=== PATIENT | male | born 1960 | race Caucasian/White ===

== ENCOUNTER → 2016-10-05 | Outpatient (CLI) | payer OTHER ==
--- NOTE | 2016-10-05 09:56 | BD ---
EXAMINATION TYPE: MG DEXA axial skeleton. DATE OF EXAM: 10/05/2016 COMPARISON: NONE CLINICAL HISTORY: M25.511 PAIN SHOULDER, M54.5 LUMBAR PAIN, E55.9 VIT D DEF. Height: 63.5 Weight: 189 FRAX RISK QUESTIONS: Alcohol (3 or more units per day): NO Family History (Parent hip fracture): NO BREAKS KNOWN Glucocorticoids (More than 3mos): NO (Ex: prednisone, prednisolone, methylprednisolone, dexamethasone, and hydrocortisone). History of Fracture in Adulthood: NONE AT 50 OR OLDER Secondary Osteoporosis: NO 1. Type 1 Diabetes: NO 2. Hyperthyroidism: NO 3. Menopause before 45: NA 4. Malnutrition: NO 5. Chronic liver disease: NO Rheumatoid Arthritis: NO BUT YES TO OSTEOARTHRITIS Current Tobacco Use: NO RISK FACTORS HISTORY OF: History of Wrist Fracture: RT WRIST AND HAND When: < 50 YRS Other Fractures since Age 50: NONE AT 50 OR OVER Family History of Osteoporosis: MATERNAL GRANDMOTHER, NO KNOWN HIP FX Drink Alcohol: SOCIAL Active: IN ACTIVITY IN LAST YR OR SO, BUT NORMALLY VERY ACTIVE Diet low in dairy products/other sources of calcium: YES Lost more than 2 inches in height since high school: POSSIBLY Adrenal Insufficiency: NO MEDICATIONS: Additional Medications: VIT D, BP MEDS, Additional History: OSTEOARTHRITIS EXAM MEASUREMENTS: Bone mineral densitometry was performed using the [employer] System. Bone mineral density as measured about the Lumbar spine is: ----- L1-L4(G/cm2): 1.473 T Score Values are as follows: ----- L1: 1.9 ----- L2: 1.8 ----- L3: 2.7 ----- L4: 3.2 ----- L1-L4: 2.4 Bone mineral density THIS IS HIS FIRST BONE DENSITY EXAM......BASELINE Bone mineral density about the R hip (g/cm2): 1.197 Bone mineral density about the L hip (g/cm2): 1.196 T Score values are as follows: -----R Neck: 0.8 -----L Neck: 0.5 -----R Total: 1.5 -----L Total: 1.5 Bone mineral density THIS IS HIS BASELINE STUDY TODAY. FRAX %'S: THERE IS A 3.4% CHANCE FOR A MAJOR OSTEOPOROTIC FX AND A 0.1% CHANCE FOR A HIP FX.....OH OBABILITY OF FX IN 10 YRS TIME IMPRESSION: Normal Range (Values between +1 and -1 indicate normal bone mass) in low back and both hips. Conside r repeating this study in 5 years or sooner if there is some new clinical indication. NOTE: T-SCORE=SD OF THE YOUNG ADULT MEAN.
== END | disposition home or self-care (01) ==
LOC: RADBDWWP 08:16
PROVIDERS: ATTEND Family Medicine
DX: M25.511 Pain in right shoulder (principal); M54.5 Low back pain; E55.9 Vitamin D deficiency, unspecified
CPT/HCPCS: 77080

== ENCOUNTER 2018-02-06 08:54 | Emergency (ER) | payer OTHER ==
[2018-02-06 09:11] VITALS: RESP 18
--- NOTE | 2018-02-06 09:50 | XR ---
EXAMINATION TYPE: XR shoulder complete LT , 3 VIEWS DATE OF EXAM ORDERED: 02/06/2018 HISTORY: Pain. COMPARISON: None. FINDINGS: There are hypertrophic changes in the left AC joint. No fracture, dislocation or other acu te osseous lesion is seen. IMPRESSION: 1. NO ACUTE OSSEOUS LESION. 2. DEGENERATIVE CHANGE, LEFT AC JOINT.
--- NOTE | 2018-02-06 09:50 | XR ---
EXAMINATION TYPE: XR cervical spine comp , 5 VIEWS DATE OF EXAM ORDERED: 02/06/2018 HISTORY: Pain. COMPARISON: None. FINDINGS: Vertebral body height and alignment are maintained. Prevertebral soft tissues are normal. Atlantoaxial relationships are unremarkable. The intervertebral foramina are widely patent. There may be some minimal disc space loss at C5-6. IMPRESSION: 1. NO ACUTE OSSEOUS LESION. 2. MINIMAL DEGENERATIVE CHANGE.
--- NOTE | 2018-02-06 09:51 | XR ---
EXAMINATION TYPE: XR elbow complete LT , 3 VIEWS DATE OF EXAM ORDERED: 02/06/2018 HISTORY: Pain. COMPARISON: Previous study dated 01/21/2016. FINDINGS: No fracture, dislocation or joint effusion is seen. There are degenerative changes present in the trochlear ulnar joint. IMPRESSION: 1. NO ACUTE OSSEOUS LESION. 2. DEGENERATIVE CHANGE.
--- NOTE | 2018-02-06 09:59 | ED ---
Upper Extremity HPI - General Chief Complaint: Extremity Injury, Upper Stated Complaint: [facility]-Shoulder/Elbow Pain Time Seen by Provider: 02/06/18 09:15 Source: patient, RN notes reviewed Mode of arrival: ambulatory Limitations: no limitations - History of Present Illness Initial Comments: 57-year-old male presents emergency Department for left shoulder, elbow and neck discomfort. Patient states started after lifting percentiles and I don't wall yesterday. Patient states his happened at work. Patient states that he has had worsening pain over made. Patient denies any weakness denies any paresthesias at this time. Patient states she's had similar issues in the past in which she had physical therapy for. Denies any chest pain or shortness of breath. Patient states he took some ibuprofen prior arrival and has helped some. - Related Data Home Medications Medication Instructions Recorded Confirmed Hydrochlorothiazide [Hydrodiuril] 25 mg PO DAILY 02/06/18 02/06/18 Ibuprofen [Motrin Ib] 600 mg PO Q6H PRN 02/06/18 02/06/18 Lisinopril 40 mg PO BID 02/06/18 02/06/18 Magnesium 200 mg PO DAILY 02/06/18 02/06/18 [place]-3 Fatty Acids/Fish Oil [Fish 1 cap PO DAILY 02/06/18 02/06/18 Oil 1,000 mg Softgel] Previous Rx's Medication Instructions Recorded Cyclobenzaprine [Flexeril] 10 mg PO TID PRN #15 tab 02/06/18 predniSONE 50 mg PO DAILY #5 tab 02/06/18 Allergies Allergy/AdvReac Type Severity Reaction Status Date / Time No Known Allergies Allergy Verified 02/06/18 09:48 Review of Systems ROS Statement: Those systems with pertinent positive or pertinent negative responses have been documented in the HPI. ROS Other: All systems not noted in ROS Statement are negative. Past Medical History Past Medical History: Hypertension Additional Past Medical History / Comment(s): pyloric stenosis History of Any Multi-Drug Resistant Organisms: None Reported Past Surgical History: Tonsillectomy Additional Past Surgical History / Comment(s): Right shoulder rotator cuff repair, cyst removal, wisdom teeth Past Psychological History: No Psychological Hx Reported Smoking Status: Never smoker Past Alcohol Use History: Occasional Past Drug Use History: None Reported General Exam Limitations: no limitations General appearance: alert, in no apparent distress Head exam: Present: atraumatic, normocephalic, normal inspection Neck exam: Present: normal inspection, tenderness (Mild left cervical paraspinal tenderness over the left trapezius region), full ROM. Absent: meningismus, lymphadenopathy Respiratory exam: Present: normal lung sounds bilaterally. Absent: respiratory distress, wheezes, rales, rhonchi, stridor Cardiovascular Exam: Present: regular rate, normal rhythm, normal heart sounds. Absent: systolic murmur, diastolic murmur, rubs, gallop, clicks Extremities exam: Present: other (Decreased range of motion to left shoulder and left elbow secondary to pain. He is neurovascularly intact radial pulses equal bilaterally Refill less than 2 seconds. Patient has equal film waxer strength.) Skin exam: Present: warm, dry, intact Course Vital Signs 02/06/18 09:05 Temperature 97.9 F Pulse Rate 73 Respiratory 18 Rate Blood Pressure 111/71 O2 Sat by Pulse 97 Oximetry Medical Decision Making - Medical Decision Making 57-year-old male presents emergency Department for left shoulder elbow and neck discomfort. This appears to be related to a strain. Patient may have some cervical The type symptoms. Patient we treated conservatively at this time with follow-up with [facility]. Patient will restrict on lifting his left arm and return for any worsening symptoms. Disposition Clinical Impression: Cervical radiculopathy, Left shoulder strain Disposition: HOME SELF-CARE Condition: Stable Instructions: Cervical Radiculopathy (ED) Additional Instructions: Please return to the Emergency Department if symptoms worsen or any other concerns. Prescriptions: Cyclobenzaprine [Flexeril] 10 mg PO TID PRN #15 tab PRN Reason: Muscle Spasm predniSONE 50 mg PO DAILY #5 tab Is patient prescribed a controlled substance at d/c from ED?: No Referrals: Tom Sandy DO [Primary Care Provider] - 1-2 days Time of Disposition: 10:02
[2018-02-06] MEDS ORDERED: ACET/COD 300 MG/30 MG STARTER PACK 6 TAB BTL PO STA (10:03)
[2018-02-06 10:43] VITALS: BP 118/70; PULSE 67; TEMP 98.1
== END 2018-02-06 10:43 | disposition home or self-care (01) ==
LOC: EC 08:54
DX: S46.912A Strain of unspecified muscle, fascia and tendon at shoulder and upper arm level, left arm, initial encounter (principal); M54.12 Radiculopathy, cervical region; M25.522 Pain in left elbow; I10 Essential (primary) hypertension; Z79.899 Other long term (current) drug therapy; X50.0XXA Overexertion from strenuous movement or load, initial encounter; Y92.69 Other specified industrial and construction area as the place of occurrence of the external cause; Y99.0 Civilian activity done for income or pay
CPT/HCPCS: 72050; 99283

== ENCOUNTER → 2018-02-24 | Outpatient (CLI) | payer OTHER ==
--- NOTE | 2018-02-24 07:23 | MR ---
MRI CERVICAL SPINE: CLINICAL HISTORY: Sprain of cervical spine per order. Headache with neck pain for 2.5 weeks after lif ting injury causing pain or weakness into left arm per patient. TECHNIQUE: Multiplanar, multisequence imaging of the cervical spine is performed without IV contrast. COMPARISON: Cervical spine x-ray February 06, 2018. FINDINGS: Sagittal images of the cervical spine show the craniocervical junction to appear within nor mal limits. The cervical and upper thoracic spinal cord is normal in course, caliber, and signal. V ertebral alignment is anatomic. There is mild disc space narrowing C5-C6 level. The vertebral body a nd intravertebral disk heights otherwise are normal. Posterior disc herniations are seen effacing ant erior thecal sac at C5-C6 and C6-C7 level on sagittal images. The bone marrow signal intensity is wit hin normal limits. No significant spurring is present. There is fairly severe mucosal thickening invo lving right maxillary sinus sagittal image 12, cannot exclude dependent fluid. There is mild mucosal thickening involving left sphenoid sinus. Axial images show the C2-C3 level to appear within normal limits. Axial images at C3-C4 level show left-sided uncovertebral facet degenerative changes causing mild lef t-sided neural foraminal narrowing. Right-sided neural foramen is patent. Axial images at C4-C5 level show some uncovertebral facet degenerative changes bilaterally causing mi ld bilateral neural foraminal narrowing. There is central disc protrusion mildly effacing anterior th ecal sac. Axial images at C5-C6 level show more prominent right paracentral broad-based disc protrusion effacin g anterior thecal sac up to ventral surface of spinal cord axial image 22 and causing asymmetric mild to moderate left-sided neural foraminal narrowing. Right-sided neural foramen is patent. Axial images at C6-C7 level show more focal central disc protrusion with increased signal posteriorly consistent with annular tear axial image 15. There is slightly more prominent right paracentral comp onent effacing anterior thecal sac. Left-sided neural foramen is mildly narrow. Right-sided neural fo ramen is patent. Axial images at C7-T1 level are felt within normal limits. IMPRESSION: Multilevel degenerative changes in cervical spine most prominent at C5-C6 and C6-C7 level as detailed above. Possible acute on chronic right sphenoid sinus disease. Correlate clinically.
== END | disposition home or self-care (01) ==
LOC: RADMRIMAIN 06:33
PROVIDERS: ATTEND Emergency Medicine
DX: M47.812 Spondylosis without myelopathy or radiculopathy, cervical region (principal); S43.402A Unspecified sprain of left shoulder joint, initial encounter; M25.522 Pain in left elbow; R20.9 Unspecified disturbances of skin sensation
CPT/HCPCS: 72141

== ENCOUNTER 2018-12-06 06:44 | Day surgery (SDC) | payer MEDICARE, OTHER ==
[2018-12-01 11:10] VITALS: BMI 31.2
[~2018-12-06 06:44] MED LIST: LACTATED RINGERS 1,000 ML IV SCH; LIDOCAINE 1% 20 ML VIAL (10MG/ML) FOR IV START INTRADERMA PRN
[2018-12-06 07:01] VITALS: RESP 16; TEMP 98
[2018-12-06] MEDS ORDERED: PROPOFOL 10 MG/ML 20 ML VIAL IV ONE (07:41)
--- NOTE | 2018-12-06 07:59 | P.GSHP ---
History of Present Illness H&P Date: 12/06/18 Chief Complaint: Internal and external hemorrhoids This a 58-year-old male referred laparoscopic filmy. Patient presents today for colonoscopy. He's had issues with internal/external hemorrhoids. Patient's had complaints of anal pain itching of bleeding. Past Medical History Past Medical History: GERD/Reflux, Hyperlipidemia, Hypertension, Osteoarthritis (OA) Additional Past Medical History / Comment(s): hiatal hernia, gout, History of Any Multi-Drug Resistant Organisms: None Reported Past Surgical History: Orthopedic Surgery, Tonsillectomy Additional Past Surgical History / Comment(s): claude shoulder rotator cuff repair, cyst removal rt wrist, oral surgery , surgery for pyloric stenosis as Past Anesthesia/Blood Transfusion Reactions: No Reported Reaction Smoking Status: Never smoker - Past Family History Mother Family Medical History: No Reported History Medications and Allergies Home Medications Medication Instructions Recorded Confirmed Type Hydrochlorothiazide [Hydrodiuril] 25 mg PO DAILY 02/06/18 12/06/18 History Lisinopril 40 mg PO BID 02/06/18 12/06/18 History Cholecalciferol (Vitamin D3) 5,000 unit PO DAILY 12/01/18 12/06/18 History [Vitamin D3] Fenofibrate Nanocrystallized 145 mg PO DAILY 12/01/18 12/06/18 History [Fenofibrate] Pravastatin Sodium 80 mg PO DAILY 12/01/18 12/06/18 History Rosuvastatin Calcium [Crestor] 40 mg PO DAILY 12/01/18 12/06/18 History Allergies Allergy/AdvReac Type Severity Reaction Status Date / Time No Known Allergies Allergy Verified 12/01/18 11:01 Surgical - Exam Vital Signs Temp Pulse Resp BP Pulse Ox 98.0 F 77 16 112/64 95 12/06/18 06:59 12/06/18 06:59 12/06/18 06:59 12/06/18 06:59 12/06/18 06:59 - General well developed, well nourished, no distress - Eyes PERRL - ENT normal pinna - Neck no masses - Respiratory normal expansion - Cardiovascular Rhythm: regular - Abdomen Abdomen: soft, non tender Assessment and Plan Assessment: Internal and external hemorrhoids We'll perform colonoscopy.
--- NOTE | 2018-12-06 08:12 | P.OP ---
Date of Procedure: 12/06/18 Preoperative Diagnosis: Internal and external hemorrhoids Postoperative Diagnosis: Internal and external hemorrhoids Diverticulosis Procedure(s) Performed: Colonoscopy Anesthesia: MAC Surgeon: Ag Castillo Pathology: none sent Condition: stable Disposition: PACU Description of Procedure: The patient's placed on the endoscopy table in the lateral position. He received IV sedation. Digital rectal exam was performed which revealed internal and external hemorrhoids. The flexible colonoscope then placed patient anus passed throughout the entire colon. The ileocecal valve was visualized. The cecum, ascending and transverse colon appeared normal. In the descending and sigmoid colon there is moderate diverticular changes. Scope was then brought back the rectum and this appeared normal. Scope was then brought back through the anus and internal and external hemorrhoids are noted. There is no evidence of any GI bleed.
[2018-12-06 08:32] VITALS: BP 92/57; PULSE 71
== END 2018-12-06 08:44 | disposition home or self-care (01) ==
LOC: ORWHC2ENDO 06:44
PROVIDERS: ATTEND Surgery
DX: K64.4 Residual hemorrhoidal skin tags (principal); K64.8 Other hemorrhoids; K57.30 Diverticulosis of large intestine without perforation or abscess without bleeding; I10 Essential (primary) hypertension; E78.5 Hyperlipidemia, unspecified; K21.9 Gastro-esophageal reflux disease without esophagitis; M19.90 Unspecified osteoarthritis, unspecified site; Z79.899 Other long term (current) drug therapy
CPT/HCPCS: 45378; J2704

== ENCOUNTER 2022-04-22 11:05 | Inpatient (IN) | payer MEDICARE, OTHER ==
--- NOTE | 2022-04-22 12:02 | XR ---
EXAMINATION TYPE: XR chest 2V DATE OF EXAM: 04/22/2022 COMPARISON: None HISTORY: 61-year-old male with chest pain TECHNIQUE: PA and lateral views FINDINGS: Low lung volumes. Heart upper limits of normal in size. Strandy densities in the lower lungs suggesti ng atelectasis. No brenda consolidation or pleural effusion. IMPRESSION: Hypoventilatory changes with strandy atelectasis in the lower lungs. Otherwise, no definite acute pro cess.
--- NOTE | 2022-04-22 12:08 | ED ---
General Adult HPI - General Chief complaint: Chest Pain Stated complaint: chest pain Time Seen by Provider: 04/22/22 11:20 Source: patient, family, RN notes reviewed Mode of arrival: ambulatory Limitations: no limitations - History of Present Illness Initial comments: Patient is a 61-year-old presenting to the emergency room with complaints of chest pain which is banded across the lower portion of his chest. He reports it feels as though someone is sitting on his chest. He reports that this banded pain has been ongoing for several days however it intensified within the last 24-48 hours. He is also complaining of associated diaphoresis with similar onset of the chest pain intensity. He reports that taking in a deep breath makes the pain worse. He is also complaining of lower back pain. He reports that he has severe pain in his left leg which is "shooting out of his left leg throughout his entire body." He also reports nausea without vomiting and shortness of breath with minimal exertion. He denies any lower extremity edema, orthopnea, headache, dizziness, fevers or chills. He recently was started on methotrexate for rheumatoid arthritis. In addition to his rheumatoid arthritis history he has a past medical history significant for hypertension, hyperlipidemia, GERD and gout. - Related Data Home Medications Medication Instructions Recorded Confirmed hydroCHLOROthiazide [Hydrodiuril] 25 mg PO DAILY 02/06/18 05/01/22 lisinopriL 40 mg PO BID 02/06/18 05/01/22 Cbd/Thc Gummies 1 tab PO HS 04/22/22 05/01/22 Cholecalciferol [Vitamin D3 (125 125 mcg PO DAILY 04/22/22 05/01/22 Mcg = 5000 Iu)] allopurinoL [Zyloprim] 100 mg PO DAILY 04/22/22 05/01/22 Fluticasone Nasal [place] [Flonase 1 spray INTRANASAL DAILY 05/01/22 05/01/22 Nasal [place]] Previous Rx's Medication Instructions Recorded Acetaminophen Tab [Tylenol] 650 mg PO Q6H #30 tab 04/27/22 HYDROmorphone [Dilaudid] 4 mg PO Q6H PRN 3 Days #12 tab 04/27/22 Allergies Allergy/AdvReac Type Severity Reaction Status Date / Time sulfamethoxazole Allergy Nausea Verified 05/01/22 15:21 [From Bactrim] tramadol Allergy Rash/Hives Verified 05/01/22 15:21 trimethoprim [From Bactrim] Allergy Nausea Verified 05/01/22 15:21 Review of Systems ROS Statement: Those systems with pertinent positive or pertinent negative responses have been documented in the HPI. ROS Other: All systems not noted in ROS Statement are negative. Past Medical History Past Medical History: GERD/Reflux, Hyperlipidemia, Hypertension, Osteoarthritis (OA) Additional Past Medical History / Comment(s): hiatal hernia, gout, History of Any Multi-Drug Resistant Organisms: None Reported Past Surgical History: Orthopedic Surgery, Tonsillectomy Additional Past Surgical History / Comment(s): claude shoulder rotator cuff repair, cyst removal rt wrist, oral surgery , surgery for pyloric stenosis as infant Past Anesthesia/Blood Transfusion Reactions: No Reported Reaction Past Psychological History: No Psychological Hx Reported Smoking Status: Never smoker Past Alcohol Use History: Daily Past Drug Use History: Marijuana - Past Family History Mother Family Medical History: No Reported History General Exam - General Exam Comments Initial Comments: GENERAL: No acute distress, well developed, well nourished. HEENT: Normocephalic, atraumatic. Pupils equal, round, reactive to light. Moist mucous membranes. Left sided cervical lymphadenopathy. LUNGS: No respiratory distress. Clear to auscultation, no adventitious sounds, no use of accessory muscles. HEART: Regular rate and rhythm without murmur, rub, or gallop. ABDOMEN: Normal bowel sounds. Soft, non-distended. Rounded abdomen. RUQ tenderness EXTREMITIES: No edema. No point tenderness. Moves all extremities. NEUROLOGIC: Alert & oriented x 3. CN II-XII grossly intact. PSYCHIATRIC: Normal affect and behavior. DERMATOLOGIC: Skin intact, without rashes or lesions noted. Limitations: no limitations Course Vital Signs 04/22/22 04/22/22 04/22/22 11:10 16:48 20:25 Temperature 97.6 F Pulse Rate 95 91 101 H Pulse Rate [ Left] Respiratory 18 16 18 Rate Blood Pressure 124/75 129/83 136/89 Blood Pressure [Left Arm] O2 Sat by Pulse 97 99 95 Oximetry 04/22/22 20:57 Temperature 98.1 F Pulse Rate Pulse Rate [ 105 H Left] Respiratory 17 Rate Blood Pressure Blood Pressure 145/92 [Left Arm] O2 Sat by Pulse 95 Oximetry Medical Decision Making - Medical Decision Making Was pt. sent in by a medical professional or institution (Dr., PA, YARD COORDINATOR, urgent care, hospital, or [facility]...) When possible be specific @ -No Did you speak to anyone other than the patient for history (EMS, parent, family, police, friend...)? What history was obtained from this source @ -No Did you review nursing and triage notes (agree or disagree)? Why? @ -I reviewed and agree with nursing and triage notes except pain also in the upper band of abdominal region Were old charts reviewed (outside hosp., previous admission, EMS record, old EKG, old radiological studies, urgent care reports/EKG's, [facility] records)? Report findings @ -No old charts were reviewed Differential Diagnosis (chest pain, altered mental status, abdominal pain women, abdominal pain men, vaginal bleeding, weakness, fever, dyspnea, syncope, hea dache, dizziness, GI bleed, back pain, seizure, CVA, palpatations, mental health)? @ -Differential Chest Pain: Stable Angina, Unstable Angina, STEMI, NSTEMI Aortic Dissection, Pneumothorax, Musculoskeletal, Esophageal Spasm GERD, Cholecystitis, Pancreatitis, Zoster, this is not meant to be an all-inclusive list. Differential Abdominal Pain Men: Appendicitis, cholecystitis, diverticulosis, ischemic bowel, pancreatitis, hepatitis, UTI, gastroenteritis, AAA, incarcerated hernia, bowel obstruction, constipation, inflammatory bowel, hepatitis, peptic ulcer disease, splenic infarction, perforated viscus, testicular torsion, this is not meant to be an all-inclusive list EKG interpreted by me (3pts min.). @ -Sinus rhythm, probable old anterior infarct, probable old inferior infarct no comparison available, ventricular rate 92 bpm, MD interval 153 ms, QRS duration 90 ms, QT/QTC 324/374 ms, PRT axes 24, -2, 0 X-rays interpreted by me (1pt min.). @ -Chest x-ray demonstrates low lung volumes no consolidation or mass noted. CT interpreted by me (1pt min.). @ -CT of the abdomen and pelvis demonstrates significant hepatomegaly with irregular lesion to the anterior mid liver increase fluid levels in the abdomen concern for ileus versus enteritis. U/S interpreted by me (1pt. min.). @ -None done What testing was considered but not performed or refused? (CT, X-rays, U/S, labs)? Why? @ -None What meds were considered but not given or refused? Why? @ -None Did you discuss the management of the patient with other professionals (professionals i.e. , PA, YARD COORDINATOR, lab, RT, psych nurse, social media sr strategy manager, ammunition and explosives handler, teacher, tax compliance officer, pillowcase folder)? Give summary @ -Case discussed disc with Dr. Elizabeth with [facility] in regards to recommendation for hospitalization for further evaluation and treatment of symptomatology. He is accepting of admission and request consults to GI to be placed Was smoking cessation discussed for >3mins.? @ -No Was critical care preformed (if so, how long)? @ -No Were there social determinants of health that impacted care today? How? (Homelessness, low income, unemployed, alcoholism, drug addiction, transportation, low edu. Level, literacy, decrease access to med. care, [facility], rehab)? @ -No Was there de-escalation of care discussed even if they declined (Discuss DNR or withdrawal of care, Hospice)? DNR status @ -No What co-morbidities impacted this encounter? (DM, HTN, Smoking, COPD, CAD, Cancer, CVA, ARF, Chemo, Hep., AIDS, mental health diagnosis, sleep apnea, morb id obesity)? @ -Hypertension, hyperlipidemia and rheumatoid arthritis Was patient admitted / discharged? Hospital course, mention meds given and route, prescriptions, significant lab abnormalities, going to OR and other pertinent info. @ -Patient with multiple complaints and concerns including atypical chest pain abdominal pain and muscle pain with recent methotrexate start for rheumatoid arthritis. Will start workup for chest pain along with abdominal pain with EKG, chest x-ray, CMP, magnesium, coags, CBC, CK, sed rate, CRP, urinalysis along with viral swabs for COVID, influenza and RSV. EKG demonstrates sinus rhythm with no acute changes. Chest x-ray with decreased lung volumes significant consolidation or mass noted CBC revealed anemia with borderline leukocytosis and elevated neutrophil count. Coags normal. CMP revealed elevated BUN at 23 creatinine low at 0.6 bilirubin elevated at 1.5 a LT elevated at 96 alk phos elevated at 366 CK normal, troponin normal, magnesium normal CRP and sed rate both elevated due to elevation of liver and abdominal enzymes will check CT of the abdomen and pelvis. Will give IV fluid bolus for elevated BUN and morphine for pain. Viral swabs negative for Covid, RSV influenza, urinalysis with trace ketones otherwise normal. Pain improved with morphine. CT of the abdomen with significant abnormalities as indicated above along with radiologist report reviewed noting concerning enlarged lymph nodes in the right pericardiac region, possible gallbladder nodule, multifocal patchy irregular soft tissue densities along the inferior perirenal space and extending downward into the lower retrope ritoneum bilaterally involving the the left renal sinus and proximal to the mid left ureter concerning for neoplasm and diverticulosis without diverticulitis. Acute hepatitis panel added to laboratory studies in the setting of hepatomegaly noted. Pain improved with morphine. Findings discussed at length with patient and spouse. Recommend admission for pain control, monitoring of abdominal symptoms and further workup of hepatomegaly and possible malignancy. Both are agreeable to admission. Spoke with Dr. Frey on thumb with [facility] regarding presentation, workup and recommendation for admission for further evaluation and treatment. He is accepting of admission requesting GI consult. Will place GI consult no further orders received at this time. Will admit patient to [facility] in stable condition for further evaluation and treatment of hepatomegaly, ileus and atypical chest pain. Undiagnosed new problem with uncertain prognosis? @ -Hepatomegaly and lymphadenopathy Drug Therapy requiring intensive monitoring for toxicity (Heparin, Nitro, Insulin, Cardizem)? @ -No Were any procedures done? @ -No Diagnosis/symptom? @ -Abdominal pain possible ileus Acute, or Chronic, or Acute on Chronic? @ -Acute Uncomplicated (without systemic symptoms) or Complicated (systemic symptoms)? @ -Complicated Side effects of treatment? @ -none Exacerbation, Progression, or Severe Exacerbation] @ -no Poses a threat to life or bodily function? @ -yes Diagnosis/symptom? @ -Hepatomegaly Acute, or Chronic, or Acute on Chronic? @ -Likely chronic Uncomplicated (without systemic symptoms) or Complicated (systemic symptoms)? @ -Complicated Side effects of treatment? @ -none Exacerbation, Progression, or Severe Exacerbation] @ -no Poses a threat to life or bodily function? @ -Yes Diagnosis/symptom? @ -Atypical chest pain Acute, or Chronic, or Acute on Chronic? @ -Acute Uncomplicated (without systemic symptoms) or Complicated (systemic symptoms)? @ -Complicated Side effects of treatment? @ -No Exacerbation, Progression, or Severe Exacerbation? @ -No Poses a threat to life or bodily function? How? (Chest pain, [place], [place], pneumonia, PE, COPD, DKA, ARF, appy, cholecystitis, CVA, Diverticulitis, Homicidal, Suicidal, threat to staff... and all critical care pts) @ -Yes Case discussed with Dr. Zapata. - Lab Data Result diagrams: 04/23/22 08:13 04/24/22 06:05 Lab Results 04/22/22 04/22/22 04/22/22 Range/Units 11:45 11:45 11:45 WBC 10.4 (3.8-10.6) k/uL RBC 4.41 (4.30-5.90) m/uL Hgb 12.7 L (13.0-17.5) gm/dL Hct 38.8 L (39.0-53.0) % MCV 88.0 (80.0-100.0) fL MCH 28.7 (25.0-35.0) pg MCHC 32.6 (31.0-37.0) g/dL RDW 15.8 H (11.5-15.5) % Plt Count 360 (150-450) k/uL MPV 7.8 Neutrophils % 81 % Lymphocytes % 10 % Monocytes % 7 % Eosinophils % 0 % Basophils % 1 % Neutrophils # 8.4 H (1.3-7.7) k/uL Lymphocytes # 1.0 (1.0-4.8) k/uL Monocytes # 0.7 (0-1.0) k/uL Eosinophils # 0.0 (0-0.7) k/uL Basophils # 0.1 (0-0.2) k/uL Hypochromasia Slight ESR (0-15) mm/hr PT 10.5 (9.0-12.0) sec INR 1.0 (<1.2) APTT 22.4 (22.0-30.0) sec Sodium 137 (137-145) mmol/L Potassium 4.6 (3.5-5.1) mmol/L Chloride 104 (98-107) mmol/L Carbon Dioxide 23 (22-30) mmol/L Anion Gap 10 mmol/L BUN 23 H (9-20) mg/dL Creatinine 0.61 L (0.66-1.25) mg/dL Est GFR (CKD-EPI)AfAm >90 (>60 ml/min/1.73 sqM) Est GFR (CKD-EPI)NonAf >90 (>60 ml/min/1.73 sqM) Glucose 69 L (74-99) mg/dL Calcium 9.2 (8.4-10.2) mg/dL Magnesium 1.6 (1.6-2.3) mg/dL Total Bilirubin 1.5 H (0.2-1.3) mg/dL AST 44 (17-59) U/L ALT 96 H (4-49) U/L Alkaline Phosphatase 366 H (38-126) U/L CK-MB (CK-2) (0.0-2.4) ng/mL Troponin I (0.000-0.034) ng/mL C-Reactive Protein (<1.0) mg/dL Total Protein 6.0 L (6.3-8.2) g/dL Albumin 3.4 L (3.5-5.0) g/dL Urine Color Urine Appearance (Clear) Urine pH (5.0-8.0) Ur Specific [place] (1.001-1.035) Urine Protein (Negative) Urine Glucose (UA) (Negative) Urine Ketones (Negative) Urine Blood (Negative) Urine Nitrite (Negative) Urine Bilirubin (Negative) Urine Urobilinogen (<2.0) mg/dL Ur Leukocyte Esterase (Negative) Influenza Type A (PCR) (Not Detectd) Influenza Type B (PCR) (Not Detectd) RSV (PCR) (Not Detectd) SARS-CoV-2 (PCR) (Not Detectd) 04/22/22 04/22/22 04/22/22 Range/Units 11:45 11:45 11:45 WBC (3.8-10.6) k/uL RBC (4.30-5.90) m/uL Hgb (13.0-17.5) gm/dL Hct (39.0-53.0) % MCV (80.0-100.0) fL MCH (25.0-35.0) pg MCHC (31.0-37.0) g/dL RDW (11.5-15.5) % Plt Count (150-450) k/uL MPV Neutrophils % % Lymphocytes % % Monocytes % % Eosinophils % % Basophils % % Neutrophils # (1.3-7.7) k/uL Lymphocytes # (1.0-4.8) k/uL Monocytes # (0-1.0) k/uL Eosinophils # (0-0.7) k/uL Basophils # (0-0.2) k/uL Hypochromasia ESR 62 H (0-15) mm/hr PT (9.0-12.0) sec INR (<1.2) APTT (22.0-30.0) sec Sodium (137-145) mmol/L Potassium (3.5-5.1) mmol/L Chloride (98-107) mmol/L Carbon Dioxide (22-30) mmol/L Anion Gap mmol/L BUN (9-20) mg/dL Creatinine (0.66-1.25) mg/dL Est GFR (CKD-EPI)AfAm (>60 ml/min/1.73 sqM) Est GFR (CKD-EPI)NonAf (>60 ml/min/1.73 sqM) Glucose (74-99) mg/dL Calcium (8.4-10.2) mg/dL Magnesium (1.6-2.3) mg/dL Total Bilirubin (0.2-1.3) mg/dL AST (17-59) U/L ALT (4-49) U/L Alkaline Phosphatase (38-126) U/L CK-MB (CK-2) 0.4 (0.0-2.4) ng/mL Troponin I <0.012 (0.000-0.034) ng/mL C-Reactive Protein (<1.0) mg/dL Total Protein (6.3-8.2) g/dL Albumin (3.5-5.0) g/dL Urine Color Urine Appearance (Clear) Urine pH (5.0-8.0) Ur Specific [place] (1.001-1.035) Urine Protein (Negative) Urine Glucose (UA) (Negative) Urine Ketones (Negative) Urine Blood (Negative) Urine Nitrite (Negative) Urine Bilirubin (Negative) Urine Urobilinogen (<2.0) mg/dL Ur Leukocyte Esterase (Negative) Influenza Type A (PCR) (Not Detectd) Influenza Type B (PCR) (Not Detectd) RSV (PCR) (Not Detectd) SARS-CoV-2 (PCR) (Not Detectd) 04/22/22 04/22/22 04/22/22 Range/Units 11:45 11:47 13:37 WBC (3.8-10.6) k/uL RBC (4.30-5.90) m/uL Hgb (13.0-17.5) gm/dL Hct (39.0-53.0) % MCV (80.0-100.0) fL MCH (25.0-35.0) pg MCHC (31.0-37.0) g/dL RDW (11.5-15.5) % Plt Count (150-450) k/uL MPV Neutrophils % % Lymphocytes % % Monocytes % % Eosinophils % % Basophils % % Neutrophils # (1.3-7.7) k/uL Lymphocytes # (1.0-4.8) k/uL Monocytes # (0-1.0) k/uL Eosinophils # (0-0.7) k/uL Basophils # (0-0.2) k/uL Hypochromasia ESR (0-15) mm/hr PT (9.0-12.0) sec INR (<1.2) APTT (22.0-30.0) sec Sodium (137-145) mmol/L Potassium (3.5-5.1) mmol/L Chloride (98-107) mmol/L Carbon Dioxide (22-30) mmol/L Anion Gap mmol/L BUN (9-20) mg/dL Creatinine (0.66-1.25) mg/dL Est GFR (CKD-EPI)AfAm (>60 ml/min/1.73 sqM) Est GFR (CKD-EPI)NonAf (>60 ml/min/1.73 sqM) Glucose (74-99) mg/dL Calcium (8.4-10.2) mg/dL Magnesium (1.6-2.3) mg/dL Total Bilirubin (0.2-1.3) mg/dL AST (17-59) U/L ALT (4-49) U/L Alkaline Phosphatase (38-126) U/L CK-MB (CK-2) (0.0-2.4) ng/mL Troponin I (0.000-0.034) ng/mL C-Reactive Protein 8.1 H (<1.0) mg/dL Total Protein (6.3-8.2) g/dL Albumin (3.5-5.0) g/dL Urine Color Yellow Urine Appearance Clear (Clear) Urine pH 5.5 (5.0-8.0) Ur Specific [place] 1.019 (1.001-1.035) Urine Protein Negative (Negative) Urine Glucose (UA) Negative (Negative) Urine Ketones Trace H (Negative) Urine Blood Negative (Negative) Urine Nitrite Negative (Negative) Urine Bilirubin Negative (Negative) Urine Urobilinogen <2.0 (<2.0) mg/dL Ur Leukocyte Esterase Negative (Negative) Influenza Type A (PCR) Not Detected (Not Detectd) Influenza Type B (PCR) Not Detected (Not Detectd) RSV (PCR) Not Detected (Not Detectd) SARS-CoV-2 (PCR) Not Detected (Not Detectd) - Radiology Data Radiology results: report reviewed, image reviewed Disposition Clinical Impression: Atypical chest pain, Ileus, unspecified, Abdominal pain, Hepatomegaly Disposition: ADMITTED IP TO THIS [facility] Condition: Stable Is patient prescribed a controlled substance at d/c from ED?: No Time of Disposition: 15:00
[2022-04-22 12:14] LABS: Basophils # (A) 0.1 k/uL (0-0.2); Basophils % (A) 1 %; Eosinophils % (A) 0 %; HCT 38.8 % (39.0-53.0); HGB 12.7 gm/dL (13.0-17.5); Hypochromasia Slight; Lymphocytes % (A) 10 %; MCH 28.7 pg (25.0-35.0); MCHC 32.6 g/dL (31.0-37.0); Mean Platelet Volume 7.8; Monocytes # (A) 0.7 k/uL (0-1.0); Monocytes % (A) 7 %; Neutrophils # (A) 8.4 k/uL (1.3-7.7); Neutrophils % (A) 81 %; Platelet Count 360 k/uL (150-450); RBC 4.41 m/uL (4.30-5.90); RDW 15.8 % (11.5-15.5); WBC 10.4 k/uL (3.8-10.6)
[2022-04-22 12:27] LABS: ALT 96 U/L (4-49); AST 44 U/L (17-59); African American GFR (CKD) >90 (>60 ml/min/1.73 sqM); Albumin 3.4 g/dL (3.5-5.0); Alkaline Phosphatase 366 U/L (38-126); Anion Gap 10 mmol/L; Blood Urea Nitrogen 23 mg/dL (9-20); Calcium 9.2 mg/dL (8.4-10.2); Carbon Dioxide 23 mmol/L (22-30); Chloride 104 mmol/L (98-107); Glucose 69 mg/dL (74-99); Magnesium 1.6 mg/dL (1.6-2.3); Non-African American GFR(CKD) >90 (>60 ml/min/1.73 sqM); Potassium 4.6 mmol/L (3.5-5.1); Sodium 137 mmol/L (137-145); Total Bilirubin 1.5 mg/dL (0.2-1.3)
[2022-04-22 12:39] LABS: Partial Thromboplastin Time 22.4 sec (22.0-30.0); Prothrombin Time 10.5 sec (9.0-12.0)
[2022-04-22] MEDS ORDERED: MORPHINE SULFATE 4 MG/ML SYRINGE IVP STA (12:45)
[2022-04-22] MEDS ORDERED: SODIUM CHLORIDE 0.9% 1,000 ML IV STA (13:40)
[2022-04-22 13:52] LABS: Appearance,Urine Clear (Clear); Bilirubin,Urine Negative (Negative); Blood,Urine Negative (Negative); Color,Urine Yellow; Glucose,Urine (UA) Negative (Negative); Ketones,Urine Trace (Negative); Leukocyte Esterase,Urine Negative (Negative); Nitrite,Urine Negative (Negative); PH, Urine 5.5 (5.0-8.0); Protein,Urine Negative (Negative); Specific Gravity,Urine 1.019 (1.001-1.035); Urobilinogen,Urine <2.0 mg/dL (<2.0)
--- NOTE | 2022-04-22 14:28 | CT ---
EXAMINATION TYPE: CT abdomen pelvis wo con DATE OF EXAM: 04/22/2022 COMPARISON: None HISTORY: 61-year-old male abdominal pain, elevated alkaline phosphatase levels, Epigastric abdominal pain. CT DLP: 637.3 mGycm. Automated exposure control for dose reduction was used. TECHNIQUE: Contiguous axial scanning of the abdomen and pelvis without IV contrast. Coronal and sagit gibran reconstructions performed. FINDINGS: Heart upper limits of normal in size without pericardial effusion. Prominent strandy atelectasis or s carring in the lower lungs. No pleural effusion. Liver is enlarged measuring 25.6 cm with nodular contour. Vague 1.2 cm hypodensity anterior mid liver , axial image 42. Gallbladder is nondistended but shows mural based nodularity measuring 1.6 cm along the right lateral wall. An enlarged 1.6 cm right pericardiac lymph node is noted, probably reactive. No additional mesenteric or retroperitoneal lymphadenopathy seen. No dilated small bowel or free air. No free fluid seen. Focal patchy retroperitoneal soft tissue thickening along the anterior pararenal space, left renal si nus, along the proximal to mid left ureter. No hydronephrosis or renal calculus seen on either side. Spleen is mildly enlarged at 14.3 cm measured on coronal series. Mild thickening of the left adrenal gland without discrete nodularity. Noncontrast appearance of the right adrenal gland and pancreas show no gross abnormality. Scattered fluid-filled small bowel loops in the lower abdomen and pelvis. No transition point. Normal appendix. Minimal scattered stool. Left-sided colonic diverticulosis. No pericolonic inflammatory change. Bladder nondistended. Prostate gland measures 5.4 cm wide with central calcifications. No abnormal fl uid collection in the pelvis or pelvic lymphadenopathy. Bones: Mild degenerative change at the hips. Hypertrophic facet arthropathy mid to lower lumbar spine . No osseous destructive process. IMPRESSION: 1. Pronounced hepatomegaly (25.6 cm). The nodular contour may reflect underlying cirrhosis. Appropri ate further evaluation recommended. A vague 1.2 cm lesion anterior mid liver is nonspecific. Attentio n on follow-up. 2. Possible abnormal soft tissue nodule along the right lateral wall of the gallbladder measuring 1. 6 cm. Gallbladder ultrasound to further evaluate. 3. Multifocal patchy irregular soft tissue densities along the inferior pararenal space and extendin g down along the lower retroperitoneum on both sides. Changes also involve the left renal sinus and t he proximal to mid left ureter. A neoplastic etiology including lymphoma should be excluded. Correlat e with urine cytology and possible CT urogram. 4. Some prominent fluid involving mid and lower abdominal small bowel loops. Possible mild ileus or enteritis. 5. Left-sided clonic diverticulosis without acute diverticulitis.
--- NOTE | 2022-04-22 16:55 | P.HPIM ---
History of Present Illness H&P Date: 04/22/22 Chief Complaint: chest pain Patient is a 61-year-old male with a history of rheumatoid arthritis, hypertension, dyslipidemia presenting with multiple vague symptoms. He is complaining of chest pain, diaphoresis, left leg pain, nausea. He was recently started on methotrexate for rheumatoid arthritis. He claims that most of his symptoms started around the same time he started his medications. His chest pain is mostly in the lower sternal region, radiating in a bandlike fashion across his chest. He claims that his pain is constant for the last couple of weeks, but it does ease once in a while. He occasionally notices palpitations as well. He has experienced some shortness of breath while taking deep breaths. He claims that he has lost about 10 pounds over the last 2 months. He is also noticed his pant size decreasing. He denies any jaundice. He denies any personal or family history of malignancy. He denies any smoking. He used to drink heavily 20 years ago. He denies any illicit drug use. In the ED, vital signs have been within normal limits. Laboratory workup significant for elevated ESR, CRP, elevated ALP, mild elevation and ALT. Negative influenza, RSV, COVID-19. UA was negative. Chest x-ray showed no acute process. EKG showed sinus rhythm. Abdomen/pelvis CT showed pronounced hepatomegaly, possible cirrhosis, with 1.2 cm lesion in the anterior mid liver. Also found to have abnormal soft tissue nodules along the right lateral wall of gallbladder. Multiple irregular soft tissue densities in the lower retroperito neum from both sides could possibly represent malignancy. Possible mild ileus or enteritis, left-sided colonic diverticulosis without diverticulitis. Patient seen and examined at bedside. Pertinent positives and negatives as discussed in HPI, a complete review of systems was performed and all other systems are negative. Vital signs reviewed General: nontoxic, no distress, appears at stated age Derm: warm, dry Head: atraumatic, normocephalic, symmetric Eyes: EOMI, no lid lag, anicteric sclera, pupils equal round reactive to light ENT: Nose and ears atraumatic Neck: No thyromegaly, supple, left sided lymphadenopathy Mouth: no lip lesion, mucus membranes moist Cardiovascular: S1S2 reg, no murmur, no edema Lungs: clear to auscultation bilateral, no rhonchi, no rales, no wheeze, no accessory muscle use Abdominal: soft, nontender to palpation, no guarding, hepatomegaly Ext: no gross muscle atrophy, muscle strength muscle strength 5 out of 5 in all 4 extremities, no contractures Neuro: CN II-XII grossly intact Psych: Alert, oriented, appropriate affect Assessment/Plan: Chest pain Abdominal pain Hepatomegaly Liver mass Multiple soft tissue densities on abdomen and pelvis CT Lymphadenopathy Possible mild ileus or enteritis Left-sided colonic diverticulosis Elevated inflammatory markers Transaminitis - Negative troponin, negative chest x-ray, EKG no ST-T wave changes, unlikely to be ACS - Symptoms possibly related to drug-induced liver injury versus possible malignancy, viral hepatitis also possible but patient does not have significant transaminitis - Patient currently on statin, fenofibrate, and recently started on methotrexate, we'll hold these medications - GI and oncology consulted - Supportive care Chronic medical problems: Rheumatoid arthritis Hypertension Dyslipidemia Gout -Medications reviewed and reconciled The patient is admitted with an anticipated greater than 2 midnight stay for evaluation of hepatomegaly. Surrogate decision-maker: CODE STATUS: Full code DVT prophylaxis: Lovenox Anticipated discharge date: 1-[address]: Home A total of 60 minutes was spent on the care of this complex patient more than 50% of the time was spent in counseling and care coordination. Past Medical History Past Medical History: GERD/Reflux, Hyperlipidemia, Hypertension, Osteoarthritis (OA) Additional Past Medical History / Comment(s): hiatal hernia, gout, History of Any Multi-Drug Resistant Organisms: None Reported Past Surgical History: Orthopedic Surgery, Tonsillectomy Additional Past Surgical History / Comment(s): claude shoulder rotator cuff repair, cyst removal rt wrist, oral surgery , surgery for pyloric stenosis as Past Anesthesia/Blood Transfusion Reactions: No Reported Reaction Past Psychological History: No Psychological Hx Reported Smoking Status: Never smoker Past Alcohol Use History: Daily Past Drug Use History: Marijuana - Past Family History Mother Family Medical History: No Reported History Medications and Allergies Home Medications Medication Instructions Recorded Confirmed Type hydroCHLOROthiazide [Hydrodiuril] 25 mg PO DAILY 02/06/18 04/22/22 History lisinopriL 40 mg PO BID 02/06/18 04/22/22 History Fenofibrate Nanocrystallized 145 mg PO DAILY 12/01/18 04/22/22 History [Fenofibrate] Rosuvastatin Calcium [Crestor] 40 mg PO DAILY 12/01/18 04/22/22 History Baclofen 5 - 10 mg PO TID PRN 04/22/22 04/22/22 History Cbd/Thc Gummies 1 tab PO HS 04/22/22 04/22/22 History Cholecalciferol [Vitamin D3 (125 125 mcg PO DAILY 04/22/22 04/22/22 History Mcg = 5000 Iu)] Folic Acid 1 mg PO DAILY 04/22/22 04/22/22 History allopurinoL [Zyloprim] 100 mg PO DAILY 04/22/22 04/22/22 History metHOTREXate sodium [Methotrexate] 7.5 mg PO TH 04/22/22 04/22/22 History Allergies Allergy/AdvReac Type Severity Reaction Status Date / Time sulfamethoxazole Allergy Nausea Verified 04/22/22 13:13 [From Bactrim] tramadol Allergy Rash/Hives Verified 04/22/22 13:13 trimethoprim [From Bactrim] Allergy Nausea Verified 04/22/22 13:13 Physical Exam Vitals: Vital Signs Temp Pulse Resp BP Pulse Ox 04/22/22 16:48 91 16 129/83 99 04/22/22 11:10 97.6 F 95 18 124/75 97 Intake and Output 04/22/22 04/22/22 04/22/22 06:59 14:59 22:59 Other: Weight 82.554 kg Results CBC & Chem 7: 04/22/22 11:45 04/22/22 11:45 Labs: Abnormal Lab Results - Last 24 Hours (Table) 04/22/22 04/22/22 04/22/22 Range/Units 11:45 11:45 11:45 Hgb 12.7 L (13.0-17.5) gm/dL Hct 38.8 L (39.0-53.0) % RDW 15.8 H (11.5-15.5) % Neutrophils # 8.4 H (1.3-7.7) k/uL ESR 62 H (0-15) mm/hr BUN 23 H (9-20) mg/dL Creatinine 0.61 L (0.66-1.25) mg/dL Glucose 69 L (74-99) mg/dL Total Bilirubin 1.5 H (0.2-1.3) mg/dL ALT 96 H (4-49) U/L Alkaline Phosphatase 366 H (38-126) U/L C-Reactive Protein (<1.0) mg/dL Total Protein 6.0 L (6.3-8.2) g/dL Albumin 3.4 L (3.5-5.0) g/dL Urine Ketones (Negative) 04/22/22 04/22/22 Range/Units 11:45 13:37 Hgb (13.0-17.5) gm/dL Hct (39.0-53.0) % RDW (11.5-15.5) % Neutrophils # (1.3-7.7) k/uL ESR (0-15) mm/hr BUN (9-20) mg/dL Creatinine (0.66-1.25) mg/dL Glucose (74-99) mg/dL Total Bilirubin (0.2-1.3) mg/dL ALT (4-49) U/L Alkaline Phosphatase (38-126) U/L C-Reactive Protein 8.1 H (<1.0) mg/dL Total Protein (6.3-8.2) g/dL Albumin (3.5-5.0) g/dL Urine Ketones Trace H (Negative)
[2022-04-22 20:11] LABS: Glucose,Whole Blood 100 mg/dL (70-110)
[2022-04-22] MEDS ORDERED: MORPHINE SULFATE 2 MG/ML SYRINGE IVP STA (21:23)
[2022-04-22] MEDS: lisinopriL 20 MG TAB PO SCH (21:47)
[2022-04-22 22:47] LABS: Hepatitis A Antibody IgM Nonreactive (Nonreactive); Hepatitis B Core IgM Nonreactive (Nonreactive); Hepatitis B Surface Antigen Nonreactive (Nonreactive); Hepatitis C IgG Antibody Nonreactive (Nonreactive)
[2022-04-23 06:23] LABS: Glucose,Whole Blood 63 mg/dL (70-110)
[2022-04-23 07:59] LABS: Glucose,Whole Blood 113 mg/dL (70-110)
[2022-04-23] MEDS: allopurinoL 100 MG TAB PO SCH (08:49)
[2022-04-23] MEDS: FOLIC ACID 1 MG TAB PO SCH (08:49)
[2022-04-23] MEDS: ENOXAPARIN 40 MG/0.4 ML SYRINGE SQ SCH (08:49)
[2022-04-23] MEDS: CHOLECALCIFEROL 125 MCG (5000 IU) TABLET PO SCH (08:49)
[2022-04-23] MEDS: lisinopriL 20 MG TAB PO SCH ×2 (08:49→20:25)
[2022-04-23] MEDS: hydroCHLOROthiazide 25 MG TAB PO SCH (08:49)
[2022-04-23] MEDS ORDERED: KETOROLAC 15 MG/ML 1 ML VIAL IVP STA (09:41)
[2022-04-23] MEDS: ACETAMINOPHEN TAB 325 MG TAB PO PRN ×2 (10:16→15:28)
[2022-04-23 11:01] LABS: HCT 38.9 % (39.6-50.0); HGB 12.1 g/dL (13.0-17.0); MCHC 31.1 g/dL (32.0-37.0); Mean Platelet Volume 9.9 fL (9.5-12.2); NRBC Per 100 WBC 0 /100 WBCS (0.0-0.0); Platelet Count 325 X 10*3/uL (140-440); RBC 4.32 X 10*6/uL (4.40-5.60); RDW 16.9 % (11.5-14.5); WBC 7.93 X 10*3/uL (4.50-10.00)
[2022-04-23 11:26] LABS: African American GFR (CKD) 124.8 (60.0-200.0); Albumin 3.4 g/dL (3.8-4.9); Albumin/Globulin Ratio 1.63 (1.60-3.17); Anion Gap 16.1 mmol/L (10.00-18.00); BUN/Creat Ratio 28.44 Ratio (12.00-20.00); Calcium 9.1 mg/dL (8.7-10.3); Carbon Dioxide 22.4 mmol/L (20.0-27.5); Globulin 2.1 g/dL (1.6-3.3); Non-African American GFR(CKD) 107.7 (60.0-200.0); Potassium 4.9 mmol/L (3.5-5.5); Total Bilirubin 1.3 mg/dL (0.30-1.20); Total Protein 5.5 g/dL (6.2-8.2)
--- NOTE | 2022-04-23 11:41 | CT ---
EXAMINATION TYPE: CT ChestAbdPelvis w con CT DLP: 1218 mGycm, Automated exposure control for dose reduction was used. DATE OF EXAM: 04/23/2022 11:06 AM COMPARISON: CT abdomen and pelvis 04/22/2022. CLINICAL INDICATION:Male, 61 years old with history of hepatomegaly, liver lesion and gallbladder nod ule; PHH, r/o lymphoma Technique: Multiple axial images of the chest, abdomen, and pelvis were obtained following the intrav enous administration of 60 mL Isovue-300. Two-dimensional coronal and sagittal reconstructions were o btained. Findings: CHEST: LUNGS/ PLEURA: No pleural effusion, pneumothorax, or focal consolidation. Suspicious pulmonary nodule s or masses. Right lower lobe scarring and/or atelectasis. AIRWAY: Patent and unremarkable.. HEART: Size within normal limits. No pericardial effusion. MEDIASTINUM: Nonspecific 9 mm prevascular space soft tissue nodule (series 201, image 16). No other e vidence for hilar or mediastinal adenopathy. VASCULATURE: No aortic aneurysm. MUSCULOSKELETAL: No acute osseous abnormalities. Nonaggressive osseous lesion. SOFT TISSUES/LYMPH NODES: Unremarkable. LOWER NECK: No significant findings. ABDOMEN: ABDOMEN LIVER: Symmetrically enlarged liver with innumerable bilobar hyperdense lesions. GALLBLADDER AND BILE DUCTS: There is mural nodularity within the gallbladder measuring up to 0.8 cm i n thickness. No biliary duct dilatation. PANCREAS: Unremarkable. SPLEEN: Enlarged measuring 14.3 cm in cranial caudal dimension. At least one hypodense lesion identif ied measuring up to 3.0 cm ADRENAL GLANDS: Unremarkable right adrenal gland. Mild thickening of the left adrenal gland with ques tionable nodule versus adjacent lymph node measuring up to 7 mm.. KIDNEYS AND URETERS: No hydronephrosis. Contrast demonstrated within both collecting systems which li mits evaluation for renal calculi. Minimal right perinephric stranding identified. There is abnormal soft tissue within the left renal pelvis measuring up to 2.6 cm (series 201, image 73). Additional ab normal soft tissue demonstrated just inferior to both kidneys and along the left iliopsoas muscle ext ending down the left ureter. This appears to encase the left ureter. PELVIS BLADDER: Incompletely distended but grossly unremarkable. REPRODUCTIVE: Mild prominent size prostate gland measuring 4.7 cm in transverse dimension. Coarse zeke tral calcifications identified in the prostate gland. ABDOMEN & PELVIS STOMACH AND BOWEL: Stomach and duodenum are unremarkable. Distal colonic diverticulosis without evide nce for acute diverticulitis. No evidence of bowel obstruction. PERITONEUM/RETROPERITONEUM: No evidence of pneumoperitoneum and trace perihepatic free fluid. Soft ti ssue nodularity along the posterior right pararenal space abutting the liver with nodule measuring up to 2.7 cm. Abnormal patchy soft tissue thickening along the left renal sinus and along the proximal to mid left ureter redemonstrated. VASCULATURE: Mild atherosclerotic calcifications are present throughout the abdominal aorta and its b ranches. No abdominal aortic aneurysm. MUSCULOSKELETAL: No acute osseous abnormalities. No aggressive osseous lesion. LYMPH NODES: No gross evidence for lymphadenopathy. SOFT TISSUE/ABDOMINAL WALL: Unremarkable IMPRESSION: 1. Redemonstration multifocal patchy irregular soft tissue densities along the inferior pararenal sp lizeth and extending down the lower retroperitoneum on both sides with additional soft tissue in the lef t renal sinus and along the proximal to mid left ureter. Findings suggests neoplastic etiology such a s lymphoma. 2. Abnormal soft tissue nodule along the right lateral wall of the gallbladder suggest metastasis. 3. Hepatomegaly with innumerable hypodense lesions. Additionally there is mild splenomegaly with at least one hypodense lesion. Finding suggest metastasis. 4. Mild thickening of the left adrenal gland with questionable nodule versus lymph node. Nonspecific prevascular space soft tissue 0.9 cm nodule which may related to #1. 5. Colonic diverticulosis without evidence for acute diverticulitis.
[2022-04-23 11:55] LABS: Glucose,Whole Blood 84 mg/dL (70-110)
--- NOTE | 2022-04-23 12:02 | CT ---
EXAMINATION TYPE: CT soft tissue neck w con CT DLP: 299.7 mGycm, Automated exposure control for dose reduction was used. DATE OF EXAM: 04/23/2022 10:59 AM COMPARISON: None. CLINICAL INDICATION:Male, 61 years old with history of esophageal nodule; PHH, r/o lymphoma TECHNIQUE: Standard enhanced CT of the neck following intravenous administration of 100 cc of Isovue 300. Axial sections with coronal and sagittal reformats were obtained. FINDINGS: Brain: Visualized portions are grossly unremarkable. Orbits: Unremarkable Sinuses: Mild mucosal thickening in the right maxillary sinus. Suprahyoid Neck: The oropharynx, oral cavity, parapharyngeal and retropharyngeal spaces are clear and symmetric. The nasopharynx is unremarkable. Infrahyoid Neck: The larynx, hypopharynx, and supraglottic area are clear and symmetric. Parotid Glands: 5 mm soft tissue nodule within the inferior right parotid gland (series 201, image 64 ). Anterior to this is a soft tissue mass measuring 2.1 x 1.6 cm (series 201, image 65). Soft tissue 1.0 cm nodule within the left superficial parotid gland (series 21, image 61). 2.3 x 1.9 cm soft tiss ue nodule within the inferior left parotid gland with central hypoattenuation likely representing nec rosis (series 201, image 49). Submandibular Glands: Unremarkable. Musculoskeletal: No acute osseous pathology. No aggressive osseous lesion. Lymph nodes: Pathologically enlarged lymph nodes.. Vascular structures: Visualized major arteries are patent without evidence of aneurysm. Thoracic Inlet/airway: Airway is patent. The lung apices are clear. Soft tissues/Thyroid: Thyroid and remainder of the soft tissues are unremarkable. Other: none. IMPRESSION Bilateral parotid gland soft tissue masses/nodules. Findings are suspicious for metastasis in the set ting of suspected lymphoma.
--- NOTE | 2022-04-23 12:48 | P.CONS ---
History of Present Illness - Reason for Consult Consult date: 04/23/22 Hepatomegaly, liver lesion Requesting physician: Mae Starr - Chief Complaint Abdominal pain, chest pain, back and leg pain - History of Present Illness This a pleasant 61-year-old male with a past medical history including GERD, gout, rheumatoid arthritis recently started on methotrexate, hypertension and hyperlipidemia. Patient presented to the emergency department with complaints of chest pain that went across his upper abdomen lower chest wrap around his charo k. He states that the pain then traveled into his shoulders and down his leg and his back. Patient believes that he was having a heart attack so he came into the emergency department for further evaluation. He states he had been having ongoing pain off and on for the last 3-4 days duration which he states has been intermittent but never completely gone. CT of the abdomen and pelvis showed hepatomegaly with liver lesion. Gastroenterology was consulted for the above. Patient denies any previous history of liver disease. He does however state that in the 1980s he was a very heavy drinker for at least 7 years which he states he drank a 12 pack of beer daily. Patient states his last colonoscopy was greater than 10 years ago at that time he also had an EGD done with no abnormal findings that he can recall. Yesterday he states that he had the abdominal pain associated with nausea and vomiting 2. Admits to about 10 pound weight loss. Patient was noted to have elevated LFTs on admission. Imaging CT abdomen and pelvis without contrast Reports pronounced hepatomegaly, nodular contour may reflect underlying cirrhosis. Appropriate further evaluation recom mended. A vague 1.2 cm lesion anterior mid liver is nonspecific. Attention on follow-up. Possible abnormal soft tissue nodule along the right lateral wall of the gallbladder measuring 1.6 cm. Gallbladder ultrasound to further evaluate. Multifocal patchy irregular soft tissue density along the inferior pararenal space and extending down along the lower retroperitoneum on both sides. Changes also of the left renal sinus and proximal to mid left ureter. Neoplastic etiology including lymphoma should be excluded. Correlate with urine cytology and possible CT urogram. Some prominent fluid involving mid and lower abdominal small bowel loops possible mild ileus or enteritis. Left-sided colonic diverticulosis without acute diverticulitis. CT chest abdomen and pelvis with contrast reports redemonstration multifocal patchy irregular soft tissue density along the inferior pararenal space and extending down the lower retroperitoneum on both sides with additional soft tissue in the left renal sinus on the proximal to mid left ureter. Findings suggest neoplastic etiology such as lymphoma. Abnormal soft tissue nodule along the right lateral wall of the gallbladder suggest metastasis. Hepatomegaly with innumerable hypodense lesions. Additionally there is mild splenomegaly with at least one hypodense lesion. Findings suggest metastasis.mild thickening of the left adrenal gland with questionable nodule versus lymph node. Nonspecific prevascular space soft tissue, 0.9 cm nodule may be related to #1. Colonic diverticulosis without evidence for acute diverticulitis. CT soft tissue neck with contrast reports bilateral parotid gland soft tissue masses/nodules findings are suspicious for metastasis in the setting of suspected lymphoma Labs WBC 7.9 hemoglobin 12 hematocrit 38 platelet count 325,000 sodium 138 potassium 4.9 BUN 18 creatinine 0.6 glucose 108 total bilirubin 1.3 AST 54 ALT 107 alkaline phosphatase 438 Review of Systems REVIEW OF SYSTEMS: CARDIOPULMONARY: No chest pain or shortness of breath. Gastrointestinal: Upper abdominal pain wrapping to his back. Nausea with vomiting yesterday, no nausea without vomiting.. No hematemesis, coffee-ground emesis. No rectal bleeding, or melena. GENITOURINARY: No dysuria or hematuria. MUSCULOSKELETAL: Reports normal range of motion. Pain down bilateral lower extremities. Pain in back. SKIN: No rashes. No jaundice. ENDOCRINE: No chills, fevers. No excessive weight gain or loss. No polydipsia or polyuria. PSYCHIATRIC: Unremarkable. NEUROLOGY: No change in mental status. Denies dizziness, headache. ENT: Vision unremarkable. CONSTITUTIONAL: No recent weight loss. No fever, chills, night sweats. Past Medical History Past Medical History: GERD/Reflux, Hyperlipidemia, Hypertension, Osteoarthritis (OA) Additional Past Medical History / Comment(s): hiatal hernia, gout, History of Any Multi-Drug Resistant Organisms: None Reported Past Surgical History: Orthopedic Surgery, Tonsillectomy Additional Past Surgical History / Comment(s): claude shoulder rotator cuff repair, cyst removal rt wrist, oral surgery , surgery for pyloric stenosis as Past Anesthesia/Blood Transfusion Reactions: No Reported Reaction Past Psychological History: No Psychological Hx Reported Smoking Status: Never smoker Past Alcohol Use History: Daily Past Drug Use History: Marijuana - Past Family History Mother Family Medical History: No Reported History Medications and Allergies Home Medications Medication Instructions Recorded Confirmed Type hydroCHLOROthiazide [Hydrodiuril] 25 mg PO DAILY 02/06/18 04/22/22 History lisinopriL 40 mg PO BID 02/06/18 04/22/22 History Fenofibrate Nanocrystallized 145 mg PO DAILY 12/01/18 04/22/22 History [Fenofibrate] Rosuvastatin Calcium [Crestor] 40 mg PO DAILY 12/01/18 04/22/22 History Baclofen 5 - 10 mg PO TID PRN 04/22/22 04/22/22 History Cbd/Thc Gummies 1 tab PO HS 04/22/22 04/22/22 History Cholecalciferol [Vitamin D3 (125 125 mcg PO DAILY 04/22/22 04/22/22 History Mcg = 5000 Iu)] Folic Acid 1 mg PO DAILY 04/22/22 04/22/22 History allopurinoL [Zyloprim] 100 mg PO DAILY 04/22/22 04/22/22 History metHOTREXate sodium [Methotrexate] 7.5 mg PO TH 04/22/22 04/22/22 History Allergies Allergy/AdvReac Type Severity Reaction Status Date / Time sulfamethoxazole Allergy Nausea Verified 04/22/22 13:13 [From Bactrim] tramadol Allergy Rash/Hives Verified 04/22/22 13:13 trimethoprim [From Bactrim] Allergy Nausea Verified 04/22/22 13:13 Physical Exam Vitals: Vital Signs Temp Pulse Pulse Resp BP BP Pulse Ox 04/23/22 07:52 98.3 F 96 17 126/84 97 04/23/22 02:00 98.0 F 80 16 126/80 94 L 04/22/22 20:57 98.1 F 105 H 17 145/92 95 04/22/22 20:25 101 H 18 136/89 95 04/22/22 16:48 91 16 129/83 99 04/22/22 11:10 97.6 F 95 18 124/75 97 Intake and Output 04/22/22 04/23/22 04/23/22 22:59 06:59 14:59 Intake Total 180 Balance 180 Intake: Oral 180 Other: Voiding Method Toilet # Voids 3 1 # Bowel Movements 1 Weight 82.554 kg General appearance: The patient is alert, oriented, appears in no acute distress. HET: Head is normocephalic and atraumatic. Conjunctiva pink. Sclera anicteric. Neck: Supple. Trachea midline. Heart: S1 S2. Regular rate and rhythm. Lungs: Clear to auscultation. Abdomen: Soft, epigastric tenderness, nondistended with bowel sounds. No gua rding or rigidity. Skin: No rashes. No jaundice. Extremities: Normal skin color and turgor. No pedal edema. Neurological: No focal deficits. Alert and oriented x3. Results CBC & Chem 7: 04/23/22 08:13 04/23/22 08:13 Labs: Abnormal Lab Results - Last 24 Hours (Table) 04/22/22 04/22/22 04/22/22 Range/Units 11:45 11:45 11:45 Hgb 12.7 L (13.0-17.5) gm/dL Hct 38.8 L (39.0-53.0) % RDW 15.8 H (11.5-15.5) % Neutrophils # 8.4 H (1.3-7.7) k/uL ESR 62 H (0-15) mm/hr BUN 23 H (9-20) mg/dL Creatinine 0.61 L (0.66-1.25) mg/dL Glucose 69 L (74-99) mg/dL POC Glucose (mg/dL) (70-110) mg/dL Total Bilirubin 1.5 H (0.2-1.3) mg/dL ALT 96 H (4-49) U/L Alkaline Phosphatase 366 H (38-126) U/L C-Reactive Protein (<1.0) mg/dL Total Protein 6.0 L (6.3-8.2) g/dL Albumin 3.4 L (3.5-5.0) g/dL Urine Ketones (Negative) 04/22/22 04/22/22 04/23/22 Range/Units 11:45 13:37 06:22 Hgb (13.0-17.5) gm/dL Hct (39.0-53.0) % RDW (11.5-15.5) % Neutrophils # (1.3-7.7) k/uL ESR (0-15) mm/hr BUN (9-20) mg/dL Creatinine (0.66-1.25) mg/dL Glucose (74-99) mg/dL POC Glucose (mg/dL) 63 L (70-110) mg/dL Total Bilirubin (0.2-1.3) mg/dL ALT (4-49) U/L Alkaline Phosphatase (38-126) U/L C-Reactive Protein 8.1 H (<1.0) mg/dL Total Protein (6.3-8.2) g/dL Albumin (3.5-5.0) g/dL Urine Ketones Trace H (Negative) 04/23/22 Range/Units 07:57 Hgb (13.0-17.5) gm/dL Hct (39.0-53.0) % RDW (11.5-15.5) % Neutrophils # (1.3-7.7) k/uL ESR (0-15) mm/hr BUN (9-20) mg/dL Creatinine (0.66-1.25) mg/dL Glucose (74-99) mg/dL POC Glucose (mg/dL) 113 H (70-110) mg/dL Total Bilirubin (0.2-1.3) mg/dL ALT (4-49) U/L Alkaline Phosphatase (38-126) U/L C-Reactive Protein (<1.0) mg/dL Total Protein (6.3-8.2) g/dL Albumin (3.5-5.0) g/dL Urine Ketones (Negative) Assessment and Plan (1) Hepatomegaly Narrative/Plan: D11-year-old male who presented to the emergency department with upper abdominal pain and chest pain along with pain to the back and legs. He was noted to have elevated LFTs, had a CT of the abdomen and pelvis without contrast concerning for liver lesion and gallbladder lesions. As well as other areas of concern for possible lymphoma. Patient denies any previous knowledge of any liver disease he does have a history of heavy alcohol abuse in the 1980s for which he states h e drank at least a 12 pack of beer a day for at least 70 years. Yesterday he did have some associated nausea and vomiting with this abdominal pain. Further workup was ordered by oncology for a CT of the abdomen and pelvis with contrast again demonstrating multiple liver lesions, gallbladder lesions and concerns for neoplasm, metastasis, lymphoma. At this time unsure of primary etiology. For now continue with symptomatic treatment. Avoid hepatotoxic medications. Current Visit: Yes Status: Acute Code(s): R16.0 - HEPATOMEGALY, NOT ELSEWHERE CLASSIFIED SNOMED Code(s): 99672090 (2) Elevated LFTs Current Visit: Yes Status: Acute Code(s): R79.89 - OTHER SPECIFIED ABNORMAL FINDINGS OF BLOOD CHEMISTRY SNOMED Code(s): 275745395 (3) Liver lesion Current Visit: Yes Status: Acute Code(s): K76.9 - LIVER DISEASE, UNSPECIFIED SNOMED Code(s): 330613873 (4) Abnormal findings on diagnostic imaging of gallbladder Current Visit: Yes Status: Acute Code(s): R93.2 - ABNORMAL FINDINGS ON DX IMAGING OF LIVER AND BILIARY TRACT SNOMED Code(s): 168996588 (5) Abdominal pain Current Visit: Yes Status: Acute Code(s): R10.9 - UNSPECIFIED ABDOMINAL PAIN SNOMED Code(s): 40366540 (6) Atypical chest pain Current Visit: Yes Status: Acute Code(s): R07.89 - OTHER CHEST PAIN SNOMED Code(s): 984356658 Plan: 1. Continue symptomatic and supportive care 2. Pain medication as needed 3. Daily CMP 4. AFP tumor marker ordered 5. Continue with workup and recommendations from oncology 6. Acute Hepatitis panel ordered 7. Diet as tolerated 8. Further recommendations forthcoming pending clinical course Thank you for this consultation, we will continue to follow. Dr. Monique Bowen I agree with the dictator's note, documented as a scribe by Maegan WILBURN .
[2022-04-23 14:11] VITALS: BMI 30.2
--- NOTE | 2022-04-23 15:52 | P.PN ---
Subjective Progress Note Date: 04/23/22 Hospital Course: Patient is a 61-year-old male with a history of rheumatoid arthritis, hypertension, dyslipidemia presenting with multiple vague symptoms. He is complaining of chest pain, diaphoresis, left leg pain, nausea. He was recently started on methotrexate for rheumatoid arthritis. He claims that most of his symptoms started around the same time he started his medications. His chest pain is mostly in the lower sternal region, radiating in a bandlike fashion across his chest. He claims that his pain is constant for the last couple of weeks, but it does ease once in a while. He occasionally notices palpitations as well. He has experienced some shortness of breath while taking deep breaths. He claims that he has lost about 10 pounds over the last 2 months. He is also noticed his pant size decreasing. He denies any jaundice. He denies any personal or family history of malignancy. He denies any smoking. He used to drink heavily 20 years ago. He denies any illicit drug use. In the ED, vital signs have been within normal limits. Laboratory workup significant for elevated ESR, CRP, elevated ALP, mild elevation and ALT. Negative influenza, RSV, COVID-19. UA was negative. Chest x-ray showed no acute process. EKG showed sinus rhythm. Abdomen/pelvis CT showed pronounced hepatomegaly, possible cirrhosis, with 1.2 cm lesion in the anterior mid liver. Also found to have abnormal soft tissue nodules along the right lateral wall of gallbladder. Multiple irregular soft tissue densities in the lower retroperitoneum from both sides could possibly represent malignancy. Possible mild ileus or enteritis, left-sided colonic diverticulosis without diver ticulitis. Repeat blanco CT, including neck CT concerning for possible lymphoma with metastatic disease. GI consulted. Oncology consulted. Subjective: Patient seen and examined at bedside. No acute events overnight. Continues to have similar pain as on admission. Occasionally the pain radiates down to his legs. Denies any nausea, vomiting, diarrhea, constipation, or urinary complaints. Pertinent positives and negatives as discussed above, a complete review of systems was performed and all other systems are negative. Vitals Signs Reviewed. General: nontoxic, no distress, appears at stated age Derm: warm, dry Head: atraumatic, normocephalic, symmetric Eyes: EOMI, no lid lag, anicteric sclera, pupils equal round reactive to light ENT: Nose and ears atraumatic Neck: No thyromegaly, supple, left sided lymphadenopathy Mouth: no lip lesion, mucus membranes moist Cardiovascular: S1S2 reg, no murmur, no edema Lungs: clear to auscultation bilateral, no rhonchi, no rales, no wheeze, no accessory muscle use Abdominal: soft, nontender to palpation, no guarding, hepatomegaly Ext: no gross muscle atrophy, muscle strength muscle strength 5 out of 5 in all 4 extremities, no contractures Neuro: CN II-XII grossly intact Psych: Alert, oriented, appropriate affect Assessment and Plan: Possible malignancy with metastatic disease Chest pain Abdominal pain Hepatomegaly Liver mass Multiple soft tissue densities on abdomen and pelvis CT Lymphadenopathy Possible mild ileus or enteritis Left-sided colonic diverticulosis Elevated inflammatory markers Transaminitis - Negative troponin, negative chest x-ray, EKG no ST-T wave changes, unlikely to be ACS -Acute hepatitis panel negative - Patient was on statin, fenofibrate, and recently started on methotrexate, we'll hold these medications - GI and oncology consulted - Supportive care Chronic medical problems: Rheumatoid arthritis Hypertension Dyslipidemia Gout -Medications reviewed and reconciled DVT ppx: Lovenox Code status: Full code Anticipated discharge place: Home Anticipated discharge time: Pending clinical course Objective - Vital Signs Vital signs: Vital Signs Temp 98.3 F 04/23/22 07:52 Pulse 96 04/23/22 07:52 Resp 17 04/23/22 07:52 BP 126/84 04/23/22 07:52 Pulse Ox 97 04/23/22 07:52 FiO2 Intake & Output 04/22/22 04/23/22 04/23/22 18:59 06:59 18:59 Intake Total 180 Balance 180 Weight 82.554 kg 82.554 kg Intake: Oral 180 Other: Voiding Method Toilet # Voids 3 1 # Bowel Movements 1 - Labs CBC & Chem 7: 04/23/22 08:13 04/23/22 08:13 Labs: Abnormal Lab Results - Last 24 Hours (Table) 04/23/22 04/23/22 04/23/22 Range/Units 06:22 07:57 08:13 RBC 4.32 L (4.40-5.60) X 10*6/uL Hgb 12.1 L (13.0-17.0) g/dL Hct 38.9 L (39.6-50.0) % MCHC 31.1 L (32.0-37.0) g/dL RDW 16.9 H (11.5-14.5) % BUN/Creatinine Ratio (12.00-20.00) Ratio POC Glucose (mg/dL) 63 L 113 H (70-110) mg/dL Total Bilirubin (0.30-1.20) mg/dL AST (14-35) U/L ALT (10-49) U/L Alkaline Phosphatase (41-126) U/L Lactate Dehydrogenase (313-618) U/L Total Protein (6.2-8.2) g/dL Albumin (3.8-4.9) g/dL 04/23/22 04/23/22 Range/Units 08:13 14:35 RBC (4.40-5.60) X 10*6/uL Hgb (13.0-17.0) g/dL Hct (39.6-50.0) % MCHC (32.0-37.0) g/dL RDW (11.5-14.5) % BUN/Creatinine Ratio 28.44 H (12.00-20.00) Ratio POC Glucose (mg/dL) (70-110) mg/dL Total Bilirubin 1.30 H (0.30-1.20) mg/dL AST 54 H (14-35) U/L ALT 107 H (10-49) U/L Alkaline Phosphatase 438 H (41-126) U/L Lactate Dehydrogenase 2296 H (313-618) U/L Total Protein 5.5 L (6.2-8.2) g/dL Albumin 3.4 L (3.8-4.9) g/dL
[2022-04-23 16:20] LABS: Glucose,Whole Blood 82 mg/dL (70-110)
[2022-04-23] MEDS: HYDROmorphone 2 MG TAB PO PRN (17:20)
[2022-04-23 20:22] LABS: Glucose,Whole Blood 100 mg/dL (70-110)
--- NOTE | 2022-04-23 21:12 | P.CONS ---
History of Present Illness - Reason for Consult Consult date: 04/23/[address] abd/pelvis, liver lesion Requesting physician: Claudia Bowen - Chief Complaint Lower chest pain, low back pain, nausea, SOB - History of Present Illness Patient is a 61-year-old male with PMH HTN, HLD, gout and RA, recently started on methotrexate 3 weeks ago, s/p 3 doses, who presented to ER with c/o of lower chest pain, band-like quality across the lower portion of his chest, persistent for several days however, it intensified within the last 24-48 hours. Associated symptoms include diaphoresis, pain with inspiration and SOB. Pt reports approx 2 weeks ago he began to have RLE pain similar to hx of his sciatica, and was treated by PCP but, then began to have LLE pain and low back pain that was different. RLE pain is worsened with deep inspiration. Reports constitutional symptoms of night sweats and sweating throughout the day, 10lb unintentional w eight loss with decreased appetite, with 1 episode of vomiting. Currently denies any lower extremity edema, orthopnea, headache, dizziness, known fevers. CT AP showed hepatomegaly with lesion of the liver measuring 1.2 cm with 1.6cm gallbladder nodule and multiple soft tissue densities along the inferior pararenal space extending along the lower retroperitonium on both sides with possible mild ileus or enteritis. Hepatitis panel negative. WBC 10.4, ANC 8.4, Hemoglobin 12.7, platelet 360, total bilirubin 1.5 AST 44 ALT 96 ALP 366 Review of Systems 10 point ROs is negative otherwise stated in HPI Past Medical History Past Medical History: GERD/Reflux, Hyperlipidemia, Hypertension, Osteoarthritis (OA) Additional Past Medical History / Comment(s): hiatal hernia, gout, History of Any Multi-Drug Resistant Organisms: None Reported Past Surgical History: Orthopedic Surgery, Tonsillectomy Additional Past Surgical History / Comment(s): claude shoulder rotator cuff repair, cyst removal rt wrist, oral surgery , surgery for pyloric stenosis as infant Past Anesthesia/Blood Transfusion Reactions: No Reported Reaction Past Psychological History: No Psychological Hx Reported Smoking Status: Never smoker Past Alcohol Use History: Daily Past Drug Use History: Marijuana - Past Family History Mother Family Medical History: No Reported History Medications and Allergies Home Medications Medication Instructions Recorded Confirmed Type hydroCHLOROthiazide [Hydrodiuril] 25 mg PO DAILY 02/06/18 04/22/22 History lisinopriL 40 mg PO BID 02/06/18 04/22/22 History Fenofibrate Nanocrystallized 145 mg PO DAILY 12/01/18 04/22/22 History [Fenofibrate] Rosuvastatin Calcium [Crestor] 40 mg PO DAILY 12/01/18 04/22/22 History Baclofen 5 - 10 mg PO TID PRN 04/22/22 04/22/22 History Cbd/Thc Gummies 1 tab PO HS 04/22/22 04/22/22 History Cholecalciferol [Vitamin D3 (125 125 mcg PO DAILY 04/22/22 04/22/22 History Mcg = 5000 Iu)] Folic Acid 1 mg PO DAILY 04/22/22 04/22/22 History allopurinoL [Zyloprim] 100 mg PO DAILY 04/22/22 04/22/22 History metHOTREXate sodium [Methotrexate] 7.5 mg PO TH 04/22/22 04/22/22 History Allergies Allergy/AdvReac Type Severity Reaction Status Date / Time sulfamethoxazole Allergy Nausea Verified 04/22/22 13:13 [From Bactrim] tramadol Allergy Rash/Hives Verified 04/22/22 13:13 trimethoprim [From Bactrim] Allergy Nausea Verified 04/22/22 13:13 Physical Exam Vitals: Vital Signs Temp Pulse Pulse Resp BP BP Pulse Ox 04/23/22 07:52 98.3 F 96 17 126/84 97 04/23/22 02:00 98.0 F 80 16 126/80 94 L 04/22/22 20:57 98.1 F 105 H 17 145/92 95 04/22/22 20:25 101 H 18 136/89 95 04/22/22 16:48 91 16 129/83 99 04/22/22 11:10 97.6 F 95 18 124/75 97 Intake and Output 04/22/22 04/23/22 04/23/22 22:59 06:59 14:59 Intake Total 180 Balance 180 Intake: Oral 180 Other: Voiding Method Toilet # Voids 3 Weight 82.554 kg - Constitutional General appearance: average body habitus, cooperative, no acute distress - EENT Eyes: anicteric sclerae, EOMI ENT: hearing grossly normal - Neck left sided anterior cervical lymphadenopathy noted. No axillary lymphadenopathy noted Neck: lymphadenopathy - Respiratory Respiratory: bilateral: CTA - Cardiovascular Rhythm: regular Heart sounds: normal: S1, S2 Abnormal Heart Sounds: no systolic murmur, no diastolic murmur, no rub, no S3 Gallop, no S4 Gallop, no click, no other leg Peripheral Edema: bilateral: None - Gastrointestinal General gastrointestinal: no absent bowel sounds, no decreased bowel sounds, distended, hepatomegaly, no hyperactive bowel sounds, normal bowel sounds, no organomegaly, no rigid, no scaphoid, soft, no splenomegaly, no tenderness, no umbilical hernia, no ventral hernia Localized gastrointestinal: tender: RUQ - Integumentary Integumentary: normal - Neurologic grossly Neurologic: CNII-XII intact - Musculoskeletal Musculoskeletal: strength equal bilaterally - Psychiatric Psychiatric: A&O x's 3, appropriate affect, intact judgment & insight Results CBC & Chem 7: 04/23/22 08:13 04/23/22 08:13 Labs: Abnormal Lab Results - Last 24 Hours (Table) 04/22/22 04/22/22 04/22/22 Range/Units 11:45 11:45 11:45 Hgb 12.7 L (13.0-17.5) gm/dL Hct 38.8 L (39.0-53.0) % RDW 15.8 H (11.5-15.5) % Neutrophils # 8.4 H (1.3-7.7) k/uL ESR 62 H (0-15) mm/hr BUN 23 H (9-20) mg/dL Creatinine 0.61 L (0.66-1.25) mg/dL Glucose 69 L (74-99) mg/dL POC Glucose (mg/dL) (70-110) mg/dL Total Bilirubin 1.5 H (0.2-1.3) mg/dL ALT 96 H (4-49) U/L Alkaline Phosphatase 366 H (38-126) U/L C-Reactive Protein (<1.0) mg/dL Total Protein 6.0 L (6.3-8.2) g/dL Albumin 3.4 L (3.5-5.0) g/dL Urine Ketones (Negative) 04/22/22 04/22/22 04/23/22 Range/Units 11:45 13:37 06:22 Hgb (13.0-17.5) gm/dL Hct (39.0-53.0) % RDW (11.5-15.5) % Neutrophils # (1.3-7.7) k/uL ESR (0-15) mm/hr BUN (9-20) mg/dL Creatinine (0.66-1.25) mg/dL Glucose (74-99) mg/dL POC Glucose (mg/dL) 63 L (70-110) mg/dL Total Bilirubin (0.2-1.3) mg/dL ALT (4-49) U/L Alkaline Phosphatase (38-126) U/L C-Reactive Protein 8.1 H (<1.0) mg/dL Total Protein (6.3-8.2) g/dL Albumin (3.5-5.0) g/dL Urine Ketones Trace H (Negative) 04/23/22 Range/Units 07:57 Hgb (13.0-17.5) gm/dL Hct (39.0-53.0) % RDW (11.5-15.5) % Neutrophils # (1.3-7.7) k/uL ESR (0-15) mm/hr BUN (9-20) mg/dL Creatinine (0.66-1.25) mg/dL Glucose (74-99) mg/dL POC Glucose (mg/dL) 113 H (70-110) mg/dL Total Bilirubin (0.2-1.3) mg/dL ALT (4-49) U/L Alkaline Phosphatase (38-126) U/L C-Reactive Protein (<1.0) mg/dL Total Protein (6.3-8.2) g/dL Albumin (3.5-5.0) g/dL Urine Ketones (Negative) Comments: CT neck report reviewed CT scan - abdomen: report reviewed CT scan - chest: report reviewed CT scan - pelvis: report reviewed Assessment and Plan (1) Hepatomegaly Current Visit: Yes Status: Acute Code(s): R16.0 - HEPATOMEGALY, NOT ELSEWHERE CLASSIFIED SNOMED Code(s): 51624349 (2) Liver lesion Current Visit: Yes Status: Acute Code(s): K76.9 - LIVER DISEASE, UNSPECIFIED SNOMED Code(s): 759782646 Plan: Hepatomegaly/liver lesion: -CT AP similar findings to previous CT showing hepatomegaly with lesion of the liver measuring 1.2 cm with 1.6cm gallbladder nodule and multiple soft tissue densities along the inferior pararenal space extending along the lower retroperitonium on both sides,with additional soft tissue in the left renal sinus, and along proximal mid left ureter, innumerable hydodense lesions of liver, mild splenomegaly with at least one hydodense lesion, and mild thickening of left adrenal gland, with questionable nodule vs lymph node, and nonspecific prevascular space soft tissue 0.9 cm nodule -AST 44, ALT 96, ALP 366, total bilirubin 1.5 - HIV screen ordered -Hep screen negative -AFP normal, 1.82 Lymphadenopathy neck/head -CT neck showed bilateral parotid gland soft tissue masses/nodules and path ological lymph nodes -Current differential is primary HCC vs lymphoma -LDH ordered -Will discuss with patient CT results and need of biopsy -Will schedule biopsy with IR -Discontinue methotrexate Dr attests: I have seen and examined pt, performed H&P, developed impression and plan of care. Discussed with dictator. Agree with documentation, dictated as a scribe
[2022-04-24 02:19] LABS: HIV 2 AB Non-Reactive (Non-Reactive); HIV AB P24 Non-Reactive (Non-Reactive); HIV P24 AG Non-Reactive (Non-Reactive)
[2022-04-24] MEDS: HYDROmorphone 2 MG TAB PO PRN ×4 (04:14→22:14)
[2022-04-24 06:04] LABS: Glucose,Whole Blood 84 mg/dL (70-110)
[2022-04-24] MEDS: allopurinoL 100 MG TAB PO SCH (07:40)
[2022-04-24] MEDS: lisinopriL 20 MG TAB PO SCH ×2 (07:40→21:00)
[2022-04-24] MEDS: hydroCHLOROthiazide 25 MG TAB PO SCH (07:40)
[2022-04-24] MEDS: ENOXAPARIN 40 MG/0.4 ML SYRINGE SQ SCH (07:40)
[2022-04-24] MEDS: FOLIC ACID 1 MG TAB PO SCH (07:41)
[2022-04-24] MEDS: CHOLECALCIFEROL 125 MCG (5000 IU) TABLET PO SCH (07:41)
[2022-04-24 09:42] LABS: African American GFR (CKD) 127.6 (60.0-200.0); Albumin 3.2 g/dL (3.8-4.9); Albumin/Globulin Ratio 1.52 (1.60-3.17); Anion Gap 15.7 mmol/L (10.00-18.00); BUN/Creat Ratio 34.67 Ratio (12.00-20.00); Blood Urea Nitrogen 20.8 mg/dL (9.0-27.0); Calcium 8.9 mg/dL (8.7-10.3); Carbon Dioxide 21.3 mmol/L (20.0-27.5); Globulin 2.1 g/dL (1.6-3.3); Non-African American GFR(CKD) 110.1 (60.0-200.0); Potassium 4.6 mmol/L (3.5-5.5); Total Bilirubin 0.9 mg/dL (0.30-1.20); Total Protein 5.3 g/dL (6.2-8.2)
[2022-04-24 10:02] LABS: Hepatitis A Antibody IgM Nonreactive (Nonreactive); Hepatitis B Core IgM Nonreactive (Nonreactive); Hepatitis B Surface Antigen Nonreactive (Nonreactive); Hepatitis C IgG Antibody Nonreactive (Nonreactive)
[2022-04-24 11:28] LABS: Glucose,Whole Blood 91 mg/dL (70-110)
--- NOTE | 2022-04-24 12:30 | P.PN ---
Subjective Progress Note Date: 04/24/22 Hospital Course: Patient is a 61-year-old male with a history of rheumatoid arthritis, hypertension, dyslipidemia presenting with multiple vague symptoms. He is complaining of chest pain, diaphoresis, left leg pain, nausea. He was recently started on methotrexate for rheumatoid arthritis. He claims that most of his symptoms started around the same time he started his medications. His chest pain is mostly in the lower sternal region, radiating in a bandlike fashion across his chest. He claims that his pain is constant for the last couple of weeks, but it does ease once in a while. He occasionally notices palpitations as well. He has experienced some shortness of breath while taking deep breaths. He claims that he has lost about 10 pounds over the last 2 months. He is also noticed his pant size decreasing. He denies any jaundice. He denies any personal or family history of malignancy. He denies any smoking. He used to drink heavily 20 years ago. He denies any illicit drug use. In the ED, vital signs have been within normal limits. Laboratory workup significant for elevated ESR, CRP, elevated ALP, mild elevation and ALT. Negative influenza, RSV, COVID-19. UA was negative. Chest x-ray showed no acute process. EKG showed sinus rhythm. Abdomen/pelvis CT showed pronounced hepatomegaly, possible cirrhosis, with 1.2 cm lesion in the anterior mid liver. Also found to have abnormal soft tissue nodules along the right lateral wall of gallbladder. Multiple irregular soft tissue densities in the lower retroperitoneum from both sides could possibly represent malignancy. Possible mild ileus or enteritis, left-sided colonic diverticulosis without diver ticulitis. Repeat blanco CT, including neck CT concerning for possible lymphoma with metastatic disease. GI consulted. Oncology consulted. Pending IR guided biopsy Subjective: Patient seen and examined at bedside. No acute events overnight. Continues to have similar pain as on admission but improved. Occasionally the pain radiates down to his legs. Denies any nausea, vomiting, diarrhea, constipation, or urinary complaints. Pertinent positives and negatives as discussed above, a complete review of systems was performed and all other systems are negative. Vitals Signs Reviewed. General: nontoxic, no distress, appears at stated age Derm: warm, dry Head: atraumatic, normocephalic, symmetric Eyes: EOMI, no lid lag, anicteric sclera, pupils equal round reactive to light ENT: Nose and ears atraumatic Neck: No thyromegaly, supple, left sided lymphadenopathy Mouth: no lip lesion, mucus membranes moist Cardiovascular: S1S2 reg, no murmur, no edema Lungs: clear to auscultation bilateral, no rhonchi, no rales, no wheeze, no accessory muscle use Abdominal: soft, nontender to palpation, no guarding, hepatomegaly Ext: no gross muscle atrophy, muscle strength muscle strength 5 out of 5 in all 4 extremities, no contractures Neuro: CN II-XII grossly intact Psych: Alert, oriented, appropriate affect Assessment and Plan: Possible malignancy with metastatic disease Chest pain Abdominal pain Hepatomegaly Liver mass Multiple soft tissue densities on abdomen and pelvis CT Lymphadenopathy Possible mild ileus or enteritis Left-sided colonic diverticulosis Elevated inflammatory markers Transaminitis - Negative troponin, negative chest x-ray, EKG no ST-T wave changes, unlikely to be ACS -Acute hepatitis panel negative -Patient was on statin, fenofibrate, and recently started on methotrexate, we'll hold these medications -GI and oncology consulted -Supportive care -Pending are guided biopsy, likely be on Wednesday Chronic medical problems: Rheumatoid arthritis Hypertension Dyslipidemia Gout -Medications reviewed and reconciled DVT ppx: Lovenox, hold Wednesday Code status: Full code Anticipated discharge place: Home Anticipated discharge time: Pending clinical course Objective - Vital Signs Vital signs: Vital Signs Temp 98.0 F 04/24/22 07:16 Pulse 97 04/24/22 07:16 Resp 17 04/24/22 07:16 BP 111/76 04/24/22 07:16 Pulse Ox 95 04/24/22 07:16 FiO2 Intake & Output 04/23/22 04/24/22 04/24/22 18:59 06:59 18:59 Intake Total 540 Balance 540 Weight 82.554 kg Intake: Oral 540 Other: Voiding Method Toilet # Voids 1 1 # Bowel Movements 1 - Labs CBC & Chem 7: 04/23/22 08:13 04/24/22 06:05 Labs: Abnormal Lab Results - Last 24 Hours (Table) 04/23/22 04/24/22 Range/Units 14:35 06:05 BUN/Creatinine Ratio 34.67 H (12.00-20.00) Ratio AST 55 H (14-35) U/L ALT 93 H (10-49) U/L Alkaline Phosphatase 412 H (41-126) U/L Lactate Dehydrogenase 2296 H (313-618) U/L Total Protein 5.3 L (6.2-8.2) g/dL Albumin 3.2 L (3.8-4.9) g/dL Albumin/Globulin Ratio 1.52 L (1.60-3.17) g/dL
--- NOTE | 2022-04-24 14:06 | P.PN ---
Subjective Progress Note Date: 04/24/22 Principal diagnosis: Hepatomegaly This a pleasant 61-year-old male with a past medical history including GERD, gout, rheumatoid arthritis recently started on methotrexate, hypertension and hyperlipidemia. Patient presented to the emergency department with complaints of chest pain that went across his upper abdomen lower chest wrap around his back. He states that the pain then traveled into his shoulders and down his leg and his back. Patient believes that he was having a heart attack so he came into the emergency department for further evaluation. He states he had been having ongoing pain off and on for the last 3-4 days duration which he states has been intermittent but never completely gone. CT of the abdomen and pelvis showed hepatomegaly with liver lesion. Gastroenterology was consulted for the above. Patient denies any previous history of liver disease. He does however state that in the 1980s he was a very heavy drinker for at least 7 years which he states he drank a 12 pack of beer daily. Patient states his last colonoscopy was greater than 10 years ago at that time he also had an EGD done with no abnormal findings that he can recall. Yesterday he states that he had the abdominal pain associated with nausea and vomiting 2. Admits to about 10 pound weight loss. Patient was noted to have elevated LFTs on admission. Imaging CT abdomen and pelvis without contrast Reports pronounced hepatomegaly, nodular contour may reflect underlying cirrhosis. Appropriate further evaluation recommended. A vague 1.2 cm lesion anterior mid liver is nonspecific. Attention on follow-up. Possible abnormal soft tissue nodule along the right lateral wall of the gallbladder measuring 1.6 cm. Gallbladder ultrasound to further evaluate. Multifocal patchy irregular soft tissue density along the inferior pararenal space and extending down along the lower retroperitoneum on both sides. Changes also of the left renal sinus and proximal to mid left ureter. Neoplastic etiology including lymphoma should be excluded. Correlate with urine cytology and possible CT urogram. Some prominent fluid involving mid and lower abdominal small bowel loops possible mild ileus or enteritis. Left- sided colonic diverticulosis without acute diverticulitis. CT chest abdomen and pelvis with contrast reports redemonstration multifocal patchy irregular soft tissue density along the inferior pararenal space and ext ending down the lower retroperitoneum on both sides with additional soft tissue in the left renal sinus on the proximal to mid left ureter. Findings suggest neoplastic etiology such as lymphoma. Abnormal soft tissue nodule along the right lateral wall of the gallbladder suggest metastasis. Hepatomegaly with innumerable hypodense lesions. Additionally there is mild splenomegaly with at least one hypodense lesion. Findings suggest metastasis.mild thickening of the left adrenal gland with questionable nodule versus lymph node. Nonspecific prevascular space soft tissue, 0.9 cm nodule may be related to #1. Colonic diverticulosis without evidence for acute diverticulitis. CT soft tissue neck with contrast reports bilateral parotid gland soft tissue masses/nodules findings are suspicious for metastasis in the setting of suspected lymphoma 04/24/2022: Patient seen and examined as a follow-up. He states pain is about the same. Oncology following closely plan is for her biopsy at some point according to their note. Patient is denying any nausea or vomiting at this time. He is tolerating his diet. Total bilirubin 0.9 AST 55 ALT 93 alkaline phosphatase 402 Hepatitis panel nonreactive. Reports normal bowel movement. Objective - Vital Signs Vital signs: Vital Signs Temp 98.0 F 04/24/22 07:16 Pulse 97 04/24/22 07:16 Resp 17 04/24/22 07:16 BP 111/76 04/24/22 07:16 Pulse Ox 95 04/24/22 07:16 FiO2 Intake & Output 04/23/22 04/24/22 04/24/22 18:59 06:59 18:59 Intake Total 540 Balance 540 Weight 82.554 kg Intake: Oral 540 Other: Voiding Method Toilet # Voids 1 # Bowel Movements 1 - Exam General appearance: The patient is alert, oriented, appears in no acute distress . HET: Head is normocephalic and atraumatic. Conjunctiva pink. Sclera anicteric. Neck: Supple without lymphadenopathy. Abdomen: Soft, upper abdominal tenderness, nondistended with bowel sounds. No guarding or rigidity. Extremities: Normal skin color and turgor. No pedal edema Skin: No rashes, no jaundice Neurological: No focal deficits. Alert and oriented. - Labs CBC & Chem 7: 04/23/22 08:13 04/24/22 06:05 Labs: Abnormal Lab Results - Last 24 Hours (Table) 04/23/22 04/23/22 04/23/22 Range/Units 07:57 08:13 08:13 RBC 4.32 L (4.40-5.60) X 10*6/uL Hgb 12.1 L (13.0-17.0) g/dL Hct 38.9 L (39.6-50.0) % MCHC 31.1 L (32.0-37.0) g/dL RDW 16.9 H (11.5-14.5) % BUN/Creatinine Ratio 28.44 H (12.00-20.00) Ratio POC Glucose (mg/dL) 113 H (70-110) mg/dL Total Bilirubin 1.30 H (0.30-1.20) mg/dL AST 54 H (14-35) U/L ALT 107 H (10-49) U/L Alkaline Phosphatase 438 H (41-126) U/L Lactate Dehydrogenase (313-618) U/L Total Protein 5.5 L (6.2-8.2) g/dL Albumin 3.4 L (3.8-4.9) g/dL 04/23/22 Range/Units 14:35 RBC (4.40-5.60) X 10*6/uL Hgb (13.0-17.0) g/dL Hct (39.6-50.0) % MCHC (32.0-37.0) g/dL RDW (11.5-14.5) % BUN/Creatinine Ratio (12.00-20.00) Ratio POC Glucose (mg/dL) (70-110) mg/dL Total Bilirubin (0.30-1.20) mg/dL AST (14-35) U/L ALT (10-49) U/L Alkaline Phosphatase (41-126) U/L Lactate Dehydrogenase 2296 H (313-618) U/L Total Protein (6.2-8.2) g/dL Albumin (3.8-4.9) g/dL Assessment and Plan (1) Hepatomegaly Narrative/Plan: D11-year-old male who presented to the emergency department with upper abdominal pain and chest pain along with pain to the back and legs. He was noted to have elevated LFTs, had a CT of the abdomen and pelvis without contrast concerning for liver lesion and gallbladder lesions. As well as other areas of concern for possible lymphoma. Patient denies any previous knowledge of any liver disease he does have a history of heavy alcohol abuse in the 1980s for which he states he drank at least a 12 pack of beer a day for at least 70 years. Yesterday he did have some associated nausea and vomiting with this abdominal pain. Further workup was ordered by oncology for a CT of the abdomen and pelvis with contrast again demonstrating multiple liver lesions, gallbladder lesions and concerns for neoplasm, metastasis, lymphoma. At this time unsure of primary etiology. For now continue with symptomatic treatment. Avoid hepatotoxic medications. Current Visit: Yes Status: Acute Code(s): R16.0 - HEPATOMEGALY, NOT ELSEWHERE CLASSIFIED SNOMED Code(s): 13540554 (2) Elevated LFTs Current Visit: Yes Status: Acute Code(s): R79.89 - OTHER SPECIFIED ABNORMAL FINDINGS OF BLOOD CHEMISTRY SNOMED Code(s): 534347307 (3) Liver lesion Current Visit: Yes Status: Acute Code(s): K76.9 - LIVER DISEASE, UNSPECIFIED SNOMED Code(s): 718669223 (4) Abnormal findings on diagnostic imaging of gallbladder Current Visit: Yes Status: Acute Code(s): R93.2 - ABNORMAL FINDINGS ON DX IMAGING OF LIVER AND BILIARY TRACT SNOMED Code(s): 231106518 (5) Abdominal pain Current Visit: Yes Status: Acute Code(s): R10.9 - UNSPECIFIED ABDOMINAL PAIN SNOMED Code(s): 56344234 (6) Atypical chest pain Current Visit: Yes Status: Acute Code(s): R07.89 - OTHER CHEST PAIN SNOMED Code(s): 328501595 Plan: 1. Continue symptomatic and supportive care 2. Pain medication as needed 2. Continue with workup and recommendations from oncology 3. Diet as tolerated Thank you for this consultation, patient can follow-up with gastroenterology as needed. We will sign off at this time. Dr. Monique Bowen I agree with the dictator's note, documented as a scribe by Maegan Glass.
[2022-04-24 16:36] LABS: Glucose,Whole Blood 108 mg/dL (70-110)
[2022-04-24 20:28] LABS: Glucose,Whole Blood 116 mg/dL (70-110)
[2022-04-25] MEDS: HYDROmorphone 2 MG TAB PO PRN ×4 (05:13→22:32)
[2022-04-25] MEDS: ENOXAPARIN 40 MG/0.4 ML SYRINGE SQ SCH (07:48)
[2022-04-25] MEDS: hydroCHLOROthiazide 25 MG TAB PO SCH (07:48)
[2022-04-25] MEDS: CHOLECALCIFEROL 125 MCG (5000 IU) TABLET PO SCH (07:48)
[2022-04-25] MEDS: lisinopriL 20 MG TAB PO SCH ×2 (07:48→22:32)
[2022-04-25] MEDS: allopurinoL 100 MG TAB PO SCH (07:48)
[2022-04-25] MEDS: FOLIC ACID 1 MG TAB PO SCH (07:48)
--- NOTE | 2022-04-25 12:00 | P.PN ---
Subjective Progress Note Date: 04/25/22 Hospital Course: Patient is a 61-year-old male with a history of rheumatoid arthritis, hyperten dayanna, dyslipidemia presenting with multiple vague symptoms. He is complaining of chest pain, diaphoresis, left leg pain, nausea. He was recently started on methotrexate for rheumatoid arthritis. He claims that most of his symptoms started around the same time he started his medications. His chest pain is mostly in the lower sternal region, radiating in a bandlike fashion across his chest. He claims that his pain is constant for the last couple of weeks, but it does ease once in a while. He occasionally notices palpitations as well. He has experienced some shortness of breath while taking deep breaths. He claims that he has lost about 10 pounds over the last 2 months. He is also noticed his pant size decreasing. He denies any jaundice. He denies any personal or family history of malignancy. He denies any smoking. He used to drink heavily 20 years ago. He denies any illicit drug use. In the ED, vital signs have been within normal limits. Laboratory workup significant for elevated ESR, CRP, elevated ALP, mild elevation and ALT. Negative influenza, RSV, COVID-19. UA was negative. Chest x-ray showed no acute process. EKG showed sinus rhythm. Abdomen/pelvis CT showed pronounced hepatomegaly, possible cirrhosis, with 1.2 cm lesion in the anterior mid liver. Also found to have abnormal soft tissue nodules along the right lateral wall of gallbladder. Multiple irregular soft tissue densities in the lower retroperitoneum from both sides could possibly represent malignancy. Possible mild ileus or enteritis, left-sided colonic diverticulosis without diverticuliti s. Repeat blanco CT, including neck CT concerning for possible lymphoma with metastatic disease. GI consulted. Oncology consulted. Pending IR guided biopsy Subjective: Patient seen and examined at bedside. No acute events overnight. Continues to have similar pain as on admission but improved. Occasionally the pain radiates down to his legs. Denies any nausea, vomiting, diarrhea, constipation, or urinary complaints. Pertinent positives and negatives as discussed above, a complete review of systems was performed and all other systems are negative. Vitals Signs Reviewed. General: nontoxic, no distress, appears at stated age Derm: warm, dry Head: atraumatic, normocephalic, symmetric Eyes: EOMI, no lid lag, anicteric sclera, pupils equal round reactive to light ENT: Nose and ears atraumatic Neck: No thyromegaly, supple, left sided lymphadenopathy Mouth: no lip lesion, mucus membranes moist Cardiovascular: S1S2 reg, no murmur, no edema Lungs: clear to auscultation bilateral, no rhonchi, no rales, no wheeze, no accessory muscle use Abdominal: soft, nontender to palpation, no guarding, hepatomegaly Ext: no gross muscle atrophy, muscle strength muscle strength 5 out of 5 in all 4 extremities, no contractures Neuro: CN II-XII grossly intact Psych: Alert, oriented, appropriate affect Assessment and Plan: Possible malignancy with metastatic disease Chest pain Abdominal pain Hepatomegaly Liver mass Multiple soft tissue densities on abdomen and pelvis CT Lymphadenopathy Possible mild ileus or enteritis Left-sided colonic diverticulosis Elevated inflammatory markers Transaminitis -Negative troponin, negative chest x-ray, EKG no ST-T wave changes, unlikely to be ACS -Acute hepatitis panel negative -Patient was on statin, fenofibrate, and recently started on methotrexate, we'll hold these medications -GI and oncology consulted -Supportive care -Elevated LDH, negative AFP -Pending are guided biopsy, likely be on Wednesday Chronic medical problems: Rheumatoid arthritis Hypertension Dyslipidemia Gout -Medications reviewed and reconciled DVT ppx: Lovenox, hold Wednesday Code status: Full code Anticipated discharge place: Home Anticipated discharge time: Pending clinical course Objective - Vital Signs Vital signs: Vital Signs Temp 98.4 F 04/25/22 07:05 Pulse 93 04/25/22 07:05 Resp 16 04/25/22 07:05 BP 108/73 04/25/22 07:05 Pulse Ox 98 04/25/22 07:05 FiO2 Intake & Output 04/24/22 04/25/22 04/25/22 18:59 06:59 18:59 Other: Voiding Method Toilet # Voids 1 2 - Labs CBC & Chem 7: 04/23/22 08:13 04/24/22 06:05 Labs: Abnormal Lab Results - Last 24 Hours (Table) 04/24/22 Range/Units 20:23 POC Glucose (mg/dL) 116 H (70-110) mg/dL
[2022-04-26] MEDS: HYDROmorphone 2 MG TAB PO PRN ×4 (04:50→22:42)
[2022-04-26] MEDS: hydroCHLOROthiazide 25 MG TAB PO SCH (09:22)
[2022-04-26] MEDS: lisinopriL 20 MG TAB PO SCH ×2 (09:22→21:49)
[2022-04-26] MEDS: allopurinoL 100 MG TAB PO SCH (09:22)
[2022-04-26] MEDS: FOLIC ACID 1 MG TAB PO SCH (09:23)
[2022-04-26] MEDS: CHOLECALCIFEROL 125 MCG (5000 IU) TABLET PO SCH (09:23)
--- NOTE | 2022-04-26 11:11 | P.PN ---
Subjective Progress Note Date: 04/26/22 Hospital Course: Patient is a 61-year-old male with a history of rheumatoid arthritis, hyperten dayanna, dyslipidemia presenting with multiple vague symptoms. He is complaining of chest pain, diaphoresis, left leg pain, nausea. He was recently started on methotrexate for rheumatoid arthritis. He claims that most of his symptoms started around the same time he started his medications. His chest pain is mostly in the lower sternal region, radiating in a bandlike fashion across his chest. He claims that his pain is constant for the last couple of weeks, but it does ease once in a while. He occasionally notices palpitations as well. He has experienced some shortness of breath while taking deep breaths. He claims that he has lost about 10 pounds over the last 2 months. He is also noticed his pant size decreasing. He denies any jaundice. He denies any personal or family history of malignancy. He denies any smoking. He used to drink heavily 20 years ago. He denies any illicit drug use. In the ED, vital signs have been within normal limits. Laboratory workup significant for elevated ESR, CRP, elevated ALP, mild elevation and ALT. Negative influenza, RSV, COVID-19. UA was negative. Chest x-ray showed no acute process. EKG showed sinus rhythm. Abdomen/pelvis CT showed pronounced hepatomegaly, possible cirrhosis, with 1.2 cm lesion in the anterior mid liver. Also found to have abnormal soft tissue nodules along the right lateral wall of gallbladder. Multiple irregular soft tissue densities in the lower retroperitoneum from both sides could possibly represent malignancy. Possible mild ileus or enteritis, left-sided colonic diverticulosis without diverticuliti s. Repeat blanco CT, including neck CT concerning for possible lymphoma with metastatic disease. GI consulted. Oncology consulted. Pending IR guided biopsy Subjective: Patient seen and examined at bedside. No acute events overnight. Continues to have similar pain as on admission but improved. Denies any nausea, vomiting, diarrhea, constipation, or urinary complaints. Pertinent positives and negatives as discussed above, a complete review of systems was performed and all other systems are negative. Vitals Signs Reviewed. General: nontoxic, no distress, appears at stated age Derm: warm, dry Head: atraumatic, normocephalic, symmetric Eyes: EOMI, no lid lag, anicteric sclera, pupils equal round reactive to light ENT: Nose and ears atraumatic Neck: No thyromegaly, supple, left sided lymphadenopathy Mouth: no lip lesion, mucus membranes moist Cardiovascular: S1S2 reg, no murmur, no edema Lungs: clear to auscultation bilateral, no rhonchi, no rales, no wheeze, no accessory muscle use Abdominal: soft, nontender to palpation, no guarding, hepatomegaly Ext: no gross muscle atrophy, muscle strength muscle strength 5 out of 5 in all 4 extremities, no contractures Neuro: CN II-XII grossly intact Psych: Alert, oriented, appropriate affect Assessment and Plan: Possible malignancy with metastatic disease Chest pain Abdominal pain Hepatomegaly Liver mass Multiple soft tissue densities on abdomen and pelvis CT Lymphadenopathy Possible mild ileus or enteritis Left-sided colonic diverticulosis Elevated inflammatory markers Transaminitis -Negative troponin, negative chest x-ray, EKG no ST-T wave changes, unlikely to be ACS -Acute hepatitis panel negative -Patient was on statin, fenofibrate, and recently started on methotrexate, we'll hold these medications -GI and oncology consulted -Supportive care -Elevated LDH, negative AFP -Pending are guided biopsy, likely be on Wednesday Chronic medical problems: Rheumatoid arthritis Hypertension Dyslipidemia Gout -Medications reviewed and reconciled DVT ppx: hold ac due to upcoming biopsy Code status: Full code Anticipated discharge place: Home Anticipated discharge time: Pending clinical course Objective - Vital Signs Vital signs: Vital Signs Temp 98.3 F 04/26/22 07:45 Pulse 98 04/26/22 07:45 Resp 17 04/26/22 07:45 BP 119/76 04/26/22 07:45 Pulse Ox 94 L 04/26/22 07:45 FiO2 Intake & Output 04/25/22 04/26/22 04/26/22 18:59 06:59 18:59 Intake Total 400 Balance 400 Intake: Oral 400 Other: # Voids 3 3 - Labs CBC & Chem 7: 04/23/22 08:13 04/24/22 06:05
[2022-04-27] MEDS: HYDROmorphone 2 MG TAB PO PRN ×2 (04:46→11:06)
[2022-04-27] MEDS: FOLIC ACID 1 MG TAB PO SCH (09:59)
[2022-04-27] MEDS: CHOLECALCIFEROL 125 MCG (5000 IU) TABLET PO SCH (09:59)
[2022-04-27] MEDS: hydroCHLOROthiazide 25 MG TAB PO SCH (09:59)
[2022-04-27] MEDS: lisinopriL 20 MG TAB PO SCH (09:59)
[2022-04-27] MEDS: allopurinoL 100 MG TAB PO SCH (09:59)
--- NOTE | 2022-04-27 13:25 | P.DS ---
Providers Date of admission: 04/22/22 14:58 Expected date of discharge: 04/27/22 Attending physician: Drake Elizabeth MD Consults: 04/22/22 14:58 Consult Physician Routine Consulting Provider: Claudia Bowen Consult Reason/Comments: abdominal pain/ hepatomegaly with liver lesion Do you want consulting provider notified?: Yes 04/22/22 16:44 Consult Physician Routine Consulting Provider: Syd Miller Consult Reason/Comments: CT abdomen findings concerning for malignancy Do you want consulting provider notified?: Yes Primary care physician: Tom Sandy [facility] Course: Discharge Diagnosis: Unknown Malignancy with metastatic disease Chest pain Abdominal pain Hepatomegaly Liver mass Multiple soft tissue densities on abdomen and pelvis CT Lymphadenopathy Possible mild ileus or enteritis Left-sided colonic diverticulosis Elevated inflammatory markers Transaminitis hx of Rheumatoid arthritis Hypertension Dyslipidemia Gout Hospital Course: 61-year-old male with a history of rheumatoid arthritis, hypertension, dyslipidemia presented with multiple vague symptoms. He was complaining of chest pain, diaphoresis, left leg pain, nausea. He also complained about weight loss. In the ED, vital signs have been within normal limits. Laboratory workup significant for elevated ESR, CRP, elevated ALP, mild elevation and ALT. Negative influenza, RSV, COVID-19. UA was negative. Chest x-ray showed no acute process. EKG showed sinus rhythm. Abdomen/pelvis CT showed pronounced hepatomegaly, possible cirrhosis, with 1.2 cm lesion in the anterior mid liver. Also found to have abnormal soft tissue nodules along the right lateral wall of gallbladder. Multiple irregular soft tissue densities in the lower retroperitoneum from both sides could possibly represent malignancy. Possible mild ileus or enteritis, left-sided colonic diverticulosis without diverticulitis.Repeat blanco CT, including neck CT concerning for possible lymphoma with metastatic disease. GI consulted. Oncology consulted. Acute hepatitis panel negative. Elevated LDH, negative AFP. Neck lymph node biopsy completed. Patient to follow-up with oncology as an outpatient for biopsy results as well as further workup/management. Methotrexate as well as statins, fenofibrate held at discharge. Patient seen and examined at bedside. Vital signs reviewed and stable. General: nontoxic, no distress, appears at stated age Derm: warm, dry Head: atraumatic, normocephalic, symmetric Eyes: EOMI, no lid lag, anicteric sclera, pupils equal round reactive to light ENT: Nose and ears atraumatic Neck: No thyromegaly, supple, left sided lymphadenopathy Mouth: no lip lesion, mucus membranes moist Cardiovascular: S1S2 reg, no murmur, no edema Lungs: clear to auscultation bilateral, no rhonchi, no rales, no wheeze, no accessory muscle use Abdominal: soft, nontender to palpation, no guarding, hepatomegaly Ext: no gross muscle atrophy, muscle strength muscle strength 5 out of 5 in all 4 extremities, no contractures Neuro: CN II-XII grossly intact Psych: Alert, oriented, appropriate affect A total of 37 minutes of time were spent preparing this complex discharge summary. Patient was discharged on 04/27/22 at 11:55. Patient Condition at Discharge: Stable Plan - Discharge Summary Discharge Rx Participant: Yes New Discharge Prescriptions: New Acetaminophen Tab [Tylenol] 650 mg PO Q6H #30 tab HYDROmorphone [Dilaudid] 4 mg PO Q6H PRN 3 Days #12 tab PRN Reason: Severe Breakthrough Pain Continue lisinopriL 40 mg PO BID hydroCHLOROthiazide [Hydrodiuril] 25 mg PO DAILY Cholecalciferol [Vitamin D3 (125 Mcg = 5000 Iu)] 125 mcg PO DAILY Cbd/Thc Gummies 1 tab PO HS Folic Acid 1 mg PO DAILY allopurinoL [Zyloprim] 100 mg PO DAILY Discontinued Rosuvastatin Calcium [Crestor] 40 mg PO DAILY Fenofibrate Nanocrystallized [Fenofibrate] 145 mg PO DAILY metHOTREXate sodium [Methotrexate] 7.5 mg PO TH Baclofen 5 - 10 mg PO TID PRN PRN Reason: Pain Discharge Medication List hydroCHLOROthiazide [Hydrodiuril] 25 mg PO DAILY 02/06/18 [History] lisinopriL 40 mg PO BID 02/06/18 [History] Cbd/Thc Gummies 1 tab PO HS 04/22/22 [History] Cholecalciferol [Vitamin D3 (125 Mcg = 5000 Iu)] 125 mcg PO DAILY 04/22/22 [History] Folic Acid 1 mg PO DAILY 04/22/22 [History] allopurinoL [Zyloprim] 100 mg PO DAILY 04/22/22 [History] Acetaminophen Tab [Tylenol] 650 mg PO Q6H #30 tab 04/27/22 [Rx] HYDROmorphone [Dilaudid] 4 mg PO Q6H PRN 3 Days #12 tab 04/27/22 [Rx] Follow up Appointment(s)/Referral(s): Syd Miller MD [STAFF PHYSICIAN] - 1 Week Tom Sandy DO [Primary Care Provider] - 1-2 days Patient Instructions/Handouts: Narcotic Safety (DC), Noncardiac Chest Pain (DC) Activity/Diet/Wound Care/Special Instructions: Please see your PCP as soon as possible. Please see oncology within 1 week to discuss the results of biopsy. Discharge Disposition: HOME SELF-CARE
--- NOTE | 2022-04-27 13:30 | US ---
ULTRASOUND GUIDED BIOPSY LEFT NECK MASS: CLINICAL HISTORY: Left neck mass FINDINGS: The procedure was explained to the patient. The risks, complications, benefits and alternatives were discussed and any questions were answered. Informed consent was obtained. Patient was placed supin e on the ultrasound table and prepped and draped in the usual sterile fashion. Utilizing a 18 gauge needle, two passes were made into the requested left neck mass. Patient was stable throughout the procedure. Pathology is pending. All elements of maximal barrier technique were utilized. IMPRESSION: 1. Successful ultrasound guided biopsy left neck mass.
[2022-04-27 14:27] VITALS: BP 111/73; PULSE 113; RESP 17; TEMP 98.3
--- NOTE | 2022-04-30 20:59 | CDI ---
Documentation Clarification Form Date: 04/30/2022 8:30:17 PM From: Radha Adler Phone: Admit Date: 04/22/2022 2:58:00 PM Patient Name: Cullen Rodriguez Visit Number: [id number] Discharge Date: 04/27/2022 3:41:00 PM ATTENTION: The Clinical Documentation Specialists (CDI) and [facility] Coding Staff appreciate your assistance in clarifying documentation. Please respond to the clarification below the line at the bottom and electronically sign. The CDI & [facility] Coding staff will review the response and follow-up if needed. Please note: Queries are made part of the Legal Health Record. If you have any questions, please contact the author of this message via ITS. Dr. Maximilian Allison Hepatomegaly is documented per H&P and patient is noted to have Hx of alcohol abuse. Please clarify if there is a relationship between the diagnoses. History/Risk Factors: 61yo M, UnknownMalignancywithmets, Chest pain, hepatomegaly, gallbladder &Liver mass, lymphadenopathy, possiblemildileusorenteritis, LT colonic diverticulosis, transaminitis, RA, HTN, HLD, Gout Clinical Indicators: Abdomen/pelvisCTshowed pronounced hepatomegaly,possiblecirrhosis, with 1.2 cmlesionin the anterior mid liver. Treatment: Also found to haveabnormalsoft tissuenodulesalong the RT lateral wall of gallbladder. Multiple irregular soft tissuedensitiesin the lower retroperitoneum from both sides couldpossiblyrepresentmalignancy. Possible mildileusorenteritis, LT-sidedcolonic diverticulosiswithout diverticulitis. Repeat panCT, including neckCTconcerning forpossiblelymphoma withmetastaticdisease.GI consulted. Oncology consulted. Acutehepatitis panelnegative. Elevated LDH, negative AFP. Necklymph node biopsycompleted. Patient tofollow-upwith oncology as an outpatient forbiopsyresults as well as further workup/management. Methotrexate as well as statins, fenofibrate held at discharge. Please clarify the relationship, if any, which is clinically appropriate for this patient: [ ] Cirrhosis is due to Hx of alcohol abuse [ ] Cirrhosis is not due to Hx of alcohol abuse [ x ] Other explanation of clinical findings (please specify) __unclear if cirrhosis based on only CT findings, Needs further work up to determine if he has widespread liver metastasis or cirrhosis. [ ] Unable to determine (no explanation for clinical findings) (Template Last Revised: June 2020) MTDD
--- NOTE | 2022-05-07 12:06 | CDI ---
Documentation Clarification Form Date: 05/07/2022 11:50:40 AM From: Radha Adler Phone: Admit Date: 04/22/2022 2:58:00 PM Patient Name: Cullen Rodriguez Visit Number: [id number] Discharge Date: 04/27/2022 3:41:00 PM ATTENTION: The Clinical Documentation Specialists (CDI) and [facility] Coding Staff appreciate your assistance in clarifying documentation. Please respond to the clarification below the line at the bottom and electronically sign. The CDI & [facility] Coding staff will review the response and follow-up if needed. Please note: Queries are made part of the Legal Health Record. If you have any questions, please contact the author of this message via ITS. Dr. Drake Elizabeth The final diagnosis of the pathology report states High grade non-Hodgkin's B- cell lymphoma. Coding guidelines do not allow coding professionals to code based on pathology results; therefore, clarification is requested. History/risk factors: 61yo M,Malignancywithmets,Chest pain, hepatomegaly, gallbladderLiver mass,lymphadenopathy,mildileusorenteritis, LTcolonic diverticulosis,transaminitis,RA, HTN,HLD,Gout, Hepatomegaly with splenomegaly Clinical Indicators: Leftneck mass Treatment: ULTRASOUNDGUIDEDBIOPSYLEFTNECK MASS Please clarify if you agree with the pathology report diagnosis of [insert result/diagnosis]: [ ] Diffuse large B-cell lymphoma [ ] Burkitt lymphoma [ x ] Other (please specify) __High grade non-Hodgkin's B-cell lymphoma [ ] Unable to determine (Template Last Revised: June 2020) MTDD
== END 2022-04-27 15:41 | disposition home or self-care (01) | DRG 392 ==
LOC: EC 11:05 → 4SSUR 14:58
PROVIDERS: ADMIT Family Medicine; ATTEND Family Medicine
PROC: 0WB63ZX Excision of Neck, Percutaneous Approach, Diagnostic (ICD-10-PCS; principal; 2022-04-27)
DX: K52.9 Noninfective gastroenteritis and colitis, unspecified (principal); K56.7 Ileus, unspecified; K57.32 Diverticulitis of large intestine without perforation or abscess without bleeding; C85.81 Other specified types of non-Hodgkin lymphoma, lymph nodes of head, face, and neck; E27.8 Other specified disorders of adrenal gland; R16.2 Hepatomegaly with splenomegaly, not elsewhere classified; M06.9 Rheumatoid arthritis, unspecified; I10 Essential (primary) hypertension; F10.11 Alcohol abuse, in remission; R63.4 Abnormal weight loss; Z68.30 Body mass index [BMI] 30.0-30.9, adult; D63.0 Anemia in neoplastic disease; K21.9 Gastro-esophageal reflux disease without esophagitis; E78.5 Hyperlipidemia, unspecified; M10.9 Gout, unspecified; K57.30 Diverticulosis of large intestine without perforation or abscess without bleeding; K82.8 Other specified diseases of gallbladder; R07.89 Other chest pain; M54.41 Lumbago with sciatica, right side; Z20.822 Contact with and (suspected) exposure to COVID-19; Z28.310 Unvaccinated for COVID-19; Z79.899 Other long term (current) drug therapy; Z88.5 Allergy status to narcotic agent; Z88.1 Allergy status to other antibiotic agents; Z87.19 Personal history of other diseases of the digestive system; I25.2 Old myocardial infarction
CPT/HCPCS: 20206; 21550; 36415; 70491; 71046; 71260; 74176; 74177; 76942; 80053; 80074; 81003; 82105; 82553; 83615; 83735; 84484; 85025; 85027; 85610; 85652; 85730; 86140; 87390; 87636; 88184; 88185; 88305; 88341; 88342; 93005; 96361; 96374; 96376; 99285

== ENCOUNTER 2022-05-01 12:53 | Observation (INO) | payer MEDICARE, OTHER ==
--- NOTE | 2022-05-01 13:51 | ED ---
ENT HPI - General Chief complaint: ENT Stated complaint: SONY, trouble swallowing, diarrhea Time Seen by Provider: 05/01/22 13:16 Source: patient, family, RN notes reviewed Mode of arrival: ambulatory Limitations: no limitations - History of Present Illness Initial comments: This is a 61-year-old male who presents to the emergency department for changes to his tongue and difficulty breathing. On 04/27, the patient had a biopsy of the mass on the left upper side of his neck. They were just notified today that this did confirm lymphoma. The results will be sent out to another lab to better determine what kind of lymphoma this is. Yesterday, he started to develop changes to his tongue. States that the tongue is starting to curve to the right and instead of a fissure down the middle, the area is notably elevated. Due to the changes in his tongue, it is difficult for him to eat and swallow. Denies any pain associated with this or the swallowing. His has been trying to give him Mac n cheese and pudding, however he continues to refuse to eat. Additionally, he reports shortness of breath that started 1-2 days ago. He has no coughing or associated chest pain. Denies any history of asthma or COPD. Denies any fevers, chills, sore throat, cough, chest pain, palpitations, abdominal pain, nausea, vomiting, diarrhea, back pain, or headaches. MD complaint: difficulty swallowing - Related Data Home Medications Medication Instructions Recorded Confirmed hydroCHLOROthiazide [Hydrodiuril] 25 mg PO DAILY 02/06/18 05/01/22 lisinopriL 40 mg PO BID 02/06/18 05/01/22 Cbd/Thc Gummies 1 tab PO HS 04/22/22 05/01/22 Cholecalciferol [Vitamin D3 (125 125 mcg PO DAILY 04/22/22 05/01/22 Mcg = 5000 Iu)] allopurinoL [Zyloprim] 100 mg PO DAILY 04/22/22 05/01/22 Fluticasone [place] [Flonase 1 spray INTRANASAL DAILY 05/01/22 05/01/22 [place]] Previous Rx's Medication Instructions Recorded Acetaminophen Tab [Tylenol] 650 mg PO Q6H #30 tab 04/27/22 HYDROmorphone [Dilaudid] 4 mg PO Q6H PRN 3 Days #12 tab 04/27/22 Allergies Allergy/AdvReac Type Severity Reaction Status Date / Time sulfamethoxazole Allergy Nausea Verified 05/01/22 15:21 [From Bactrim] tramadol Allergy Rash/Hives Verified 05/01/22 15:21 trimethoprim [From Bactrim] Allergy Nausea Verified 05/01/22 15:21 Review of Systems ROS Statement: Those systems with pertinent positive or pertinent negative responses have been documented in the HPI. ROS Other: All systems not noted in ROS Statement are negative. Past Medical History Past Medical History: GERD/Reflux, Hyperlipidemia, Hypertension, Osteoarthritis (OA) Additional Past Medical History / Comment(s): hiatal hernia, gout, History of Any Multi-Drug Resistant Organisms: None Reported Past Surgical History: Orthopedic Surgery, Tonsillectomy Additional Past Surgical History / Comment(s): claude shoulder rotator cuff repair, cyst removal rt wrist, oral surgery , surgery for pyloric stenosis as infant Past Anesthesia/Blood Transfusion Reactions: No Reported Reaction Past Psychological History: No Psychological Hx Reported Smoking Status: Never smoker Past Alcohol Use History: Daily Past Drug Use History: Marijuana - Past Family History Mother Family Medical History: No Reported History General Exam Limitations: no limitations General appearance: alert, in no apparent distress Head exam: Present: atraumatic, normocephalic, normal inspection ENT exam: Present: other (Deviation of the tongue to the right.) Respiratory exam: Present: wheezes Cardiovascular Exam: Present: normal rhythm, tachycardia Neurological exam: Present: alert, oriented X3, CN II-XII intact Psychiatric exam: Present: normal affect, normal mood Skin exam: Present: warm, dry, intact, normal color. Absent: rash Course Vital Signs 05/01/22 05/01/22 05/01/22 13:02 13:22 16:50 Temperature 97.6 F Pulse Rate 122 H 119 H 99 Pulse Rate [ Pulse Oximetery ] Respiratory 24 34 H 18 Rate Blood Pressure 115/79 128/93 143/99 Blood Pressure [Left Arm] O2 Sat by Pulse 97 96 95 Oximetry 05/01/22 05/01/22 20:00 20:33 Temperature 97.8 F Pulse Rate 94 Pulse Rate [ 90 Pulse Oximetery ] Respiratory 20 18 Rate Blood Pressure 141/92 Blood Pressure 142/94 [Left Arm] O2 Sat by Pulse 95 98 Oximetry Medical Decision Making - Medical Decision Making This is a 61-year-old male who presents to the emergency department for changes to his tongue and difficulty breathing. Was pt. sent in by a medical professional or institution? @ -No Did you speak to anyone other than the patient for history? @ -His Did you review nursing and triage notes? @ -Agree, accurate with regards to the patient's symptoms. Were old charts reviewed? @ -Yes, his admission record from 04/22 - 04/27. Differential Diagnosis? @ -Differential Dyspnea: Coronary syndrome, arrhythmia, tamponade, asthma, COPD, pulmonary embolism, pneumonia, pneumothorax, pulmonary effusion, anaphylaxis, diabetic ketoacidosis, flailed chest, pulmonary contusion, diaphragmatic rupture, anemia, neuro muscular, this is not meant to be an all-inclusive list. EKG interpreted by me (3pts min.)? @ -Sinus tachycardia. Ventricular rate 112 bpm, WV interval 136 ms, QRS duration 94 ms, QTC 369 ms. X-rays interpreted by me (1pt min.)? @ -Chest x-ray obtained, my interpretation reveals no localized consolidations or infiltrates. CT interpreted by me (1pt min.)? @ -My interpretation of the CTA of the brain identifies no evidence of arterial occlusion or stenosis. My interpretation of the CTA of the neck identifies patent carotid arteries. There does also appear to be parotid masses claude aterally. What testing was considered but not performed? (CT, X-rays, U/S, labs)? Why? @ -I had originally recommended a CTA of the brain and CT scan soft tissue neck, however the surface mount technology operator discussed this with my attending and they decided to proceed with a CTA of the head and neck. What meds were considered but not given? Why? @ -None Did you discuss the management of the patient with other professionals? @ -Yes, Dr. Burgos, who advised that the appearance of the tongue is d ue to a hypoglossal nerve paralysis. He recommended an MRI of the brain for optimal evaluation. Upon evaluation of the CTA, he advised that the patient will most likely need a laryngoscopy due to the noted soft tissue fullness along the right tonsillar pillar and right posterior base of the tongue. Case also discussed with Dr. Spann, who accepts the patient for admission as long as MRI is available over the weekend. I spoke with the permit technician, who advised that they do have slots available tomorrow. Did you reconcile home meds? @ -Yes Was smoking cessation discussed for >3mins.? @ -No Was critical care preformed (if so, how long)? @ -No Were there social determinants of health that impacted care today? How? (Homelessness, low income, unemployed, alcoholism, drug addiction, transportation, low edu. Level, literacy, decrease access to med. care, [place] [facility], rehab)? @ -No Was there de-escalation of care discussed even if they declined? (Discuss DNR or withdrawal of care, Hospice)? @ -No What co-morbidities impacted this encounter? (DM, HTN, Smoking, COPD, CAD, Cancer, CVA, Hep., AIDS, mental health diagnosis, sleep apnea, morbid obesity)? @ -GERD, HTN, HLD, lymphoma Was patient admitted / discharged? @ -Admitted. Lab work consistent with dehydration and his liver enzymes are notably worse than they were during his prior admission. Patient given IV fluid bolus and started on maintenance fluids. Dr. 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 We discussed the possibility of infection versus stroke. He advised neurology consult and Lyme PCR testing. Patient and his requested admission due to the patient being unable to tolerate oral intake at this time. Patient was subsequently admitted to medicine with neurology consult and MRI of the brain was ordered. Oncology consult placed as well due to recent diagnosis of lymphoma and concern of metastasis. With regards to the difficulty breathing, chest x-ray was negative for any acute process and he tested negative for COVID, influenza, and RSV. He did have notable wheezing on examination. Will defer additional testing to admitting team. Drug Therapy requiring intensive monitoring for toxicity (Heparin, Nitro, Insulin, Cardizem)? @ -None Were any procedures done? @ -None Diagnosis/symptom? @ -Hypoglossal nerve paralysis Acute, or Chronic, or Acute on Chronic? @ -Acute Uncomplicated (without systemic symptoms) or Complicated (systemic symptoms)? @ -Complicated Side effects of treatment? @ -None at this time. Exacerbation, Progression, or Severe Exacerbation] @ -Not applicable Poses a threat to life or bodily function? @ -Yes Diagnosis/symptom? @ -Lymphoma Acute, or Chronic, or Acute on Chronic? @ -Acute Uncomplicated (without systemic symptoms) or Complicated (systemic symptoms)? @ -Complicated Side effects of treatment? @ -None at this time Exacerbation, Progression, or Severe Exacerbation] @ -Not applicable Poses a threat to life or bodily function? @ -Yes Diagnosis/symptom? @ -Dyspnea Acute, or Chronic, or Acute on Chronic? @ -Acute Uncomplicated (without systemic symptoms) or Complicated (systemic symptoms)? @ -Complicated Side effects of treatment? @ -None Exacerbation, Progression, or Severe Exacerbation] @ -Not applicable Poses a threat to life or bodily function? @ -Yes This case was discussed in detail with the attending ED physician. Presentation, findings, and treatment plan discussed in detail as well. - Lab Data Result diagrams: 05/01/22 14:23 05/01/22 14: Lab Results 05/01/22 05/01/22 05/01/22 Range/Units 14:23 14:23 14:23 WBC 7.1 (3.8-10.6) k/uL RBC 4.00 L (4.30-5.90) m/uL Hgb 11.1 L (13.0-17.5) gm/dL Hct 34.4 L (39.0-53.0) % MCV 86.1 (80.0-100.0) fL MCH 27.7 (25.0-35.0) pg MCHC 32.2 (31.0-37.0) g/dL RDW 16.4 H (11.5-15.5) % Plt Count 410 (150-450) k/uL MPV 7.6 Neutrophils % 83 % Lymphocytes % 8 % Monocytes % 6 % Eosinophils % 0 % Basophils % 1 % Neutrophils # 5.9 (1.3-7.7) k/uL Lymphocytes # 0.5 L (1.0-4.8) k/uL Monocytes # 0.5 (0-1.0) k/uL Eosinophils # 0.0 (0-0.7) k/uL Basophils # 0.0 (0-0.2) k/uL Anisocytosis Slight PT 12.0 (9.0-12.0) sec INR 1.2 H (<1.2) APTT 23.5 (22.0-30.0) sec Sodium 134 L (137-145) mmol/L Potassium 5.4 H (3.5-5.1) mmol/L Chloride 102 (98-107) mmol/L Carbon Dioxide 17 L (22-30) mmol/L Anion Gap 15 mmol/L BUN 32 H (9-20) mg/dL Creatinine 0.58 L (0.66-1.25) mg/dL Est GFR (CKD-EPI)AfAm >90 (>60 ml/min/1.73 sqM) Est GFR (CKD-EPI)NonAf >90 (>60 ml/min/1.73 sqM) Glucose 109 H (74-99) mg/dL Lactic Ac Sepsis Rflx Plasma Lactic Acid Farhat (0.7-2.0) mmol/L Calcium 8.8 (8.4-10.2) mg/dL Total Bilirubin 1.2 (0.2-1.3) mg/dL AST 686 H (17-59) U/L ALT 224 H (4-49) U/L Alkaline Phosphatase 554 H (38-126) U/L Troponin I (0.000-0.034) ng/mL Total Protein 5.3 L (6.3-8.2) g/dL Albumin 2.8 L (3.5-5.0) g/dL Influenza Type A (PCR) (Not Detectd) Influenza Type B (PCR) (Not Detectd) RSV (PCR) (Not Detectd) SARS-CoV-2 (PCR) (Not Detectd) 05/01/22 05/01/22 05/01/22 Range/Units 14:23 14:23 15:14 WBC (3.8-10.6) k/uL RBC (4.30-5.90) m/uL Hgb (13.0-17.5) gm/dL Hct (39.0-53.0) % MCV (80.0-100.0) fL MCH (25.0-35.0) pg MCHC (31.0-37.0) g/dL RDW (11.5-15.5) % Plt Count (150-450) k/uL MPV Neutrophils % % Lymphocytes % % Monocytes % % Eosinophils % % Basophils % % Neutrophils # (1.3-7.7) k/uL Lymphocytes # (1.0-4.8) k/uL Monocytes # (0-1.0) k/uL Eosinophils # (0-0.7) k/uL Basophils # (0-0.2) k/uL Anisocytosis PT (9.0-12.0) sec INR (<1.2) APTT (22.0-30.0) sec Sodium (137-145) mmol/L Potassium (3.5-5.1) mmol/L Chloride (98-107) mmol/L Carbon Dioxide (22-30) mmol/L Anion Gap mmol/L BUN (9-20) mg/dL Creatinine (0.66-1.25) mg/dL Est GFR (CKD-EPI)AfAm (>60 ml/min/1.73 sqM) Est GFR (CKD-EPI)NonAf (>60 ml/min/1.73 sqM) Glucose (74-99) mg/dL Lactic Ac Sepsis Rflx Plasma Lactic Acid Farhat 8.0 H* (0.7-2.0) mmol/L Calcium (8.4-10.2) mg/dL Total Bilirubin (0.2-1.3) mg/dL AST (17-59) U/L ALT (4-49) U/L Alkaline Phosphatase (38-126) U/L Troponin I <0.012 (0.000-0.034) ng/mL Total Protein (6.3-8.2) g/dL Albumin (3.5-5.0) g/dL Influenza Type A (PCR) Not Detected (Not Detectd) Influenza Type B (PCR) Not Detected (Not Detectd) RSV (PCR) Not Detected (Not Detectd) SARS-CoV-2 (PCR) Not Detected (Not Detectd) 05/01/22 Range/Units 15:23 WBC (3.8-10.6) k/uL RBC (4.30-5.90) m/uL Hgb (13.0-17.5) gm/dL Hct (39.0-53.0) % MCV (80.0-100.0) fL MCH (25.0-35.0) pg MCHC (31.0-37.0) g/dL RDW (11.5-15.5) % Plt Count (150-450) k/uL MPV Neutrophils % % Lymphocytes % % Monocytes % % Eosinophils % % Basophils % % Neutrophils # (1.3-7.7) k/uL Lymphocytes # (1.0-4.8) k/uL Monocytes # (0-1.0) k/uL Eosinophils # (0-0.7) k/uL Basophils # (0-0.2) k/uL Anisocytosis PT (9.0-12.0) sec INR (<1.2) APTT (22.0-30.0) sec Sodium (137-145) mmol/L Potassium (3.5-5.1) mmol/L Chloride (98-107) mmol/L Carbon Dioxide (22-30) mmol/L Anion Gap mmol/L BUN (9-20) mg/dL Creatinine (0.66-1.25) mg/dL Est GFR (CKD-EPI)AfAm (>60 ml/min/1.73 sqM) Est GFR (CKD-EPI)NonAf (>60 ml/min/1.73 sqM) Glucose (74-99) mg/dL Lactic Ac Sepsis Rflx Y Plasma Lactic Acid Farhat (0.7-2.0) mmol/L Calcium (8.4-10.2) mg/dL Total Bilirubin (0.2-1.3) mg/dL AST (17-59) U/L ALT (4-49) U/L Alkaline Phosphatase (38-126) U/L Troponin I (0.000-0.034) ng/mL Total Protein (6.3-8.2) g/dL Albumin (3.5-5.0) g/dL Influenza Type A (PCR) (Not Detectd) Influenza Type B (PCR) (Not Detectd) RSV (PCR) (Not Detectd) SARS-CoV-2 (PCR) (Not Detectd) - Radiology Data Radiology results: report reviewed, image reviewed Disposition Clinical Impression: Hypoglossal nerve paralysis, Lymphoma, Dysphagia Disposition: ADMITTED IP TO THIS HOSP
--- NOTE | 2022-05-01 14:32 | XR ---
EXAMINATION TYPE: XR chest 2V DATE OF EXAM: 05/01/2022 2:27 PM COMPARISON: Chest radiographs from 04/22/2022 TECHNIQUE: XR chest 2V Frontal and lateral views of the chest. CLINICAL INDICATION:Male, 61 years old with history of difficulty breathing; FINDINGS: Lungs/Pleura: There is no evidence of pleural effusion, focal consolidation, or pneumothorax. Simila r linear atelectasis within the right lung base. Pulmonary vascularity: Unremarkable. Heart/mediastinum: Cardiomediastinal silhouette is unremarkable. Musculoskeletal: No acute osseous pathology. IMPRESSION: No acute cardiopulmonary disease/process. Similar linear atelectasis within the right lung base.
[2022-05-01 14:40] LABS: Anisocytosis Slight; Basophils % (A) 1 %; Eosinophils % (A) 0 %; HCT 34.4 % (39.0-53.0); HGB 11.1 gm/dL (13.0-17.5); Lymphocytes # (A) 0.5 k/uL (1.0-4.8); Lymphocytes % (A) 8 %; MCH 27.7 pg (25.0-35.0); MCHC 32.2 g/dL (31.0-37.0); MCV 86.1 fL (80.0-100.0); Mean Platelet Volume 7.6; Monocytes # (A) 0.5 k/uL (0-1.0); Monocytes % (A) 6 %; Neutrophils # (A) 5.9 k/uL (1.3-7.7); Neutrophils % (A) 83 %; Platelet Count 410 k/uL (150-450); RDW 16.4 % (11.5-15.5); WBC 7.1 k/uL (3.8-10.6)
[2022-05-01 14:51] LABS: INR 1.2 (<1.2); Partial Thromboplastin Time 23.5 sec (22.0-30.0)
[2022-05-01 14:56] LABS: ALT 224 U/L (4-49); AST 686 U/L (17-59); African American GFR (CKD) >90 (>60 ml/min/1.73 sqM); Albumin 2.8 g/dL (3.5-5.0); Alkaline Phosphatase 554 U/L (38-126); Anion Gap 15 mmol/L; Blood Urea Nitrogen 32 mg/dL (9-20); Calcium 8.8 mg/dL (8.4-10.2); Carbon Dioxide 17 mmol/L (22-30); Chloride 102 mmol/L (98-107); Glucose 109 mg/dL (74-99); Non-African American GFR(CKD) >90 (>60 ml/min/1.73 sqM); Sodium 134 mmol/L (137-145); Total Bilirubin 1.2 mg/dL (0.2-1.3); Total Protein 5.3 g/dL (6.3-8.2)
[2022-05-01 15:16] LABS: Potassium 5.4 mmol/L (3.5-5.1)
--- NOTE | 2022-05-01 15:38 | CT ---
EXAMINATION TYPE: CT angio head neck DATE OF EXAM: 05/01/2022 COMPARISON: None HISTORY: 61-year-old male recent diagnosis of metastatic cancer, Neck biopsy, twisted tongue, difficu lty swallowing TECHNIQUE: Contiguous axial scanning of the head and neck performed without and with IV Contrast, pat ient injected with 65 mL of Isovue 370. Coronal/sagittal MIP reconstructions performed. 3-D reconstru ctions generated on a dedicated workstation. CT DLP: 1524.8 mGycm Automated exposure control for dose reduction was used. FINDINGS: Noncontrast CT head: Evidence for acute intracranial hemorrhage, acute ischemic change, mass, mass effect, midline shift, or extra-axial fluid collection. No hydrocephalus. No effacement of cerebral sulci or basal subarachn oid cisterns. Marlow-white matter differentiation is maintained. Trace air-fluid level right maxillary sinus. Mastoid air cells well pneumatized. Orbits and globes ar e intact. Additional lobulated mucosal thickening left greater than right sphenoid sinuses. CTA HEAD: Dural venous sinuses are patent. Both vertebral and basilar arteries are patent as is the remainder of the posterior circulation. The bilateral internal carotid arteries as well as the remainder of the anterior circulation are nina nt. No significant narrowing and no aneurysmal changes seen. CTA NECK: Compression arch vessel branching anatomy. The vertebral arteries are codominant and patent to reports. The right common and right internal carotid arteries are widely patent. The left common and left internal carotid arteries are widely patent. There is asymmetric soft tissue fullness along the right tonsillar pillar and right posterior base of the tongue in the region of the lingual tonsils, axial image 130 and 145. Abnormal enhancing mass within the tail of the left parotid gland measuring 2.4 cm. Additional nodule anterior aspect of the superficial lobe of the left parotid gland measuring 1.2 cm. Nodule within th e superficial lobe of the right parotid gland measuring 2.0 cm. Bones: No osseous destructive process. Patient is partially edentulous. IMPRESSION: 1. NONCONTRAST CT HEAD: NO ACUTE INTRACRANIAL ABNORMALITY SEEN. 2. CTA HEAD: NO LARGE VESSEL INTRACRANIAL ARTERIAL OCCLUSION, SIGNIFICANT STENOSIS, OR ANEURYSMAL FRANCESCO NGES SEEN. 3. CTA NECK: WIDELY PATENT VERTEBRAL AND CAROTID ARTERIES OF THE NECK. 4. INCIDENTAL: ASYMMETRIC SOFT TISSUE FULLNESS ALONG THE RIGHT TONSILLAR PILLAR AND RIGHT POSTERIOR B ASE OF THE TONGUE. RECOMMEND DIRECT VISUALIZATION GIVEN THE PATIENT'S REPORTED METASTATIC DISEASE. BI LATERAL PAROTID MASSES REDEMONSTRATED.
[2022-05-01] MEDS ORDERED: SODIUM CHLORIDE 0.9% 1,000 ML IV STA (16:04)
[2022-05-01] MEDS ORDERED: KETOROLAC 15 MG/ML 1 ML VIAL IVP PRN (17:14)
[2022-05-01] MEDS ORDERED: IBUPROFEN 400 MG TAB PO PRN (17:14)
[2022-05-01] MEDS ORDERED: NALOXONE 0.4 MG/ML 1 ML VIAL IV PRN (17:14)
[2022-05-01] MEDS ORDERED: ONDANSETRON 4 MG/2 ML VIAL IVP PRN (17:14)
[2022-05-01] MEDS ORDERED: methylPREDNISolone SOD SUCCI 125 MG/2 ML VIAL IV STA (17:19)
--- NOTE | 2022-05-01 17:37 | P.GSCN ---
History of Present Illness Consult date: 05/01/22 Reason for Consult: Tongue Abnormality Requesting physician: Tom Sandy History of present illness: This patient is a 61-year-old white male who approximately 48 hours ago started having difficulty with his mouth and tongue. There is becoming harder for him to swallow and eat and is speech became impaired. He denies any neurologic symptomatology. He was recently diagnosed with lymphoma after a fine-needle a spiration of the left neck mass. He denies coughing up blood or any other mouth and throat symptoms. Patient had a CAT scan of the neck and I do not have the results of that report at this time. He denies any neurologic symptoms. Review of Systems - Constitutional Reports as per HPI - EENT Ears, nose, mouth and throat: Reports as per HPI - Cardiovascular Reports as per HPI - Respiratory Reports as per HPI - Gastrointestinal Reports as per HPI - Genitourinary Reports as per HPI - Musculoskeletal Reports as per HPI - Integumentary Reports as per HPI - Neurological Reports as per HPI - Psychiatric Reports as per HPI - Endocrine Reports as per HPI - Hematologic/Lymphatic Reports as per HPI - Allergic/Immunologic Reports as per HPI Past Medical History Past Medical History: GERD/Reflux, Hyperlipidemia, Hypertension, Osteoarthritis (OA) Additional Past Medical History / Comment(s): hiatal hernia, gout, History of Any Multi-Drug Resistant Organisms: None Reported Past Surgical History: Orthopedic Surgery, Tonsillectomy Additional Past Surgical History / Comment(s): claude shoulder rotator cuff repair, cyst removal rt wrist, oral surgery , surgery for pyloric stenosis as Past Anesthesia/Blood Transfusion Reactions: No Reported Reaction Past Psychological History: No Psychological Hx Reported Smoking Status: Never smoker Past Alcohol Use History: Daily Past Drug Use History: Marijuana - Past Family History Mother Family Medical History: No Reported History Medications and Allergies Home Medications Medication Instructions Recorded Confirmed Type hydroCHLOROthiazide [Hydrodiuril] 25 mg PO DAILY 02/06/18 05/01/22 History lisinopriL 40 mg PO BID 02/06/18 05/01/22 History Cbd/Thc Gummies 1 tab PO HS 04/22/22 05/01/22 History Cholecalciferol [Vitamin D3 (125 125 mcg PO DAILY 04/22/22 05/01/22 History Mcg = 5000 Iu)] allopurinoL [Zyloprim] 100 mg PO DAILY 04/22/22 05/01/22 History Acetaminophen Tab [Tylenol] 650 mg PO Q6H #30 tab 04/27/22 05/01/22 Rx HYDROmorphone [Dilaudid] 4 mg PO Q6H PRN 3 Days #12 tab 04/27/22 05/01/22 Rx Fluticasone Nasal [place] [Flonase 1 spray INTRANASAL DAILY 05/01/22 05/01/22 H istory Nasal [place]] Allergies Allergy/AdvReac Type Severity Reaction Status Date / Time sulfamethoxazole Allergy Nausea Verified 05/01/22 15:21 [From Bactrim] tramadol Allergy Rash/Hives Verified 05/01/22 15:21 trimethoprim [From Bactrim] Allergy Nausea Verified 05/01/22 15:21 Surgical - Exam Osteopathic Statement: *. No significant issues noted on an osteopathic structural exam other than those noted in the History and Physical/Consult. 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 No signs of any tumors or masses. normal pinna, normal nares, normal mucosa, no congestion - Neck Left neck mass appreciated. They biopsied demonstrating lymphoma - Respiratory normal expansion - Integumentary no rash, no growths - Neurologic normal coordination, normal sensation - Musculoskeletal normal gait - Psychiatric oriented to time, oriented to person, oriented to place, speech is normal, memory intact Results - Labs 05/01/22 14:23 05/01/22 14:23 Abnormal Lab Results - Last 24 Hours (Table) 05/01/22 05/01/22 05/01/22 Range/Units 14:23 14: 14:23 RBC 4.00 L (4.30-5.90) m/uL Hgb 11.1 L (13.0-17.5) gm/dL Hct 34.4 L (39.0-53.0) % RDW 16.4 H (11.5-15.5) % Lymphocytes # 0.5 L (1.0-4.8) k/uL INR 1.2 H (<1.2) Sodium 134 L (137-145) mmol/L Potassium 5.4 H (3.5-5.1) mmol/L Carbon Dioxide 17 L (22-30) mmol/L BUN 32 H (9-20) mg/dL Creatinine 0.58 L (0.66-1.25) mg/dL Glucose 109 H (74-99) mg/dL Plasma Lactic Acid Farhat (0.7-2.0) mmol/L AST 686 H (17-59) U/L ALT 224 H (4-49) U/L Alkaline Phosphatase 554 H (38-126) U/L Total Protein 5.3 L (6.3-8.2) g/dL Albumin 2.8 L (3.5-5.0) g/dL 05/01/22 Range/Units 14:23 RBC (4.30-5.90) m/uL Hgb (13.0-17.5) gm/dL Hct (39.0-53.0) % RDW (11.5-15.5) % Lymphocytes # (1.0-4.8) k/uL INR (<1.2) Sodium (137-145) mmol/L Potassium (3.5-5.1) mmol/L Carbon Dioxide (22-30) mmol/L BUN (9-20) mg/dL Creatinine (0.66-1.25) mg/dL Glucose (74-99) mg/dL Plasma Lactic Acid Farhat 8.0 H* (0.7-2.0) mmol/L AST (17-59) U/L ALT (4-49) U/L Alkaline Phosphatase (38-126) U/L Total Protein (6.3-8.2) g/dL Albumin (3.5-5.0) g/dL Diabetes panel 05/01/22 Range/Units 14:23 Sodium 134 L (137-145) mmol/L Potassium 5.4 H (3.5-5.1) mmol/L Chloride 102 (98-107) mmol/L Carbon Dioxide 17 L (22-30) mmol/L BUN 32 H (9-20) mg/dL Creatinine 0.58 L (0.66-1.25) mg/dL Glucose 109 H (74-99) mg/dL Calcium 8.8 (8.4-10.2) mg/dL AST 686 H (17-59) U/L ALT 224 H (4-49) U/L Alkaline Phosphatase 554 H (38-126) U/L Total Protein 5.3 L (6.3-8.2) g/dL Albumin 2.8 L (3.5-5.0) g/dL Calcium panel 05/01/22 Range/Units 14:23 Calcium 8.8 (8.4-10.2) mg/dL Albumin 2.8 L (3.5-5.0) g/dL Pituitary panel 05/01/22 Range/Units 14:23 Sodium 134 L (137-145) mmol/L Potassium 5.4 H (3.5-5.1) mmol/L Chloride 102 (98-107) mmol/L Carbon Dioxide 17 L (22-30) mmol/L BUN 32 H (9-20) mg/dL Creatinine 0.58 L (0.66-1.25) mg/dL Glucose 109 H (74-99) mg/dL Calcium 8.8 (8.4-10.2) mg/dL Adrenal panel 05/01/22 Range/Units 14:23 Sodium 134 L (137-145) mmol/L Potassium 5.4 H (3.5-5.1) mmol/L Chloride 102 (98-107) mmol/L Carbon Dioxide 17 L (22-30) mmol/L BUN 32 H (9-20) mg/dL Creatinine 0.58 L (0.66-1.25) mg/dL Glucose 109 H (74-99) mg/dL Calcium 8.8 (8.4-10.2) mg/dL Total Bilirubin 1.2 (0.2-1.3) mg/dL AST 686 H (17-59) U/L ALT 224 H (4-49) U/L Alkaline Phosphatase 554 H (38-126) U/L Total Protein 5.3 L (6.3-8.2) g/dL Albumin 2.8 L (3.5-5.0) g/dL Assessment and Plan Plan: This patient has a paralyzed tongue on the left side with 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 Etiology unknown. Patient has a previously diagnosed lymphoma and malignancy causing nerve impairment is highly suspect. The patient had a CTA of the neck and I would've preferred a soft tissue computed tomography scan instead. I'm unable to bring up the images because of a computer issue. The patient is to follow up with me on an outpatient basis for flexible laryngoscopy. Neurologic consultation has been requested. Again, the patient is to follow up with me after discharge in my office for laryngoscopy. Time with Patient: Greater than 30
[2022-05-01] MEDS ORDERED: HYDROmorphone 2 MG TAB PO PRN (17:48)
[2022-05-01] MEDS: SODIUM CHLORIDE 0.9% 1,000 ML IV SCH (18:03)
[2022-05-01] MEDS: lisinopriL 20 MG TAB PO SCH (22:01)
--- NOTE | 2022-05-02 00:42 | P.HPIM ---
History of Present Illness H&P Date: 05/01/22 Patient is a 61-year-old male with a PMH of hypertension who presents to the emergency room with complaints of difficulty swallowing and tongue deviation. The patient was recently admitted to the hospital on 05/11 with multiple complaints including chest pain, night sweats, and weight loss. The patient was eventually diagnosed with a neck mass, likely metastatic malignancy. The patient underwent a neck lymph node biopsy and was subsequently discharged to follow-up with oncology. He recently was contacted by oncology and was notified that it was indeed a lymphoma. The patient reports however that yesterday morning, he noted that his tongue suddenly felt strange. He also reported being unable to swallow any coarse foods due to the inability to move his tongue properly. He reports poor oral intake since that time. He reports ongoing night sweats and fatigue. He reports unchanged mild chest discomfort over the past few weeks with shortness of breath that is also unchanged. Denied experiencing unilateral weakness, numbness, or tingling. Denied speech changes or facial asymmetry. Denied visual disturbances or gait abnormality. Laboratory evaluation in the emergency room was remarkable for lactic acid of 8.0, AST 686, ALT 224, and alk phos 554. Review of systems: Pertinent positives and negatives as discussed in HPI, a complete review of systems was performed and all other systems are negative. Physical examination: General: non toxic, no distress, appears at stated age, normal weight Derm: no unusual rashes/lesions, warm Head: atraumatic, normocephalic, symmetric Eyes: EOMI, no lid lag, anicteric sclera, pupils equal round reactive to light ENT: Nose and ears atraumatic Neck: No cervical lymphadenopathy, trachea midline, supple Mouth: no lip lesion, mucus membranes moist Cardiovascular: S1S2 reg, no murmur, positive dorsalis pedis pulse bilateral, no edema Lungs: CTA bilateral, no rhonchi, no rales, no accessory muscle use Abdominal: soft, nontender to palpation, no guarding Ext: muscle strength 5 out of 5 in all 4 extremities grossly, no gross muscle at rophy, no contractures, Neuro: CN II-XI grossly intact with the exception of tongue deviation to the right Psych: Alert, oriented, appropriate affect Assessment/plan Right-sided tongue deviation with difficulty swallowing -Agree with ENT regarding likely hypoglossal nerve paralysis in setting of neck lymphoma -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 -Neurology consulted -Nothing by mouth for now -Oncology consulted Lactic acidosis -Suspected secondary to ongoing malignancy with liver dysfunction in setting of likely metastasis -Continue with IV fluids and monitor for resolution DVT prophylaxis -Lovenox The patient is admitted with an anticipated less than 2 midnight stay for evaluation of nerve paralysis CODE STATUS: Full Code Discussed with: Patient Anticipated discharge date: 2-[address]: Home Past Medical History Past Medical History: GERD/Reflux, Hyperlipidemia, Hypertension, Osteoarthritis (OA) Additional Past Medical History / Comment(s): hiatal hernia, gout, recent lymphoma History of Any Multi-Drug Resistant Organisms: None Reported Past Surgical History: Orthopedic Surgery, Tonsillectomy Additional Past Surgical History / Comment(s): claude shoulder rotator cuff repair, cyst removal rt wrist, oral surgery , surgery for pyloric stenosis as infant, carpal tunnel, trigger finger surgery, sinus surgery Past Anesthesia/Blood Transfusion Reactions: No Reported Reaction Past Psychological History: No Psychological Hx Reported Smoking Status: Never smoker Past Alcohol Use History: Occasional Past Drug Use History: Marijuana - Past Family History Mother Family Medical History: Hyperlipidemia Medications and Allergies Home Medications Medication Instructions Recorded Confirmed Type hydroCHLOROthiazide [Hydrodiuril] 25 mg PO DAILY 02/06/18 05/01/22 History lisinopriL 40 mg PO BID 02/06/18 05/01/22 History Cbd/Thc Gummies 1 tab PO HS 04/22/22 05/01/22 History Cholecalciferol [Vitamin D3 (125 125 mcg PO DAILY 04/22/22 05/01/22 History Mcg = 5000 Iu)] allopurinoL [Zyloprim] 100 mg PO DAILY 04/22/22 05/01/22 History Acetaminophen Tab [Tylenol] 650 mg PO Q6H #30 tab 04/27/22 05/01/22 Rx HYDROmorphone [Dilaudid] 4 mg PO Q6H PRN 3 Days #12 tab 04/27/22 05/01/22 Rx Fluticasone Nasal [place] [Flonase 1 spray INTRANASAL DAILY 05/01/22 05/01/22 History Nasal [place]] Allergies Allergy/AdvReac Type Severity Reaction Status Date / Time sulfamethoxazole Allergy Nausea Verified 05/01/22 15:21 [From Bactrim] tramadol Allergy Rash/Hives Verified 05/01/22 15:21 trimethoprim [From Bactrim] Allergy Nausea Verified 05/01/22 15:21 Physical Exam Vitals: Vital Signs Temp Pulse Pulse Resp BP BP Pulse Ox 05/01/22 20:33 94 18 141/92 98 05/01/22 20:00 97.8 F 90 20 142/94 95 05/01/22 16:50 99 18 143/99 95 05/01/22 13:22 119 H 34 H 128/93 96 05/01/22 13:02 97.6 F 122 H 24 115/79 97 Intake and Output 05/01/22 05/01/22 05/02/22 14:59 22:59 06:59 Other: Voiding Method Toilet Weight 81.647 kg 80.5 kg Results CBC & Chem 7: 05/01/22 14:23 05/01/22 14:23 Labs: Abnormal Lab Results - Last 24 Hours (Table) 05/01/22 05/01/22 05/01/22 Range/Units 14:23 14:23 14:23 RBC 4.00 L (4.30-5.90) m/uL Hgb 11.1 L (13.0-17.5) gm/dL Hct 34.4 L (39.0-53.0) % RDW 16.4 H (11.5-15.5) % Lymphocytes # 0.5 L (1.0-4.8) k/uL INR 1.2 H (<1.2) Sodium 134 L (137-145) mmol/L Potassium 5.4 H (3.5-5.1) mmol/L Carbon Dioxide 17 L (22-30) mmol/L BUN 32 H (9-20) mg/dL Creatinine 0.58 L (0.66-1.25) mg/dL Glucose 109 H (74-99) mg/dL Plasma Lactic Acid Farhat (0.7-2.0) mmol/L AST 686 H (17-59) U/L ALT 224 H (4-49) U/L Alkaline Phosphatase 554 H (38-126) U/L Total Protein 5.3 L (6.3-8.2) g/dL Albumin 2.8 L (3.5-5.0) g/dL 05/01/22 05/01/22 05/01/22 Range/Units 14:23 17:40 20:19 RBC (4.30-5.90) m/uL Hgb (13.0-17.5) gm/dL Hct (39.0-53.0) % RDW (11.5-15.5) % Lymphocytes # (1.0-4.8) k/uL INR (<1.2) Sodium (137-145) mmol/L Potassium (3.5-5.1) mmol/L Carbon Dioxide (22-30) mmol/L BUN (9-20) mg/dL Creatinine (0.66-1.25) mg/dL Glucose (74-99) mg/dL Plasma Lactic Acid Farhat 8.0 H* 5.7 H* 4.5 H* (0.7-2.0) mmol/L AST (17-59) U/L ALT (4-49) U/L Alkaline Phosphatase (38-126) U/L Total Protein (6.3-8.2) g/dL Albumin (3.5-5.0) g/dL 05/01/22 Range/Units 23:37 RBC (4.30-5.90) m/uL Hgb (13.0-17.5) gm/dL Hct (39.0-53.0) % RDW (11.5-15.5) % Lymphocytes # (1.0-4.8) k/uL INR (<1.2) Sodium (137-145) mmol/L Potassium (3.5-5.1) mmol/L Carbon Dioxide (22-30) mmol/L BUN (9-20) mg/dL Creatinine (0.66-1.25) mg/dL Glucose (74-99) mg/dL Plasma Lactic Acid Farhat 4.2 H* (0.7-2.0) mmol/L AST (17-59) U/L ALT (4-49) U/L Alkaline Phosphatase (38-126) U/L Total Protein (6.3-8.2) g/dL Albumin (3.5-5.0) g/dL Thrombosis Risk Factor Assmnt - Choose All That Apply Any of the Below Risk Factors Present?: Yes Each Factor Represents 1 point: Age 41-60 years, Obesity (BMI >25) Other Risk Factors: No Other congenital or acquired thrombophilia - If yes, enter type in comment: No Thrombosis Risk Factor Assessment Total Risk Factor Score: 2 Thrombosis Risk Factor Assessment Level: Low Risk
[2022-05-02] MEDS: SODIUM CHLORIDE 0.9% 1,000 ML IV SCH ×3 (05:13→17:53)
[2022-05-02] MEDS: allopurinoL 100 MG TAB PO SCH (09:48)
[2022-05-02] MEDS: PANTOPRAZOLE 40 MG/10 ML VIAL IV SCH (09:48)
[2022-05-02] MEDS: hydroCHLOROthiazide 25 MG TAB PO SCH (09:48)
[2022-05-02] MEDS: ENOXAPARIN 40 MG/0.4 ML SYRINGE SQ SCH (09:48)
[2022-05-02] MEDS: lisinopriL 20 MG TAB PO SCH ×2 (09:49→23:11)
[2022-05-02] MEDS: CHOLECALCIFEROL 125 MCG (5000 IU) TABLET PO SCH (09:49)
--- NOTE | 2022-05-02 10:34 | P.OP ---
Date of Procedure: 05/02/22 Preoperative Diagnosis: Tongue paralysis rule out malignancy base of tongue Postoperative Diagnosis: Same Procedure(s) Performed: Direct flexible nasopharyngolaryngoscope Anesthesia: none Surgeon: Taj Burgos Estimated Blood Loss (ml): 0 Pathology: none sent Condition: stable Disposition: PACU Indications for Procedure: Patient has a paralysis of the base of the tongue and the CAT scan reveals a bulge at the base of the tongue, mass needs to be ruled out Operative Findings: Patient has no tumors or masses of the nasopharynx oropharynx or hypopharynx. There is a soft tissue fullness to the right base of tongue from the paresis Description of Procedure: On E NF type GP nasopharyngoscope was inserted into the patient's left nares. There is nasal dryness. Left septal spur noted. Nasopharynx, oropharynx, and hypopharynx was evaluated thoroughly. There is a soft tissue fullness to the right base of tongue but no discrete tumor or mass. No ulcerations were noted.
--- NOTE | 2022-05-02 10:37 | P.PN ---
Subjective Progress Note Date: 05/02/22 Principal diagnosis: Hypoglossal nerve paralysis Nothing has changed from admission. The patient's tongue still deviates to the right Objective - Vital Signs Vital signs: Vital Signs Temp 97.5 F L 05/02/22 02:00 Pulse 75 05/02/22 02:00 Resp 20 05/02/22 02:00 BP 128/84 05/02/22 02:00 Pulse Ox 97 05/02/22 02:00 FiO2 Intake & Output 05/01/22 05/02/22 05/02/22 18:59 06:59 18:59 Intake Total 590 Balance 590 Weight 81.647 kg 80.5 kg Intake: Oral 590 Other: Voiding Method Toilet # Voids 2 - Constitutional General appearance: Present: average body habitus - EENT EENT Comment(s): Patient has a right tongue deviation indicative of a right hypoglossal nerve paralysis. No signs of any tumors or masses. Patient does have lymphoma of the left neck and is currently being worked up by oncology. Eyes: Present: PERRLA ENT: Present: hearing grossly normal (The area), normal oropharynx - Neck Details: Left neck mass noted, tender from previous biopsy - Labs CBC & Chem 7: 05/01/22 14:23 05/01/22 14:23 Labs: Abnormal Lab Results - Last 24 Hours (Table) 05/01/22 05/01/22 05/01/22 Range/Units 14:23 14:23 14:23 RBC 4.00 L (4.30-5.90) m/uL Hgb 11.1 L (13.0-17.5) gm/dL Hct 34.4 L (39.0-53.0) % RDW 16.4 H (11.5-15.5) % Lymphocytes # 0.5 L (1.0-4.8) k/uL INR 1.2 H (<1.2) Sodium 134 L (137-145) mmol/L Potassium 5.4 H (3.5-5.1) mmol/L Carbon Dioxide 17 L (22-30) mmol/L BUN 32 H (9-20) mg/dL Creatinine 0.58 L (0.66-1.25) mg/dL Glucose 109 H (74-99) mg/dL Plasma Lactic Acid Farhat (0.7-2.0) mmol/L AST 686 H (17-59) U/L ALT 224 H (4-49) U/L Alkaline Phosphatase 554 H (38-126) U/L Total Protein 5.3 L (6.3-8.2) g/dL Albumin 2.8 L (3.5-5.0) g/dL 05/01/22 05/01/22 05/01/22 Range/Units 14:23 17:40 20:19 RBC (4.30-5.90) m/uL Hgb (13.0-17.5) gm/dL Hct (39.0-53.0) % RDW (11.5-15.5) % Lymphocytes # (1.0-4.8) k/uL INR (<1.2) Sodium (137-145) mmol/L Potassium (3.5-5.1) mmol/L Carbon Dioxide (22-30) mmol/L BUN (9-20) mg/dL Creatinine (0.66-1.25) mg/dL Glucose (74-99) mg/dL Plasma Lactic Acid Farhat 8.0 H* 5.7 H* 4.5 H* (0.7-2.0) mmol/L AST (17-59) U/L ALT (4-49) U/L Alkaline Phosphatase (38-126) U/L Total Protein (6.3-8.2) g/dL Albumin (3.5-5.0) g/dL 05/01/22 05/02/22 Range/Units 23:37 04:14 RBC (4.30-5.90) m/uL Hgb (13.0-17.5) gm/dL Hct (39.0-53.0) % RDW (11.5-15.5) % Lymphocytes # (1.0-4.8) k/uL INR (<1.2) Sodium (137-145) mmol/L Potassium (3.5-5.1) mmol/L Carbon Dioxide (22-30) mmol/L BUN (9-20) mg/dL Creatinine (0.66-1.25) mg/dL Glucose (74-99) mg/dL Plasma Lactic Acid Farhat 4.2 H* 2.9 H* (0.7-2.0) mmol/L AST (17-59) U/L ALT (4-49) U/L Alkaline Phosphatase (38-126) U/L Total Protein (6.3-8.2) g/dL Albumin (3.5-5.0) g/dL Assessment and Plan Plan: Flexible nasopharyngeal laryngoscopy demonstrates a right hypoglossal nerve paralysis with no signs of any tumors or masses of the nasopharynx oropharynx or hypopharynx. He was found to have left neck lymphoma tissue positive on fine- needle aspiration and is currently being worked up by oncology. Patient will follow up with me on an outpatient basis as needed. Time with Patient: Greater than 30
--- NOTE | 2022-05-02 11:29 | P.PN ---
Subjective Progress Note Date: 05/02/22 Patient has no new complaints at this time. He does report ongoing tongue paralysis which makes it difficult for him to chew. He is tolerating soft diet. He has no difficulty breathing. Pending neurology consultation, MRI. Patient underwent nasal laryngoscope today, operative findings were reviewed, no significant tongue mass. Gen: awake, alert HEENT: normocephalic, atraumatic, good hearing acuity, moist mucous membranes, no inspiratory stridor Resp: good air exchange, breathing comfortably with no accessory muscle use, clear to auscultation bilaterally CVS: good distal perfusion x 4, regular rate and rhythm without murmurs GI: soft, NTTP, ND : no SPT, no CVAT, guzman catheter not present MSK: no pitting edema, no clubbing Neuro: non-focal, moving all extremities Psych: cooperative, euthymic mood Assessment/plan: Right-sided tongue deviation with difficulty swallowing -Agree with ENT regarding likely hypoglossal nerve paralysis in setting of neck lymphoma -SAFETY INTERN evaluation -Neurology consulted -Nothing by mouth for now -Oncology consulted Lactic acidosis -Suspected secondary to ongoing malignancy with liver dysfunction in setting of likely metastasis -Continue with IV fluids and monitor for resolution DVT prophylaxis -Lovenox The patient is admitted with an anticipated less than 2 midnight stay for evaluation of nerve paralysis CODE STATUS: Full Code Discussed with: Patient Anticipated discharge date: 2-[address]: Home Objective - Vital Signs Vital signs: Vital Signs Temp 97.5 F L 05/02/22 02:00 Pulse 75 05/02/22 02:00 Resp 20 05/02/22 02:00 BP 128/84 05/02/22 02:00 Pulse Ox 97 05/02/22 02:00 FiO2 Intake & Output 05/01/22 05/02/22 05/02/22 18:59 06:59 18:59 Intake Total 590 Balance 590 Weight 81.647 kg 80.5 kg Intake: Oral 590 Other: Voiding Method Toilet # Voids 2 - Labs CBC & Chem 7: 05/01/22 14:23 05/01/22 14: Labs: Abnormal Lab Results - Last 24 Hours (Table) 05/01/22 05/01/22 05/01/22 Range/Units 14: 14: 14: RBC 4.00 L (4.30-5.90) m/uL Hgb 11.1 L (13.0-17.5) gm/dL Hct 34.4 L (39.0-53.0) % RDW 16.4 H (11.5-15.5) % Lymphocytes # 0.5 L (1.0-4.8) k/uL INR 1.2 H (<1.2) Sodium 134 L (137-145) mmol/L Potassium 5.4 H (3.5-5.1) mmol/L Carbon Dioxide 17 L (22-30) mmol/L BUN 32 H (9-20) mg/dL Creatinine 0.58 L (0.66-1.25) mg/dL Glucose 109 H (74-99) mg/dL Plasma Lactic Acid Farhat (0.7-2.0) mmol/L AST 686 H (17-59) U/L ALT 224 H (4-49) U/L Alkaline Phosphatase 554 H (38-126) U/L Total Protein 5.3 L (6.3-8.2) g/dL Albumin 2.8 L (3.5-5.0) g/dL 05/01/22 05/01/22 05/01/22 Range/Units 14:23 17:40 20:19 RBC (4.30-5.90) m/uL Hgb (13.0-17.5) gm/dL Hct (39.0-53.0) % RDW (11.5-15.5) % Lymphocytes # (1.0-4.8) k/uL INR (<1.2) Sodium (137-145) mmol/L Potassium (3.5-5.1) mmol/L Carbon Dioxide (22-30) mmol/L BUN (9-20) mg/dL Creatinine (0.66-1.25) mg/dL Glucose (74-99) mg/dL Plasma Lactic Acid Farhat 8.0 H* 5.7 H* 4.5 H* (0.7-2.0) mmol/L AST (17-59) U/L ALT (4-49) U/L Alkaline Phosphatase (38-126) U/L Total Protein (6.3-8.2) g/dL Albumin (3.5-5.0) g/dL 05/01/22 05/02/22 Range/Units 23:37 04:14 RBC (4.30-5.90) m/uL Hgb (13.0-17.5) gm/dL Hct (39.0-53.0) % RDW (11.5-15.5) % Lymphocytes # (1.0-4.8) k/uL INR (<1.2) Sodium (137-145) mmol/L Potassium (3.5-5.1) mmol/L Carbon Dioxide (22-30) mmol/L BUN (9-20) mg/dL Creatinine (0.66-1.25) mg/dL Glucose (74-99) mg/dL Plasma Lactic Acid Farhat 4.2 H* 2.9 H* (0.7-2.0) mmol/L AST (17-59) U/L ALT (4-49) U/L Alkaline Phosphatase (38-126) U/L Total Protein (6.3-8.2) g/dL Albumin (3.5-5.0) g/dL
--- NOTE | 2022-05-02 12:16 | MR ---
EXAMINATION TYPE: MR brain wo/w con DATE OF EXAM: 05/02/2022 11:37 AM CLINICAL INDICATION:Male, 61 years old with history of Hypoglossal nerve paralysis; COMPARISON: 05/01/2022 CT angiography. TECHNIQUE: Multi planar, multi sequence imaging was performed through the brain including: T1, T2, In version recovery, susceptibility weighted imaging and gradient echo imaging and Diffusion weighted im aging. The patient was then given intravenous contrast and multi planar, T1 fat-saturation images wer e obtained. IV Contrast: 8 cc Gadavist FINDINGS: Bilateral carotid gland lesions are again seen. The base of the tongue and right peritonsillar fossa of Rosenmuller are suboptimally evaluated due to motion. The hypoglossal canals and the endovascular millimeters where visualized and grossly unremarkable. The abreu-white junctions, ventricular system, basal cisterns appear unremarkable. Scattered foci of h igh T2 signal in the deep white matter. Diffusion-weighted imaging shows no evidence of restricted di ffusion to suggest acute/subacute infarct. Intracranial arterial flow voids are maintained. Midline s tructures show no abnormality. The susceptibility weighted images Blooming artifact within the left p ons insistent with microhemorrhage. After administration of gadolinium, no abnormal enhancement is seen. The bone marrow signal is within normal limits. Paranasal sinuses and mastoid air cells: Mild scattered paranasal sinus disease most pronounced in th e sphenoid sinuses. Visualized orbits: Orbital contents are intact. IMPRESSION: 1. No evidence of intracranial mass, acute/subacute infarct, or abnormal enhancement. 2. No mass in the area of the hypoglossal nerves or hypoglossal canals. 3. Redemonstration of bilateral parotid gland masses. 4. Mild scattered nonspecific white matter changes.
--- NOTE | 2022-05-02 13:54 | P.CNNES ---
History of Present Illness Consult date: 05/02/22 Requesting physician: iLvia Rodrigues Reason for Consult: Hypoglossal nerve paralysis History of Present Illness: Patient is a 61-year-old male with recent diagnosis of lymphoma, came to the hospital yesterday at 12:53 PM for slightly slurred speech, and observation of tongue deviation to the right side. Patient and his both were present, who provided the history. Patient's symptoms started between the and time, when he started having night sweats, weight loss, prominence of the lymph nodes in the head neck region, and numbness of the left chin. Patient developed chest pain for which he was hospitalized at [facility] on 04/22/2022 and stayed for there for 5 days. MS was ruled out, but he was diagnosed with lymphoma. Patient's mentions that on , 2 days ago he just slept al day. When he woke up in middle of the day, he noticed that his speech was slightly slurred. When he protrudes his tongue, it was deviating to the right side. Patient also Doppler. Black tarry stools. Patient therefore came to the hospital because of all these symptoms. Patient states abdominal pain, which was all across has resolved. Continues to have numbness of the left chin. Patient had significant hepatosplenomegaly. He has lost 10 pounds in the last 5-6 weeks. He has decreased appetite. Denies any fever. He denies any numbness or tingling of the extremities, any visual symptoms, or facial droop. Denies any focal weakness, only generalized weakness. Vital signs arrival blood pressure 115/79, pulse rate 122, temperature 97.6. Patient's blood test shows normal WBC hemoglobin 11.1, platelets or intent. PT/PTT normal, sodium 134 potassium 5.4, BUN 32, creatinine 0.58. Lactate was 8.0. AST 686, ALT 224. Troponin negative influenza screen, RSV and villa virus PCR negative. Chest x-ray revealed no acute cardioverted process. CT head showed no acute intracranial process. CTA head no large vessel intercranial arterial occlusion, significant stenosis or aneurysm. CTA of the neck showed widely patent vertebral and carotid arteries of the neck. Incidental, asymmetric soft tissue fullness along the right tonsillar pillar, and the right posterior base of the tongue. Recommend direct visualization given the patient's reported metastatic disease, bilateral parotid masses redemonstrated. EKG shows sinus tachycardia, possible anterior myocardial infarction. MRI of the brain revealed no evidence of intracranial mass, acute/subacute infarct, or abnormal enhancement. No masses in the areas of the hypoglossal nerve for hypoglossal canal. Redemonstration of bilateral parotid gland masses. Mild scattered nonspecific white matter changes. Patient has history of hypertension, denies diabetes. Patient has never smoked. He has history of chewing tobacco from age 18 until he quit at age 34. Patient states that he drank a lot in 1980s, quit long time ago. He uses marijuana gummies. Patient's home medication includes lisinopril 40 mg twice a day, hyd rochlorothiazide, vitamin D, CBD gummies, allopurinol, Dilaudid 4 mg every 6 hours when necessary, Flonase. Patient also has been diagnosed with rheumatoid arthritis, with chronic issues of the shoulders. Review of Systems Constitutional: Reports chronic pain, Reports malaise, Reports night sweats, Reports poor appetite, Reports weakness, Reports weight loss, Denies chills, Denies fever Eyes: denies blurred vision, denies pain Ears: deny: decreased hearing, ear discharge Ears, nose, mouth and throat: Reports neck fullness/pressure, Denies headache, Denies sore throat Cardiovascular: Denies chest pain, Denies shortness of breath Respiratory: Denies cough Gastrointestinal: Reports abdominal pain, Reports diarrhea, Reports melena, Reports nausea Musculoskeletal: Denies myalgias, Denies neck stiffness Integumentary: Denies pruritus, Denies rash Neurological: Reports as per HPI Psychiatric: Denies anxiety, Denies depression Endocrine: Reports fatigue, Reports weight change, Denies palpitations Hematologic/Lymphatic: Denies easy bruising Past Medical History Past Medical History: GERD/Reflux, Hyperlipidemia, Hypertension, Osteoarthritis (OA) Additional Past Medical History / Comment(s): hiatal hernia, gout, recent lymphoma History of Any Multi-Drug Resistant Organisms: None Reported Past Surgical History: Orthopedic Surgery, Tonsillectomy Additional Past Surgical History / Comment(s): claude shoulder rotator cuff repair, cyst removal rt wrist, oral surgery , surgery for pyloric stenosis as , carpal tunnel, trigger finger surgery, sinus surgery Past Anesthesia/Blood Transfusion Reactions: No Reported Reaction Past Psychological History: No Psychological Hx Reported Smoking Status: Never smoker Past Alcohol Use History: Occasional Past Drug Use History: Marijuana - Past Family History Mother Family Medical History: Hyperlipidemia Medications and Allergies Home Medications Medication Instructions Recorded Confirmed Type hydroCHLOROthiazide [Hydrodiuril] 25 mg PO DAILY 02/06/18 05/01/22 History lisinopriL 40 mg PO BID 02/06/18 05/01/22 History Cbd/Thc Gummies 1 tab PO HS 04/22/22 05/01/22 History Cholecalciferol [Vitamin D3 (125 125 mcg PO DAILY 04/22/22 05/01/22 History Mcg = 5000 Iu)] allopurinoL [Zyloprim] 100 mg PO DAILY 04/22/22 05/01/22 History Acetaminophen Tab [Tylenol] 650 mg PO Q6H #30 tab 04/27/22 05/01/22 Rx HYDROmorphone [Dilaudid] 4 mg PO Q6H PRN 3 Days #12 tab 04/27/22 05/01/22 Rx Fluticasone Nasal [place] [Flonase 1 spray INTRANASAL DAILY 05/01/22 05/01/22 History Nasal [place]] Allergies Allergy/AdvReac Type Severity Reaction Status Date / Time sulfamethoxazole Allergy Nausea Verified 05/01/22 15:21 [From Bactrim] tramadol Allergy Rash/Hives Verified 05/01/22 15:21 trimethoprim [From Bactrim] Allergy Nausea Verified 05/01/22 15:21 Physical Examination - Vital Signs Vital Signs: Vital Signs Temp Pulse Pulse Resp BP BP Pulse Ox 05/02/22 02:00 97.5 F L 75 20 128/84 97 05/01/22 20:33 94 18 141/92 98 05/01/22 20:00 97.8 F 90 20 142/94 95 05/01/22 16:50 99 18 143/99 95 05/01/22 13:22 119 H 34 H 128/93 96 05/01/22 13:02 97.6 F 122 H 24 115/79 97 Intake and Output 05/01/22 05/02/22 05/02/22 22:59 06:59 14:59 Intake Total 590 Balance 590 Intake: Oral 590 Other: Voiding Method Toilet # Voids 2 Weight 80.5 kg Patient is a middle aged male, in no acute distress. Patient is alert, awake oriented to time place and person. Speech and language functions are normal. Patient can name and repeat very well. No aphasia or dysarthria. Attention, concentration and fund of knowledge is adequate. On cranial nerve examination, pupils are equal, round and reacting to light, visual izaguirre are full on confrontation, with no neglect on double simultaneous stimulation. Extraocular muscles are intact with no nystagmus. Face is symmetric, tongue protrudes to the right. Palatal elevation and sensation normal, hearing and shoulder shrug normal, facial sensation decreased in the left anterior chin region. Patient has gag reflex. On muscle strength testing, there is no pronator drift and the strength is normal in arms and legs distally and proximally. Deep tendon reflexes are symmetric 1 at the biceps, 0 brachioradialis, 1+ to 2 at the knees, 2 ankles and plantars are downgoing bilaterally. Sensory to touch is equal with no neglect on double simultaneous stimulation. Cerebellar function showed no ataxia for [id number] testing. No dysdiadochokinesia. No ataxia for [id number] testing on either side. Tone and bulk of muscles normal. Gait deferred.. On general examination, there is no carotid bruit or murmur, S1-S2 audible. Chest is clear on consultation. Abdomen is soft nontender. Patient has obvious right hepatomegaly about 4 finger breath before the costal region. Bowel sounds present. Peripheral pulses are present. No edema. Patient has lymphadenopathy in the neck region. Results - Laboratory Findings CBC and BMP: 05/01/22 14:23 05/01/22 14:23 Abnormal Lab Findings: Abnormal Labs 05/01/22 05/01/22 05/01/22 14:23 14:23 14:23 RBC 4.00 L Hgb 11.1 L Hct 34.4 L RDW 16.4 H Lymphocytes # 0.5 L INR 1.2 H Sodium 134 L Potassium 5.4 H Carbon Dioxide 17 L BUN 32 H Creatinine 0.58 L Glucose 109 H Plasma Lactic Acid Farhat AST 686 H ALT 224 H Alkaline Phosphatase 554 H Total Protein 5.3 L Albumin 2.8 L 05/01/22 05/01/22 05/01/22 14:23 17:40 20:19 RBC Hgb Hct RDW Lymphocytes # INR Sodium Potassium Carbon Dioxide BUN Creatinine Glucose Plasma Lactic Acid Farhat 8.0 H* 5.7 H* 4.5 H* AST ALT Alkaline Phosphatase Total Protein Albumin 05/01/22 05/02/22 23:37 04:14 RBC Hgb Hct RDW Lymphocytes # INR Sodium Potassium Carbon Dioxide BUN Creatinine Glucose Plasma Lactic Acid Farhat 4.2 H* 2.9 H* AST ALT Alkaline Phosphatase Total Protein Albumin Assessment and Plan Assessment: * Slurred speech and rightward tongue deviation, likely due to right hypoglossal nerve compression, likely lymphomatous mass in the peritonsillar region. CTA of the neck revealed asymmetric soft tissue fullness along the right tonsillar pillar, and the right posterior base of the tongue. No evidence of CVA. * Newly diagnosed high-grade non-Hodgkin's B-cell lymphoma * Hypertension * History of chewing tobacco, quit age 34 * Lactic acidosis, elevated liver enzymes, likely due to lymphoma. Plan: * Patient's MRI of the brain is completely normal. No intracranial metastasis, or any meningeal enhancement. Patient's right hypoglossal nerve impairment is likely due to local compression from the right peritonsillar region mass. ENT has seen the patient. * Recommend initiation of oncologic treatment as early as possible to decompress the lymphomatous mass. * Neurologically, no other workup indicated. * Neurologically clear. Thank you for the consult. Time with Patient: Greater than 30
--- NOTE | 2022-05-02 19:13 | CT ---
EXAMINATION TYPE: CT soft tissue neck w con DATE OF EXAM: 05/02/2022 COMPARISON: 04/23/2022 HISTORY: Neck Mass, New CN [address] DLP: 484.7 mGycm Automated exposure control for dose reduction was used. CONTRAST: Performed with IV Contrast, patient injected with 100ML mL of Isovue 300. Images obtained from the aortic arch to the top of the orbits with the IV contrast. There is normal branching pattern of the great vessels on the aortic arch. Superior mediastinum appea rs normal. Thyroid gland is symmetric. No superior mediastinal adenopathy. There is a single 16 x 9 m m anterior mediastinal lymph node. Submandibular salivary glands are symmetric. There is a rounded 2 cm soft tissue mass involving anter ior left parotid gland. There is 1.7 cm rounded mass involving anterior right parotid gland. This cou ld be an enlarged lymph node outside of the gland. There is a 9 mm rounded soft tissue mass anterior left parotid gland. The cervical vertebra have normal alignment. No compression fracture. No focal bone destruction. The mandibular ring is intact. Temporomandibular joints are intact. The maxilla is intact. Zygomatic arches appear normal. Orbital margins are intact. No evidence of retro-orbital mass. Nasal bone is in tact. IMPRESSION: Bilateral multiple parotid masses. This could be parotid tumors or enlarged lymph nodes. No change co mpared to recent exam. Epiglottis is normal. Prevertebral soft tissues appear normal. The tonsils and adenoids appear normal . The tongue appears normal. Subglottic trachea is normal. There is mucosal thickening in the sphenoi d sinuses.
[2022-05-03] MEDS: SODIUM CHLORIDE 0.9% 1,000 ML IV SCH ×3 (02:58→16:14)
[2022-05-03] MEDS: ENOXAPARIN 40 MG/0.4 ML SYRINGE SQ SCH (09:14)
[2022-05-03] MEDS: PANTOPRAZOLE 40 MG/10 ML VIAL IV SCH ×2 (09:15→09:17)
[2022-05-03] MEDS: allopurinoL 100 MG TAB PO SCH (09:16)
[2022-05-03] MEDS: lisinopriL 20 MG TAB PO SCH ×2 (09:16→20:02)
[2022-05-03] MEDS: CHOLECALCIFEROL 125 MCG (5000 IU) TABLET PO SCH (09:16)
[2022-05-03] MEDS: hydroCHLOROthiazide 25 MG TAB PO SCH (09:16)
[2022-05-03] MEDS: PANTOPRAZOLE 40 MG TABLET PO SCH (11:15)
--- NOTE | 2022-05-03 11:32 | P.PN ---
Subjective Progress Note Date: 05/03/22 Patient has no new complaints at this time. Ongoing tongue paralysis. Discussed case at length with radiology, neurology, oncology - need to rule out meningeal involvement of DLBCL. Will repeat MRI with new protocol to better assess meninges next to hypoglossal nerve per radiology. Per oncology, would also like LP to r/o INSPECTOR [employer]UING disease. Neurology updated and agree with plan. Gen: awake, alert HEENT: normocephalic, atraumatic, good hearing acuity, moist mucous membranes, no inspiratory stridor Resp: good air exchange, breathing comfortably with no accessory muscle use, clear to auscultation bilaterally CVS: good distal perfusion x 4, regular rate and rhythm without murmurs GI: soft, NTTP, ND : no SPT, no CVAT, guzman catheter not present MSK: no pitting edema, no clubbing Neuro: non-focal, moving all extremities Psych: cooperative, euthymic mood Assessment/plan: Right-sided tongue deviation with difficulty swallowing -Agree with ENT regarding likely hypoglossal nerve paralysis in setting of neck lymphoma -HEARING STENOGRAPHER evaluation -Neurology consulted -Nothing by mouth for now -Oncology consulted -MRI Brain with IAC protocol to better assess meninges -LP 1/16 AM Lactic acidosis -Suspected secondary to ongoing malignancy with liver dysfunction in setting of likely metastasis -Continue with IV fluids and monitor for resolution DVT prophylaxis -Lovenox The patient is admitted with an anticipated less than 2 midnight stay for evaluation of nerve paralysis CODE STATUS: Full Code Discussed with: Patient Anticipated discharge date: 2-[address]: Home Objective - Vital Signs Vital signs: Vital Signs Temp 98.6 F 05/03/22 07:30 Pulse 72 05/03/22 10:26 Resp 18 05/03/22 10:26 BP 122/83 05/03/22 07:30 Pulse Ox 97 05/03/22 07:30 FiO2 Intake & Output 05/02/22 05/03/22 05/03/22 18:59 06:59 18:59 Intake Total 240 1070 360 Balance 240 1070 360 Intake: Oral 240 1070 360 Other: Voiding Method Toilet Toilet # Voids 4 2 3 - Labs CBC & Chem 7: 05/01/22 14:23 05/01/22 14:23 Labs: Abnormal Lab Results - Last 24 Hours (Table) 05/02/22 Range/Units 15:20 Ammonia 38 H (<30) umol/L
--- NOTE | 2022-05-03 13:08 | P.CONS ---
History of Present Illness - Reason for Consult Consult date: 05/03/22 NHL, R CN12 palsy - History of Present Illness The patient is a 61-year-old WM, recently seen in consult for the first time, on 04/23/22. He has a PMH HTN, HLD, gout and RA, recently started on methotrexate in mid 04/09, s/p 3 doses, who presented to ER with c/o of lower chest pain, band-like quality across the lower portion of his chest, persistent for several days however, it intensified within the last 24-48 hours. Associated symptoms include diaphoresis, pain with inspiration and SOB. Pt reports approx 2 weeks ag o he began to have RLE pain similar to hx of his sciatica, and was treated by PCP but, then began to have LLE pain and low back pain that was different. RLE pain is worsened with deep inspiration. Reports constitutional symptoms of night sweats and sweating throughout the day, 10lb unintentional weight loss with decreased appetite, with 1 episode of vomiting. He denied any lower extremity edema, orthopnea, headache, dizziness, known fevers. CT AP showed hepatomegaly with lesion of the liver measuring 1.2 cm with 1.6cm gallbladder nodule and multiple soft tissue densities along the inferior p ararenal space extending along the lower retroperitonium on both sides with possible mild ileus or enteritis. The computed tomography scan of the chest did not show any significant mediastinal adenopathy, or parenchymal lesions. CT of the neck revealed bilateral parotid associated masses. The patient had a core biopsy of the left neck mass on 04/27/22, and was then discharged. This came back positive for high-grade B-cell non-Hodgkin's lymphoma. The patient was contacted on 05/01/22 to inform him of the biopsy results, and to set up further required investigations or procedures. His informed us that the patient was in the emergency room, as he had developed difficulty in swallowing, as well as with speech. Patient was evaluated in the ER, seen by internal medicine and admitted. 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 Investigations have included MRI, as well as laryngoscopy examination by ENT. ENT examination did show some prominence of soft tissue in the right tonsillar fossa/right base of tongue area. MRI did not reveal any parenchymal masses in the brain, or meningeal enhancement. Bilateral parotid masses were again seen. On evaluation today the patient reports no progression of his symptoms. He states that he feels actually slightly better and is able to form words almost normally now. He is able to swallow liquids and pured foods without any problem. Review of Systems Constitutional: Reports fatigue, Reports sweats, Reports weight loss Eyes: denies blurred vision, denies pain Ears: deny: decreased hearing, ear discharge, earache, tinnitus Ears, nose, mouth and throat: Reports as per HPI, Reports voice changes Cardiovascular: Denies chest pain, Denies shortness of breath Respiratory: Denies cough Gastrointestinal: Denies abdominal pain, Denies diarrhea, Denies nausea, Denies vomiting Genitourinary: Reports as per HPI Musculoskeletal: Reports as per HPI, Denies myalgias Integumentary: Denies pruritus, Denies rash Neurological: Reports as per HPI, Reports change in speech Psychiatric: Denies anxiety, Denies depression Endocrine: Reports fatigue, Reports weight change Hematologic/Lymphatic: Reports as per HPI, Reports lymphadenopathy Past Medical History Past Medical History: GERD/Reflux, Hyperlipidemia, Hypertension, Osteoarthritis (OA) Additional Past Medical History / Comment(s): hiatal hernia, gout, recent lymphoma History of Any Multi-Drug Resistant Organisms: None Reported Past Surgical History: Orthopedic Surgery, Tonsillectomy Additional Past Surgical History / Comment(s): claude shoulder rotator cuff repair, cyst removal rt wrist, oral surgery , surgery for pyloric stenosis as , carpal tunnel, trigger finger surgery, sinus surgery Past Anesthesia/Blood Transfusion Reactions: No Reported Reaction Past Psychological History: No Psychological Hx Reported Smoking Status: Never smoker Past Alcohol Use History: Occasional Past Drug Use History: Marijuana - Past Family History Mother Family Medical History: Hyperlipidemia Medications and Allergies Home Medications Medication Instructions Recorded Confirmed Type hydroCHLOROthiazide [Hydrodiuril] 25 mg PO DAILY 02/06/18 05/01/22 History lisinopriL 40 mg PO BID 02/06/18 05/01/22 History Cbd/Thc Gummies 1 tab PO HS 04/22/22 05/01/22 History Cholecalciferol [Vitamin D3 (125 125 mcg PO DAILY 04/22/22 05/01/22 History Mcg = 5000 Iu)] allopurinoL [Zyloprim] 100 mg PO DAILY 04/22/22 05/01/22 History Acetaminophen Tab [Tylenol] 650 mg PO Q6H #30 tab 04/27/22 05/01/22 Rx HYDROmorphone [Dilaudid] 4 mg PO Q6H PRN 3 Days #12 tab 04/27/22 05/01/22 Rx Fluticasone Nasal [place] [Flonase 1 spray INTRANASAL DAILY 05/01/22 05/01/22 History Nasal [place]] Allergies Allergy/AdvReac Type Severity Reaction Status Date / Time sulfamethoxazole Allergy Nausea Verified 05/01/22 15:21 [From Bactrim] tramadol Allergy Rash/Hives Verified 05/01/22 15:21 trimethoprim [From Bactrim] Allergy Nausea Verified 05/01/22 15:21 Physical Exam Vitals: Vital Signs Temp Pulse Resp BP Pulse Ox 05/03/22 10:26 72 18 05/03/22 07:30 98.6 F 72 18 122/83 97 05/03/22 02:00 97.7 F 87 16 129/77 98 05/02/22 20:00 97.8 F 105 H 16 115/77 97 05/02/22 13:30 98.4 F 92 18 132/83 94 L Intake and Output 05/02/22 05/03/22 05/03/22 22:59 06:59 14:59 Intake Total 480 590 360 Balance 480 590 360 Intake: Oral 480 590 360 Other: Voiding Method Toilet # Voids 2 3 - Constitutional General appearance: no acute distress - EENT Eyes: EOMI, PERRLA ENT: hearing grossly normal, normal oropharynx - Neck Neck: lymphadenopathy (There appeared to be 1-2 somewhat confluent masses in the left submandibular area, total measurement in the 2-3 cm range) Thyroid: bilateral: normal size - Respiratory Respiratory: bilateral: CTA - Cardiovascular Rhythm: regular Heart sounds: normal: S1, S2 - Gastrointestinal General gastrointestinal: normal bowel sounds, soft - Integumentary Integumentary: normal - Neurologic Tongue deviation to the right, consistent with right cranial nerve XII palsy Neurologic: focal deficits - Musculoskeletal Musculoskeletal: generalized weakness - Psychiatric Psychiatric: A&O x's 3, appropriate affect Results CBC & Chem 7: 05/01/22 14:23 05/01/22 14:23 Labs: Abnormal Lab Results - Last 24 Hours (Table) 05/02/22 Range/Units 15:20 Ammonia 38 H (<30) umol/L Comments: CT angio report reviewed Laryngoscopy report reviewed CT scan - chest: report reviewed MRI - head: report reviewed Assessment and Plan (1) Hypoglossal nerve paralysis Narrative/Plan: The patient's symptoms are isolated to the right side. There are stable, and possibly slightly improved. - Possibly charges were discussed in detail with the patient, and with the admitting service. Paraneoplastic syndrome, and meningeal involvement of both and differential, but overall less likely given the very localized and stable nature of his symptoms. Meningeal involvement does have to be ruled out. Therefore lumbar puncture has been requested. - Clinically, based on the examination as well as findings on laryngoscopy and scans, local effect from right-sided parotid/periparotid masses and probable soft tissue infiltration in that area is most likely. The patient has been seen by neurology, and this is also their primary differential diagnosis - As symptoms are stable at this time continue to monitor, and start high-dose steroids if there is any progression. Current Visit: Yes Status: Acute Code(s): G52.3 - DISORDERS OF HYPOGLOSSAL NERVE SNOMED Code(s): 84067732 (2) Lymphoma Narrative/Plan: The patient has a new diagnosis of high-grade B-cell lymphoma. He has at least stage III disease, with involvement above and below the diaphragm on CT scans. Check echocardiogram in preparation for starting treatment. The patient will need aggressive combination chemotherapy with immunotherapy. - The patient has also been recommended a PET scan for initial staging. Therefore, if possible, hold off on starting steroids to the PET scan is performed, as that can affect the PET scan findings - As noted previously, we will start high-dose steroids prior to starting his specific regimen, if there is any progression of his symptoms, causing any organ compromise. Current Visit: Yes Status: Acute Code(s): C85.90 - NON-HODGKIN LYMPHOMA, UNSPECIFIED, UNSPECIFIED SITE SNOMED Code(s): 508866157
--- NOTE | 2022-05-03 23:04 | P.PN ---
Subjective Progress Note Date: 05/03/22 Patient was seen for a follow-up. Patient denies any changes in his condition. Continues to have slurred speech and right tongue deviation. No headache. Objective - Vital Signs Vital signs: Vital Signs Temp 97.8 F 05/03/22 13:01 Pulse 107 H 05/03/22 13:01 Resp 18 05/03/22 13:01 BP 143/86 05/03/22 13:01 Pulse Ox 98 05/03/22 13:01 FiO2 Intake & Output 05/02/22 05/03/22 05/03/22 18:59 06:59 18:59 Intake Total 240 1070 360 Balance 240 1070 360 Intake: Oral 240 1070 360 Other: Voiding Method Toilet Toilet # Voids 4 2 3 - Exam Patient's mental status is normal. Patient is alert and oriented 4. Speech is mildly dysarthric but language functions are normal. Cranial nerves significant for right hemitongue atrophy and tongue deviation to the right. Palatal elevation is normal. Patient has numbness of the left anterior chin region. Muscle strength is normal. Sensations equal in the extremities. No ataxia. 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 No evidence of meningeal enhancement noted on MRI. No evidence of CVA. * Newly diagnosed high-grade non-Hodgkin's B-cell lymphoma * Hypertension * History of chewing tobacco, quit age 34 * Lactic acidosis, elevated liver enzymes, likely due to lymphoma. Plan: * Patient's MRI of the brain revealed no evidence of intracranial mass, acute/subacute infarct, or abnormal enhancement. No mass in the area of hypoglossal nerves, or hypoglossal canal. Redemonstration of bilateral parotid gland masses. On my review, there is no obvious meningeal enhancement. . ENT has seen the patient. * CT of the soft tissue of neck with contrast reported bilateral multiple parot id masses. This could be parotid tumors or enlarged lymph nodes. No change compared to recent exam. Epiglottis is normal. Prevertebral soft tissues appear normal. The tonsils and adenoids appear normal. The tongue appears normal. Subglottic trachea is normal. There is mucosal thickening in the sphenoid sinuses. Based upon CT findings, unclear as to the cause of right karsten-tongue atrophy. * Agree with lumbar puncture in the morning to rule out lymphomatous infiltration of meninges. * Agree with checking MRI of the internal auditory canal with and without contrast in the morning. * Recommend initiation of oncologic treatment as early as possible to decompress the lymphomatous mass. However awaiting completion of workup before treatment can be initiated. * Ammonia is 38. * Discussed with Dr. Miller and Dr Watson. * Dr. Rusty Wei Will resume neurology service in the morning.
[2022-05-04] MEDS: SODIUM CHLORIDE 0.9% 1,000 ML IV SCH ×3 (03:02→16:32)
[2022-05-04] MEDS: CHOLECALCIFEROL 125 MCG (5000 IU) TABLET PO SCH (08:28)
[2022-05-04] MEDS: allopurinoL 100 MG TAB PO SCH (08:28)
[2022-05-04] MEDS: hydroCHLOROthiazide 25 MG TAB PO SCH (08:28)
[2022-05-04] MEDS: lisinopriL 20 MG TAB PO SCH ×2 (08:28→20:22)
[2022-05-04] MEDS: PANTOPRAZOLE 40 MG TABLET PO SCH (08:28)
[2022-05-04] MEDS: ENOXAPARIN 40 MG/0.4 ML SYRINGE SQ SCH ×2 (08:28→08:29)
[2022-05-04 09:29] LABS: Lyme IgG/IgM 0.07 Index
--- NOTE | 2022-05-04 15:42 | MR ---
EXAMINATION TYPE: MR iac wo/w con DATE OF EXAM: 05/04/2022 COMPARISON: CT soft tissue neck 05/02/2022 HISTORY: Hypoglossal nerve palsy. CONTRAST: Performed utilizing 8 mL intravenous Gadavist gadolinium contrast. TECHNIQUE: Multiplanar, multiecho imaging on a 3.0 Cely magnet is performed through the posterior fo ssa. Attention is paid to the hypoglossal nerve. Postcontrast imaging is performed. FINDINGS: Hypoglossal nerves appear normal. The hypoglossal canal appears within normal limits. No mass effect on the hypoglossal nerves is evident. Following contrast, no abnormal enhancement is evident. No meni ngeal enhancement is identified. Normal vascular flow voids are within the nearby vertebral arteries. Brainstem signal appears normal. There may be some abnormal signal within the clivus. Metastasis is not excluded. Retention cysts with in the left sphenoid sinus. Carotid siphon appears normal flow void. Pituitary is midline. Proximal o ptic chiasm within the field of view is normal. There is asymmetry of the hypopharynx with fullness o n the right compared to the left. This appears unchanged from the CT exam IMPRESSIONS: 1. No acute abnormality of the hypoglossal nerve within its intracranial portion. Hypoglossal canal a ppears normal. 2. Asymmetry of the hypopharynx with fullness on the right compared to the left.
--- NOTE | 2022-05-04 17:01 | P.PN ---
Subjective Progress Note Date: 05/04/22 Patient had MRI done to r/o hypoglossal nerve impingement and was negative. Some enhancement of the clivus, metastasis not ruled out. Pending LP, discussed with radiology, they attempted 4 times unsuccessfully, requested anesthesia to attempt. Pt will remain overnight for LP, likely tomorrow. Gen: awake, alert HEENT: normocephalic, atraumatic, good hearing acuity, moist mucous membranes, no inspiratory stridor Resp: good air exchange, breathing comfortably with no accessory muscle use, clear to auscultation bilaterally CVS: good distal perfusion x 4, regular rate and rhythm without murmurs GI: soft, NTTP, ND : no SPT, no CVAT, guzman catheter not present MSK: no pitting edema, no clubbing Neuro: non-focal, moving all extremities Psych: cooperative, euthymic mood Assessment/plan: Right-sided tongue deviation with difficulty swallowing -Agree with ENT regarding likely hypoglossal nerve paralysis in setting of neck lymphoma -[employer]RESPONDENCE CLERK evaluation -Neurology consulted -Nothing by mouth for now -Oncology consulted -MRI Brain with IAC protocol to better assess meninges -LP 05/04 AM Lactic acidosis -Suspected secondary to ongoing malignancy with liver dysfunction in setting of likely metastasis -Continue with IV fluids and monitor for resolution DVT prophylaxis -Lovenox The patient is admitted with an anticipated less than 2 midnight stay for evaluation of nerve paralysis CODE STATUS: Full Code Discussed with: Patient Anticipated discharge date: 2-[address]: Home Objective - Vital Signs Vital signs: Vital Signs Temp 98.1 F 05/04/22 15:35 Pulse 102 H 05/04/22 16:00 Resp 20 05/04/22 16:00 BP 124/77 05/04/22 16:54 Pulse Ox 97 05/04/22 16:00 FiO2 Intake & Output 05/03/22 05/04/22 05/04/22 18:59 06:59 18:59 Intake Total 360 0 Balance 360 0 Intake: Oral 360 0 Other: Voiding Method Toilet Toilet # Voids 3 2 1 # Bowel Movements 1 - Labs CBC & Chem 7: 05/01/22 14:23 05/01/22 14:23
--- NOTE | 2022-05-04 17:34 | P.PN ---
Subjective Progress Note Date: 05/04/22 Principal diagnosis: tongue problem, lymphoma Pt is resting comfortably in bed. Reporting improved/stable symptoms, deviation of tongue persists, mild difficulties with swallowing and left sided jaw numbness but, he is able to tolerate a modified diet. No other reported compla ints at this time. Objective - Vital Signs Vital signs: Vital Signs Temp 98.5 F 05/04/22 07:02 Pulse 104 H 05/04/22 07:02 Resp 20 05/04/22 07:02 BP 131/90 05/04/22 07:02 Pulse Ox 95 05/04/22 07:02 FiO2 Intake & Output 05/03/22 05/04/22 05/04/22 18:59 06:59 18:59 Intake Total 360 0 Balance 360 0 Intake: Oral 360 0 Other: Voiding Method Toilet Toilet # Voids 3 2 # Bowel Movements 1 - Constitutional General appearance: Present: average body habitus, no acute distress - EENT Eyes: Present: anicteric sclerae, EOMI ENT: Present: hearing grossly normal - Respiratory Details: breathing even and unlabored - Cardiovascular Details: skin warm and dry - Integumentary Integumentary: Present: normal - Neurologic Neurologic Comment(s): right sided tongue deviation, numbness to left jaw - Musculoskeletal Musculoskeletal: Present: strength equal bilaterally. Absent: right sided weakness - Psychiatric Psychiatric: Present: A&O x's 3, appropriate affect, intact judgment & insight - Labs CBC & Chem 7: 05/01/22 14:23 05/01/22 14:23 Assessment and Plan (1) B-cell lymphoma Current Visit: Yes Status: Acute Priority: High Code(s): C85.10 - UNSPECIFIED B-CELL LYMPHOMA, UNSPECIFIED SITE SNOMED Code(s): 894119920 Plan: (1) Hypoglossal nerve paralysis Narrative/Plan: -Deviation of tongue to the right, left facial numbness, stable - Paraneoplastic syndrome and meningeal involvement are in differential, felt less likely as the symptoms are very localized, stable. Meningeal involvement does have to be ruled out, LP prdered. - Clinically, based on the examination as well as findings on laryngoscopy and scans, local effect from right-sided parotid/periparotid masses and probable soft tissue infiltration in that area is most likely. The patient has been seen by Neurology, and this is also their primary differential diagnosis. As symptoms are stable at this time continue to monitor. May consider high-dose steroids if there is any progression though would like to hold off if able as treatment can alter the PET scan results. (2) Lymphoma Narrative/Plan: -New diagnosis of high-grade B-cell lymphoma. He has at least stage III disease, with involvement above and below the diaphragm on CT scans. -Baseline Echo ordered in anticipation of starting treatment. Mediport placement ordered. The patient will need aggressive combination chemotherapy with immunotherapy. - The patient has also been recommended for a PET scan for initial staging. Therefore, if possible, hold off on starting steroids till the PET scan is performed, as that can affect the PET scan findings - As noted previously, we will start high-dose steroids prior to starting his specific regimen, if there is any progression of his symptoms, causing any organ compromise. -CT neck soft tissue, showed bilateral partoid masses without changes from previous study. MRI brain, showed no acute intracranial processes/masses. MRI neck ordered Attests: I have seen and examined pt, performed H&P, developed impression and plan of care. Discussed with dictator. Agree with documentation, dictated as a scribe.
--- NOTE | 2022-05-04 17:35 | CA ---
Transthoracic Echo Report Name: Cullen Rodriguez Age: 61 Gender: M : 1960 Exam Date: 05/04/2022 14:16 Exam Location: [facility] Ht (in): 66 Wt (lb): 177 Ordering Physician: Lindsey Lagos Attending/Referring Phys: [employer] Aneta Figueroa RDCS Procedure CPT: Indications: baseline, cardiotoxic chemotherapy Cardiac Hx: Technical Quality: Fair Contrast 1: Total Dose (mL): Contrast 2: Total Dose (mL): MEASUREMENTS (Male / Female) Normal Values 2D ECHO LV Diastolic Diameter PLAX 4.1 cm 4.2 - 5.9 / 3.9 - 5.3 cm LV Systolic Diameter PLAX 2.1 cm IVS Diastolic Thickness 1.4 cm 0.6 - 1.0 / 0.6 - 0.9 cm LVPW Diastolic Thickness 1.4 cm 0.6 - 1.0 / 0.6 - 0.9 cm LV Relative Wall Thickness 0.7 LA Volume 43.7 cm??? 18 - 58 / 22 - 52 cm??? M-MODE Aortic Root Diameter MM 3.0 cm LA Systolic Diameter MM 3.1 cm LA Ao Ratio MM 1.0 AV Cusp Separation MM 2.0 cm DOPPLER AV Peak Velocity 149.0 cm/s AV Peak Gradient 8.9 mmHg LVOT Peak Velocity 98.7 cm/s LVOT Peak Gradient 3.9 mmHg MV Area PHT 5.5 cm??? Mitral E Point Velocity 77.8 cm/s Mitral A Point Velocity 98.4 cm/s Mitral E to A Ratio 0.8 MV Deceleration Time 138.9 ms TR Peak Velocity 329.4 cm/s TR Peak Gradient 43.4 mmHg Right Ventricular Systolic Press 48.4 mmHg FINDINGS Left Ventricle Moderately increased septal wall thickness. Normal left ventricular systolic function with no obvious regional wall motion abnormalities. Left ventricular cavity size normal. Left ventricular ejection fraction is estimated at 55 %. Right Ventricle Normal right ventricular size and function. Mild pulmonary hypertension. Right Atrium Normal right atrial size. Left Atrium Normal left atrial size. Mitral Valve Structurally normal mitral valve. Trace to mild mitral regurgitation. Aortic Valve No aortic valve stenosis or regurgitation. Tricuspid Valve Structurally normal tricuspid valve. Mild tricuspid regurgitation. Pulmonic Valve Trace pulmonic regurgitation. Pericardium No pericardial effusion. Aorta Normal size aortic root and proximal ascending aorta. CONCLUSIONS LVH with preserved systolic function, ejection fraction greater than 55-60% Previewed by: Dr. Yung Osullivan MD (Electronically Signed) Final Date: 04 May 2022 17:33
--- NOTE | 2022-05-04 18:53 | P.PCN ---
Date of Procedure: 05/04/22 Preoperative Diagnosis: lymphoma Postoperative Diagnosis: same Anesthesia: local Description of Procedure: Anesthesia was consulted for a lumbar puncture on this patient. I evaluated the patient. He had multiple attempts made by the interventional radiology. I discussed the risks benefits alternatives with the patient. I asked the patient to lay on his right side in the lateral decubitus position. The back was cleansed with iodine. Drape was placed over the sterile area. 1% lidocaine 5 mL was used to anesthetize the area. A 21-gauge spinal needle was introduced into the lumbar space at L3-L4. One attempt was made. Spinal fluid was drawn and was clear. 4 tubes were filled with 2 ML's each. The opening pressure was less than 15 the closing pressure was also less than 15. Specimen was handed off to the nurse. The patient was told to lay flat for 2 hours. malcolm anna MD Anesthesia.
[2022-05-04 19:19] LABS: Appearance,CSF Clear; CSF Tube Number 4; Nucleated Cells, CSF 1 u/L (0-5); Red Blood Cell,CSF 3 u/L (0-10)
[2022-05-04 19:28] LABS: Total Protein,CSF 96 mg/dL (12-60)
[2022-05-04 19:37] LABS: Glucose,CSF 36 mg/dL (40-70)
[2022-05-05] MEDS: SODIUM CHLORIDE 0.9% 1,000 ML IV SCH ×2 (03:45→08:40)
[2022-05-05 07:50] VITALS: BP 138/82; PULSE 100; RESP 20; TEMP 98.5
[2022-05-05] MEDS: lisinopriL 20 MG TAB PO SCH (08:40)
[2022-05-05] MEDS: PANTOPRAZOLE 40 MG TABLET PO SCH (08:40)
[2022-05-05] MEDS: CHOLECALCIFEROL 125 MCG (5000 IU) TABLET PO SCH (08:40)
[2022-05-05] MEDS: hydroCHLOROthiazide 25 MG TAB PO SCH (08:40)
[2022-05-05] MEDS: allopurinoL 100 MG TAB PO SCH (08:40)
[2022-05-05] MEDS: ENOXAPARIN 40 MG/0.4 ML SYRINGE SQ SCH (08:40)
--- NOTE | 2022-05-05 10:26 | P.DS ---
Providers Date of admission: 05/01/22 17:14 Expected date of discharge: 05/05/22 Attending physician: Mary Spann DO Consults: 05/01/22 17:14 Consult Physician Urgent Consulting Provider: Alec Nava Consult Reason/Comments: Lymphoma patient, newly diagnosed Do you want consulting provider notified?: Yes Consult Physician Urgent Consulting Provider: Rusty Wei Consult Reason/Comments: Hypoglossal nerve paralysis Do you want consulting provider notified?: Yes 05/01/22 17:23 Consult Physician Urgent Consulting Provider: Taj Burgos Consult Reason/Comments: Hypoglossal nerve paralysis Do you want consulting provider notified?: Already Contacted 05/04/22 15:45 Consult to Anesthesia Routine Consulting Provider: Anesthesia,Services Consult Reason/Comments: Lumbar Puncture Primary care physician: [facility] Course: Right-sided tongue deviation with difficulty swallowing Lactic acidosis Patient is a 61-year-old male with a PMH of hypertension who presented to the emergency room with complaints of difficulty swallowing and tongue deviation. Laboratory evaluation in the emergency room was remarkable for lactic acid of 8.0, AST 686, ALT 224, and alk phos 554. Patient underwent evaluation with laryngoscope with ENT which showed fullness of right hypopharyx. MRI of the brain did not show any significant masses or meningeal enhancement. Case was discussed with radiology to obtain better imaging of meninges by hypoglossal nerve, and this repeat scan was also negative for meningeal inflammation or hypoglossal nerve impingement. Neurology provided recommendations on the case and believe hypoglossal nerve palsy to be due to mass effect from right neck mass. Oncology consulted on the case and requested LP to rule out meningeal metastasis. Pt underwent LP on 05/04, and was doing well this AM. He will be d/c'd home with instructions to f/u with oncology tomorrow AM, as well as PCP. No medication changes at this time. he will need outpatient PET/CT scan, hopefully prior to starting steroids. Gen: awake, alert HEENT: normocephalic, atraumatic, good hearing acuity, moist mucous membranes, no inspiratory stridor Resp: good air exchange, breathing comfortably with no accessory muscle use, clear to auscultation bilaterally CVS: good distal perfusion x 4, regular rate and rhythm without murmurs GI: soft, NTTP, ND : no SPT, no CVAT, guzman catheter not present MSK: no pitting edema, no clubbing Neuro: non-focal, moving all extremities Psych: cooperative, euthymic mood Patient Condition at Discharge: Good Plan - Discharge Summary Discharge Rx Participant: No New Discharge Prescriptions: Continue lisinopriL 40 mg PO BID hydroCHLOROthiazide [Hydrodiuril] 25 mg PO DAILY Cholecalciferol [Vitamin D3 (125 Mcg = 5000 Iu)] 125 mcg PO DAILY Cbd/Thc Gummies 1 tab PO HS Acetaminophen Tab [Tylenol] 650 mg PO Q6H #30 tab HYDROmorphone [Dilaudid] 4 mg PO Q6H PRN 3 Days #12 tab PRN Reason: Severe Breakthrough Pain allopurinoL [Zyloprim] 100 mg PO DAILY Fluticasone Nasal Nelson [Flonase Nasal Nelson] 1 spray INTRANASAL DAILY Discharge Medication List hydroCHLOROthiazide [Hydrodiuril] 25 mg PO DAILY 02/06/18 [History] lisinopriL 40 mg PO BID 02/06/18 [History] Cbd/Thc Gummies 1 tab PO HS 04/22/22 [History] Cholecalciferol [Vitamin D3 (125 Mcg = 5000 Iu)] 125 mcg PO DAILY 04/22/22 [History] allopurinoL [Zyloprim] 100 mg PO DAILY 04/22/22 [History] Acetaminophen Tab [Tylenol] 650 mg PO Q6H #30 tab 04/27/22 [Rx] HYDROmorphone [Dilaudid] 4 mg PO Q6H PRN 3 Days #12 tab 04/27/22 [Rx] Fluticasone Nasal Nelson [Flonase Nasal Nelson] 1 spray INTRANASAL DAILY 05/01/22 [History] Follow up Appointment(s)/Referral(s): Alec Nava MD [STAFF PHYSICIAN] - 05/06/22 3:30 pm Taj Burgos DO [Doctor of Osteopathic Medicine] - 05/12/22 1:30 pm Tom Sandy DO [Primary Care Provider] - 05/11/22 2:20 pm Patient Instructions/Handouts: Non-Hodgkin Lymphoma (DC) Activity/Diet/Wound Care/Special Instructions: Please arrange for patient to follow up with Dr Brettschneider after discharge for a flexible laryngoscopy in the office to rule out base of tongue malignancy. Discharge Disposition: HOME SELF-CARE
--- NOTE | 2022-05-05 10:52 | FL ---
Lumbar puncture INDICATION: Lymphoma FINDINGS: Fluoroscopy time: 46 seconds. Images obtained: 1. The procedure was explained to the patient. Risks complications and benefits were discussed. Alternat odilon were discussed. All questions were answered. Informed consent was obtained. A timeout was performed. The L4-5 level was chosen for access. Maximum barrier sterile technique was utilized. The skin was cl eansed with Betadine and the patient sterilely prepped and draped in the usual manner. The skin and d eeper tissue was anesthetized with 1% Lidocaine. Utilizing a 18-gauge spinal needle the spinal canal was attempted for access. At the L4-5 level placement appeared to be accurate however when the needle was advanced left nerve r oot irritation was present. This was readjusted and re centered and contralateral nerve root irritati on was elicited. The L3-4 level, which had been prepped for back up access, skin and deeper tissue w as anesthetized at this level to try a different level for approach. Again, 2 advances were attempted which had right than left nerve root irritation. At no time CSF return was evident. The stylette was replaced with each adjustment. Fluoroscopic spot image was obtained. The patient tolerated the procedure well. Pain levels before and after were rated as 0 with only pain due to nerve root irritation with the advancing spinal needle. This pain resolved with withdrawal of the needle. Discharge instructions were discussed with the patient. Different positioning of the pa tient may provide access. Anesthesia consult can be requested. IMPRESSIONS: 1. Unsuccessful lumbar puncture.
--- NOTE | 2022-05-05 19:07 | P.PN ---
Subjective Progress Note Date: 05/05/22 Principal diagnosis: tongue problem, lymphoma Pt sitting in bedside chair. Reporting improved/stable symptoms, deviation of tongue persists but improved since yesterday, mild difficulties with swallowing and left sided jaw numbness but, he is able to tolerate a modified diet. No other reported complaints at this time. Objective - Vital Signs Vital signs: Vital Signs Temp 98.5 F 05/05/22 07:49 Pulse 100 05/05/22 07:49 Resp 20 05/05/22 07:49 BP 138/82 05/05/22 07:49 Pulse Ox 98 05/05/22 07:49 FiO2 Intake & Output 05/04/22 05/05/22 05/05/22 18:59 06:59 18:59 Other: Voiding Method Toilet # Voids 1 1 - Constitutional General appearance: Present: average body habitus, cooperative, no acute distress - EENT Eyes: Present: anicteric sclerae, EOMI ENT: Present: hearing grossly normal - Respiratory Details: breathing even and unlabored - Cardiovascular Details: skin warm and dry - Integumentary Integumentary: Present: normal - Musculoskeletal Musculoskeletal: Present: strength equal bilaterally - Psychiatric Psychiatric: Present: A&O x's 3, appropriate affect, intact judgment & insight - Labs CBC & Chem 7: 05/01/22 14:23 05/01/22 14:23 Labs: Abnormal Lab Results - Last 24 Hours (Table) 05/04/22 Range/Units 19:09 CSF Glucose 36 L* (40-70) mg/dL CSF Total Protein 96 H (12-60) mg/dL - Imaging and Cardiology MRI neck Assessment and Plan (1) B-cell lymphoma Status: Acute Priority: High Code(s): C85.10 - UNSPECIFIED B-CELL LYMPHOMA, UNSPECIFIED SITE SNOMED Code(s): 227059492 Plan: (1) Hypoglossal nerve paralysis Narrative/Plan: -Deviation of tongue to the right, left facial numbness, stable - Paraneoplastic syndrome and meningeal involvement are in differential, felt less likely as the symptoms are very localized, stable. Meningeal involvement does have to be ruled out, LP performed, CSF sent for testing, pending results. - Clinically, stable today, improved symptoms overall. Local effect from right- sided parotid/periparotid masses with soft tissue infiltration in the area is suspected. The patient has been seen by Neurology, and this is also their primary differential diagnosis. As symptoms are stable at this time continue to monitor. -MRI neck showed no acute abnormality of the hypoglossal nerve within the intracranial portion. Hypoglossal canal appears normal. Asymmetry of the hyp opharynx with fullness on the right compared to left. (2) Lymphoma Narrative/Plan: -New diagnosis of high-grade B-cell lymphoma. He has at least stage III di sease, with involvement above and below the diaphragm on CT scans. -Baseline Echo ordered. EF 55-60%. -Mediport and PET scan will be ordered in the outpt setting. - As noted previously, we will start high-dose steroids prior to starting his specific regimen, if there is any progression of his symptoms, causing any organ compromise. However, at this time, symptoms are progressively improving so we will continue to hold steroids. -F/u in clinic scheduled for tomorrow -Pt is cleared for d/c from Hem/Onc standpoint, once cleared by IM and other Consulting Specialities Attests: I have seen and examined pt, performed H&P, developed impression and plan of care. Discussed with dictator. Agree with documentation, dictated as a scribe.
== END 2022-05-05 10:33 | disposition home or self-care (01) ==
LOC: EC 12:53 → 6NMEDSUR 17:14 → 5NMEDONC 17:43
PROVIDERS: ADMIT Internal Medicine; ATTEND Internal Medicine
DX: G52.3 Disorders of hypoglossal nerve (principal); C85.11 Unspecified B-cell lymphoma, lymph nodes of head, face, and neck; R13.10 Dysphagia, unspecified; K14.8 Other diseases of tongue; R47.81 Slurred speech; R74.8 Abnormal levels of other serum enzymes; E87.20 Acidosis, unspecified; E78.5 Hyperlipidemia, unspecified; K21.9 Gastro-esophageal reflux disease without esophagitis; I10 Essential (primary) hypertension; M06.9 Rheumatoid arthritis, unspecified; Z20.822 Contact with and (suspected) exposure to COVID-19; Z87.891 Personal history of nicotine dependence; Z79.899 Other long term (current) drug therapy; Z88.2 Allergy status to sulfonamides; Z88.5 Allergy status to narcotic agent
CPT/HCPCS: 96372; 96375; 96361; 96374; 99285; 36415; 93005; 93306; 92610; 84157; 80053; 82945; 82140; 82164; 83605 ×2; 84484; 85025; 85610; 85730; 89050; 86618; 87636; 62328; 71046; 70496; 70491; 70498; 70553 ×2; 92511; 62270; G0378 ×5; J2001; J2930; J1650; C9113; Q9967 ×2; A9585 ×2

== ENCOUNTER → 2022-05-08 | Outpatient (CLI) | payer MEDICARE, OTHER ==
--- NOTE | 2022-05-11 11:39 | PE ---
EXAMINATION TYPE: PET CT fusion skull to thigh DATE OF EXAM: 05/08/2022 CLINICAL INDICATION:Male, 61 years old with history of C85.98 Lymphoma; TECHNIQUE: Following the intravenous administration of 9.8 mCi of F-18 FDG, whole body images are p erformed from the skull base to the midthigh. Images are reviewed on the computer in the coronal, ax ial, and sagittal planes. Reconstructed rotating images are created on independent workstation and r eviewed on the computer. A non-contrast CT is performed in conjunction with the PET scan. Glucose l evel 69 mg/dL COMPARISON: CT 04/22/2022, subsequent 05/10/2022 CT abdomen pelvis , PET/CT none, FINDINGS: Mediastinal SUV mean is 0.4. Hepatic parenchyma SUV mean is 1.7. There is diffuse scattered metastatic disease involving the Head, neck, chest, abdomen and pelvis. Th ere is scattered areas within the muscles of focal FDG activity involving the Examples below. SKULL BASE AND NECK: * Left neck lymph node measuring 1.7 cm Max SUV 6.1. * Right switchboard operator helper space measuring 9 mm Max SUV 3.4 CHEST, MEDIASTINUM, AND HILAR REGION: * Prevascular lymph node measuring 10 mm in short axis and max SUV 4.4. ABDOMEN AND PELVIS: * Innumerable metastatic foci throughout the liver max SUV 11.2 * Right psoas muscle max SUV 8.3 * Mild left hydronephrosis with FDG activity from the ureter and additional FDG activity along the c ourse of the left ureter. FDG activity within soft tissue presumably lymph node measuring 14 mm in sh ort axis max SUV 6.6. * FDG activity within the perirenal fascia bilaterally max SUV 8.1 on the right and 4.4 on the left. * Seminal vesicles are enlarged and demonstrate FDG activity bilaterally max SUV 6.9 on the right herbert nd 6.7 on the left. * Right iliacus intramuscular uptake max SUV 6.1. * Focal splenic uptake max SUV 5.5 * Prevascular space of Retzius lymph node measuring 16 mm which appears to abut the urinary bladder wall. Max SUV 6.9. OSSEOUS STRUCTURES: Diffuse disease throughout the osseous structures which could represent use of CSF versus metastatic foci, examples include. * Skull base max SUV 6.5. * Right proximal humerus max SUV 5.5. * Left proximal humerus max SUV 4.4. * Left iliac bone/acetabulum max SUV 5.2. * Right iliac crest max SUV 5.0. OTHER CT: Streaky atelectasis within the lung bases. The heart is mildly enlarged for size. Mild dina nary artery calcifications. Mild paranasal sinus disease within the sphenoid sinuses. The liver is en larged with multiple metastatic foci as described above. Trace ascites. Mild left hydronephrosis with perinephric fat stranding with urothelial thickening as seen on prior subsequent CT abdomen pelvis. IMPRESSION: 1. Multiple (greater than 50) metastatic foci throughout an enlarged liver, scattered foci throughou t the musculature, neck lymph nodes, intra-abdominal sites and mediastinal lymph nodes all FDG positi ve consistent with metastatic disease. 2. Diffuse osseous uptake could represent CSF use versus metastatic disease. Clinical correlation ad vised. 3. Seminal vesicle FDG activity correlate for infection. 4. Mild left hydronephrosis with urothelial thickening similar to subsequent CT abdomen pelvis. Ill- defined soft tissue with increased activity is seen along the ureter and could represent metastatic d isease which may be causing part of the obstruction. 5. Bladder wall thickening correlate for cystitis.
== END | disposition home or self-care (01) ==
LOC: RADPETMAIN 11:31
PROVIDERS: ATTEND Internal Medicine
DX: C78.7 Secondary malignant neoplasm of liver and intrahepatic bile duct (principal); C85.98 Non-Hodgkin lymphoma, unspecified, lymph nodes of multiple sites; N13.30 Unspecified hydronephrosis; N32.89 Other specified disorders of bladder; R59.0 Localized enlarged lymph nodes
CPT/HCPCS: 78815; A9552

== ENCOUNTER 2022-05-10 12:43 | Inpatient (IN) | payer MEDICARE, OTHER ==
--- NOTE | 2022-05-10 13:19 | ED ---
SOB HPI - General Chief Complaint: Shortness of Breath Stated Complaint: cancer pt, multiple complaints Time Seen by Provider: 05/10/22 13:08 Source: patient Mode of arrival: ambulatory Limitations: no limitations - History of Present Illness Initial Comments: 61-year-old male with recent diagnosis of high-grade B-cell lymphoma who presents to the emergency department reporting increased shortness of breath and abdominal distention. Patient was hospitalized last week. He had an echo performed. He was discharged home with the plan to obtain a lumbar puncture and PET scan. He reports that both of these tests were completed. He does not have the results of the PET scan as it was just done Wednesday. He states that he is supposed to have a port placed this upcoming Wednesday so that he can start immunotherapy and chemotherapy. He is unsure of the surgeon who is going to perform his procedure. He states that he has been eating. Foods at home. Today he feels as if his abdomen is so distended that he cannot eat or drink anything. He admits to worsening lower extremity edema and shortness of breath. He called his oncology office who recommended that he come in to the emergency department for evaluation. Denies fevers. No other alleviating, precipitating or modifying factors - Related Data Home Medications Medication Instructions Recorded Confirmed hydroCHLOROthiazide [Hydrodiuril] 25 mg PO DAILY 02/06/18 05/10/22 lisinopriL 40 mg PO BID 02/06/18 05/10/22 Cbd/Thc Gummies 1 tab PO HS PRN 04/22/22 05/10/22 Cholecalciferol [Vitamin D3 (125 125 mcg PO DAILY 04/22/22 05/10/22 Mcg = 5000 Iu)] allopurinoL [Zyloprim] 100 mg PO DAILY 04/22/22 05/10/[address] [Flonase 1 spr EA NOSTRIL DAILY 05/01/22 05/10/[address]] Acetaminophen Tab [Tylenol Tab] 1,000 - 1,500 mg PO Q6H PRN 05/10/22 05/10/22 Folic Acid 1 mg PO DAILY 05/10/22 05/10/22 Allergies Allergy/AdvReac Type Severity Reaction Status Date / Time tramadol Allergy Rash/Hives Verified 05/10/22 16:15 & hallucinations sulfamethoxazole AdvReac Nausea Verified 05/10/22 16:15 [From Bactrim] trimethoprim [From Bactrim] AdvReac Nausea Verified 05/10/22 16:15 Review of Systems ROS Statement: Those systems with pertinent positive or pertinent negative responses have been documented in the HPI. ROS Other: All systems not noted in ROS Statement are negative. Past Medical History Past Medical History: Cancer, GERD/Reflux, Hyperlipidemia, Hypertension, Osteoarthritis (OA) Additional Past Medical History / Comment(s): hiatal hernia, gout, non hogkins lymphoma History of Any Multi-Drug Resistant Organisms: None Reported Past Surgical History: Orthopedic Surgery, Tonsillectomy Additional Past Surgical History / Comment(s): claude shoulder rotator cuff repair, cyst removal rt wrist, oral surgery , surgery for pyloric stenosis as Past Anesthesia/Blood Transfusion Reactions: No Reported Reaction Past Psychological History: No Psychological Hx Reported Smoking Status: Never smoker Past Alcohol Use History: Daily Past Drug Use History: Marijuana - Past Family History Mother Family Medical History: No Reported History Father Family Medical History: Unable to Obtain General Exam Limitations: no limitations General appearance: alert, anxious Head exam: Present: atraumatic, normocephalic, normal inspection Eye exam: Present: normal appearance, PERRL, EOMI. Absent: scleral icterus, conjunctival injection, periorbital swelling ENT exam: Present: normal exam, mucous membranes moist Neck exam: Present: normal inspection. Absent: tenderness, meningismus, lymphadenopathy Respiratory exam: Present: normal lung sounds bilaterally. Absent: respiratory distress, wheezes, rales, rhonchi, stridor Cardiovascular Exam: Present: regular rate, normal rhythm, normal heart sounds. Absent: systolic murmur, diastolic murmur, rubs, gallop, clicks GI/Abdominal exam: Present: soft, distended, diminished bowel sounds. Absent: tenderness, guarding, rebound, rigid Extremities exam: Present: full ROM, normal capillary refill, pedal edema. Absent: tenderness, joint swelling, calf tenderness Back exam: Present: normal inspection Neurological exam: Present: alert, oriented X3, CN II-XII intact Psychiatric exam: Present: normal affect, normal mood Skin exam: Present: warm, dry, intact, normal color. Absent: rash Course Vital Signs 05/10/22 05/10/22 05/10/22 12:51 16:06 18:04 Temperature 97.0 F L 98.6 F Pulse Rate 91 91 103 H Respiratory 18 16 20 Rate Blood Pressure 91/56 125/86 148/78 O2 Sat by Pulse 97 97 98 Oximetry Medical Decision Making - Medical Decision Making Was pt. sent in by a medical professional or institution? oncology office Did you speak to anyone other than the patient for history? Did you review nursing and triage notes? yes and i agree Were old charts reviewed? yes, most recent hospitalization and neck biopsy results Differential Diagnosis? sbo, colitis, pyelonephritis, pneumonia, pe, sepsis, worsening cancer load EKG interpreted by me (3pts min.)? yes X-rays interpreted by me (1pt min.)? yes CT interpreted by me (1pt min.)? yes U/S interpreted by me (1pt. min.)? no What testing was considered but not performed? (CT, X-rays, U/S, labs)? Why? no What meds were considered but not given? Why? none Did you discuss the management of the patient with other professionals? yes, oncology to see if I can start steroids since patient had pet scan Did you reconcile home meds? yes Was smoking cessation discussed for >3mins.? no Was critical care preformed (if so, how long)? yes, 35 minutes for consultation with multiple services Were there social determinants of health that impacted care today? How? (Homelessness, low income, unemployed, alcoholism, drug addiction, transportation, low edu. Level, literacy, decrease access to med. care, halfway, rehab)? no Was there de-escalation of care discussed even if they declined? (Discuss DNR or withdrawal of care, Hospice)? no What co-morbidities impacted this encounter? (DM, HTN, Smoking, COPD, CAD, Cance r, CVA, Hep., AIDS, mental health diagnosis, sleep apnea, morbid obesity)? none Was patient admitted / discharged? Upon arrival patient was placed into room 1. Thorough history and physical exam was performed. IV is established. He was given a 500 mL bolus of normal saline followed by 75 mL per hour. Laboratory studies are conducted and reviewed. Patient is sent for CT angios of his chest due to his shortness of breath and tachycardia. CT of the abdomen and pelvis was also performed. Lactic acid elevated at 11.3. Phos 8.2. CT of the chest demonstrates no PE. Mediastinal adenopathy. CT of the abdomen and pelvis demonstrates liver metastasis, abdominal ascites. Left outlet obstruction of the kidney. I did discuss results with the patient. He was given 1 mg of Dilaudid for pain control. Recommended admission for failure to thrive. Spoke with Dr. Miller. He recommended Decadron 40 mg daily, uric acid levels. Allopurinol 200 mg daily. Patient admitted to Dr. Allison who agreed to admission. Dr. Miller will be placed on consult. Patient agreeable to the plan and was taken to the floor in stable condition Undiagnosed new problem with uncertain prognosis? yes Drug Therapy requiring intensive monitoring for toxicity (Heparin, Nitro, Insulin, Cardizem)? no Were any procedures done? no Diagnosis/symptom? liver failure 2/2 tumor burden, lymphoma Acute, or Chronic, or Acute on Chronic? subacute, recently diagnosed Uncomplicated (without systemic symptoms) or Complicated (systemic symptoms)? complicated Side effects of treatment? none Exacerbation, Progression, or Severe Exacerbation] no Poses a threat to life or bodily function? yes - patient unfortunately has stage 4 cancer - Lab Data Result diagrams: 05/16/22 06:30 05/16/22 06:30 Lab Results 05/10/22 05/10/22 05/10/22 Range/Units 13:42 13:42 13:42 WBC 8.0 (3.8-10.6) k/uL RBC 4.12 L (4.30-5.90) m/uL Hgb 11.4 L (13.0-17.5) gm/dL Hct 36.4 L (39.0-53.0) % MCV 88.5 (80.0-100.0) fL MCH 27.6 (25.0-35.0) pg MCHC 31.2 (31.0-37.0) g/dL RDW 17.7 H (11.5-15.5) % Plt Count 556 H (150-450) k/uL MPV 7.7 Neutrophils % 82 % Lymphocytes % 10 % Monocytes % 5 % Eosinophils % 0 % Basophils % 1 % Neutrophils # 6.6 (1.3-7.7) k/uL Lymphocytes # 0.8 L (1.0-4.8) k/uL Monocytes # 0.4 (0-1.0) k/uL Eosinophils # 0.0 (0-0.7) k/uL Basophils # 0.0 (0-0.2) k/uL Hypochromasia Slight Poikilocytosis Slight Anisocytosis Slight PT 11.9 (9.0-12.0) sec INR 1.2 H (<1.2) APTT 24.5 (22.0-30.0) sec Sodium 134 L (137-145) mmol/L Potassium 5.2 H (3.5-5.1) mmol/L Chloride 102 (98-107) mmol/L Carbon Dioxide 11 L (22-30) mmol/L Anion Gap 21 mmol/L BUN 42 H (9-20) mg/dL Creatinine 1.01 (0.66-1.25) mg/dL Est GFR (CKD-EPI)AfAm >90 (>60 ml/min/1.73 sqM) Est GFR (CKD-EPI)NonAf 81 (>60 ml/min/1.73 sqM) Glucose 82 (74-99) mg/dL Lactic Ac Sepsis Rflx Plasma Lactic Acid Farhat (0.7-2.0) mmol/L Uric Acid (3.5-8.5) mg/dL Calcium 8.8 (8.4-10.2) mg/dL Phosphorus 8.2 H (2.5-4.5) mg/dL Magnesium 1.9 (1.6-2.3) mg/dL Total Bilirubin 1.0 (0.2-1.3) mg/dL AST 370 H (17-59) U/L ALT 145 H (4-49) U/L Alkaline Phosphatase 708 H (38-126) U/L Troponin I (0.000-0.034) ng/mL NT-Pro-B Natriuret Pep pg/mL Total Protein 5.0 L (6.3-8.2) g/dL Albumin 2.6 L (3.5-5.0) g/dL 05/10/22 05/10/22 05/10/22 Range/Units 13:42 13:42 13:42 WBC (3.8-10.6) k/uL RBC (4.30-5.90) m/uL Hgb (13.0-17.5) gm/dL Hct (39.0-53.0) % MCV (80.0-100.0) fL MCH (25.0-35.0) pg MCHC (31.0-37.0) g/dL RDW (11.5-15.5) % Plt Count (150-450) k/uL MPV Neutrophils % % Lymphocytes % % Monocytes % % Eosinophils % % Basophils % % Neutrophils # (1.3-7.7) k/uL Lymphocytes # (1.0-4.8) k/uL Monocytes # (0-1.0) k/uL Eosinophils # (0-0.7) k/uL Basophils # (0-0.2) k/uL Hypochromasia Poikilocytosis Anisocytosis PT (9.0-12.0) sec INR (<1.2) APTT (22.0-30.0) sec Sodium (137-145) mmol/L Potassium (3.5-5.1) mmol/L Chloride (98-107) mmol/L Carbon Dioxide (22-30) mmol/L Anion Gap mmol/L BUN (9-20) mg/dL Creatinine (0.66-1.25) mg/dL Est GFR (CKD-EPI)AfAm (>60 ml/min/1.73 sqM) Est GFR (CKD-EPI)NonAf (>60 ml/min/1.73 sqM) Glucose (74-99) mg/dL Lactic Ac Sepsis Rflx Plasma Lactic Acid Farhat 11.3 H* (0.7-2.0) mmol/L Uric Acid (3.5-8.5) mg/dL Calcium (8.4-10.2) mg/dL Phosphorus (2.5-4.5) mg/dL Magnesium (1.6-2.3) mg/dL Total Bilirubin (0.2-1.3) mg/dL AST (17-59) U/L ALT (4-49) U/L Alkaline Phosphatase (38-126) U/L Troponin I <0.012 (0.000-0.034) ng/mL NT-Pro-B Natriuret Pep 108 pg/mL Total Protein (6.3-8.2) g/dL Albumin (3.5-5.0) g/dL 05/10/22 05/10/22 Range/Units 13:42 14:37 WBC (3.8-10.6) k/uL RBC (4.30-5.90) m/uL Hgb (13.0-17.5) gm/dL Hct (39.0-53.0) % MCV (80.0-100.0) fL MCH (25.0-35.0) pg MCHC (31.0-37.0) g/dL RDW (11.5-15.5) % Plt Count (150-450) k/uL MPV Neutrophils % % Lymphocytes % % Monocytes % % Eosinophils % % Basophils % % Neutrophils # (1.3-7.7) k/uL Lymphocytes # (1.0-4.8) k/uL Monocytes # (0-1.0) k/uL Eosinophils # (0-0.7) k/uL Basophils # (0-0.2) k/uL Hypochromasia Poikilocytosis Anisocytosis PT (9.0-12.0) sec INR (<1.2) APTT (22.0-30.0) sec Sodium (137-145) mmol/L Potassium (3.5-5.1) mmol/L Chloride (98-107) mmol/L Carbon Dioxide (22-30) mmol/L Anion Gap mmol/L BUN (9-20) mg/dL Creatinine (0.66-1.25) mg/dL Est GFR (CKD-EPI)AfAm (>60 ml/min/1.73 sqM) Est GFR (CKD-EPI)NonAf (>60 ml/min/1.73 sqM) Glucose (74-99) mg/dL Lactic Ac Sepsis Rflx Y Plasma Lactic Acid Farhat (0.7-2.0) mmol/L Uric Acid 12.7 H (3.5-8.5) mg/dL Calcium (8.4-10.2) mg/dL Phosphorus (2.5-4.5) mg/dL Magnesium (1.6-2.3) mg/dL Total Bilirubin (0.2-1.3) mg/dL AST (17-59) U/L ALT (4-49) U/L Alkaline Phosphatase (38-126) U/L Troponin I (0.000-0.034) ng/mL NT-Pro-B Natriuret Pep pg/mL Total Protein (6.3-8.2) g/dL Albumin (3.5-5.0) g/dL - EKG Data EKG Comments: EKG demonstrates sinus tachycardia with a rate of 104. [place] interval 155. QRS 85. QTC of 370. No acute signal elevations or depressions Critical Care Time Critical Care Time: Yes Critical Care Time: 35 minutes Disposition Clinical Impression: B-cell lymphoma, Failure to thrive, Lactic acidosis Disposition: ADMITTED IP TO [facility] Condition: Stable Is patient prescribed a controlled substance at d/c from ED?: No Time of Disposition: 14:47 Decision to Admit Reason: Admit from EC Decision Date: 05/10/22 Decision Time: 14:47
[2022-05-10] MEDS ORDERED: SODIUM CHLORIDE 0.9% 500 ML 500 ML IV STA (13:34)
--- NOTE | 2022-05-10 13:57 | XR ---
KUB. HISTORY: Abdominal pain. COMPARISON: None. TECHNIQUE: 2 supine views of the abdomen were obtained. FINDINGS: The bowel gas pattern is nonspecific and there is no evidence of obstruction. No suspicious abdominal or pelvic calcifications are seen. The osseous structures are intact. IMPRESSION: Nonspecific abdomen
--- NOTE | 2022-05-10 13:59 | XR ---
EXAMINATION TYPE: XR chest 2V DATE OF EXAM: 05/10/2022 COMPARISON: 05/01/2022 HISTORY: Difficulty breathing TECHNIQUE: Frontal and lateral views of the chest are obtained. FINDINGS: There is no focal air space opacity, pleural effusion, or pneumothorax seen. The cardiac silhouette size is within normal limits. The osseous structures are intact. IMPRESSION: No acute cardiopulmonary process.
[2022-05-10 14:01] LABS: Anisocytosis Slight; Basophils % (A) 1 %; Eosinophils % (A) 0 %; HCT 36.4 % (39.0-53.0); HGB 11.4 gm/dL (13.0-17.5); Hypochromasia Slight; INR 1.2 (<1.2); Lymphocytes # (A) 0.8 k/uL (1.0-4.8); Lymphocytes % (A) 10 %; MCH 27.6 pg (25.0-35.0); MCHC 31.2 g/dL (31.0-37.0); MCV 88.5 fL (80.0-100.0); Mean Platelet Volume 7.7; Monocytes # (A) 0.4 k/uL (0-1.0); Monocytes % (A) 5 %; Neutrophils # (A) 6.6 k/uL (1.3-7.7); Neutrophils % (A) 82 %; Partial Thromboplastin Time 24.5 sec (22.0-30.0); Platelet Count 556 k/uL (150-450); Poikilocytosis Slight; Prothrombin Time 11.9 sec (9.0-12.0); RBC 4.12 m/uL (4.30-5.90); RDW 17.7 % (11.5-15.5)
[2022-05-10 14:04] LABS: ALT 145 U/L (4-49); AST 370 U/L (17-59); African American GFR (CKD) >90 (>60 ml/min/1.73 sqM); Albumin 2.6 g/dL (3.5-5.0); Alkaline Phosphatase 708 U/L (38-126); Anion Gap 21 mmol/L; Blood Urea Nitrogen 42 mg/dL (9-20); Calcium 8.8 mg/dL (8.4-10.2); Carbon Dioxide 11 mmol/L (22-30); Chloride 102 mmol/L (98-107); Glucose 82 mg/dL (74-99); Magnesium 1.9 mg/dL (1.6-2.3); Non-African American GFR(CKD) 81 (>60 ml/min/1.73 sqM); Phosphorus 8.2 mg/dL (2.5-4.5); Potassium 5.2 mmol/L (3.5-5.1); Sodium 134 mmol/L (137-145)
--- NOTE | 2022-05-10 15:37 | CT ---
EXAMINATION TYPE: CT abdomen pelvis w con DATE OF EXAM: 05/10/2022 COMPARISON: 04/23/2022 HISTORY: Shortness of breath and tachycardia. History of non hodgkin's lymphoma. CT DLP: 1145.1 mGycm Automated exposure control for dose reduction was used. CONTRAST: Performed with IV Contrast, patient injected with 100ml mL of Isovue 370. Images obtained from the diaphragm to the floor of the pelvis with the IV contrast. There is minimal subsegmental atelectasis right lung base. No pleural effusion. Heart size is normal. No pericardial effusion. There are numerous rounded low density masses throughout the liver that rachel sure up to 4 cm. Liver is enlarged and measures 27 cm. Spleen has normal size. There is 2 cm rounded hypodensity in the spleen. There is no pancreatic mass. Gallbladder appears normal. The bile ducts ar e not dilated. There is no adrenal mass. Kidneys of normal size. There is left-sided hydronephrosis and hydroureter. There is left-sided perinephric edema. No retroperitoneal adenopathy. Bladder distends smoothly. No inguinal hernia. There is some low density free fluid in the pelvis. Delayed images show delayed left-sided pyelogram consistent with obstruction. There is bilateral perinephric edema. Abdominal aorta is atheromatous. No free air. No evidence of a bowel obstruction. Appendix not seen.. The lumbar vertebra. Intact with no compression fracture. The posterior elements are intact. The hip joints are intact. There is some prostatic calcification. IMPRESSION: Numerous masses throughout the liver with hepatomegaly and consistent with metastatic disease. No sig nificant change compared to recent exam. Splenic hypodensity decreased compared to last exam. There is left-sided hydronephrosis and hydroureter and perinephric edema and periureteral edema which is worse than last exam. Obstruction of the left upper collecting system. There is some low-density free fluid in the abdomen consistent with developing ascites which is new c ompared to old exam. Mild sigmoid diverticulosis without diverticulitis.
[2022-05-10] MEDS ORDERED: HYDROmorphone 1 MG/ML 1 ML SYRINGE IVP STA (16:03)
[2022-05-10] MEDS ORDERED: NALOXONE 0.4 MG/ML 1 ML VIAL IV PRN (16:06)
[2022-05-10] MEDS: SODIUM CHLORIDE 0.9% 1,000 ML IV SCH (16:10)
--- NOTE | 2022-05-10 16:38 | CT ---
CT CHEST FOR PULMONARY EMBOLISM. EXAMINATION TYPE: CT chest angio for PE DATE OF EXAM: 05/10/2022 INDICATION: Shortness of breath and tachycardia. History of non hodgkin's lymphoma. CT DLP: 312.7 mGycm, Automated exposure control for dose reduction was used. CONTRAST: Patient injected with 100ml mL of Isovue 370. COMPARISON: PET/CT 05/08/2022 TECHNIQUE: CT of the chest is performed on a spiral scan at 2 mm thick sections. Study is performed with intravenous contrast timed for evaluation for pulmonary embolism. This will limit additional po rtions of the evaluation. 3-D MIP images reconstructed by the technologist are reviewed on the compu ter in the coronal and sagittal planes. FINDINGS: No persistent filling defects are evident to suggest an acute pulmonary embolism. No mediastinal or hilar adenopathy enlarged by CT criteria is evident. The ascending aorta diameter at the level of the main pulmonary artery is 3.7 cm. The main pulmonary artery diameter at the bifur cation is 2.6 cm. There is some streak opacity within the superior segment right lower lobe may be some atelectasis. There is a 1.1 cm right axillary lymph node. Scattered shotty lymphadenopathy is present bilateral ax illa. No enlarged mediastinal or hilar lymph nodes are evident. There is some nonspecific increased d ensity within the anterior mediastinum measuring 1.2 x 2.4 cm. Lymphadenopathy is within the differen tial. This area appears hyperintense on the PET/CT of 05/08/2022. Limited CT section through the upper abdomen. Liver appears enlarged and may have some mild fatty inf iltration. IMPRESSIONS: 1. No acute pulmonary embolism. 2. Suspicious adenopathy by CT in the anterior mediastinum. 3. Streak atelectasis superior segment right lower lobe
--- NOTE | 2022-05-10 17:35 | P.HPIM ---
History of Present Illness H&P Date: 05/10/22 Patient is a 41-year-old male with history of recently diagnosed high-grade B- cell lymphoma with widespread metastatic disease, hypertension, dyslipidemia, gout presenting with abdominal pain. He claims that the abdominal pain is persistent in the epigastric and left upper quadrant region. It had never gone away ever since his previous admissions. However, for the last few days he has been having difficulty eating due to abdominal distention. He claims that he still has bowel movements, but not the amount that he would expect. He is still making urine. He claims that he had nausea today, but denies any vomiting. Today he even had difficulty with fluids. That outpatient, he is already had his PET scan, now waiting for steroids and chemo/immunotherapy. He was planned for a port placement on upcoming Wednesday. Due to severe abdominal distention, he has shortness of breath, which is relieved with pain medications. In the ED, patient's BP was at 91/56, which improved with fluids. WBC count was normal, hemoglobin at 11.4, platelets of 556. BMP showed sodium of 134, potassium 5.2, bicarb 11, elevated anion gap, lactic acid at 11.3, AST ALT and ALP elevated. EKG showed sinus tachycardia. Chest x-ray showed no acute process. CT abdomen and pelvis showed numerous masses throughout the liver, left-sided hydronephrosis and hydroureter and perinephric edema and periureteral edema worse than previous exam, indicating obstruction of the left upper collecting system, developing ascites new compared to previous exam, diverticulosis. CTA did not show any acute PE, suspicious adenopathy in the anterior mediastinum. Patient seen and examined at bedside. Pertinent positives and negatives as discussed in HPI, a complete review of systems was performed and all other systems are negative. Vital signs reviewed General: nontoxic, no distress, appears at stated age Derm: warm, dry Head: atraumatic, normocephalic, symmetric Eyes: EOMI, no lid lag, anicteric sclera, pupils equal round reactive to light ENT: Nose and ears atraumatic Neck: No thyromegaly, supple Mouth: no lip lesion, dry membranes moist Cardiovascular: S1S2 reg, tachycardic, no murmur, 2+ pitting edema Lungs: clear to auscultation bilateral, no rhonchi, no rales, no wheeze, no accessory muscle use Abdominal: soft, distended, nontender to palpation, no guarding, hepatomegaly Ext: no gross muscle atrophy, muscle strength muscle strength 5 out of 5 in all 4 extremities, no contractures Neuro: CN II-XII grossly intact Psych: Alert, oriented, appropriate affect Assessment/Plan: Acute on chronic Abdominal pain Lactic acidosis High anion gap metabolic acidosis Severe dehydration Sinus tachycardia Mild hyperkalemia -IV fluids -Pain control -Potassium should improve with correction of acidosis Obstruction of left upper collecting system Hydronephrosis on the left Left hydroureter - Urology consult - Renal function currently normal High-grade B-cell lymphoma with metastatic disease Transaminitis Hepatomegaly - Oncology consult Normocytic anemia thrombocytosis -In the setting of malignancy History of hypertension -hold home medications in the setting of hypotension and lactic acidosis The patient is admitted with an anticipated greater than 2 midnight stay for evaluation of abdominal pain. Surrogate decision-maker: Spouse CODE STATUS: Full code DVT prophylaxis: Lovenox Anticipated discharge date: Pending clinical course Anticipated discharge place: Pending clinical course A total of 58 minutes was spent on the care of this complex patient more than 50% of the time was spent in counseling and care coordination. Past Medical History Past Medical History: Cancer, GERD/Reflux, Hyperlipidemia, Hypertension, Osteoarthritis (OA) Additional Past Medical History / Comment(s): hiatal hernia, gout, non hogkins lymphoma History of Any Multi-Drug Resistant Organisms: None Reported Past Surgical History: Orthopedic Surgery, Tonsillectomy Additional Past Surgical History / Comment(s): claude shoulder rotator cuff repair, cyst removal rt wrist, oral surgery , surgery for pyloric stenosis as Past Anesthesia/Blood Transfusion Reactions: No Reported Reaction Past Psychological History: No Psychological Hx Reported Smoking Status: Never smoker Past Alcohol Use History: Daily Past Drug Use History: Marijuana - Past Family History Mother Family Medical History: No Reported History Medications and Allergies Home Medications Medication Instructions Recorded Confirmed Type hydroCHLOROthiazide [Hydrodiuril] 25 mg PO DAILY 02/06/18 05/10/22 History lisinopriL 40 mg PO BID 02/06/18 05/10/22 History Cbd/Thc Gummies 1 tab PO HS PRN 04/22/22 05/10/22 History Cholecalciferol [Vitamin D3 (125 125 mcg PO DAILY 04/22/22 05/10/22 History Mcg = 5000 Iu)] allopurinoL [Zyloprim] 100 mg PO DAILY 04/22/22 05/10/22 History Fluticasone Nasal [place] [Flonase 1 spr EA NOSTRIL DAILY 05/01/22 05/10/22 History Nasal [place]] Acetaminophen Tab [Tylenol Tab] 1,000 - 1,500 mg PO Q6H PRN 05/10/22 05/10/22 History Folic Acid 1 mg PO DAILY 05/10/22 05/10/22 History Allergies Allergy/AdvReac Type Severity Reaction Status Date / Time tramadol Allergy Rash/Hives Verified 05/10/22 16:15 & hallucinations sulfamethoxazole AdvReac Nausea Verified 05/10/22 16:15 [From Bactrim] trimethoprim [From Bactrim] AdvReac Nausea Verified 05/10/22 16:15 Physical Exam Vitals: Vital Signs Temp Pulse Resp BP Pulse Ox 05/10/22 16:06 91 16 125/86 97 05/10/22 12:51 97.0 F L 91 18 91/56 97 Intake and Output 05/10/22 05/10/22 05/10/22 06:59 14:59 22:59 Other: Weight 77.111 kg Results CBC & Chem 7: 05/10/22 13:42 05/10/22 13:42 Labs: Abnormal Lab Results - Last 24 Hours (Table) 05/10/22 05/10/22 05/10/22 Range/Units 13:42 13:42 13:42 RBC 4.12 L (4.30-5.90) m/uL Hgb 11.4 L (13.0-17.5) gm/dL Hct 36.4 L (39.0-53.0) % RDW 17.7 H (11.5-15.5) % Plt Count 556 H (150-450) k/uL Lymphocytes # 0.8 L (1.0-4.8) k/uL INR 1.2 H (<1.2) Sodium 134 L (137-145) mmol/L Potassium 5.2 H (3.5-5.1) mmol/L Carbon Dioxide 11 L (22-30) mmol/L BUN 42 H (9-20) mg/dL Plasma Lactic Acid Farhat (0.7-2.0) mmol/L Phosphorus 8.2 H (2.5-4.5) mg/dL AST 370 H (17-59) U/L ALT 145 H (4-49) U/L Alkaline Phosphatase 708 H (38-126) U/L Total Protein 5.0 L (6.3-8.2) g/dL Albumin 2.6 L (3.5-5.0) g/dL 05/10/22 05/10/22 Range/Units 13:42 16:45 RBC (4.30-5.90) m/uL Hgb (13.0-17.5) gm/dL Hct (39.0-53.0) % RDW (11.5-15.5) % Plt Count (150-450) k/uL Lymphocytes # (1.0-4.8) k/uL INR (<1.2) Sodium (137-145) mmol/L Potassium (3.5-5.1) mmol/L Carbon Dioxide (22-30) mmol/L BUN (9-20) mg/dL Plasma Lactic Acid Farhat 11.3 H* 7.9 H* (0.7-2.0) mmol/L Phosphorus (2.5-4.5) mg/dL AST (17-59) U/L ALT (4-49) U/L Alkaline Phosphatase (38-126) U/L Total Protein (6.3-8.2) g/dL Albumin (3.5-5.0) g/dL
[2022-05-10] MEDS ORDERED: allopurinoL 100 MG TAB PO SCH (18:15)
[2022-05-10] MEDS: DEXAMETHASONE SOD PHOSPHATE 10 MG/ML 1 ML VIAL IVP SCH ×2 (18:45→23:05)
[2022-05-10] MEDS: HYDROmorphone 1 MG/ML 1 ML SYRINGE IVP PRN (22:40)
[2022-05-11] MEDS: DEXAMETHASONE SOD PHOSPHATE 10 MG/ML 1 ML VIAL IVP SCH ×4 (05:08→23:27)
[2022-05-11] MEDS: HYDROmorphone 1 MG/ML 1 ML SYRINGE IVP PRN (05:08)
[2022-05-11] MEDS: FOLIC ACID 1 MG TAB PO SCH (08:57)
[2022-05-11] MEDS: CHOLECALCIFEROL 125 MCG (5000 IU) TABLET PO SCH (08:57)
[2022-05-11] MEDS: ENOXAPARIN 40 MG/0.4 ML SYRINGE SQ SCH (08:58)
[2022-05-11] MEDS ORDERED: allopurinoL 100 MG TAB PO SCH (09:00)
[2022-05-11] MEDS: allopurinoL 300 MG TAB PO SCH (09:10)
[2022-05-11] MEDS: SODIUM CHLORIDE 0.9% 1,000 ML IV SCH (09:10)
[2022-05-11] MEDS ORDERED: RASBURICASE 6 MG in SODIUM CHLORIDE 0.9% 46 ML IV ONE (10:00)
[2022-05-11 10:39] LABS: Basophils # (A) 0.02 X 10*3/uL (0.00-0.10); Basophils % (A) 0.3 %; Eosinophils # (A) 0 X 10*3/uL (0.04-0.35); Eosinophils % (A) 0 %; HCT 33.5 % (39.6-50.0); HGB 10.2 g/dL (13.0-17.0); Immature Grans, Automated 0.9 %; Lymphocytes # (A) 0.67 X 10*3/uL (0.90-5.00); Lymphocytes % (A) 8.7 %; MCH 27.6 pg (27.0-32.0); MCHC 30.4 g/dL (32.0-37.0); MCV 90.8 fL (80.0-97.0); Mean Platelet Volume 10.2 fL (9.5-12.2); Monocytes % (A) 2.6 %; NRBC Per 100 WBC 1.2 /100 WBCS (0.0-0.0); Neutrophils % (A) 87.5 %; Platelet Count 435 X 10*3/uL (140-440); RBC 3.69 X 10*6/uL (4.40-5.60); RDW 18.3 % (11.5-14.5); WBC 7.66 X 10*3/uL (4.50-10.00)
--- NOTE | 2022-05-11 10:42 | P.PN ---
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 In the ED, patient's BP was at 91/56, which improved with fluids. WBC count was normal, hemoglobin at 11.4, platelets of 556. BMP showed sodium of 134, potassium 5.2, bicarb 11, elevated anion gap, lactic acid at 11.3, AST ALT and ALP elevated. EKG showed sinus tachycardia. Chest x-ray showed no acute process. CT abdomen and pelvis showed numerous masses throughout the liver, left-sided hydronephrosis and hydroureter and perinephric edema and periureteral edema worse than previous exam, indicating obstruction of the left upper collecting system, developing ascites new compared to previous exam, diverticulosis. CTA did not show any acute PE, suspicious adenopathy in the anterior mediastinum. Patient started on IV fluids. Lactic acid improved. Urology consulted. Subjective: Patient seen and examined at bedside. He had 1 bowel movement yesterday. Abd ominal pain has improved. He had nausea and vomiting yesterday. However, it has improved now. Pertinent positives and negatives as discussed above, a complete review of systems was performed and all other systems are negative. Vitals Signs Reviewed. General: nontoxic, no distress, appears at stated age Derm: warm, dry Head: atraumatic, normocephalic, symmetric Eyes: EOMI, no lid lag, anicteric sclera, pupils equal round reactive to light ENT: Nose and ears atraumatic Neck: No thyromegaly, supple Mouth: no lip lesion, dry membranes moist Cardiovascular: S1S2 reg, tachycardic, no murmur, 2+ pitting edema Lungs: clear to auscultation bilateral, no rhonchi, no rales, no wheeze, no accessory muscle use Abdominal: soft, distended, nontender to palpation, no guarding, hepatomegaly Ext: no gross muscle atrophy, muscle strength muscle strength 5 out of 5 in all 4 extremities, no contractures Neuro: CN II-XII grossly intact Psych: Alert, oriented, appropriate affect Assessment and Plan: Acute on chronic Abdominal pain Lactic acidosis High anion gap metabolic acidosis Severe dehydration Sinus tachycardia Mild hyperkalemia -IV fluids -Pain control -Potassium should improve with correction of acidosis Obstruction of left upper collecting system Hydronephrosis on the left Left hydroureter - Urology consult - Renal function currently normal High-grade B-cell lymphoma with metastatic disease Transaminitis Hepatomegaly - Oncology consult - steroids - s/p rasburicase - needs mediport Normocytic anemia thrombocytosis -In the setting of malignancy History of hypertension -hold home medications in the setting of hypotension and lactic acidosis DVT ppx: lovenox Code status: full code Anticipated discharge place: home Anticipated discharge time: pending clinical course Objective - Vital Signs Vital signs: Vital Signs Temp 97.4 F L 05/11/22 07:16 Pulse 103 H 05/11/22 07:16 Resp 18 05/11/22 07:16 BP 128/89 05/11/22 07:16 Pulse Ox 97 05/11/22 07:16 FiO2 Intake & Output 05/10/22 05/11/22 05/11/22 18:59 06:59 18:59 Intake Total 2150 Balance 2150 Weight 77.111 kg Intake: Intake, IV Titration 900 Amount Sodium Chloride 0.9% 1, 900 000 ml @ 75 mls/hr IV . [id number] RAJWINDER Rx#:[id number] Oral 1250 Other: # Voids 1 - Labs CBC & Chem 7: 05/11/22 06:23 05/10/22 13:42 Labs: Abnormal Lab Results - Last 24 Hours (Table) 05/10/22 05/10/22 05/10/22 Range/Units 13:42 13:42 13:42 RBC 4.12 L (4.30-5.90) m/uL Hgb 11.4 L (13.0-17.5) gm/dL Hct 36.4 L (39.0-53.0) % MCHC (32.0-37.0) g/dL RDW 17.7 H (11.5-15.5) % Plt Count 556 H (150-450) k/uL Absolute Nucleated RBC (0.00-0.00) X 10*3/uL Immature Gran # (0.00-0.04) X 10*3/uL Lymphocytes # 0.8 L (1.0-4.8) k/uL Eosinophils # (0.04-0.35) X 10*3/uL NRBC/100 WBC Diff (0.0-0.0) /100 WBCS INR 1.2 H (<1.2) Sodium 134 L (137-145) mmol/L Potassium 5.2 H (3.5-5.1) mmol/L Carbon Dioxide 11 L (22-30) mmol/L BUN 42 H (9-20) mg/dL Plasma Lactic Acid Farhat (0.7-2.0) mmol/L Uric Acid (3.5-8.5) mg/dL Phosphorus 8.2 H (2.5-4.5) mg/dL AST 370 H (17-59) U/L ALT 145 H (4-49) U/L Alkaline Phosphatase 708 H (38-126) U/L Total Protein 5.0 L (6.3-8.2) g/dL Albumin 2.6 L (3.5-5.0) g/dL 05/10/22 05/10/22 05/10/22 Range/Units 13:42 13:42 16:45 RBC (4.30-5.90) m/uL Hgb (13.0-17.5) gm/dL Hct (39.0-53.0) % MCHC (32.0-37.0) g/dL RDW (11.5-15.5) % Plt Count (150-450) k/uL Absolute Nucleated RBC (0.00-0.00) X 10*3/uL Immature Gran # (0.00-0.04) X 10*3/uL Lymphocytes # (1.0-4.8) k/uL Eosinophils # (0.04-0.35) X 10*3/uL NRBC/100 WBC Diff (0.0-0.0) /100 WBCS INR (<1.2) Sodium (137-145) mmol/L Potassium (3.5-5.1) mmol/L Carbon Dioxide (22-30) mmol/L BUN (9-20) mg/dL Plasma Lactic Acid Farhat 11.3 H* 7.9 H* (0.7-2.0) mmol/L Uric Acid 12.7 H (3.5-8.5) mg/dL Phosphorus (2.5-4.5) mg/dL AST (17-59) U/L ALT (4-49) U/L Alkaline Phosphatase (38-126) U/L Total Protein (6.3-8.2) g/dL Albumin (3.5-5.0) g/dL 05/10/22 05/11/22 05/11/22 Range/Units 19:25 06:23 06:23 RBC 3.69 L (4.30-5.90) m/uL Hgb 10.2 L (13.0-17.5) gm/dL Hct 33.5 L (39.0-53.0) % MCHC 30.4 L (32.0-37.0) g/dL RDW 18.3 H (11.5-15.5) % Plt Count (150-450) k/uL Absolute Nucleated RBC 0.09 H (0.00-0.00) X 10*3/uL Immature Gran # 0.07 H (0.00-0.04) X 10*3/uL Lymphocytes # 0.67 L (1.0-4.8) k/uL Eosinophils # 0 L (0.04-0.35) X 10*3/uL NRBC/100 WBC Diff 1.2 H (0.0-0.0) /100 WBCS INR (<1.2) Sodium (137-145) mmol/L Potassium (3.5-5.1) mmol/L Carbon Dioxide (22-30) mmol/L BUN (9-20) mg/dL Plasma Lactic Acid Farhat 11.9 H* 3.6 H* (0.7-2.0) mmol/L Uric Acid (3.5-8.5) mg/dL Phosphorus (2.5-4.5) mg/dL AST (17-59) U/L ALT (4-49) U/L Alkaline Phosphatase (38-126) U/L Total Protein (6.3-8.2) g/dL Albumin (3.5-5.0) g/dL 05/11/22 Range/Units 10:07 RBC (4.30-5.90) m/uL Hgb (13.0-17.5) gm/dL Hct (39.0-53.0) % MCHC (32.0-37.0) g/dL RDW (11.5-15.5) % Plt Count (150-450) k/uL Absolute Nucleated RBC (0.00-0.00) X 10*3/uL Immature Gran # (0.00-0.04) X 10*3/uL Lymphocytes # (1.0-4.8) k/uL Eosinophils # (0.04-0.35) X 10*3/uL NRBC/100 WBC Diff (0.0-0.0) /100 WBCS INR (<1.2) Sodium (137-145) mmol/L Potassium (3.5-5.1) mmol/L Carbon Dioxide (22-30) mmol/L BUN (9-20) mg/dL Plasma Lactic Acid Farhat 3.8 H* (0.7-2.0) mmol/L Uric Acid (3.5-8.5) mg/dL Phosphorus (2.5-4.5) mg/dL AST (17-59) U/L ALT (4-49) U/L Alkaline Phosphatase (38-126) U/L Total Protein (6.3-8.2) g/dL Albumin (3.5-5.0) g/dL
[2022-05-11 11:01] LABS: Phosphorus 7.9 mg/dL (2.4-5.1); Uric Acid 14.3 mg/dL (3.7-8.7)
[2022-05-11 11:04] LABS: Anion Gap 21.4 mmol/L (10.00-18.00); BUN/Creat Ratio 57.56 Ratio (12.00-20.00); Blood Urea Nitrogen 51.8 mg/dL (9.0-27.0); Calcium 8.3 mg/dL (8.7-10.3); Carbon Dioxide 16.6 mmol/L (20.0-27.5); Non-African American GFR(CKD) 93.2 (60.0-200.0); Potassium 6.2 mmol/L (3.5-5.5)
[2022-05-11] MEDS ORDERED: LIDOCAINE 1% INJ 10MG/ML (5 ML VIAL-PF) SQ ONE (11:12)
[2022-05-11] MEDS ORDERED: IV FLUID CONTINUATION 1,000 ML IV ONE (11:26)
[2022-05-11] MEDS ORDERED: SODIUM CHLORIDE 0.9% 1,000 ML IV ONE (11:27)
[2022-05-11] MEDS ORDERED: DEXTROSE 50% SYRINGE 50 ML IVP ONE (11:35)
[2022-05-11] MEDS ORDERED: INSULIN REGULAR 100 UNIT/ML VIAL (IV) IV ONE (11:35)
[2022-05-11] MEDS ORDERED: SODIUM POLYSTYRENE SULFONATE 15 GM/60 ML BOTTLE PO ONE (11:35)
[2022-05-11] MEDS ORDERED: CALCIUM GLUCONATE IN NACL 2 GM in SALINE 1 100ML.BAG IVPB ONE (12:00)
--- NOTE | 2022-05-11 12:29 | IR ---
PICC LINE PLACEMENT: HISTORY: Chemotherapy PROCEDURE: Ultrasound and fluoroscopic guidance of PICC line placement. MOTOR ADJUSTER: Dr. Natarajan COMPLICATIONS: None ANESTHESIA: 5 ml 1% Lidocaine locally. FINDINGS/TECHNIQUE: The procedure was explained to the patient. The risks, complications, benefits and alternatives were discussed and any questions were answered. Informed consent was obtained. The patient was placed supine on the fluoroscopic table and prepped and draped in the usual sterile fash ion. Utilizing a 21 gauge needle and sonographic and fluoroscopic guidance, access in a right brach ial vein was achieved with placement of a 0.018 guidewire. The vein is patent. A 5-F. sheath was pl aced over the guidewire. The guidewire and dilator were removed and a 5-F. Double lumen PICC line wa s placed through the sheath with the tip at the level of the SVC/RA junction. The sheath was removed , the catheter was flushed and sutured into position. The patient was stable throughout the procedur e and remained stable upon discharge from the Department of Radiology. The vein puncture was patent under ultrasound. A abreu scale image was obtained to document patency of the vein punctured. All elements of the maximal barrier technique were utilized. FLUOROSCOPY TIME: 0.2 minutes IMPRESSION: Successful PICC double lumen line placement under ultrasound and fluoroscopic guidance. Tip is at the SVC/RA junction and the catheter is ready for use.
[2022-05-11 13:07] LABS: Glucose,Whole Blood 245 mg/dL (70-110)
[2022-05-11 13:38] LABS: Glucose,Whole Blood 298 mg/dL (70-110)
--- NOTE | 2022-05-11 13:45 | P.GSCN ---
History of Present Illness Consult date: 05/11/22 Reason for Consult: Left hydronephrosis Requesting physician: Maximilian Allison History of present illness: The patient is a 61-year-old white male recently diagnosed with high-grade B- cell lymphoma with widespread metastases. His medical history is significant also for gout, hypertension, and hyperlipidemia. He is scheduled to undergo port placement soon. He began corticosteroid treatment yesterday and will soon receive chemotherapy. He has recently experienced epigastric and left upper quadrant abdominal pain, abdominal distention, lower extremity edema, and dyspnea. CT scan shows moderate left hydroureteronephrosis, multiple hepatic masses consistent with metastases, and early ascites. Review of Systems - Constitutional Denies chills, Denies fever - Cardiovascular Reports edema - Respiratory Reports dyspnea - Gastrointestinal Reports abdominal pain - Genitourinary Denies dysuria, Denies flank pain, Denies hematuria Past Medical History Past Medical History: Cancer, GERD/Reflux, Hyperlipidemia, Hypertension, Osteoarthritis (OA) Additional Past Medical History / Comment(s): hiatal hernia, gout, non hogkins lymphoma History of Any Multi-Drug Resistant Organisms: None Reported Past Surgical History: Orthopedic Surgery, Tonsillectomy Additional Past Surgical History / Comment(s): claude shoulder rotator cuff repair, cyst removal rt wrist, oral surgery , surgery for pyloric stenosis as infant Past Anesthesia/Blood Transfusion Reactions: No Reported Reaction Past Psychological History: No Psychological Hx Reported Smoking Status: Never smoker Past Alcohol Use History: Daily Past Drug Use History: Marijuana - Past Family History Mother Family Medical History: No Reported History Father Family Medical History: Unable to Obtain Medications and Allergies Home Medications Medication Instructions Recorded Confirmed Type hydroCHLOROthiazide [Hydrodiuril] 25 mg PO DAILY 02/06/18 05/10/22 History lisinopriL 40 mg PO BID 02/06/18 05/10/22 History Cbd/Thc Gummies 1 tab PO HS PRN 04/22/22 05/10/22 History Cholecalciferol [Vitamin D3 (125 125 mcg PO DAILY 04/22/22 05/10/22 History Mcg = 5000 Iu)] allopurinoL [Zyloprim] 100 mg PO DAILY 04/22/22 05/10/22 History Fluticasone Nasal [place] [Flonase 1 spr EA NOSTRIL DAILY 05/01/22 05/10/22 History Nasal [place]] Acetaminophen Tab [Tylenol Tab] 1,000 - 1,500 mg PO Q6H PRN 05/10/22 05/10/22 History Folic Acid 1 mg PO DAILY 05/10/22 05/10/22 History Allergies Allergy/AdvReac Type Severity Reaction Status Date / Time tramadol Allergy Rash/Hives Verified 05/10/22 16:15 & hallucinations sulfamethoxazole AdvReac Nausea Verified 05/10/22 16:15 [From Bactrim] trimethoprim [From Bactrim] AdvReac Nausea Verified 05/10/22 16:15 Surgical - Exam Vital Signs Temp Pulse Resp BP Pulse Ox 97.0 F L 91 18 91/56 97 05/10/22 12:51 05/10/22 12:51 05/10/22 12:51 05/10/22 12:51 05/10/22 12:51 - General well developed, well nourished, no distress - Neck Supple, enlarged left submandibular lymph node. - Respiratory normal respiratory effort - Abdomen Abdomen: soft, non tender, no guarding, no rigid, no rebound - Genitourinary normal penis with no external lesions, testicles non-tender - Psychiatric oriented to time, oriented to person, oriented to place, speech is normal, memory intact Results - Labs 05/11/22 06:23 05/11/22 06:23 Abnormal Lab Results - Last 24 Hours (Table) 05/10/22 05/10/22 05/10/22 Range/Units 13:42 13:42 13:42 RBC 4.12 L (4.30-5.90) m/uL Hgb 11.4 L (13.0-17.5) gm/dL Hct 36.4 L (39.0-53.0) % RDW 17.7 H (11.5-15.5) % Plt Count 556 H (150-450) k/uL Lymphocytes # 0.8 L (1.0-4.8) k/uL INR 1.2 H (<1.2) Sodium 134 L (137-145) mmol/L Potassium 5.2 H (3.5-5.1) mmol/L Carbon Dioxide 11 L (22-30) mmol/L BUN 42 H (9-20) mg/dL Plasma Lactic Acid Farhat (0.7-2.0) mmol/L Uric Acid (3.5-8.5) mg/dL Phosphorus 8.2 H (2.5-4.5) mg/dL AST 370 H (17-59) U/L ALT 145 H (4-49) U/L Alkaline Phosphatase 708 H (38-126) U/L Total Protein 5.0 L (6.3-8.2) g/dL Albumin 2.6 L (3.5-5.0) g/dL 05/10/22 05/10/22 05/10/22 Range/Units 13:42 13:42 16:45 RBC (4.30-5.90) m/uL Hgb (13.0-17.5) gm/dL Hct (39.0-53.0) % RDW (11.5-15.5) % Plt Count (150-450) k/uL Lymphocytes # (1.0-4.8) k/uL INR (<1.2) Sodium (137-145) mmol/L Potassium (3.5-5.1) mmol/L Carbon Dioxide (22-30) mmol/L BUN (9-20) mg/dL Plasma Lactic Acid Farhat 11.3 H* 7.9 H* (0.7-2.0) mmol/L Uric Acid 12.7 H (3.5-8.5) mg/dL Phosphorus (2.5-4.5) mg/dL AST (17-59) U/L ALT (4-49) U/L Alkaline Phosphatase (38-126) U/L Total Protein (6.3-8.2) g/dL Albumin (3.5-5.0) g/dL 05/10/22 Range/Units 19:25 RBC (4.30-5.90) m/uL Hgb (13.0-17.5) gm/dL Hct (39.0-53.0) % RDW (11.5-15.5) % Plt Count (150-450) k/uL Lymphocytes # (1.0-4.8) k/uL INR (<1.2) Sodium (137-145) mmol/L Potassium (3.5-5.1) mmol/L Carbon Dioxide (22-30) mmol/L BUN (9-20) mg/dL Plasma Lactic Acid Farhat 11.9 H* (0.7-2.0) mmol/L Uric Acid (3.5-8.5) mg/dL Phosphorus (2.5-4.5) mg/dL AST (17-59) U/L ALT (4-49) U/L Alkaline Phosphatase (38-126) U/L Total Protein (6.3-8.2) g/dL Albumin (3.5-5.0) g/dL Diabetes panel 05/10/22 Range/Units 13:42 Sodium 134 L (137-145) mmol/L Potassium 5.2 H (3.5-5.1) mmol/L Chloride 102 (98-107) mmol/L Carbon Dioxide 11 L (22-30) mmol/L BUN 42 H (9-20) mg/dL Creatinine 1.01 (0.66-1.25) mg/dL Glucose 82 (74-99) mg/dL Calcium 8.8 (8.4-10.2) mg/dL AST 370 H (17-59) U/L ALT 145 H (4-49) U/L Alkaline Phosphatase 708 H (38-126) U/L Total Protein 5.0 L (6.3-8.2) g/dL Albumin 2.6 L (3.5-5.0) g/dL Calcium panel 05/10/22 Range/Units 13:42 Calcium 8.8 (8.4-10.2) mg/dL Phosphorus 8.2 H (2.5-4.5) mg/dL Albumin 2.6 L (3.5-5.0) g/dL Pituitary panel 05/10/22 Range/Units 13:42 Sodium 134 L (137-145) mmol/L Potassium 5.2 H (3.5-5.1) mmol/L Chloride 102 (98-107) mmol/L Carbon Dioxide 11 L (22-30) mmol/L BUN 42 H (9-20) mg/dL Creatinine 1.01 (0.66-1.25) mg/dL Glucose 82 (74-99) mg/dL Calcium 8.8 (8.4-10.2) mg/dL Adrenal panel 05/10/22 Range/Units 13:42 Sodium 134 L (137-145) mmol/L Potassium 5.2 H (3.5-5.1) mmol/L Chloride 102 (98-107) mmol/L Carbon Dioxide 11 L (22-30) mmol/L BUN 42 H (9-20) mg/dL Creatinine 1.01 (0.66-1.25) mg/dL Glucose 82 (74-99) mg/dL Calcium 8.8 (8.4-10.2) mg/dL Total Bilirubin 1.0 (0.2-1.3) mg/dL AST 370 H (17-59) U/L ALT 145 H (4-49) U/L Alkaline Phosphatase 708 H (38-126) U/L Total Protein 5.0 L (6.3-8.2) g/dL Albumin 2.6 L (3.5-5.0) g/dL - Imaging CT scan - abdomen: report reviewed, image reviewed Assessment and Plan (1) Unspecified hydronephrosis Current Visit: Yes Status: Acute Code(s): N13.30 - UNSPECIFIED HYDRON EPHROSIS SNOMED Code(s): 20873752 Plan: I had a lengthy discussion with Mr. Rodriguez regarding his moderate left hydroureteronephrosis. This is likely due to adenopathy. His renal function is normal. I explained to him that the hydronephrosis is likely due to ureteral obstruction, and that if this progresses and remains untreated it could result in irreversible loss of left renal function. I discussed the pros and cons of left ureteral stent insertion. Given that his renal function is normal, he wishes to begin his chemotherapy and will consider placement of a left ureteral stent if his renal function becomes compromised or if the hydronephrosis worsens on future imaging. Time with Patient: Greater than 30
[2022-05-11] MEDS: LACTATED RINGERS 1,000 ML IV SCH ×3 (14:32→23:27)
[2022-05-11 17:31] LABS: ALT 162 U/L (4-49); AST 274 U/L (17-59); African American GFR (CKD) >90 (>60 ml/min/1.73 sqM); Albumin 2.3 g/dL (3.5-5.0); Albumin/Globulin Ratio 1.1; Alkaline Phosphatase 719 U/L (38-126); Anion Gap 8 mmol/L; Blood Urea Nitrogen 58 mg/dL (9-20); Calcium 7.6 mg/dL (8.4-10.2); Carbon Dioxide 22 mmol/L (22-30); Chloride 99 mmol/L (98-107); Globulin 2.1 g/dL; Glucose 282 mg/dL (74-99); Non-African American GFR(CKD) 85 (>60 ml/min/1.73 sqM); Phosphorus 6.4 mg/dL (2.5-4.5); Potassium 4.9 mmol/L (3.5-5.1); Sodium 129 mmol/L (137-145); Total Bilirubin 0.5 mg/dL (0.2-1.3); Total Protein 4.4 g/dL (6.3-8.2)
--- NOTE | 2022-05-11 18:19 | P.CONS ---
History of Present Illness - Reason for Consult Consult date: 05/11/22 Lymphoma Requesting physician: Shanice Nuñez - Chief Complaint SOB - History of Present Illness Mr. Rodriguez The patient is a 61-year-old man, recently seen in consult for the first time, on 04/23/22. He has a PMH HTN, HLD, gout and RA, recently started on methotrexate in mid 04/09, s/p 3 doses, who presented to ER with c/o of lower chest pain, band-like quality across the lower portion of his chest, persistent for several days however, it intensified within the last 24-48 hours. Associated symptoms included diaphoresis, pain with inspiration and SOB. Pt reports mid Mar 2022 he began to have RLE pain similar to hx of his sciatica, and was treated by PCP but, then began to have LLE pain and low back pain that was different. RLE pain is worsened with deep inspiration. Reports constitutional symptoms of night sweats and sweating throughout the day, 10lb unintentional weight loss with decreased appetite, with [address] AP showed hepatomegaly with lesion of the liver measuring 1.2 cm with 1.6cm gallbladder nodule and multiple soft tissue densities along the inferior pararenal space extending along the lower retroperitonium on both sides with possible mild ileus or enteritis. CT chest did not show any significant mediastinal adenopathy, or parenchymal lesions. CT of the neck revealed bilateral parotid associated masses. Core biopsy of the left neck mass on 04/27/22, positive for high-grade B-cell non- Hodgkin's lymphoma. The patient was contacted on 05/01/22 to inform him of the biopsy results, and to set up further required investigations or procedures. His informed us that the patient was in the emergency room, as he had devel oped difficulty in swallowing, as well as with speech. 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 Investigations included MRI, as well as laryngoscopy examination by ENT which did show some prominence of soft tissue in the right tonsillar fossa/right base of tongue area. MRI did not reveal any parenchymal masses in the brain, or meningeal enhancement. Bilateral parotid masses were again seen. Pt improved and was discharged with plan for staging PET, which was done Wednesday, and port placement-this Wednesday. Pt is currently admitted with SOB and abd pain, persistent but, breathing better since admit, no cough, his upper abd feels hard, bloated and is tender. Does have swelling in the legs and feet. Denied fever, N,V. Review of Systems 10 point ROS is neg except as stated in HPI Past Medical History Past Medical History: Cancer, GERD/Reflux, Hyperlipidemia, Hypertension, Osteoarthritis (OA) Additional Past Medical History / Comment(s): hiatal hernia, gout, non hogkins lymphoma History of Any Multi-Drug Resistant Organisms: None Reported Past Surgical History: Orthopedic Surgery, Tonsillectomy Additional Past Surgical History / Comment(s): claude shoulder rotator cuff repair, cyst removal rt wrist, oral surgery , surgery for pyloric stenosis as Past Anesthesia/Blood Transfusion Reactions: No Reported Reaction Past Psychological History: No Psychological Hx Reported Smoking Status: Never smoker Past Alcohol Use History: Daily Past Drug Use History: Marijuana - Past Family History Mother Family Medical History: No Reported History Father Family Medical History: Unable to Obtain Medications and Allergies Home Medications Medication Instructions Recorded Confirmed Type hydroCHLOROthiazide [Hydrodiuril] 25 mg PO DAILY 02/06/18 05/10/22 History lisinopriL 40 mg PO BID 02/06/18 05/10/22 History Cbd/Thc Gummies 1 tab PO HS PRN 04/22/22 05/10/22 History Cholecalciferol [Vitamin D3 (125 125 mcg PO DAILY 04/22/22 05/10/22 History Mcg = 5000 Iu)] allopurinoL [Zyloprim] 100 mg PO DAILY 04/22/22 05/10/22 History Fluticasone Nasal [place] [Flonase 1 spr EA NOSTRIL DAILY 05/01/22 05/10/22 History Nasal Gordon] Acetaminophen Tab [Tylenol Tab] 1,000 - 1,500 mg PO Q6H PRN 05/10/22 05/10/22 History Folic Acid 1 mg PO DAILY 05/10/22 05/10/22 History Allergies Allergy/AdvReac Type Severity Reaction Status Date / Time tramadol Allergy Rash/Hives Verified 05/10/22 16:15 & hallucinations sulfamethoxazole AdvReac Nausea Verified 05/10/22 16:15 [From Bactrim] trimethoprim [From Bactrim] AdvReac Nausea Verified 05/10/22 16:15 Physical Exam Vitals: Vital Signs Temp Pulse Pulse Resp BP BP Pulse Ox 05/11/22 07:16 97.4 F L 103 H 18 128/89 97 05/11/22 02:32 97.4 F L 95 20 125/85 94 L 05/10/22 20:00 107 H 20 05/10/22 19:25 97.0 F L 107 H 20 113/73 96 05/10/22 18:04 98.6 F 103 H 20 148/78 98 05/10/22 16:06 91 16 125/86 97 05/10/22 12:51 97.0 F L 91 18 91/56 97 Intake and Output 05/10/22 05/11/22 05/11/22 22:59 06:59 14:59 Intake Total 2150 Balance 2150 Intake: Intake, IV Titration 900 Amount Sodium Chloride 0.9% 1, 900 000 ml @ 75 mls/hr IV . [id number] [facility] Rx#:[id number] Oral 1250 Other: # Voids 1 Weight 77.111 kg - Constitutional General appearance: average body habitus, cooperative, no acute distress - EENT Eyes: anicteric sclerae, EOMI ENT: hearing grossly normal, normal oropharynx - Neck Neck: lymphadenopathy - Respiratory Respiratory: bilateral: CTA - Cardiovascular Rhythm: regular Heart sounds: normal: S1, S2 Abnormal Heart Sounds: no systolic murmur, no diastolic murmur, no rub, no S3 Gallop, no S4 Gallop, no click, no other foot Peripheral Edema: bilateral: 1+ - Gastrointestinal General gastrointestinal: no absent bowel sounds, no decreased bowel sounds, no distended, hepatomegaly, no hyperactive bowel sounds, normal bowel sounds, no organomegaly, no rigid, no scaphoid, soft, no splenomegaly, no tenderness, no umbilical hernia, no ventral hernia - Integumentary Integumentary: pale - Neurologic Neurologic: CNII-XII intact - Musculoskeletal Musculoskeletal: strength equal bilaterally - Psychiatric Psychiatric: A&O x's 3, appropriate affect, intact judgment & insight Results CBC & Chem 7: 05/11/22 06:23 05/11/22 16:25 Labs: Abnormal Lab Results - Last 24 Hours (Table) 05/10/22 05/10/22 05/10/22 Range/Units 13:42 13:42 13:42 RBC 4.12 L (4.30-5.90) m/uL Hgb 11.4 L (13.0-17.5) gm/dL Hct 36.4 L (39.0-53.0) % RDW 17.7 H (11.5-15.5) % Plt Count 556 H (150-450) k/uL Lymphocytes # 0.8 L (1.0-4.8) k/uL INR 1.2 H (<1.2) Sodium 134 L (137-145) mmol/L Potassium 5.2 H (3.5-5.1) mmol/L Carbon Dioxide 11 L (22-30) mmol/L BUN 42 H (9-20) mg/dL Plasma Lactic Acid Farhat (0.7-2.0) mmol/L Uric Acid (3.5-8.5) mg/dL Phosphorus 8.2 H (2.5-4.5) mg/dL AST 370 H (17-59) U/L ALT 145 H (4-49) U/L Alkaline Phosphatase 708 H (38-126) U/L Total Protein 5.0 L (6.3-8.2) g/dL Albumin 2.6 L (3.5-5.0) g/dL 05/10/22 05/10/22 05/10/22 Range/Units 13:42 13:42 16:45 RBC (4.30-5.90) m/uL Hgb (13.0-17.5) gm/dL Hct (39.0-53.0) % RDW (11.5-15.5) % Plt Count (150-450) k/uL Lymphocytes # (1.0-4.8) k/uL INR (<1.2) Sodium (137-145) mmol/L Potassium (3.5-5.1) mmol/L Carbon Dioxide (22-30) mmol/L BUN (9-20) mg/dL Plasma Lactic Acid Farhat 11.3 H* 7.9 H* (0.7-2.0) mmol/L Uric Acid 12.7 H (3.5-8.5) mg/dL Phosphorus (2.5-4.5) mg/dL AST (17-59) U/L ALT (4-49) U/L Alkaline Phosphatase (38-126) U/L Total Protein (6.3-8.2) g/dL Albumin (3.5-5.0) g/dL 05/10/22 05/11/22 Range/Units 19:25 06:23 RBC (4.30-5.90) m/uL Hgb (13.0-17.5) gm/dL Hct (39.0-53.0) % RDW (11.5-15.5) % Plt Count (150-450) k/uL Lymphocytes # (1.0-4.8) k/uL INR (<1.2) Sodium (137-145) mmol/L Potassium (3.5-5.1) mmol/L Carbon Dioxide (22-30) mmol/L BUN (9-20) mg/dL Plasma Lactic Acid Farhat 11.9 H* 3.6 H* (0.7-2.0) mmol/L Uric Acid (3.5-8.5) mg/dL Phosphorus (2.5-4.5) mg/dL AST (17-59) U/L ALT (4-49) U/L Alkaline Phosphatase (38-126) U/L Total Protein (6.3-8.2) g/dL Albumin (3.5-5.0) g/dL Assessment and Plan (1) Spontaneous tumor lysis syndrome Current Visit: Yes Status: Acute Code(s): E88.3 - TUMOR LYSIS SYNDROME SNOMED Code(s): 520541750 (2) B-cell lymphoma Current Visit: Yes Status: Acute Priority: High Code(s): C85.10 - UNSPECIFIED B-CELL LYMPHOMA, UNSPECIFIED SITE SNOMED Code(s): 259549774 Plan: NHL -Pending staging PET results, will review with pt when available -pending final mutational studies/final path. Dr. Sarah Nava and discussed with Dr. Kiran. DA R-EPOCH recommended. If Burkitt's lymphoma, IT chemo will be ordered. -Recurrent symptoms, repeat hospitalizations. -PICC line insertion ordered -ECHO done 05/04, LVEF 55% Spontaneous TLS -Start chemo as soon as able -Rasburicase ordered -Allopurinol dose increased, give daily -labs daily
[2022-05-11] MEDS: SALT AND SODA MOUTHWASH 1,000 ML PO SCH ×2 (21:37→23:27)
[2022-05-11] MEDS: ONDANSETRON 4 MG/2 ML VIAL IVP PRN (21:38)
[2022-05-12] MEDS: LACTATED RINGERS 1,000 ML IV SCH (05:41)
[2022-05-12] MEDS: DEXAMETHASONE SOD PHOSPHATE 10 MG/ML 1 ML VIAL IVP SCH (05:41)
[2022-05-12] MEDS: SALT AND SODA MOUTHWASH 1,000 ML PO SCH ×4 (05:41→21:20)
[2022-05-12 07:09] LABS: Anisocytosis Slight; Basophils % (A) 0 %; Eosinophils % (A) 0 %; HCT 30.8 % (39.0-53.0); Hypochromasia Slight; Lymphocytes # (A) 0.7 k/uL (1.0-4.8); Lymphocytes % (A) 6 %; MCH 28.5 pg (25.0-35.0); MCHC 32.1 g/dL (31.0-37.0); MCV 88.6 fL (80.0-100.0); Mean Platelet Volume 7.5; Monocytes # (A) 0.3 k/uL (0-1.0); Monocytes % (A) 3 %; Neutrophils # (A) 9.2 k/uL (1.3-7.7); Neutrophils % (A) 89 %; Platelet Count 389 k/uL (150-450); RBC 3.47 m/uL (4.30-5.90); RDW 17.1 % (11.5-15.5); WBC 10.3 k/uL (3.8-10.6)
[2022-05-12 07:28] LABS: ALT 146 U/L (4-49); AST 154 U/L (17-59); African American GFR (CKD) >90 (>60 ml/min/1.73 sqM); Albumin 2.5 g/dL (3.5-5.0); Albumin/Globulin Ratio 1.1; Alkaline Phosphatase 807 U/L (38-126); Anion Gap 8 mmol/L; Blood Urea Nitrogen 56 mg/dL (9-20); Calcium 7.5 mg/dL (8.4-10.2); Carbon Dioxide 22 mmol/L (22-30); Chloride 105 mmol/L (98-107); Globulin 2.3 g/dL; Glucose 202 mg/dL (74-99); Non-African American GFR(CKD) >90 (>60 ml/min/1.73 sqM); Phosphorus 6.7 mg/dL (2.5-4.5); Potassium 4.6 mmol/L (3.5-5.1); Sodium 135 mmol/L (137-145); Total Bilirubin 0.6 mg/dL (0.2-1.3); Total Protein 4.8 g/dL (6.3-8.2); Uric Acid 7.6 mg/dL (3.5-8.5)
[2022-05-12 07:46] LABS: HGB 9.9 gm/dL (13.0-17.5)
[2022-05-12] MEDS: ENOXAPARIN 40 MG/0.4 ML SYRINGE SQ SCH (08:54)
[2022-05-12] MEDS: predniSONE 10 MG TAB PO SCH ×2 (08:55→21:20)
[2022-05-12] MEDS: allopurinoL 300 MG TAB PO SCH (08:56)
[2022-05-12] MEDS: CHOLECALCIFEROL 125 MCG (5000 IU) TABLET PO SCH (08:56)
[2022-05-12] MEDS: FOLIC ACID 1 MG TAB PO SCH (08:56)
[2022-05-12] MEDS: predniSONE 50 MG TAB PO SCH ×2 (08:56→21:20)
[2022-05-12] MEDS: ONDANSETRON 4 MG/2 ML VIAL IVP PRN (10:19)
[2022-05-12] MEDS: SODIUM CHLORIDE 0.9% 1,000 ML IV SCH ×2 (11:53→21:20)
[2022-05-12] MEDS ORDERED: ACETAMINOPHEN TAB 325 MG TAB PO PRN (12:55)
[2022-05-12] MEDS: ALPRAZolam 0.25 MG TAB PO PRN (13:38)
[2022-05-12] MEDS: ONDANSETRON 16 MG in SODIUM CHLORIDE 0.9% 50 ML IVPB SCH (13:39)
[2022-05-12] MEDS: FAMOTIDINE 20 MG/2 ML VIAL IVP SCH (13:39)
[2022-05-12] MEDS ORDERED: SODIUM CHLORIDE 0.9% IV SCH ×2 (14:00)
[2022-05-12] MEDS ORDERED: ETOPOSIDE 90 MG in SODIUM CHLORIDE 0.9% 250 ML IV SCH (14:00)
[2022-05-12] MEDS ORDERED: VINCRISTINE SULFATE IV SCH (14:00)
[2022-05-12] MEDS ORDERED: DOXORUBICIN HCL IV SCH (14:00)
[2022-05-12] MEDS: DOXORUBICIN HCL IV SCH (14:06)
[2022-05-12] MEDS: [UNRECOGNIZED DRUG - OTHER] IV SCH (14:06)
[2022-05-12] MEDS: ETOPOSIDE IV SCH (14:06)
[2022-05-12] MEDS: VINCRISTINE SULFATE IV SCH (14:06)
--- NOTE | 2022-05-12 15:26 | P.CONS ---
History of Present Illness - Reason for Consult Consult date: 05/12/22 Palliative care options Requesting physician: Cristina Watson - Chief Complaint Shortness of breath - History of Present Illness The patient is a 61-year-old male with recent diagnosis of high-grade B-cell lymphoma. He also has a past medical history significant for GERD, hyperlipidemia, hypertension, and osteoarthritis. He presented to the emergency department on 05/10/22 with complaints of increased shortness of breath and abdominal distention. He described pain as bandlike across the lower portion of his chest. Associated symptoms included diaphoresis, and pain with respiration. He has also developed difficulty in swallowing as well with speech secondary to tongue edema. The patient has already had a PET scan for staging and is awaiting results to discuss a treatment plan with oncology. He will have a Mediport placed this Wednesday. Review of Systems Constitutional: Reports fatigue, Reports poor appetite, Reports weight loss, Denies chills, Denies fever Ears, nose, mouth and throat: Denies headache Cardiovascular: Reports chest pain, Reports edema, Reports shortness of breath Respiratory: Reports cough, Reports dyspnea Gastrointestinal: Reports abdominal pain, Reports nausea, Denies diarrhea, Denies vomiting Neurological: Denies confusion Past Medical History Past Medical History: Cancer, GERD/Reflux, Hyperlipidemia, Hypertension, Osteoar thritis (OA) Additional Past Medical History / Comment(s): hiatal hernia, gout, non hogkins lymphoma History of Any Multi-Drug Resistant Organisms: None Reported Past Surgical History: Orthopedic Surgery, Tonsillectomy Additional Past Surgical History / Comment(s): claude shoulder rotator cuff repair, cyst removal rt wrist, oral surgery , surgery for pyloric stenosis as infant Past Anesthesia/Blood Transfusion Reactions: No Reported Reaction Past Psychological History: No Psychological Hx Reported Smoking Status: Never smoker Past Alcohol Use History: Daily Past Drug Use History: Marijuana - Past Family History Mother Family Medical History: No Reported History Father Family Medical History: Unable to Obtain Medications and Allergies Home Medications Medication Instructions Recorded Confirmed Type hydroCHLOROthiazide [Hydrodiuril] 25 mg PO DAILY 02/06/18 05/10/22 History lisinopriL 40 mg PO BID 02/06/18 05/10/22 History Cbd/Thc Gummies 1 tab PO HS PRN 04/22/22 05/10/22 History Cholecalciferol [Vitamin D3 (125 125 mcg PO DAILY 04/22/22 05/10/22 History Mcg = 5000 Iu)] allopurinoL [Zyloprim] 100 mg PO DAILY 04/22/22 05/10/22 History Fluticasone Nasal [place] [Flonase 1 spr EA NOSTRIL DAILY 05/01/22 05/10/22 Hi story Nasal [place]] Acetaminophen Tab [Tylenol Tab] 1,000 - 1,500 mg PO Q6H PRN 05/10/22 05/10/22 History Folic Acid 1 mg PO DAILY 05/10/22 05/10/22 History Allergies Allergy/AdvReac Type Severity Reaction Status Date / Time tramadol Allergy Rash/Hives Verified 05/10/22 16:15 & hallucinations sulfamethoxazole AdvReac Nausea Verified 05/10/22 16:15 [From Bactrim] trimethoprim [From Bactrim] AdvReac Nausea Verified 05/10/22 16:15 Physical Exam Vitals: Vital Signs Temp Pulse Resp BP BP Pulse Ox 05/12/22 12:38 97.7 F 91 16 146/88 97 05/12/22 07:34 98.1 F 85 16 131/81 97 05/12/22 02:00 97.7 F 83 16 142/85 99 05/11/22 20:00 16 05/11/22 19:34 98.4 F 99 16 128/82 96 Intake and Output 05/11/22 05/12/22 05/12/22 22:59 06:59 14:59 Intake Total 1800 Balance 1800 Intake: Intake, IV Titration 1800 Amount Lactated Ringers 1,000 ml 1800 @ 150 mls/hr IV .Q6H40M [facility] Rx#:[id number] Other: # Voids 2 General: Well developed, well nourished. No acute distress. Appears older than stated age HEENT: Head is atraumatic, normocephalic. CV: Heart regular in rate and rhythm positive S1 and S2. +1 peripheral edema Lungs: Clear to auscultation bilaterally. Respirations even and nonlabored. Abdomen/GI: Soft, distended.No guarding, rigidity, or abdominal tenderness. . Musculoskeletal/ Extremities: TRAN, no joint deformity or swelling. No gross atrophy. + generalized weakness Skin: Warm and dry Neurologic: Awake, alert and oriented times 3. CN II-XII grossly intact. No focal deficits. Psychiatric: Appropriate mood and affect. Results CBC & Chem 7: 05/12/22 06:35 05/12/22 06:35 Labs: Abnormal Lab Results - Last 24 Hours (Table) 05/11/22 05/12/22 05/12/22 Range/Units 16:25 06:35 06:35 RBC 3.47 L (4.30-5.90) m/uL Hgb 9.9 L D (13.0-17.5) gm/dL Hct 30.8 L (39.0-53.0) % RDW 17.1 H (11.5-15.5) % Neutrophils # 9.2 H (1.3-7.7) k/uL Lymphocytes # 0.7 L (1.0-4.8) k/uL Sodium 129 L 135 L (137-145) mmol/L BUN 58 H 56 H (9-20) mg/dL Glucose 282 H 202 H (74-99) mg/dL Calcium 7.6 L 7.5 L (8.4-10.2) mg/dL Phosphorus 6.4 H 6.7 H (2.5-4.5) mg/dL AST 274 H 154 H (17-59) U/L ALT 162 H 146 H (4-49) U/L Alkaline Phosphatase 719 H 807 H (38-126) U/L Total Protein 4.4 L 4.8 L (6.3-8.2) g/dL Albumin 2.3 L 2.5 L (3.5-5.0) g/dL Chest x-ray: report reviewed Abdominal x-ray: report reviewed CT scan - abdomen: report reviewed CT scan - chest: report reviewed CT scan - pelvis: report reviewed Assessment and Plan Assessment: Social * Occupation - disability * Marital status - to , Nicolette, for 29 years * Children/grandchildren - 2 adult daughters who live close by * Residence - house * Who do you reside with - * ETOH - occasionally * Tobacco - never smoked * Illicit drugs - marijuana Spiritual/Cultural * A spiritual person - "somewhat" * Congregational - [employer] * Belong to a particular congregational - no * Beliefs a source of comfort and strength - yes * Holiness or cultural practices restrictions - no * EOL considerations/rituals -no Functional Assessment * Able to walk independently - yes * Assistive devices - none * Able to use the bathroom independently - yes * Continent - yes * Require assistance bathing- no * Able to feed self - yes * Who prepares meals - patient and * How many meals a day eaten - 3 * Able to clean house/do laundry - yes * Transportation - patient still drives, he also has a motorcycle * Able to shop - yes * Who manages medications - patient * Who manages finances - patient Psychological/Emotional * Dementia present - no * Insight and judgment - intact * Depression - no * Suicidal thoughts - no * Good support system - yes * Patients goals - prolonged survival * Frequent hospitalizations - no * Desire to keep coming back to the hospital for treatment - yes Symptoms * Pain - 0/10, continue Dilaudid when necessary, added extra strength Tylenol * Fatigue - + generalized weakness and fatigue * SOB - None * Insomnia - Yes, does not want to take anything to help it * N/V - Occasional nausea, continue Zofran * Anxiety - Yes, added Xanax prn * Depression - No * Confusion - No * Agitation - No * Hallucinations - No * Appetite/weight loss - decreased appetite, recent 20 pound weight loss * Dysphagia - Yes, tongue numb, continue pureed diet * Constipation - No, LBM x 2 05/12 * Incontinence - No * Itch - No * Cough - Yes, non productive Plan: Summary/Goals - The patient was seen up in the chair today. He is in good spirits. Information regarding palliative care philosophies and services provided. It was explained to t he patient that PC is an extra layer of support for him and his family, and to assist with symptom management. The patient understands her his non-Hodgkin's lymphoma diagnosis. He had a PET scan on Wednesday for staging. We will then discuss a treatment plan with oncology. He is also scheduled to have a Mediport placed this Wednesday. He also has spontaneous tumor lysis syndrome and will be started on chemotherapy today. He did get a little emotional. Emotional support provided. Advanced Directives - none on file Code Status - full code Thank you for this consultation Mulu Velazquez [facility] Palliative Care Spectralink [phone] Email: [email or web address] Time with Patient: Greater than 30
--- NOTE | 2022-05-12 15:54 | P.PN ---
Subjective Progress Note Date: 05/12/22 Patient is in good spirits today. Patient has no complaints at this time, says his abdominal pain is significantly improved with the use of Dilaudid pushes. Patient was found to have tumor lysis syndrome last night and was started on rasburicase, allopurinol. He has started chemotherapy. Oncology is following. PICC line was placed. Gen: awake, alert HEENT: normocephalic, atraumatic, good hearing acuity, moist mucous membranes Resp: good air exchange, breathing comfortably with no accessory muscle use, clear to auscultation bilaterally CVS: good distal perfusion x 4, regular rate and rhythm, no murmurs GI: soft, NTTP, ND, normal bowel sounds : no SPT, no CVAT, guzman catheter not present MSK: no pitting edema, no clubbing Neuro: non-focal, moving all extremities Psych: cooperative, euthymic mood Assessment/plan: Hospital Course: 41-year-old male with history of recently diagnosed 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 In the ED, patient's BP was at 91/56, which improved with fluids. WBC count was normal, hemoglobin at 11.4, platelets of 556. BMP showed sodium of 134, potassium 5.2, bicarb 11, elevated anion gap, lactic acid at 11.3, AST ALT and ALP elevated. EKG showed sinus tachycardia. Chest x-ray showed no acute process. CT abdomen and pelvis showed numerous mass es throughout the liver, left-sided hydronephrosis and hydroureter and perinephric edema and periureteral edema worse than previous exam, indicating obstruction of the left upper collecting system, developing ascites new compared to previous exam, diverticulosis. CTA did not show any acute PE, suspicious adenopathy in the anterior mediastinum. Patient started on IV fluids. Lactic acid improved. Urology consulted. Subjective: Patient seen and examined at bedside. He had 1 bowel movement yesterday. Abdominal pain has improved. He had nausea and vomiting yesterday. However, it has improved now. Pertinent positives and negatives as discussed above, a complete review of systems was performed and all other systems are negative. Vitals Signs Reviewed. General: nontoxic, no distress, appears at stated age Derm: warm, dry Head: atraumatic, normocephalic, symmetric Eyes: EOMI, no lid lag, anicteric sclera, pupils equal round reactive to light ENT: Nose and ears atraumatic Neck: No thyromegaly, supple Mouth: no lip lesion, dry membranes moist Cardiovascular: S1S2 reg, tachycardic, no murmur, 2+ pitting edema Lungs: clear to auscultation bilateral, no rhonchi, no rales, no wheeze, no accessory muscle use Abdominal: soft, distended, nontender to palpation, no guarding, hepatomegaly Ext: no gross muscle atrophy, muscle strength muscle strength 5 out of 5 in all 4 extremities, no contractures Neuro: CN II-XII grossly intact Psych: Alert, oriented, appropriate affect Assessment and Plan: Acute on chronic Abdominal pain Lactic acidosis High anion gap metabolic acidosis Severe dehydration Sinus tachycardia Mild hyperkalemia -IV fluids -Pain control -Potassium should improve with correction of acidosis Tumor lysis syndrome Hyperkalemia -Insulin, dextrose, calcium gluconate, Kayexalate -Repeat potassium, phosphorus -s/p rasburicase -On allopurinol -IV fluids Obstruction of left upper collecting system Hydronephrosis on the left Left hydroureter - Urology consult note reviewed, and discussed with patient, patient would like to defer stent placement at this time unless he develops acute kidney injury from obstruction or worsening hydro-nephrosis on imaging - Renal function currently normal High-grade B-cell lymphoma with metastatic disease Transaminitis Hepatomegaly - Oncology consult - steroids - Has started chemotherapy, oncology note reviewed, R-EPOCH protocol - Pending PET scan results - s/p rasburicase - mediport planned for Wednesday Normocytic anemia thrombocytosis -In the setting of malignancy History of hypertension -hold home medications in the setting of hypotension and lactic acidosis DVT ppx: lovenox Code status: full code Anticipated discharge place: home Anticipated discharge time: pending clinical course Objective - Vital Signs Vital signs: Vital Signs Temp 97.7 F 05/12/22 12:38 Pulse 91 05/12/22 12:38 Resp 16 05/12/22 12:38 BP 146/88 05/12/22 12:38 Pulse Ox 97 05/12/22 12:38 FiO2 Intake & Output 05/11/22 05/12/22 05/12/22 18:59 06:59 18:59 Intake Total 50 1800 Balance 50 1800 Intake: IV 50 Intake, IV Titration 1800 Amount Lactated Ringers 1,000 ml 1800 @ 150 mls/hr IV .Q6H40M [facility] Rx#:[id number] Other: # Voids 2 - Labs CBC & Chem 7: 05/12/22 06:35 05/12/22 06:35 Labs: Abnormal Lab Results - Last 24 Hours (Table) 05/11/22 05/12/22 05/12/22 Range/Units 16:25 06:35 06:35 RBC 3.47 L (4.30-5.90) m/uL Hgb 9.9 L D (13.0-17.5) gm/dL Hct 30.8 L (39.0-53.0) % RDW 17.1 H (11.5-15.5) % Neutrophils # 9.2 H (1.3-7.7) k/uL Lymphocytes # 0.7 L (1.0-4.8) k/uL Sodium 129 L 135 L (137-145) mmol/L BUN 58 H 56 H (9-20) mg/dL Glucose 282 H 202 H (74-99) mg/dL Calcium 7.6 L 7.5 L (8.4-10.2) mg/dL Phosphorus 6.4 H 6.7 H (2.5-4.5) mg/dL AST 274 H 154 H (17-59) U/L ALT 162 H 146 H (4-49) U/L Alkaline Phosphatase 719 H 807 H (38-126) U/L Total Protein 4.4 L 4.8 L (6.3-8.2) g/dL Albumin 2.3 L 2.5 L (3.5-5.0) g/dL
--- NOTE | 2022-05-12 17:47 | P.PN ---
Subjective Progress Note Date: 05/12/22 Principal diagnosis: NHL, SOB In f/u today pt has started chemo, no c/o so far. Denies fevers, oral irritation, his SOB is stable, no chest pain, abd pain, acute changes in bowel or bladder. He is ambulatory, tolerating oral intake. Objective - Vital Signs Vital signs: Vital Signs Temp 97.6 F 05/12/22 15:58 Pulse 87 05/12/22 15:58 Resp 16 05/12/22 15:58 BP 134/83 05/12/22 15:58 Pulse Ox 97 05/12/22 15:58 FiO2 Intake & Output 05/11/22 05/12/22 05/12/22 18:59 06:59 18:59 Intake Total 50 1800 Balance 50 1800 Intake: IV 50 Intake, IV Titration 1800 Amount Lactated Ringers 1,000 ml 1800 @ 150 mls/hr IV .Q6H40M [facility] Rx#:[id number] Other: # Voids 2 - Constitutional General appearance: Present: average body habitus, cooperative, no acute distress - EENT Eyes: Present: anicteric sclerae, edentulous ENT: Present: hearing grossly normal, normal oropharynx - Respiratory Respiratory: bilateral: CTA - Cardiovascular Rhythm: regular Heart sounds: normal: S1, S2 Abnormal Heart Sounds: Absent: systolic murmur, diastolic murmur, rub, S3 Gallop, S4 Gallop, click, other - Peripheral edema leg Peripheral Edema: bilateral: None - Gastrointestinal General gastrointestinal: Present: soft - Integumentary Integumentary: Present: normal - Neurologic Neurologic: Present: CNII-XII intact - Musculoskeletal Musculoskeletal: Present: strength equal bilaterally - Psychiatric Psychiatric: Present: A&O x's 3, appropriate affect, intact judgment & insight - Labs CBC & Chem 7: 05/12/22 06:35 05/12/22 06:35 Labs: Abnormal Lab Results - Last 24 Hours (Table) 05/11/22 05/12/22 05/12/22 Range/Units 16:25 06:35 06:35 RBC 3.47 L (4.30-5.90) m/uL Hgb 9.9 L D (13.0-17.5) gm/dL Hct 30.8 L (39.0-53.0) % RDW 17.1 H (11.5-15.5) % Neutrophils # 9.2 H (1.3-7.7) k/uL Lymphocytes # 0.7 L (1.0-4.8) k/uL Sodium 129 L 135 L (137-145) mmol/L BUN 58 H 56 H (9-20) mg/dL Glucose 282 H 202 H (74-99) mg/dL Calcium 7.6 L 7.5 L (8.4-10.2) mg/dL Phosphorus 6.4 H 6.7 H (2.5-4.5) mg/dL AST 274 H 154 H (17-59) U/L ALT 162 H 146 H (4-49) U/L Alkaline Phosphatase 719 H 807 H (38-126) U/L Total Protein 4.4 L 4.8 L (6.3-8.2) g/dL Albumin 2.3 L 2.5 L (3.5-5.0) g/dL Assessment and Plan (1) Spontaneous tumor lysis syndrome Current Visit: Yes Status: Acute Code(s): E88.3 - TUMOR LYSIS SYNDROME SNOMED Code(s): 007937436 (2) B-cell lymphoma Current Visit: Yes Status: Acute Priority: High Code(s): C85.10 - UNSPECIFIED B-CELL LYMPHOMA, UNSPECIFIED SITE SNOMED Code(s): 762082214 Plan: NHL -Pending staging PET results, will review with pt when available -pending final mutational studies/final path. Dr. Sarah Nava and discussed with Dr. Kiran. DA R-EPOCH recommended. If Burkitt's lymphoma, IT chemo will be ordered. -Recurrent symptoms, repeat hospitalizations. -PICC line insertion -ECHO done 05/04, LVEF 55% Spontaneous TLS -Start chemo -Rasburicase given -Allopurinol dose increased, give daily -labs daily -Phos cont to be elevated but stable. Cont on allopurinol. Will consult Nephrology if cont to worsen Increase CBG -2/2 steroid use. -IM mgmt -Pt is going to need meds to manage blood glucose while on treatment. F/U with PCP
[2022-05-13] MEDS: SALT AND SODA MOUTHWASH 1,000 ML PO SCH ×6 (00:30→23:22)
[2022-05-13] MEDS: ONDANSETRON 4 MG/2 ML VIAL IVP PRN (04:20)
[2022-05-13] MEDS: SODIUM CHLORIDE 0.9% 1,000 ML IV SCH ×2 (04:20→18:21)
[2022-05-13] MEDS: ENOXAPARIN 40 MG/0.4 ML SYRINGE SQ SCH (08:08)
[2022-05-13] MEDS: allopurinoL 300 MG TAB PO SCH (08:09)
[2022-05-13] MEDS: CHOLECALCIFEROL 125 MCG (5000 IU) TABLET PO SCH (08:09)
[2022-05-13] MEDS: predniSONE 10 MG TAB PO SCH ×2 (08:09→20:24)
[2022-05-13] MEDS: predniSONE 50 MG TAB PO SCH ×2 (08:09→20:23)
[2022-05-13] MEDS: FOLIC ACID 1 MG TAB PO SCH (08:10)
[2022-05-13] MEDS: ALPRAZolam 0.25 MG TAB PO PRN (08:15)
--- NOTE | 2022-05-13 11:19 | P.PN ---
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 In the ED, patient's BP was at 91/56, which improved with fluids. WBC count was normal, hemoglobin at 11.4, platelets of 556. BMP showed sodium of 134, potassium 5.2, bicarb 11, elevated anion gap, lactic acid at 11.3, AST ALT and ALP elevated. EKG showed sinus tachycardia. Chest x-ray showed no acute process. CT abdomen and pelvis showed numerous masses throughout the liver, left-sided hydronephrosis and hydroureter and perinephric edema and periureteral edema worse than previous exam, indicating obstruction of the left upper collecting system, developing ascites new compared to previous exam, diverticulosis. CTA did not show any acute PE, suspicious adenopathy in the anterior mediastinum. Patient started on IV fluids. Lactic acid improved. Urology consulted. Subjective: Patient's major complaint last night was insomnia due to constant interruption by IV beeping. Otherwise reports more bloating today though he did pass stool. Starting to report nausea, but no episodes of emesis at this time. Case was discussed with nursing, patient appears to be tolerating chemotherapy well. Vitals Signs Reviewed. Gen: awake, alert HEENT: normocephalic, atraumatic, good hearing acuity, moist mucous membranes Resp: good air exchange, breathing comfortably with no accessory muscle use, clear to auscultation bilaterally CVS: good distal perfusion x 4, regular rate and rhythm, no murmurs GI: soft, NTTP, ND, normal bowel sounds : no SPT, no CVAT, guzman catheter not present MSK: no pitting edema, no clubbing Neuro: non-focal, moving all extremities Psych: cooperative, euthymic mood Assessment and Plan: Acute on chronic Abdominal pain Lactic acidosis High anion gap metabolic acidosis Severe dehydration Sinus tachycardia Mild hyperkalemia Insomnia -Continue IV fluids -No changes to IV pain control -Labs today are pending -Case was discussed with palliative care yesterday, they were consulted for comfort during hospitalization -Agree with Xanax, increased frequency to 3 times a day -Agree with Tylenol when necessary for pain control -Start trazodone 50 g daily at bedtime for insomnia Tumor lysis syndrome Hyperkalemia -Labs show improvement yesterday on 05/08 for potassium down to 4.6 from 6.2, labs from today are pending -We'll continue to monitor uric acid, liver function tests, calcium, phosphorus -Continue allopurinol -IV fluids at 100 mL per hour Obstruction of left upper collecting system Hydronephrosis on the left Left hydroureter - Urology consult note reviewed, and discussed with patient, patient would like to defer stent placement at this time unless he develops acute kidney injury from obstruction or worsening hydro-nephrosis on imaging - Renal function for today is pending BMP High-grade B-cell lymphoma with metastatic disease Transaminitis Hepatomegaly - Oncology consult - steroids - Has started chemotherapy, oncology note reviewed, R-EPOCH protocol, tolerating well - PET scan results are reviewed and show multiple, greater than 50, metastatic foci throughout an enlarged liver, scattered foci throughout the musculature, neck lymph nodes, intra-abdominal sites, mediastinal lymph nodes, diffuse osseous uptake as well - s/p rasburicase - mediport planned for Wednesday Normocytic anemia thrombocytosis -In the setting of malignancy History of hypertension -hold home medications in the setting of hypotension and lactic acidosis DVT ppx: lovenox Code status: full code Anticipated discharge place: home Anticipated discharge time: pending clinical course Objective - Vital Signs Vital signs: Vital Signs Temp 97.7 F 05/13/22 07:36 Pulse 62 05/13/22 07:36 Resp 17 05/13/22 07:36 BP 131/65 05/13/22 07:36 Pulse Ox 96 05/13/22 07:36 FiO2 Intake & Output 05/12/22 05/13/22 05/13/22 18:59 06:59 18:59 Intake Total 1800 1456.8 Balance 1800 1456.8 Intake: Intake, IV Titration 1800 1456.8 Amount Etoposide 90 mg 256.8 vinCRIStine SULFATE 0.75 mg DOXOrubicin HCL 19 mg In Sodium Chloride 0.9% 500 ml 500 ml @ 21.448 mls/hr IV Q24H [facility] Rx#: [id number] Lactated Ringers 1,000 ml 1800 @ 150 mls/hr IV .Q6H40M [facility] Rx#:[id number] Sodium Chloride 0.9% 1, 1200 000 ml @ 100 mls/hr IV . Q10H [facility] Rx#:[id number] - Labs CBC & Chem 7: 05/12/22 06:35 05/12/22 06:35
[2022-05-13 11:29] LABS: African American GFR (CKD) 119.7 (60.0-200.0); Albumin 2.2 g/dL (3.8-4.9); Albumin/Globulin Ratio 1.38 (1.60-3.17); Anion Gap 11.8 mmol/L (10.00-18.00); Blood Urea Nitrogen 48.3 mg/dL (9.0-27.0); Calcium 6.8 mg/dL (8.7-10.3); Carbon Dioxide 21.2 mmol/L (20.0-27.5); Globulin 1.6 g/dL (1.6-3.3); Non-African American GFR(CKD) 103.3 (60.0-200.0); Phosphorus 4.4 mg/dL (2.4-5.1); Potassium 4.4 mmol/L (3.5-5.5); Total Bilirubin 0.4 mg/dL (0.30-1.20); Total Protein 3.8 g/dL (6.2-8.2)
[2022-05-13 11:44] LABS: Basophils # (A) 0 X 10*3/uL (0.00-0.10); Basophils % (A) 0 %; Eosinophils # (A) 0 X 10*3/uL (0.04-0.35); Eosinophils % (A) 0 %; HCT 23.6 % (39.6-50.0); HGB 7.1 g/dL (13.0-17.0); Immature Grans, Automated 2.1 %; Lymphocytes # (A) 0.32 X 10*3/uL (0.90-5.00); Lymphocytes % (A) 4.2 %; MCH 27.6 pg (27.0-32.0); MCHC 30.1 g/dL (32.0-37.0); MCV 91.8 fL (80.0-97.0); Mean Platelet Volume 9.7 fL (9.5-12.2); Monocytes # (A) 0.46 X 10*3/uL (0.20-1.00); NRBC Per 100 WBC 1.2 /100 WBCS (0.0-0.0); Neutrophils % (A) 87.7 %; Platelet Count 233 X 10*3/uL (140-440); RBC 2.57 X 10*6/uL (4.40-5.60); RDW 17.9 % (11.5-14.5); WBC 7.64 X 10*3/uL (4.50-10.00)
--- NOTE | 2022-05-13 13:27 | P.PN ---
Subjective Progress Note Date: 05/13/22 The patient is a 61-year-old male with recent diagnosis of high-grade B-cell lymphoma. He also has a past medical history significant for GERD, hyperlipidemia, hypertension, and osteoarthritis. He presented to the emergency department on 05/10/22 with complaints of increased shortness of breath and abdominal distention. He described pain as bandlike across the lower portion of his chest. Associated symptoms included diaphoresis, and pain with respiration. He has also developed difficulty in swallowing as well with speech secondary to tongue edema. The patient has already had a PET scan for staging and is awaiting results to discuss a treatment plan with oncology. He will have a Mediport placed this Wednesday. 05/12 The patient was seen up in the chair today. He is in good spirits. Information regarding palliative care philosophies and services provided. It was explained to t he patient that PC is an extra layer of support for him and his family, and to assist with symptom management. The patient understands her his non-Hodgkin's lymphoma diagnosis. He had a PET scan on Wednesday for staging. We will then discuss a treatment plan with oncology. He is also scheduled to have a Mediport placed this Wednesday. He also has spontaneous tumor lysis syndrome and will be started on chemotherapy today. He did get a little emotional. Emotional support provided. Objective - Vital Signs Vital signs: Vital Signs Temp 97.4 F L 05/13/22 11:58 Pulse 70 05/13/22 11:58 Resp 17 05/13/22 11:58 BP 129/73 05/13/22 11:58 Pulse Ox 99 05/13/22 11:58 FiO2 Intake & Output 05/12/22 05/13/22 05/13/22 18:59 06:59 18:59 Intake Total 1800 1456.8 Balance 1800 1456.8 Intake: Intake, IV Titration 1800 1456.8 Amount Etoposide 90 mg 256.8 vinCRIStine SULFATE 0.75 mg DOXOrubicin HCL 19 mg In Sodium Chloride 0.9% 500 ml 500 ml @ 21.448 mls/hr IV Q24H [facility] Rx#: [id number] Lactated Ringers 1,000 ml 1800 @ 150 mls/hr IV .Q6H40M [facility] Rx#:[id number] Sodium Chloride 0.9% 1, 1200 000 ml @ 100 mls/hr IV . Q10H [facility] Rx#:[id number] - Exam General: Well developed, well nourished. No acute distress. Appears older than stated age HEENT: Head is atraumatic, normocephalic. CV: Heart regular in rate and rhythm positive S1 and S2. Lungs: Clear to auscultation bilaterally. Respirations even and nonlabored. Abdomen/GI: Soft, distended.No guarding, rigidity, or abdominal tenderness. . Musculoskeletal/ Extremities: TRAN, no joint deformity or swelling. No gross atrophy. + generalized weakness Skin: Warm and dry Neurologic: Awake, alert and oriented times 3. CN II-XII grossly intact. No focal deficits. Psychiatric: Appropriate mood and affect. - Labs CBC & Chem 7: 05/13/22 05:45 05/13/22 05:45 Labs: Abnormal Lab Results - Last 24 Hours (Table) 05/13/22 05/13/22 Range/Units 05:45 05:45 RBC 2.57 L (4.40-5.60) X 10*6/uL Hgb 7.1 L (13.0-17.0) g/dL Hct 23.6 L (39.6-50.0) % MCHC 30.1 L (32.0-37.0) g/dL RDW 17.9 H (11.5-14.5) % Absolute Nucleated RBC 0.09 H (0.00-0.00) X 10*3/uL Immature Gran # 0.16 H (0.00-0.04) X 10*3/uL Lymphocytes # 0.32 L (0.90-5.00) X 10*3/uL Eosinophils # 0 L (0.04-0.35) X 10*3/uL NRBC/100 WBC Diff 1.2 H (0.0-0.0) /100 WBCS BUN 48.3 H (9.0-27.0) mg/dL BUN/Creatinine Ratio 69.00 H (12.00-20.00) Ratio Glucose 222 H (70-110) mg/dL Calcium 6.8 L (8.7-10.3) mg/dL AST 65 H (14-35) U/L ALT 99 H (10-49) U/L Alkaline Phosphatase 619 H (41-126) U/L Total Protein 3.8 L (6.2-8.2) g/dL Albumin 2.2 L (3.8-4.9) g/dL Albumin/Globulin Ratio 1.38 L (1.60-3.17) g/dL Assessment and Plan Assessment: Symptoms * Pain - 0/10, continue Dilaudid and Tylenol as needed * Fatigue - + generalized weakness and fatigue * SOB - None * Insomnia - Yes, continue trazodone * N/V - Occasional nausea, continue Zofran and Compazine * Anxiety - Yes, continue Xanax TID * Depression - No * Confusion - No * Agitation - No * Hallucinations - No * Appetite/weight loss - decreased appetite, recent 20 pound weight loss * Dysphagia - Yes, tongue numb, [employer] following, upgraded to a chopped diet today, patient requested yogurt on every tray * Constipation - No, LBM 05/12 * Incontinence - No * Itch - No * Cough - Yes, non productive Plan: Summary/Goals - patient is sitting up in the side of the bed. His is present. The patient's first chemotherapy treatment is still infusing. Speech therapy is at the bedside and evaluating the patient. They stated that the patient can be upgraded to a chopped diet. The patient reported that he has been very nauseated despite receiving Zofran. Compazine added to his regimen. The patient denies any pain at this time. He does complain of some anxiety and his index has been scheduled 3 times a day by the attending. The patient states he was up all night and was unable to sleep due to a beeping IV pump. He states he never sleeps well. Trazodone has also been added to his regimen by the attending. The patient and his both were a little tearful today. Emotional support provided. The patient is hoping to be discharged home on Wednesday. Advanced Directives - none on file Code Status - full code Thank you for this consultation Mulu Velazquez [facility] Palliative Care Spectralink [phone] Email: [email or web address]
[2022-05-13] MEDS: FAMOTIDINE 20 MG/2 ML VIAL IVP SCH (15:28)
[2022-05-13] MEDS: ONDANSETRON 16 MG in SODIUM CHLORIDE 0.9% 50 ML IVPB SCH (15:28)
[2022-05-13] MEDS: VINCRISTINE SULFATE IV SCH (15:50)
[2022-05-13] MEDS: [UNRECOGNIZED DRUG - OTHER] IV SCH (15:50)
[2022-05-13] MEDS: ETOPOSIDE IV SCH (15:50)
[2022-05-13] MEDS: DOXORUBICIN HCL IV SCH (15:50)
[2022-05-13] MEDS: ALPRAZolam 0.25 MG TAB PO SCH ×2 (20:23→20:24)
[2022-05-13] MEDS: traZODone HCL 50 MG TAB PO SCH (21:52)
[2022-05-14] MEDS: SODIUM CHLORIDE 0.9% 1,000 ML IV SCH ×3 (03:30→17:56)
[2022-05-14] MEDS: ONDANSETRON 4 MG/2 ML VIAL IVP PRN (05:05)
[2022-05-14] MEDS: SALT AND SODA MOUTHWASH 1,000 ML PO SCH ×4 (05:11→21:01)
[2022-05-14 05:38] LABS: Anisocytosis Slight; Basophils % (A) 0 %; Eosinophils % (A) 0 %; Hypochromasia Slight; Lymphocytes # (A) 0.2 k/uL (1.0-4.8); Lymphocytes % (A) 3 %; MCH 28.5 pg (25.0-35.0); MCHC 31.2 g/dL (31.0-37.0); MCV 91.3 fL (80.0-100.0); Mean Platelet Volume 7.4; Monocytes # (A) 0.2 k/uL (0-1.0); Monocytes % (A) 4 %; Neutrophils # (A) 4.2 k/uL (1.3-7.7); Neutrophils % (A) 92 %; Platelet Count 200 k/uL (150-450); RBC 2.52 m/uL (4.30-5.90); RDW 17.9 % (11.5-15.5); WBC 4.5 k/uL (3.8-10.6)
[2022-05-14 05:45] LABS: HGB 7.2 gm/dL (13.0-17.5)
[2022-05-14 05:55] LABS: ALT 65 U/L (4-49); AST 42 U/L (17-59); African American GFR (CKD) >90 (>60 ml/min/1.73 sqM); Albumin 1.8 g/dL (3.5-5.0); Albumin/Globulin Ratio 1.1; Alkaline Phosphatase 425 U/L (38-126); Anion Gap 0 mmol/L; Blood Urea Nitrogen 34 mg/dL (9-20); Carbon Dioxide 21 mmol/L (22-30); Chloride 116 mmol/L (98-107); Globulin 1.7 g/dL; Glucose 289 mg/dL (74-99); Non-African American GFR(CKD) >90 (>60 ml/min/1.73 sqM); Potassium 3.5 mmol/L (3.5-5.1); Sodium 137 mmol/L (137-145); Total Bilirubin 0.4 mg/dL (0.2-1.3); Total Protein 3.5 g/dL (6.3-8.2); Uric Acid 4.8 mg/dL (3.5-8.5)
[2022-05-14 06:13] LABS: Calcium 5.3 mg/dL (8.4-10.2)
[2022-05-14] MEDS: predniSONE 50 MG TAB PO SCH ×2 (09:03→21:01)
[2022-05-14] MEDS: allopurinoL 300 MG TAB PO SCH (09:04)
[2022-05-14] MEDS: FOLIC ACID 1 MG TAB PO SCH (09:04)
[2022-05-14] MEDS: CHOLECALCIFEROL 125 MCG (5000 IU) TABLET PO SCH (09:04)
[2022-05-14] MEDS: ALPRAZolam 0.25 MG TAB PO SCH ×3 (09:04→21:02)
[2022-05-14] MEDS: predniSONE 10 MG TAB PO SCH ×2 (09:04→21:02)
[2022-05-14] MEDS: ENOXAPARIN 40 MG/0.4 ML SYRINGE SQ SCH (09:05)
[2022-05-14] MEDS ORDERED: FUROSEMIDE 10 MG/ML 2 ML VIAL IV ONE (10:30)
--- NOTE | 2022-05-14 10:42 | P.PN ---
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 In the ED, patient's BP was at 91/56, which improved with fluids. WBC count was normal, hemoglobin at 11.4, platelets of 556. BMP showed sodium of 134, potassium 5.2, bicarb 11, elevated anion gap, lactic acid at 11.3, AST ALT and ALP elevated. EKG showed sinus tachycardia. Chest x-ray showed no acute process. CT abdomen and pelvis showed numerous masses throughout the liver, left-sided hydronephrosis and hydroureter and perinephric edema and periureteral edema worse than previous exam, indicating obstruction of the left upper collecting system, developing ascites new compared to previous exam, diverticulosis. CTA did not show any acute PE, suspicious adenopathy in the anterior mediastinum. Patient started on IV fluids. Lactic acid improved. Urology consulted. Subjective: Patient reports significant improvement in his insomnia after the initiation of Xanax and trazodone. Patient reports his nausea is well controlled. He has a good appetite today. Patient's blood counts are reviewed and his hemoglobin is noted to be down trending down to 7.2 today. Likely will need to be transfused in the near future, and patient was counseled on this. Vitals Signs Reviewed. Gen: awake, alert HEENT: normocephalic, atraumatic, good hearing acuity, moist mucous membranes Resp: good air exchange, breathing comfortably with no accessory muscle use, cl ear to auscultation bilaterally CVS: good distal perfusion x 4, regular rate and rhythm, no murmurs GI: soft, NTTP, ND, normal bowel sounds : no SPT, no CVAT, guzman catheter not present MSK: no pitting edema, no clubbing Neuro: non-focal, moving all extremities Psych: cooperative, euthymic mood Assessment and Plan: Acute on chronic Abdominal pain Lactic acidosis High anion gap metabolic acidosis Severe dehydration Sinus tachycardia Mild hyperkalemia Insomnia -Continue IV fluids -No changes to IV pain control -Labs today are pending -Case was discussed with palliative care yesterday, they were consulted for comfort during hospitalization -Agree with Xanax, Tylenol -Continue trazodone Tumor lysis syndrome Hyperkalemia -Labs show improvement yesterday on 05/08 for potassium down to 4.6 from 6.2, labs from today are pending -We'll continue to monitor uric acid, liver function tests, calcium, phosphorus -Continue allopurinol -IV fluids at 100 mL per hour Obstruction of left upper collecting system Hydronephrosis on the left Left hydroureter - Urology consult note reviewed, and discussed with patient, patient would like to defer stent placement at this time unless he develops acute kidney injury from obstruction or worsening hydro-nephrosis on imaging - Renal function for today is pending BMP High-grade B-cell lymphoma with metastatic disease Transaminitis Hepatomegaly - Oncology consult - steroids - Has started chemotherapy, oncology note reviewed, R-EPOCH protocol, tolerating well - PET scan results are reviewed and show multiple, greater than 50, metastatic foci throughout an enlarged liver, scattered foci throughout the musculature, neck lymph nodes, intra-abdominal sites, mediastinal lymph nodes, diffuse osseous uptake as well - s/p rasburicase - mediport planned for Wednesday Normocytic anemia thrombocytosis -In the setting of malignancy History of hypertension -hold home medications in the setting of hypotension and lactic acidosis DVT ppx: lovenox Code status: full code Anticipated discharge place: home Anticipated discharge time: pending clinical course Objective - Vital Signs Vital signs: Vital Signs Temp 97.9 F 05/14/22 07:19 Pulse 52 L 05/14/22 07:19 Resp 20 05/14/22 07:19 BP 129/73 05/14/22 07:19 Pulse Ox 97 05/14/22 07:19 FiO2 Intake & Output 05/13/22 05/14/22 05/14/22 18:59 06:59 18:59 Intake Total 1800 Balance 1800 Intake: Intake, IV Titration 1200 Amount Sodium Chloride 0.9% 1, 1200 000 ml @ 100 mls/hr IV . Q10H [facility]ER Rx#:[id number] Oral 600 Other: Voiding Method Toilet # Voids 3 4 # Bowel Movements 1 - Labs CBC & Chem 7: 05/14/22 04:48 05/14/22 04:48 Labs: Abnormal Lab Results - Last 24 Hours (Table) 05/13/22 05/13/22 05/14/22 Range/Units 05:45 05:45 04:48 RBC 2.57 L 2.52 L (4.40-5.60) X 10*6/uL Hgb 7.1 L 7.2 L D (13.0-17.0) g/dL Hct 23.6 L 23.0 L (39.6-50.0) % MCHC 30.1 L (32.0-37.0) g/dL RDW 17.9 H 17.9 H (11.5-14.5) % Absolute Nucleated RBC 0.09 H (0.00-0.00) X 10*3/uL Immature Gran # 0.16 H (0.00-0.04) X 10*3/uL Lymphocytes # 0.32 L 0.2 L (0.90-5.00) X 10*3/uL Eosinophils # 0 L (0.04-0.35) X 10*3/uL NRBC/100 WBC Diff 1.2 H (0.0-0.0) /100 WBCS Chloride (98-107) mmol/L Carbon Dioxide (22-30) mmol/L BUN 48.3 H (9.0-27.0) mg/dL Creatinine (0.66-1.25) mg/dL BUN/Creatinine Ratio 69.00 H (12.00-20.00) Ratio Glucose 222 H (70-110) mg/dL Calcium 6.8 L (8.7-10.3) mg/dL AST 65 H (14-35) U/L ALT 99 H (10-49) U/L Alkaline Phosphatase 619 H (41-126) U/L Total Protein 3.8 L (6.2-8.2) g/dL Albumin 2.2 L (3.8-4.9) g/dL Albumin/Globulin Ratio 1.38 L (1.60-3.17) g/dL 05/14/22 Range/Units 04:48 RBC (4.40-5.60) X 10*6/uL Hgb (13.0-17.0) g/dL Hct (39.6-50.0) % MCHC (32.0-37.0) g/dL RDW (11.5-14.5) % Absolute Nucleated RBC (0.00-0.00) X 10*3/uL Immature Gran # (0.00-0.04) X 10*3/uL Lymphocytes # (0.90-5.00) X 10*3/uL Eosinophils # (0.04-0.35) X 10*3/uL NRBC/100 WBC Diff (0.0-0.0) /100 WBCS Chloride 116 H (98-107) mmol/L Carbon Dioxide 21 L (22-30) mmol/L BUN 34 H (9.0-27.0) mg/dL Creatinine 0.60 L (0.66-1.25) mg/dL BUN/Creatinine Ratio (12.00-20.00) Ratio Glucose 289 H (70-110) mg/dL Calcium 5.3 L* (8.7-10.3) mg/dL AST (14-35) U/L ALT 65 H (10-49) U/L Alkaline Phosphatase 425 H (41-126) U/L Total Protein 3.5 L (6.2-8.2) g/dL Albumin 1.8 L (3.8-4.9) g/dL Albumin/Globulin Ratio (1.60-3.17) g/dL
[2022-05-14] MEDS: PROCHLORPERAZINE INJ 10 MG/2 ML VIAL IVP PRN (12:13)
--- NOTE | 2022-05-14 13:33 | P.PN ---
Subjective Progress Note Date: 05/13/22 Principal diagnosis: NHL, SOB Pt resting comfortably in bed, and was receiving chemo treatment. Pt reports fatigue as he did not sleep well, some nausea. Denies fevers, oral irritation, dysphagia, his SOB is stable, no chest pain, abd pain, acute changes in bowel or bladder. Reports a BM this morning. Was able to eat his whole breakfast. He is ambulatory, tolerating oral intake. Objective - Vital Signs Vital signs: Vital Signs Temp 97.4 F L 05/13/22 11:58 Pulse 70 05/13/22 11:58 Resp 17 05/13/22 11:58 BP 129/73 05/13/22 11:58 Pulse Ox 99 05/13/22 11:58 FiO2 Intake & Output 05/12/22 05/13/22 05/13/22 18:59 06:59 18:59 Intake Total 1800 1456.8 Balance 1800 1456.8 Intake: Intake, IV Titration 1800 1456.8 Amount Etoposide 90 mg 256.8 vinCRIStine SULFATE 0.75 mg DOXOrubicin HCL 19 mg In Sodium Chloride 0.9% 500 ml 500 ml @ 21.448 mls/hr IV Q24H [facility] Rx#: [id number] Lactated Ringers 1,000 ml 1800 @ 150 mls/hr IV .Q6H40M RA[facility]ER Rx#:[id number] Sodium Chloride 0.9% 1, 1200 000 ml @ 100 mls/hr IV . Q10H RAJWINDER Rx#:[id number] - Constitutional General appearance: Present: average body habitus, cooperative, no acute distress - EENT Eyes: Present: anicteric sclerae, EOMI ENT: Present: hearing grossly normal, normal oropharynx - Neck Details: fullness to left side of neck - Respiratory Respiratory: bilateral: CTA - Cardiovascular Rhythm: regular Heart sounds: normal: S1, S2 Abnormal Heart Sounds: Absent: systolic murmur, diastolic murmur, rub, S3 Gallop, S4 Gallop, click, other - Peripheral edema leg Peripheral Edema: bilateral: 2+ - Gastrointestinal General gastrointestinal: Present: soft. Absent: tenderness - Integumentary Integumentary: Present: pale - Neurologic Neurologic Comment(s): mild tongue deviation to right - Musculoskeletal Musculoskeletal: Present: strength equal bilaterally - Psychiatric Psychiatric: Present: A&O x's 3, appropriate affect, intact judgment & insight - Labs CBC & Chem 7: 05/14/22 04:48 05/14/22 04:48 Labs: Abnormal Lab Results - Last 24 Hours (Table) 05/13/22 05/13/22 Range/Units 05:45 05:45 RBC 2.57 L (4.40-5.60) X 10*6/uL Hgb 7.1 L (13.0-17.0) g/dL Hct 23.6 L (39.6-50.0) % MCHC 30.1 L (32.0-37.0) g/dL RDW 17.9 H (11.5-14.5) % Absolute Nucleated RBC 0.09 H (0.00-0.00) X 10*3/uL Immature Gran # 0.16 H (0.00-0.04) X 10*3/uL Lymphocytes # 0.32 L (0.90-5.00) X 10*3/uL Eosinophils # 0 L (0.04-0.35) X 10*3/uL NRBC/100 WBC Diff 1.2 H (0.0-0.0) /100 WBCS BUN 48.3 H (9.0-27.0) mg/dL BUN/Creatinine Ratio 69.00 H (12.00-20.00) Ratio Glucose 222 H (70-110) mg/dL Calcium 6.8 L (8.7-10.3) mg/dL AST 65 H (14-35) U/L ALT 99 H (10-49) U/L Alkaline Phosphatase 619 H (41-126) U/L Total Protein 3.8 L (6.2-8.2) g/dL Albumin 2.2 L (3.8-4.9) g/dL Albumin/Globulin Ratio 1.38 L (1.60-3.17) g/dL Assessment and Plan (1) Spontaneous tumor lysis syndrome Current Visit: Yes Status: Acute Code(s): E88.3 - TUMOR LYSIS SYNDROME SNOMED Code(s): 402559617 (2) B-cell lymphoma Current Visit: Yes Status: Acute Priority: High Code(s): C85.10 - UNSPECIFIED B-CELL LYMPHOMA, UNSPECIFIED SITE SNOMED Code(s): 923331979 Plan: NHL -Pending staging PET results, will review with pt when available -pending final mutational studies/final path. Dr. Sarah Nava discussed with Dr. Kiran. DA R-EPOCH recommended. If Burkitt's lymphoma, IT chemo will be ordered. -Recurrent symptoms, repeat hospitalizations. -PICC line insertion -ECHO done 05/04, LVEF 55% -Hemoglobin 7.1 today, please transfuse for hemoglobin less than 7 or if symptomatic Spontaneous TLS -Chemo has been started -Rasburicase given -Allopurinol dose increased, give daily -labs daily -Phos and uric acid have normalized. Cont on allopurinol. Will consult Nephrology if labs worsen Increase CBG -2/2 steroid use. -IM mgmt -Pt is going to need meds to manage blood glucose while on treatment. F/U with PCP
--- NOTE | 2022-05-14 14:48 | P.PN ---
Subjective Progress Note Date: 05/14/22 The patient is a 61-year-old male with recent diagnosis of high-grade B-cell lymphoma. He also has a past medical history significant for GERD, hyperlipidemia, hypertension, and osteoarthritis. He presented to the emergency department on 05/10/22 with complaints of increased shortness of breath and abdominal distention. He described pain as bandlike across the lower portion of his chest. Associated symptoms included diaphoresis, and pain with respiration. He has also developed difficulty in swallowing as well with speech secondary to tongue edema. The patient has already had a PET scan for staging and is awaiting results to discuss a treatment plan with oncology. He will have a Mediport placed this Wednesday. 05/12 The patient was seen up in the chair today. He is in good spirits. Information regarding palliative care philosophies and services provided. It was explained to t he patient that PC is an extra layer of support for him and his family, and to assist with symptom management. The patient understands her his non-Hodgkin's lymphoma diagnosis. He had a PET scan on Wednesday for staging. We will then discuss a treatment plan with oncology. He is also scheduled to have a Mediport placed this Wednesday. He also has spontaneous tumor lysis syndrome and will be started on chemotherapy today. He did get a little emotional. Emotional support provided. 05/13 patient is sitting up in the side of the bed. His is present. The patient's first chemotherapy treatment is still infusing. Speech therapy is at the bedside and evaluating the patient. They stated that the patient can be upgraded to a chopped diet. The patient reported that he has been very nauseated despite receiving Zofran. Compazine added to his regimen. The patient denies any pain at this time. He does complain of some anxiety and his index has been scheduled 3 times a day by the attending. The patient states he was up all night and was unable to sleep due to a beeping IV pump. He states he never sleeps well. Trazodone has also been added to his regimen by the attending. The patient and his both were a little tearful today. Emotional support provided. The patient is hoping to be discharged home on Wednesday. Objective - Vital Signs Vital signs: Vital Signs Temp 97.9 F 05/14/22 12:00 Pulse 53 L 01/26/23 12:00 Resp 18 05/14/22 12:00 BP 122/74 05/14/22 12:00 Pulse Ox 99 05/14/22 12:00 FiO2 Intake & Output 05/13/22 05/14/22 05/14/22 18:59 06:59 18:59 Intake Total 1800 Balance 1800 Intake: Intake, IV Titration 1200 Amount Sodium Chloride 0.9% 1, 1200 000 ml @ 100 mls/hr IV . Q10H RAJWINDER Rx#:[id number] Oral 600 Other: Voiding Method Toilet Toilet # Voids 3 4 # Bowel Movements 1 - Exam General: Well developed, well nourished. No acute distress. Appears older than stated age HEENT: Head is atraumatic, normocephalic. CV: Heart regular in rate and rhythm positive S1 and S2. Lungs: Clear to auscultation bilaterally. Respirations even and nonlabored. Abdomen/GI: Soft, distended. No guarding, rigidity, or abdominal tenderness. . Musculoskeletal/ Extremities: TRAN, no joint deformity or swelling. No gross atrophy. + generalized weakness Skin: Warm and dry Neurologic: Awake, alert and oriented times 3. CN II-XII grossly intact. No focal deficits. Psychiatric: Appropriate mood and affect. - Labs CBC & Chem 7: 05/14/22 04:48 05/14/22 04:48 Labs: Abnormal Lab Results - Last 24 Hours (Table) 05/14/22 05/14/22 Range/Units 04:48 04:48 RBC 2.52 L (4.30-5.90) m/uL Hgb 7.2 L D (13.0-17.5) gm/dL Hct 23.0 L (39.0-53.0) % RDW 17.9 H (11.5-15.5) % Lymphocytes # 0.2 L (1.0-4.8) k/uL Chloride 116 H (98-107) mmol/L Carbon Dioxide 21 L (22-30) mmol/L BUN 34 H (9-20) mg/dL Creatinine 0.60 L (0.66-1.25) mg/dL Glucose 289 H (74-99) mg/dL Calcium 5.3 L* (8.4-10.2) mg/dL ALT 65 H (4-49) U/L Alkaline Phosphatase 425 H (38-126) U/L Total Protein 3.5 L (6.3-8.2) g/dL Albumin 1.8 L (3.5-5.0) g/dL Assessment and Plan Assessment: Symptoms * Pain - 0/10, continue Dilaudid and Tylenol as needed * Fatigue - + generalized weakness and fatigue * SOB - None * Insomnia - Yes, continue trazodone * N/V - Occasional nausea, continue Zofran and Compazine * Anxiety - Yes, continue Xanax TID * Depression - No * Confusion - No * Agitation - No * Hallucinations - No * Appetite/weight loss - decreased appetite, recent 20 pound weight loss * Dysphagia - Yes, tongue numb, HOP STRAINER following, upgraded to a chopped diet today, patient requested yogurt on every tray * Constipation - No, LBM 05/13 * Incontinence - No * Itch - No * Cough - Yes, non productive Plan: Summary/Goals - the patient is lying in bed today. His second chemotherapy treatment is currently infusing. The patient stated that he is extremely tired today. He denies any pain. He also reports "sleeping like a baby "last night. He states his anxiety is much better controlled. He is tolerating his dysphagia level III chopped diet well and was able to eat a little bit today. His is at the bedside today. Advanced Directives - none on file Code Status - full code Thank you for this consultation Mulu Velazquez [facility] Palliative Care Spectralink [phone] Email: [email or web address]
[2022-05-14] MEDS: FAMOTIDINE 20 MG/2 ML VIAL IVP SCH (17:55)
[2022-05-14] MEDS: ONDANSETRON 16 MG in SODIUM CHLORIDE 0.9% 50 ML IVPB SCH (17:55)
[2022-05-14] MEDS: DOXORUBICIN HCL IV SCH (18:20)
[2022-05-14] MEDS: ETOPOSIDE IV SCH (18:20)
[2022-05-14] MEDS: VINCRISTINE SULFATE IV SCH (18:20)
[2022-05-14] MEDS: [UNRECOGNIZED DRUG - OTHER] IV SCH (18:20)
--- NOTE | 2022-05-14 19:31 | P.PN ---
Subjective Progress Note Date: 05/14/22 Principal diagnosis: NHL, SOB Pt sitting in bedside chair. Reports feeling well today and in good spirits. Reports mild nausea. Denies fevers, oral irritation, dysphagia, his SOB is stable, no chest pain, abd pain, acute changes in bowel or bladder. His diet was able to be advanced after he was evaluated by Speech Pathologist, he is tolerating diet and fluids. He is ambulatory Objective - Vital Signs Vital signs: Vital Signs Temp 97.4 F L 05/14/22 16:00 Pulse 61 05/14/22 16:00 Resp 16 05/14/22 16:00 BP 146/84 05/14/22 16:00 Pulse Ox 99 05/14/22 16:00 FiO2 Intake & Output 05/13/22 05/14/22 05/14/22 18:59 06:59 18:59 Intake Total 1800 Balance 1800 Intake: Intake, IV Titration 1200 Amount Sodium Chloride 0.9% 1, 1200 000 ml @ 100 mls/hr IV . Q10H RAJWINDER Rx#:[id number] Oral 600 Other: Voiding Method Toilet Toilet # Voids 3 4 # Bowel Movements 1 - Constitutional General appearance: Present: average body habitus, cooperative, no acute distress - EENT Eyes: Present: anicteric sclerae, EOMI ENT: Present: hearing grossly normal - Respiratory Respiratory: bilateral: rales - Cardiovascular Rhythm: regular Heart sounds: normal: S1, S2 Abnormal Heart Sounds: Absent: systolic murmur, diastolic murmur, rub, S3 Gallop, S4 Gallop, click, other - Peripheral edema leg Peripheral Edema: bilateral: 3+ - Gastrointestinal General gastrointestinal: Present: distended - Integumentary Integumentary: Present: pale - Neurologic Neurologic Comment(s): mild deviation of tongue to the right, improving, no other focal deficits - Musculoskeletal Musculoskeletal: Present: strength equal bilaterally - Psychiatric Psychiatric: Present: A&O x's 3, appropriate affect, intact judgment & insight (pet scan ) - Labs CBC & Chem 7: 05/14/22 04:48 05/14/22 04:48 Labs: Abnormal Lab Results - Last 24 Hours (Table) 05/14/22 05/14/22 Range/Units 04:48 04:48 RBC 2.52 L (4.30-5.90) m/uL Hgb 7.2 L D (13.0-17.5) gm/dL Hct 23.0 L (39.0-53.0) % RDW 17.9 H (11.5-15.5) % Lymphocytes # 0.2 L (1.0-4.8) k/uL Chloride 116 H (98-107) mmol/L Carbon Dioxide 21 L (22-30) mmol/L BUN 34 H (9-20) mg/dL Creatinine 0.60 L (0.66-1.25) mg/dL Glucose 289 H (74-99) mg/dL Calcium 5.3 L* (8.4-10.2) mg/dL ALT 65 H (4-49) U/L Alkaline Phosphatase 425 H (38-126) U/L Total Protein 3.5 L (6.3-8.2) g/dL Albumin 1.8 L (3.5-5.0) g/dL Assessment and Plan (1) Spontaneous tumor lysis syndrome Current Visit: Yes Status: Acute Code(s): E88.3 - TUMOR LYSIS SYNDROME SNOMED Code(s): 534256537 (2) B-cell lymphoma Current Visit: Yes Status: Acute Priority: High Code(s): C85.10 - UNSPECIFIED B-CELL LYMPHOMA, UNSPECIFIED SITE SNOMED Code(s): 059323286 Plan: NHL -PET scan results reviewed with pt. He has stage IV disease-LAD above and below diaphragm and extranodal sites. There are multiple metastatic foci throughout enlarged liver, scattered foci throughout musculature, neck lymph nodes, intra- abdominal sites and mediastinal lymph nodes. Seminal vesicle activity, mild left hydronephrosis with urothelial thickening. Ill defined soft tissue with increased activity seen along ureter which could represent metastatic disease. -Based on PET results, IT chemo will be scheduled prior to cycle 2 -FISH resulted, BCL6 negative, pending MYC. -Pending final mutational studies/final path to further identify Lymphoma type. Dr. Sarah Nava discussed with Dr. Kiran. DA R-EPOCH recommended and has been started-pt tolerating well so far. -Hemoglobin 7.2 today, please only transfuse for hemoglobin less than 7 or if symptomatic, irradiated blood products Spontaneous TLS -Chemo has been started -Rasburicase given -Allopurinol dose increased, give daily -Phos and uric acid have normalized. Cont on allopurinol. Will consult Nephrology if labs worsen -Corrected calcium is 7.38 -1 dose of IV lasix for BLE swelling. Will assess daily. Do not stop/hold IV fluids. Increase CBG -2/2 steroid use. -IM mgmt -Pt is going to need meds to manage blood glucose while on treatment. F/U with PCP Dr chavira: I have seen and examined pt, performed H&P, developed impression and plan of care. Discussed with dictator. Agree with documentation, dictated as a scribe.
[2022-05-14] MEDS: traZODone HCL 50 MG TAB PO SCH (21:36)
[2022-05-15] MEDS: SALT AND SODA MOUTHWASH 1,000 ML PO SCH ×6 (00:01→23:26)
[2022-05-15] MEDS: SODIUM CHLORIDE 0.9% 1,000 ML IV SCH ×2 (03:28→20:14)
[2022-05-15] MEDS: PROCHLORPERAZINE INJ 10 MG/2 ML VIAL IVP PRN (04:57)
[2022-05-15] MEDS: FOLIC ACID 1 MG TAB PO SCH (08:46)
[2022-05-15] MEDS: predniSONE 10 MG TAB PO SCH ×2 (08:46→20:10)
[2022-05-15] MEDS: ENOXAPARIN 40 MG/0.4 ML SYRINGE SQ SCH (08:46)
[2022-05-15] MEDS: ALPRAZolam 0.25 MG TAB PO SCH ×4 (08:46→21:37)
[2022-05-15] MEDS: CHOLECALCIFEROL 125 MCG (5000 IU) TABLET PO SCH (08:46)
[2022-05-15] MEDS: allopurinoL 300 MG TAB PO SCH (08:46)
[2022-05-15] MEDS: predniSONE 50 MG TAB PO SCH ×2 (08:46→20:10)
[2022-05-15 08:51] LABS: Anisocytosis Slight; Basophils % (A) 0 %; Eosinophils % (A) 0 %; HGB 8.1 gm/dL (13.0-17.5); Hypochromasia Slight; Lymphocytes # (A) 0.1 k/uL (1.0-4.8); Lymphocytes % (A) 3 %; MCH 28.6 pg (25.0-35.0); MCHC 32.2 g/dL (31.0-37.0); MCV 88.8 fL (80.0-100.0); Mean Platelet Volume 7.6; Monocytes # (A) 0.1 k/uL (0-1.0); Monocytes % (A) 2 %; Neutrophils # (A) 3.8 k/uL (1.3-7.7); Neutrophils % (A) 95 %; Platelet Count 181 k/uL (150-450); RBC 2.82 m/uL (4.30-5.90); RDW 16.9 % (11.5-15.5)
[2022-05-15 08:57] LABS: ALT 62 U/L (4-49); AST 37 U/L (17-59); African American GFR (CKD) >90 (>60 ml/min/1.73 sqM); Albumin 2.1 g/dL (3.5-5.0); Albumin/Globulin Ratio 1.1; Alkaline Phosphatase 375 U/L (38-126); Anion Gap -4 mmol/L; Blood Urea Nitrogen 24 mg/dL (9-20); Carbon Dioxide 26 mmol/L (22-30); Chloride 115 mmol/L (98-107); Globulin 1.9 g/dL; Glucose 154 mg/dL (74-99); Non-African American GFR(CKD) >90 (>60 ml/min/1.73 sqM); Potassium 3.9 mmol/L (3.5-5.1); Sodium 137 mmol/L (137-145); Total Bilirubin 0.6 mg/dL (0.2-1.3)
[2022-05-15 09:09] VITALS: BMI 28.3
[2022-05-15 09:16] LABS: Calcium 6.2 mg/dL (8.4-10.2)
--- NOTE | 2022-05-15 10:15 | P.PN ---
Subjective Progress Note Date: 05/15/22 Assessment/plan: Hospital Course: 41-year-old male with history of recently diagnosed 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 In the ED, patient's BP was at 91/56, which improved with fluids. WBC count was normal, hemoglobin at 11.4, platelets of 556. BMP showed sodium of 134, potassium 5.2, bicarb 11, elevated anion gap, lactic acid at 11.3, AST ALT and ALP elevated. EKG showed sinus tachycardia. Chest x-ray showed no acute process. CT abdomen and pelvis showed numerous masses throughout the liver, left-sided hydronephrosis and hydroureter and perinephric edema and periureteral edema worse than previous exam, indicating obstruction of the left upper collecting system, developing ascites new compared to previous exam, diverticulosis. CTA did not show any acute PE, suspicious adenopathy in the anterior mediastinum. Patient started on IV fluids. Lactic acid improved. Urology consulted. Subjective: Patient is again complaining of insomnia overnight. Reports that his lower extremity edema is about the same. Vitals Signs Reviewed. Gen: awake, alert HEENT: normocephalic, atraumatic, good hearing acuity, moist mucous membranes Resp: good air exchange, breathing comfortably with no accessory muscle use, clear to auscultation bilaterally CVS: good distal perfusion x 4, regular rate and rhythm, no murmurs GI: soft, NTTP, ND, normal bowel sounds : no SPT, no CVAT, guzman catheter not present MSK: no pitting edema, no clubbing Neuro: non-focal, moving all extremities Psych: cooperative, euthymic mood Assessment and Plan: Acute on chronic Abdominal pain Lactic acidosis High anion gap metabolic acidosis Severe dehydration Sinus tachycardia Mild hyperkalemia Insomnia -Continue IV fluids -No changes to IV pain control -Labs today are reviewed, hemoglobin 8.1, platelets 181. Uric acid is normal, calcium is 6.2, corrected calcium is 7.8. -Case was discussed with palliative care yesterday, they were consulted for comfort during hospitalization -Agree with Xanax, Tylenol; added additional 0.25 Xanax daily at bedtime for a total 0.5 Xanax at night to help with sleep while hospitalized -Continue trazodone Tumor lysis syndrome Hyperkalemia -Labs show improvement yesterday on 05/08 for potassium down to 4.6 from 6.2, labs from today are pending -We'll continue to monitor uric acid, liver function tests, calcium, phosphorus -Continue allopurinol -IV fluids at 100 mL per hour Obstruction of left upper collecting system Hydronephrosis on the left Left hydroureter - Urology consult note reviewed, and discussed with patient, patient would like to defer stent placement at this time unless he develops acute kidney injury from obstruction or worsening hydro-nephrosis on imaging - Renal function for today is pending BMP High-grade B-cell lymphoma with metastatic disease Transaminitis Hepatomegaly - Oncology consult - steroids - Has started chemotherapy, oncology note reviewed, R-EPOCH protocol, tolerating well - PET scan results are reviewed and show multiple, greater than 50, metastatic foci throughout an enlarged liver, scattered foci throughout the musculature, neck lymph nodes, intra-abdominal sites, mediastinal lymph nodes, diffuse osseous uptake as well - s/p rasburicase - mediport will be deferred to the outpatient setting, chemotherapy via PICC line in the interim Normocytic anemia thrombocytosis -In the setting of malignancy History of hypertension -hold home medications in the setting of hypotension and lactic acidosis DVT ppx: lovenox Code status: full code Anticipated discharge place: home Anticipated discharge time: pending clinical course Objective - Vital Signs Vital signs: Vital Signs Temp 97.5 F L 05/15/22 08:00 Pulse 59 L 05/15/22 08:00 Resp 14 05/15/22 08:00 BP 143/79 05/15/22 08:00 Pulse Ox 98 05/15/22 08:00 FiO2 Intake & Output 05/14/22 05/15/22 05/15/22 18:59 06:59 18:59 Intake Total 1457 2390 Output Total 3 Balance 1454 2390 Weight 77.111 kg Intake: Intake, IV Titration 1457 1200 Amount Etoposide 90 mg 257 vinCRIStine SULFATE 0.75 mg DOXOrubicin HCL 19 mg In Sodium Chloride 0.9% 500 ml 500 ml @ 21.448 mls/hr IV Q24H RAJWINDER Rx#: [id number] Sodium Chloride 0.9% 1, 1200 1200 000 ml @ 100 mls/hr IV . Q10H RAJWINDER Rx#:[id number] Oral 1190 Output: Emesis 3 Other: Voiding Method Toilet Toilet # Voids 6 4 - Labs CBC & Chem 7: 05/15/22 08:14 05/15/22 08:14 Labs: Abnormal Lab Results - Last 24 Hours (Table) 05/15/22 05/15/22 Range/Units 08:14 08:14 RBC 2.82 L (4.30-5.90) m/uL Hgb 8.1 L (13.0-17.5) gm/dL Hct 25.0 L (39.0-53.0) % RDW 16.9 H (11.5-15.5) % Lymphocytes # 0.1 L (1.0-4.8) k/uL Chloride 115 H (98-107) mmol/L BUN 24 H (9-20) mg/dL Creatinine 0.58 L (0.66-1.25) mg/dL Glucose 154 H (74-99) mg/dL Calcium 6.2 L* (8.4-10.2) mg/dL ALT 62 H (4-49) U/L Alkaline Phosphatase 375 H (38-126) U/L Total Protein 4.0 L (6.3-8.2) g/dL Albumin 2.1 L (3.5-5.0) g/dL
[2022-05-15] MEDS ORDERED: FUROSEMIDE 10 MG/ML 2 ML VIAL IV ONE (17:46)
--- NOTE | 2022-05-15 17:46 | P.PN ---
Subjective Progress Note Date: 05/15/22 Principal diagnosis: NHL, SOB Pt sitting in bedside chair. He cont to do well with treatment, no SE to report, denies fevers, oral irritation, dysphagia, his SOB is stable, no chest pain, abd pain, acute changes in bowel or bladder. He is tolerating modified diet and fluids. He is ambulatory. Swelling in B:E stable, some swelling noted in arms. Objective - Vital Signs Vital signs: Vital Signs Temp 98.2 F 05/15/22 16:00 Pulse 66 05/15/22 16:00 Resp 14 05/15/22 16:00 BP 136/78 05/15/22 16:00 Pulse Ox 98 05/15/22 16:00 FiO2 Intake & Output 05/14/22 05/15/22 05/15/22 18:59 06:59 18:59 Intake Total 1457 2390 Output Total 3 Balance 1454 2390 Weight 89.9 kg Intake: Intake, IV Titration 1457 1200 Amount Etoposide 90 mg 257 vinCRIStine SULFATE 0.75 mg DOXOrubicin HCL 19 mg In Sodium Chloride 0.9% 500 ml 500 ml @ 21.448 mls/hr IV Q24H RAJWINDER Rx#: [id number] Sodium Chloride 0.9% 1, 1200 1200 000 ml @ 100 mls/hr IV . Q10H RAJWINDER Rx#:[id number] Oral 1190 Output: Emesis 3 Other: Voiding Method Toilet Toilet # Voids 6 4 - Constitutional General appearance: Present: average body habitus, cooperative, no acute distress - EENT Eyes: Present: anicteric sclerae, EOMI ENT: Present: hearing grossly normal, normal oropharynx - Neck Neck: Present: lymphadenopathy (improving ) - Respiratory Respiratory: bilateral: CTA - Cardiovascular Rhythm: regular Heart sounds: normal: S1, S2 Abnormal Heart Sounds: Absent: systolic murmur, diastolic murmur, rub, S3 Gall op, S4 Gallop, click, other - Peripheral edema leg Peripheral Edema: bilateral: 2+, Pitting - Gastrointestinal General gastrointestinal: Present: normal bowel sounds, soft - Integumentary Integumentary: Present: normal - Neurologic Neurologic Comment(s): only mild tongue deviation! Cont to improve - Musculoskeletal Musculoskeletal: Present: strength equal bilaterally - Psychiatric Psychiatric: Present: A&O x's 3, appropriate affect, intact judgment & insight - Labs CBC & Chem 7: 01/27/23 08:14 05/15/22 08:14 Labs: Abnormal Lab Results - Last 24 Hours (Table) 05/15/22 05/15/22 Range/Units 08:14 08:14 RBC 2.82 L (4.30-5.90) m/uL Hgb 8.1 L (13.0-17.5) gm/dL Hct 25.0 L (39.0-53.0) % RDW 16.9 H (11.5-15.5) % Lymphocytes # 0.1 L (1.0-4.8) k/uL Chloride 115 H (98-107) mmol/L BUN 24 H (9-20) mg/dL Creatinine 0.58 L (0.66-1.25) mg/dL Glucose 154 H (74-99) mg/dL Calcium 6.2 L* (8.4-10.2) mg/dL ALT 62 H (4-49) U/L Alkaline Phosphatase 375 H (38-126) U/L Total Protein 4.0 L (6.3-8.2) g/dL Albumin 2.1 L (3.5-5.0) g/dL Assessment and Plan (1) Spontaneous tumor lysis syndrome Current Visit: Yes Status: Acute Code(s): E88.3 - TUMOR LYSIS SYNDROME SNOMED Code(s): 988558687 (2) B-cell lymphoma Current Visit: Yes Status: Acute Priority: High Code(s): C85.10 - UNSPECIFIED B-CELL LYMPHOMA, UNSPECIFIED SITE SNOMED Code(s): 159107697 Plan: NHL -PET scan results reviewed with pt. He has stage IV disease-LAD above and below diaphragm and extranodal sites. There are multiple metastatic foci throughout enlarged liver, scattered foci throughout musculature, neck lymph nodes, intra- abdominal sites and mediastinal lymph nodes. Seminal vesicle activity, mild left hydronephrosis with urothelial thickening. Ill defined soft tissue with increased activity seen along ureter which could represent metastatic disease. -Based on PET results, IT chemo will be scheduled prior to cycle 2 -FISH resulted, BCL6 negative, pending MYC. -Pending final mutational studies/final path to further identify Lymphoma type. Dr. Sarah Nava discussed with Dr. Kiran. DA R-EPOCH recommended and has been started-pt tolerating well so far. -Hemoglobin 8.1 today, please only transfuse for hemoglobin less than 7 or if symptomatic, irradiated blood products Spontaneous TLS -Chemo has been started -Rasburicase given -Allopurinol dose increased, given daily -Phos and uric acid have normalized. Cont on allopurinol. Will consult Nephrology if labs worsen -1 dose of IV lasix for BLE swelling yesterday. Another dose today. Will cont to assess daily. Daily weight. Do not stop/hold IV fluids. Increase CBG -2/2 steroid use. -IM mgmt -Pt is going to need meds to manage blood glucose while on treatment. F/U with PCP Dr raphaelests: I have seen and examined pt, performed H&P, developed impression and plan of care. Discussed with dictator. Agree with documentation, dictated as a scribe.
[2022-05-15] MEDS: FAMOTIDINE 20 MG/2 ML VIAL IVP SCH (20:11)
[2022-05-15] MEDS: ONDANSETRON 16 MG in SODIUM CHLORIDE 0.9% 50 ML IVPB SCH (20:11)
[2022-05-15] MEDS: DOXORUBICIN HCL IV SCH (21:26)
[2022-05-15] MEDS: [UNRECOGNIZED DRUG - OTHER] IV SCH (21:26)
[2022-05-15] MEDS: VINCRISTINE SULFATE IV SCH (21:26)
[2022-05-15] MEDS: ETOPOSIDE IV SCH (21:26)
[2022-05-15] MEDS: traZODone HCL 50 MG TAB PO SCH (21:37)
[2022-05-16] MEDS: SODIUM CHLORIDE 0.9% 1,000 ML IV SCH ×2 (05:37→15:44)
[2022-05-16] MEDS: PROCHLORPERAZINE INJ 10 MG/2 ML VIAL IVP PRN (05:37)
[2022-05-16] MEDS: SALT AND SODA MOUTHWASH 1,000 ML PO SCH ×5 (05:41→23:22)
[2022-05-16 06:45] LABS: Anisocytosis Slight; Basophils % (A) 0 %; Eosinophils % (A) 0 %; HCT 22.5 % (39.0-53.0); HGB 7.1 gm/dL (13.0-17.5); Lymphocytes # (A) 0.1 k/uL (1.0-4.8); Lymphocytes % (A) 3 %; MCH 28.1 pg (25.0-35.0); MCHC 31.7 g/dL (31.0-37.0); MCV 88.5 fL (80.0-100.0); Mean Platelet Volume 7.5; Monocytes # (A) 0.1 k/uL (0-1.0); Monocytes % (A) 2 %; Neutrophils # (A) 2.8 k/uL (1.3-7.7); Neutrophils % (A) 94 %; Platelet Count 158 k/uL (150-450); RBC 2.55 m/uL (4.30-5.90); RDW 16.8 % (11.5-15.5)
[2022-05-16 06:57] LABS: ALT 51 U/L (4-49); AST 30 U/L (17-59); African American GFR (CKD) >90 (>60 ml/min/1.73 sqM); Albumin 1.8 g/dL (3.5-5.0); Albumin/Globulin Ratio 1.1; Alkaline Phosphatase 288 U/L (38-126); Anion Gap 0 mmol/L; Blood Urea Nitrogen 20 mg/dL (9-20); Carbon Dioxide 23 mmol/L (22-30); Chloride 116 mmol/L (98-107); Globulin 1.7 g/dL; Glucose 148 mg/dL (74-99); Non-African American GFR(CKD) >90 (>60 ml/min/1.73 sqM); Phosphorus 2.5 mg/dL (2.5-4.5); Potassium 3.4 mmol/L (3.5-5.1); Sodium 139 mmol/L (137-145); Total Bilirubin 0.5 mg/dL (0.2-1.3); Total Protein 3.5 g/dL (6.3-8.2); Uric Acid 3.4 mg/dL (3.5-8.5)
[2022-05-16] MEDS: FOLIC ACID 1 MG TAB PO SCH (08:14)
[2022-05-16] MEDS: predniSONE 10 MG TAB PO SCH ×2 (08:14→20:50)
[2022-05-16] MEDS: allopurinoL 300 MG TAB PO SCH (08:14)
[2022-05-16] MEDS: ALPRAZolam 0.25 MG TAB PO SCH ×4 (08:14→21:06)
[2022-05-16] MEDS: CHOLECALCIFEROL 125 MCG (5000 IU) TABLET PO SCH (08:14)
[2022-05-16] MEDS: predniSONE 50 MG TAB PO SCH ×2 (08:14→20:49)
[2022-05-16] MEDS: ENOXAPARIN 40 MG/0.4 ML SYRINGE SQ SCH (08:55)
[2022-05-16] MEDS ORDERED: CALCIUM GLUCONATE IN NACL 2 GM in SALINE 1 100ML.BAG IVPB ONE (10:30)
[2022-05-16] MEDS: FLUTICASONE 50MCG/SPRAY NASAL 16GM EA NOSTRIL SCH (10:44)
[2022-05-16] MEDS: CALCIUM CARBONATE 500 MG CHEWABLE PO SCH ×4 (10:44→21:06)
--- NOTE | 2022-05-16 10:49 | P.PN ---
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 In the ED, patient's BP was at 91/56, which improved with fluids. WBC count was normal, hemoglobin at 11.4, platelets of 556. BMP showed sodium of 134, potassium 5.2, bicarb 11, elevated anion gap, lactic acid at 11.3, AST ALT and ALP elevated. EKG showed sinus tachycardia. Chest x-ray showed no acute process. CT abdomen and pelvis showed numerous masses throughout the liver, left-sided hydronephrosis and hydroureter and perinephric edema and periureteral edema worse than previous exam, indicating obstruction of the left upper collecting system, developing ascites new compared to previous exam, diverticulosis. CTA did not show any acute PE, suspicious adenopathy in the anterior mediastinum. Patient started on IV fluids. Lactic acid improved. Urology consulted. Subjective: Pt resting well in bed today, no new complaints. Sugars reviewed and have been elevated due to steroid therapy. Oncology note reviewed and chemo is being tolerated well, they are giving additional dose of lasix today for noted swelling in legs and arms. Vitals Signs Reviewed. Gen: awake, alert HEENT: normocephalic, atraumatic, good hearing acuity, moist mucous membranes Resp: good air exchange, breathing comfortably with no accessory muscle use, clear to auscultation bilaterally CVS: good distal perfusion x 4, regular rate and rhythm, no murmurs GI: soft, NTTP, ND, normal bowel sounds : no SPT, no CVAT, guzman catheter not present MSK: bilateral pitting edema, no clubbing Neuro: non-focal, moving all extremities Psych: cooperative, euthymic mood Assessment and Plan: Acute on chronic Abdominal pain Lactic acidosis High anion gap metabolic acidosis Severe dehydration Sinus tachycardia Mild hyperkalemia Insomnia Hyperglycemia -Continue IV fluids -No changes to IV pain control -Labs today are reviewed, hemoglobin 7.1, platelets 158. Uric acid is normal, calcium is 6.2, corrected calcium is 7.3; giving 2gm calcium gluconate, starting 500mg QID calcium carbonate -Case was discussed with palliative care yesterday, they were consulted for comfort during hospitalization -Agree with Xanax, Tylenol; added additional 0.25 Xanax daily at bedtime for a total 0.5 Xanax at night to help with sleep while hospitalized -Continue trazodone -Adding LD SSI and AC-HS sugar checks today Tumor lysis syndrome Hyperkalemia -Labs show improvement yesterday on 05/08 for potassium down to 4.6 from 6.2, labs from today are pending -We'll continue to monitor uric acid, liver function tests, calcium, phosphorus -Continue allopurinol -IV fluids at 100 mL per hour Obstruction of left upper collecting system Hydronephrosis on the left Left hydroureter - Urology consult note reviewed, and discussed with patient, patient would like to defer stent placement at this time unless he develops acute kidney injury from obstruction or worsening hydro-nephrosis on imaging - Renal function for today is pending BMP High-grade B-cell lymphoma with metastatic disease Transaminitis Hepatomegaly - Oncology consult - steroids - Has started chemotherapy, oncology note reviewed, R-EPOCH protocol, tolerating well - PET scan results are reviewed and show multiple, greater than 50, metastatic foci throughout an enlarged liver, scattered foci throughout the musculature, neck lymph nodes, intra-abdominal sites, mediastinal lymph nodes, diffuse osseous uptake as well - s/p rasburicase - mediport will be deferred to the outpatient setting, chemotherapy via PICC line in the interim Normocytic anemia thrombocytosis -In the setting of malignancy History of hypertension -hold home medications in the setting of hypotension and lactic acidosis DVT ppx: lovenox Code status: full code Anticipated discharge place: home Anticipated discharge time: pending clinical course Objective - Vital Signs Vital signs: Vital Signs Temp 97.7 F 05/16/22 08:05 Pulse 59 L 05/16/22 08:05 Resp 13 05/16/22 08:05 BP 135/76 05/16/22 08:05 Pulse Ox 100 05/16/22 08:05 FiO2 Intake & Output 05/15/22 05/16/22 05/16/22 18:59 06:59 18:59 Intake Total 1800 Balance 1800 Weight 89.9 kg 90.5 kg Intake: Intake, IV Titration 1200 Amount Sodium Chloride 0.9% 1, 1200 000 ml @ 100 mls/hr IV . Q10H [facility] Rx#:[id number] Oral 600 Other: Voiding Method Toilet Toilet # Voids 5 4 # Bowel Movements 1 - Labs CBC & Chem 7: 05/16/22 06:30 05/16/22 06:30 Labs: Abnormal Lab Results - Last 24 Hours (Table) 05/16/22 05/16/22 Range/Units 06:30 06:30 WBC 3.0 L (3.8-10.6) k/uL RBC 2.55 L (4.30-5.90) m/uL Hgb 7.1 L (13.0-17.5) gm/dL Hct 22.5 L (39.0-53.0) % RDW 16.8 H (11.5-15.5) % Lymphocytes # 0.1 L (1.0-4.8) k/uL Potassium 3.4 L (3.5-5.1) mmol/L Chloride 116 H (98-107) mmol/L Creatinine 0.43 L (0.66-1.25) mg/dL Glucose 148 H (74-99) mg/dL Uric Acid 3.4 L (3.5-8.5) mg/dL Calcium 5.6 L* (8.4-10.2) mg/dL ALT 51 H (4-49) U/L Alkaline Phosphatase 288 H (38-126) U/L Total Protein 3.5 L (6.3-8.2) g/dL Albumin 1.8 L (3.5-5.0) g/dL
[2022-05-16 12:18] LABS: Glucose,Whole Blood 232 mg/dL (70-110)
[2022-05-16] MEDS: INSULIN ASPART (NovoLOG) 100 UNIT/ML VIAL SQ SCH ×2 (13:29→17:29)
[2022-05-16] MEDS ORDERED: CYCLOPHOSPHAMIDE IV ONE (14:00)
[2022-05-16] MEDS ORDERED: SODIUM CHLORIDE 0.9% IV ONE (14:00)
--- NOTE | 2022-05-16 14:26 | P.PN ---
Subjective Progress Note Date: 05/16/22 Principal diagnosis: high-grade non-Hodgkin's lymphoma - no acute events overnight - denies any nausea, vomiting, diarrhea, or abdominal pain - he is feeling significantly improved compared to admission Objective - Vital Signs Vital signs: Vital Signs Temp 98.6 F 05/16/22 12:15 Pulse 80 05/16/22 12:15 Resp 16 05/16/22 12:15 BP 165/82 05/16/22 12:15 Pulse Ox 97 05/16/22 12:15 FiO2 Intake & Output 05/15/22 05/16/22 05/16/22 18:59 06:59 18:59 Intake Total 1800 Balance 1800 Weight 89.9 kg 90.5 kg Intake: Intake, IV Titration 1200 Amount Sodium Chloride 0.9% 1, 1200 000 ml @ 100 mls/hr IV . Q10H [facility] Rx#:[id number] Oral 600 Other: Voiding Method Toilet Toilet # Voids 5 4 # Bowel Movements 1 - Constitutional General appearance: Present: no acute distress - EENT Eyes: Present: EOMI - Respiratory Respiratory: bilateral: CTA - Cardiovascular Rhythm: regular - Gastrointestinal General gastrointestinal: Present: distended, hepatomegaly, normal bowel sounds. Absent: tenderness - Integumentary Integumentary: Absent: rash - Neurologic Neurologic: Present: CNII-XII intact - Labs CBC & Chem 7: 05/16/22 06:30 05/16/22 06:30 Labs: Abnormal Lab Results - Last 24 Hours (Table) 05/16/22 05/16/22 05/16/22 Range/Units 06:30 06:30 12:17 WBC 3.0 L (3.8-10.6) k/uL RBC 2.55 L (4.30-5.90) m/uL Hgb 7.1 L (13.0-17.5) gm/dL Hct 22.5 L (39.0-53.0) % RDW 16.8 H (11.5-15.5) % Lymphocytes # 0.1 L (1.0-4.8) k/uL Potassium 3.4 L (3.5-5.1) mmol/L Chloride 116 H (98-107) mmol/L Creatinine 0.43 L (0.66-1.25) mg/dL Glucose 148 H (74-99) mg/dL POC Glucose (mg/dL) 232 H (70-110) mg/dL Uric Acid 3.4 L (3.5-8.5) mg/dL Calcium 5.6 L* (8.4-10.2) mg/dL ALT 51 H (4-49) U/L Alkaline Phosphatase 288 H (38-126) U/L Total Protein 3.5 L (6.3-8.2) g/dL Albumin 1.8 L (3.5-5.0) g/dL Assessment and Plan Assessment: Mr. Rodriguez is a 61-year-old gentleman with a recent diagnosis of high-grade non-Hodgkin's lymphoma who presented with increased weakness and failure to thrive due to disease progression who was started on EPOCH chemotherapy inpatient. (1) B-cell lymphoma Current Visit: Yes Status: Acute Priority: High Code(s): C85.10 - UNSPECIFIED B-CELL LYMPHOMA, UNSPECIFIED SITE SNOMED Code(s): 552539935 (2) Spontaneous tumor lysis syndrome Current Visit: Yes Status: Acute Code(s): E88.3 - TUMOR LYSIS SYNDROME SNOMED Code(s): 598794490 Plan: NHL -PET scan results reviewed with pt. He has stage IV disease-LAD above and below diaphragm and extranodal sites. There are multiple metastatic foci throughout enlarged liver, scattered foci throughout musculature, neck lymph nodes, intra-abdominal sites and mediastinal lymph nodes. Seminal vesicle activity, mild left hydronephrosis with urothelial thickening. Ill defined soft tissue with increased activity seen along ureter which could represent metastatic disease. -Based on PET results, IT chemo will be scheduled prior to cycle 2 -FISH resulted, BCL6 negative, pending MYC. Based on cell morphology, this could be consistent with Burkitt's lymphoma -Pending final mutational studies/final path to further identify Lymphoma type. Dr. Sarah Nava discussed with Dr. Kiran. DA R-EPOCH recommended and has been started-pt tolerating well so far. -He is currently on day 4 of EPOCH chemotherapy -Hemoglobin 7.1 today, please only transfuse for hemoglobin less than 7 or if symptomatic, irradiated blood products -Rituximab can be added with next cycle of treatment Spontaneous TLS -Chemo has been started as above -Rasburicase given -Allopurinol dose increased, given daily -Phos and uric acid have normalized. Cont on allopurinol. Will consult Nephrology if labs worsen -Hold Lasix for today, given on 05/14/2022 and 05/15/2022. Will cont to assess daily. Daily weight. Do not stop/hold IV fluids. Increase CBG -2/2 steroid use. -IM mgmt -Pt is going to need meds to manage blood glucose while on treatment. F/U with PCP
[2022-05-16] MEDS ORDERED: POTASSIUM CHLORIDE ER 20 MEQ TAB.ER PO STA (17:10)
[2022-05-16 17:16] LABS: Glucose,Whole Blood 307 mg/dL (70-110)
[2022-05-16] MEDS: POTASSIUM CHLORIDE 10 MEQ in WATER FOR INJECTION 1 100ML.BAG IVPB SCH ×2 (17:52→19:36)
[2022-05-16 20:43] LABS: Glucose,Whole Blood 246 mg/dL (70-110)
[2022-05-16] MEDS: traZODone HCL 50 MG TAB PO SCH (20:50)
[2022-05-16] MEDS: ONDANSETRON 16 MG in SODIUM CHLORIDE 0.9% 50 ML IVPB SCH (22:13)
[2022-05-16] MEDS: FAMOTIDINE 20 MG/2 ML VIAL IVP SCH (22:14)
[2022-05-17] MEDS: SODIUM CHLORIDE 0.9% 1,000 ML IV SCH ×3 (00:13→20:57)
[2022-05-17] MEDS: PROCHLORPERAZINE INJ 10 MG/2 ML VIAL IVP PRN (05:06)
[2022-05-17] MEDS: SALT AND SODA MOUTHWASH 1,000 ML PO SCH ×5 (05:06→23:53)
[2022-05-17 07:20] LABS: Glucose,Whole Blood 175 mg/dL (70-110)
[2022-05-17] MEDS: CHOLECALCIFEROL 125 MCG (5000 IU) TABLET PO SCH (07:54)
[2022-05-17] MEDS: allopurinoL 300 MG TAB PO SCH (07:54)
[2022-05-17] MEDS: ALPRAZolam 0.25 MG TAB PO SCH ×4 (07:54→20:59)
[2022-05-17] MEDS: INSULIN ASPART (NovoLOG) 100 UNIT/ML VIAL SQ SCH ×3 (07:54→18:11)
[2022-05-17] MEDS: ENOXAPARIN 40 MG/0.4 ML SYRINGE SQ SCH (07:55)
[2022-05-17] MEDS: FOLIC ACID 1 MG TAB PO SCH (07:55)
[2022-05-17] MEDS: FLUTICASONE 50MCG/SPRAY NASAL 16GM EA NOSTRIL SCH (07:55)
[2022-05-17] MEDS: CALCIUM CARBONATE 500 MG CHEWABLE PO SCH ×4 (07:55→20:59)
[2022-05-17] MEDS ORDERED: FUROSEMIDE 10 MG/ML 4 ML VIAL IV STA (08:03)
[2022-05-17 10:45] LABS: Magnesium 1.3 mg/dL (1.5-2.4); Uric Acid 2.9 mg/dL (3.7-8.7)
[2022-05-17 11:01] LABS: African American GFR (CKD) 140.2 (60.0-200.0); Albumin 2.1 g/dL (3.8-4.9); Albumin/Globulin Ratio 1.98 (1.60-3.17); Anion Gap 8.1 mmol/L (10.00-18.00); BUN/Creat Ratio 37.32 Ratio (12.00-20.00); Bilirubin, Conjugated 0.24 mg/dL (0.20-0.40); Bilirubin,Unconjugated 0.26 mg/dL (0.20-1.00); Blood Urea Nitrogen 17.8 mg/dL (9.0-27.0); Calcium 6.2 mg/dL (8.7-10.3); Carbon Dioxide 19.7 mmol/L (20.0-27.5); Globulin 1.1 g/dL (1.6-3.3); Phosphorus 2.3 mg/dL (2.4-5.1); Potassium 3.5 mmol/L (3.5-5.5); Total Bilirubin 0.5 mg/dL (0.30-1.20); Total Protein 3.1 g/dL (6.2-8.2)
[2022-05-17 11:14] LABS: Non-African American GFR(CKD) 120.9 (60.0-200.0)
[2022-05-17 11:27] LABS: Calcium 5.6 mg/dL (8.4-10.2)
[2022-05-17] MEDS: MAGNESIUM SULFATE-D5W PMX 1 GM in DEXTROSE/WATER 1 100ML.BAG IVPB SCH ×4 (11:38→20:16)
[2022-05-17 11:48] LABS: Glucose,Whole Blood 142 mg/dL (70-110)
[2022-05-17 12:07] LABS: Basophils # (A) 0.02 X 10*3/uL (0.00-0.10); Basophils % (A) 0.4 %; Eosinophils # (A) 0 X 10*3/uL (0.04-0.35); Eosinophils % (A) 0 %; Immature Grans, Automated 1.1 %; Lymphocytes # (A) 0.08 X 10*3/uL (0.90-5.00); Lymphocytes % (A) 1.7 %; Monocytes # (A) 0.01 X 10*3/uL (0.20-1.00); Monocytes % (A) 0.2 %; NRBC Per 100 WBC 0 /100 WBCS (0.0-0.0); Neutrophils % (A) 96.6 %
[2022-05-17 12:11] LABS: HCT 21.3 % (39.6-50.0); HGB 6.4 g/dL (13.0-17.0); MCH 27.7 pg (27.0-32.0); MCV 92.2 fL (80.0-97.0); Mean Platelet Volume 9.9 fL (9.5-12.2); Platelet Count 153 X 10*3/uL (140-440); RBC 2.31 X 10*6/uL (4.40-5.60); RDW 16.9 % (11.5-14.5); WBC 4.76 X 10*3/uL (4.50-10.00)
--- NOTE | 2022-05-17 12:18 | P.PN ---
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 In the ED, patient's BP was at 91/56, which improved with fluids. WBC count was normal, hemoglobin at 11.4, platelets of 556. BMP showed sodium of 134, potassium 5.2, bicarb 11, elevated anion gap, lactic acid at 11.3, AST ALT and ALP elevated. EKG showed sinus tachycardia. Chest x-ray showed no acute process. CT abdomen and pelvis showed numerous masses throughout the liver, left-sided hydronephrosis and hydroureter and perinephric edema and periureteral edema worse than previous exam, indicating obstruction of the left upper collecting system, developing ascites new compared to previous exam, diverticulosis. CTA did not show any acute PE, suspicious adenopathy in the anterior mediastinum. Patient started on IV fluids. Lactic acid improved. Urology consulted. Subjective: Patient has undergone complaints. Says his abdominal pain is resolved. Dave zamorano's hemoglobin was reviewed unfortunately has dropped to the level requiring transfusion and, therefore discharge will be delayed for one more night while we follow his blood counts. Vitals Signs Reviewed. Gen: awake, alert HEENT: normocephalic, atraumatic, good hearing acuity, moist mucous membranes Resp: good air exchange, breathing comfortably with no accessory muscle use, clear to auscultation bilaterally CVS: good distal perfusion x 4, regular rate and rhythm, no murmurs GI: soft, NTTP, ND, normal bowel sounds : no SPT, no CVAT, guzman catheter not present MSK: bilateral pitting edema, no clubbing Neuro: non-focal, moving all extremities Psych: cooperative, euthymic mood Assessment and Plan: Acute on chronic Abdominal pain Lactic acidosis High anion gap metabolic acidosis Severe dehydration Sinus tachycardia Mild hyperkalemia Insomnia Hyperglycemia -Continue IV fluids -No changes to IV pain control -Labs today are reviewed, hemoglobin 7.1, platelets 158. Uric acid is normal, calcium is 6.2, corrected calcium is 7.3; giving 2gm calcium gluconate, starting 500mg QID calcium carbonate -Case was discussed with palliative care yesterday, they were consulted for comfort during hospitalization -Agree with Xanax, Tylenol; added additional 0.25 Xanax daily at bedtime for a total 0.5 Xanax at night to help with sleep while hospitalized -Continue trazodone -Adding LD SSI and AC-HS sugar checks today Tumor lysis syndrome Hyperkalemia -Labs show improvement yesterday on 05/08 for potassium down to 4.6 from 6.2, labs from today are pending -We'll continue to monitor uric acid, liver function tests, calcium, phosphorus -Continue allopurinol -IV fluids at 100 mL per hour Obstruction of left upper collecting system Hydronephrosis on the left Left hydroureter - Urology consult note reviewed, and discussed with patient, patient would like to defer stent placement at this time unless he develops acute kidney injury from obstruction or worsening hydro-nephrosis on imaging - Renal function for today is pending BMP High-grade B-cell lymphoma with metastatic disease Transaminitis Hepatomegaly - Oncology consult - steroids - Has started chemotherapy, oncology note reviewed, R-EPOCH protocol, tolerating well - PET scan results are reviewed and show multiple, greater than 50, metastatic foci throughout an enlarged liver, scattered foci throughout the musculature, ne ck lymph nodes, intra-abdominal sites, mediastinal lymph nodes, diffuse osseous uptake as well - s/p rasburicase - mediport will be deferred to the outpatient setting, chemotherapy via PICC line in the interim Normocytic anemia thrombocytosis -In the setting of malignancy History of hypertension -hold home medications in the setting of hypotension and lactic acidosis DVT ppx: lovenox Code status: full code Anticipated discharge place: home Anticipated discharge time: pending clinical course Objective - Vital Signs Vital signs: Vital Signs Temp 97.7 F 05/17/22 08:00 Pulse 54 L 05/17/22 08:00 Resp 20 05/17/22 08:00 BP 151/76 05/17/22 08:00 Pulse Ox 95 05/17/22 08:00 FiO2 Intake & Output 05/16/22 05/17/22 05/17/22 18:59 06:59 18:59 Intake Total 1800 Balance 1800 Weight 92.5 kg Intake: Intake, IV Titration 1350 Amount Ondansetron 16 mg In 50 Sodium Chloride 0.9% 50 ml @ 232 mls/hr IVPB Q24H [facility]PLACED BY [facility] Rx#:[id number] Potassium Chloride 10 meq 100 In Water For Injection 1 100ml.bag @ 100 mls/hr IVPB Q1H [facility] Rx#: [id number] Sodium Chloride 0.9% 1, 1200 000 ml @ 100 mls/hr IV . Q10H [facility] Rx#:[id number] Oral 450 Other: Voiding Method Toilet Toilet # Voids 2 - Labs CBC & Chem 7: 05/17/22 06:35 05/17/22 06:35 Labs: Abnormal Lab Results - Last 24 Hours (Table) 05/16/22 05/16/22 05/16/22 Range/Units 06:30 12:17 17:14 RBC (4.40-5.60) X 10*6/uL Hgb (13.0-17.0) g/dL Hct (39.6-50.0) % MCHC (32.0-37.0) g/dL RDW (11.5-14.5) % Immature Gran # (0.00-0.04) X 10*3/uL Lymphocytes # (0.90-5.00) X 10*3/uL Monocytes # (0.20-1.00) X 10*3/uL Eosinophils # (0.04-0.35) X 10*3/uL Chloride (96-109) mmol/L Carbon Dioxide (20.0-27.5) mmol/L Anion Gap (10.00-18.00) mmol/L Creatinine (0.6-1.5) mg/dL BUN/Creatinine Ratio (12.00-20.00) Ratio Glucose (70-110) mg/dL POC Glucose (mg/dL) 232 H 307 H (70-110) mg/dL Uric Acid (3.7-8.7) mg/dL Calcium 5.6 L* (8.4-10.2) mg/dL Phosphorus (2.4-5.1) mg/dL Magnesium (1.5-2.4) mg/dL ALT (10-49) U/L Alkaline Phosphatase (41-126) U/L Total Protein (6.2-8.2) g/dL Albumin (3.8-4.9) g/dL Globulin (1.6-3.3) g/dL 05/16/22 05/17/22 05/17/22 Range/Units 20:38 06:35 06:35 RBC 2.31 L (4.40-5.60) X 10*6/uL Hgb 6.4 L* (13.0-17.0) g/dL Hct 21.3 L (39.6-50.0) % MCHC 30.0 L (32.0-37.0) g/dL RDW 16.9 H (11.5-14.5) % Immature Gran # 0.05 H (0.00-0.04) X 10*3/uL Lymphocytes # 0.08 L (0.90-5.00) X 10*3/uL Monocytes # 0.01 L (0.20-1.00) X 10*3/uL Eosinophils # 0 L (0.04-0.35) X 10*3/uL Chloride 113 H (96-109) mmol/L Carbon Dioxide 19.7 L (20.0-27.5) mmol/L Anion Gap 8.10 L (10.00-18.00) mmol/L Creatinine 0.5 L (0.6-1.5) mg/dL BUN/Creatinine Ratio 37.32 H (12.00-20.00) Ratio Glucose 171 H (70-110) mg/dL POC Glucose (mg/dL) 246 H (70-110) mg/dL Uric Acid 2.9 L (3.7-8.7) mg/dL Calcium 6.2 L* (8.4-10.2) mg/dL Phosphorus 2.3 L (2.4-5.1) mg/dL Magnesium 1.3 L (1.5-2.4) mg/dL ALT 52 H (10-49) U/L Alkaline Phosphatase 281 H (41-126) U/L Total Protein 3.1 L (6.2-8.2) g/dL Albumin 2.1 L (3.8-4.9) g/dL Globulin 1.1 L (1.6-3.3) g/dL 05/17/22 05/17/22 Range/Units 07:18 11:46 RBC (4.40-5.60) X 10*6/uL Hgb (13.0-17.0) g/dL Hct (39.6-50.0) % MCHC (32.0-37.0) g/dL RDW (11.5-14.5) % Immature Gran # (0.00-0.04) X 10*3/uL Lymphocytes # (0.90-5.00) X 10*3/uL Monocytes # (0.20-1.00) X 10*3/uL Eosinophils # (0.04-0.35) X 10*3/uL Chloride (96-109) mmol/L Carbon Dioxide (20.0-27.5) mmol/L Anion Gap (10.00-18.00) mmol/L Creatinine (0.6-1.5) mg/dL BUN/Creatinine Ratio (12.00-20.00) Ratio Glucose (70-110) mg/dL POC Glucose (mg/dL) 175 H 142 H (70-110) mg/dL Uric Acid (3.7-8.7) mg/dL Calcium (8.4-10.2) mg/dL Phosphorus (2.4-5.1) mg/dL Magnesium (1.5-2.4) mg/dL ALT (10-49) U/L Alkaline Phosphatase (41-126) U/L Total Protein (6.2-8.2) g/dL Albumin (3.8-4.9) g/dL Globulin (1.6-3.3) g/dL
--- NOTE | 2022-05-17 13:13 | P.PN ---
Subjective Progress Note Date: 05/17/22 Principal diagnosis: high-grade non-Hodgkin's lymphoma - no acute events overnight - denies any nausea, vomiting, diarrhea, or abdominal pain - he is feeling significantly improved compared to admission and is eager to go home today Objective - Vital Signs Vital signs: Vital Signs Temp 97.7 F 05/17/22 08:00 Pulse 54 L 05/17/22 08:00 Resp 20 05/17/22 08:00 BP 151/76 05/17/22 08:00 Pulse Ox 95 05/17/22 08:00 FiO2 Intake & Output 05/16/22 05/17/22 05/17/22 18:59 06:59 18:59 Intake Total 1800 Balance 1800 Weight 92.5 kg Intake: Intake, IV Titration 1350 Amount Ondansetron 16 mg In 50 Sodium Chloride 0.9% 50 ml @ 232 mls/hr IVPB Q24H [facility] Rx#:[id number] Potassium Chloride 10 meq 100 In Water For Injection 1 100ml.bag @ 100 mls/hr IVPB Q1H [facility] Rx#: [id number] Sodium Chloride 0.9% 1, 1200 000 ml @ 100 mls/hr IV . Q10H [facility] Rx#:[id number] Oral 450 Other: Voiding Method Toilet Toilet # Voids 2 - Constitutional General appearance: Present: cooperative, no acute distress - EENT Eyes: Present: EOMI - Respiratory Respiratory: bilateral: CTA - Peripheral edema ankle Peripheral Edema: bilateral: 3+ - Gastrointestinal General gastrointestinal: Present: distended, hepatomegaly, normal bowel sounds, soft - Integumentary Integumentary: Absent: rash - Neurologic Neurologic Comment(s): decreased deviation of the tongue to the right - Psychiatric Psychiatric: Present: A&O x's 3 - Labs CBC & Chem 7: 05/17/22 06:35 05/17/22 06:35 Labs: Abnormal Lab Results - Last 24 Hours (Table) 05/16/22 05/16/22 05/16/22 Range/Units 06:30 17:14 20:38 RBC (4.40-5.60) X 10*6/uL Hgb (13.0-17.0) g/dL Hct (39.6-50.0) % MCHC (32.0-37.0) g/dL RDW (11.5-14.5) % Immature Gran # (0.00-0.04) X 10*3/uL Lymphocytes # (0.90-5.00) X 10*3/uL Monocytes # (0.20-1.00) X 10*3/uL Eosinophils # (0.04-0.35) X 10*3/uL Chloride (96-109) mmol/L Carbon Dioxide (20.0-27.5) mmol/L Anion Gap (10.00-18.00) mmol/L Creatinine (0.6-1.5) mg/dL BUN/Creatinine Ratio (12.00-20.00) Ratio Glucose (70-110) mg/dL POC Glucose (mg/dL) 307 H 246 H (70-110) mg/dL Uric Acid (3.7-8.7) mg/dL Calcium 5.6 L* (8.4-10.2) mg/dL Phosphorus (2.4-5.1) mg/dL Magnesium (1.5-2.4) mg/dL ALT (10-49) U/L Alkaline Phosphatase (41-126) U/L Total Protein (6.2-8.2) g/dL Albumin (3.8-4.9) g/dL Globulin (1.6-3.3) g/dL 05/17/22 05/17/22 05/17/22 Range/Units 06:35 06:35 07:18 RBC 2.31 L (4.40-5.60) X 10*6/uL Hgb 6.4 L* (13.0-17.0) g/dL Hct 21.3 L (39.6-50.0) % MCHC 30.0 L (32.0-37.0) g/dL RDW 16.9 H (11.5-14.5) % Immature Gran # 0.05 H (0.00-0.04) X 10*3/uL Lymphocytes # 0.08 L (0.90-5.00) X 10*3/uL Monocytes # 0.01 L (0.20-1.00) X 10*3/uL Eosinophils # 0 L (0.04-0.35) X 10*3/uL Chloride 113 H (96-109) mmol/L Carbon Dioxide 19.7 L (20.0-27.5) mmol/L Anion Gap 8.10 L (10.00-18.00) mmol/L Creatinine 0.5 L (0.6-1.5) mg/dL BUN/Creatinine Ratio 37.32 H (12.00-20.00) Ratio Glucose 171 H (70-110) mg/dL POC Glucose (mg/dL) 175 H (70-110) mg/dL Uric Acid 2.9 L (3.7-8.7) mg/dL Calcium 6.2 L* (8.4-10.2) mg/dL Phosphorus 2.3 L (2.4-5.1) mg/dL Magnesium 1.3 L (1.5-2.4) mg/dL ALT 52 H (10-49) U/L Alkaline Phosphatase 281 H (41-126) U/L Total Protein 3.1 L (6.2-8.2) g/dL Albumin 2.1 L (3.8-4.9) g/dL Globulin 1.1 L (1.6-3.3) g/dL 05/17/22 Range/Units 11:46 RBC (4.40-5.60) X 10*6/uL Hgb (13.0-17.0) g/dL Hct (39.6-50.0) % MCHC (32.0-37.0) g/dL RDW (11.5-14.5) % Immature Gran # (0.00-0.04) X 10*3/uL Lymphocytes # (0.90-5.00) X 10*3/uL Monocytes # (0.20-1.00) X 10*3/uL Eosinophils # (0.04-0.35) X 10*3/uL Chloride (96-109) mmol/L Carbon Dioxide (20.0-27.5) mmol/L Anion Gap (10.00-18.00) mmol/L Creatinine (0.6-1.5) mg/dL BUN/Creatinine Ratio (12.00-20.00) Ratio Glucose (70-110) mg/dL POC Glucose (mg/dL) 142 H (70-110) mg/dL Uric Acid (3.7-8.7) mg/dL Calcium (8.4-10.2) mg/dL Phosphorus (2.4-5.1) mg/dL Magnesium (1.5-2.4) mg/dL ALT (10-49) U/L Alkaline Phosphatase (41-126) U/L Total Protein (6.2-8.2) g/dL Albumin (3.8-4.9) g/dL Globulin (1.6-3.3) g/dL Assessment and Plan Assessment: Mr. Rodriguez is a 61-year-old gentleman with a recent diagnosis of high-grade non-Hodgkin's lymphoma who presented with increased weakness and failure to thrive due to disease progression who was started on EPOCH chemotherapy inpatient. (1) B-cell lymphoma Current Visit: Yes Status: Acute Priority: High Code(s): C85.10 - UNSPEC IFIED B-CELL LYMPHOMA, UNSPECIFIED SITE SNOMED Code(s): 591382232 (2) Spontaneous tumor lysis syndrome Current Visit: Yes Status: Acute Code(s): E88.3 - TUMOR LYSIS SYNDROME SNOMED Code(s): 294506875 Plan: NHL -PET scan results reviewed with pt. He has stage IV disease-LAD above and below diaphragm and extranodal sites. There are multiple metastatic foci throughout enlarged liver, scattered foci throughout musculature, neck lymph nodes, intra- abdominal sites and mediastinal lymph nodes. Seminal vesicle activity, mild left hydronephrosis with urothelial thickening. Ill defined soft tissue with increased activity seen along ureter which could represent metastatic disease. -Based on PET results, IT chemo will be scheduled prior to cycle 2 -FISH resulted, BCL6 negative, pending MYC. Based on cell morphology, this could be consistent with Burkitt's lymphoma -Pending final mutational studies/final path to further identify Lymphoma type. Dr. Sarah Nava discussed with Dr. Kiran. DA R-EPOCH recommended and has been started-pt tolerating well so far. -He is currently on day 5 of EPOCH chemotherapy -Hemoglobin 6.4 today, transfuse 1 unit of irradiated packed red blood cells -Please only transfuse for hemoglobin less than 7 or if symptomatic, irradiated blood products -He is not cleared for discharge from hematology perspective today given the necessity for blood transfusion -Rituximab will be added with next cycle of treatment. Intrathecal methotrexate should be added to cycle 1 of treatment, which can be given outpatient Spontaneous TLS -Chemo has been started as above -Rasburicase given -Allopurinol dose increased, given daily -Phos and uric acid have normalized. Cont on allopurinol -Agree with Lasix 40 mg IV given today for increased weight and lower extremity edema -Will continue to assess daily. Daily weight. Increase CBG -2/2 steroid use. -IM mgmt -Pt is going to need meds to manage blood glucose while on treatment. F/U with PCP
[2022-05-17 17:27] LABS: Glucose,Whole Blood 206 mg/dL (70-110)
[2022-05-17 20:46] LABS: Glucose,Whole Blood 208 mg/dL (70-110)
[2022-05-17] MEDS: traZODone HCL 50 MG TAB PO SCH (20:57)
[2022-05-18] MEDS: SALT AND SODA MOUTHWASH 1,000 ML PO SCH ×2 (04:59→11:49)
[2022-05-18] MEDS: PROCHLORPERAZINE INJ 10 MG/2 ML VIAL IVP PRN (04:59)
[2022-05-18 07:41] LABS: Glucose,Whole Blood 86 mg/dL (70-110)
[2022-05-18 08:33] VITALS: RESP 20
[2022-05-18] MEDS: FOLIC ACID 1 MG TAB PO SCH (08:53)
[2022-05-18] MEDS: CHOLECALCIFEROL 125 MCG (5000 IU) TABLET PO SCH (08:53)
[2022-05-18] MEDS: allopurinoL 300 MG TAB PO SCH (08:53)
[2022-05-18] MEDS: CALCIUM CARBONATE 500 MG CHEWABLE PO SCH ×2 (08:53→13:35)
[2022-05-18] MEDS: ALPRAZolam 0.25 MG TAB PO SCH (08:53)
[2022-05-18] MEDS: ENOXAPARIN 40 MG/0.4 ML SYRINGE SQ SCH (08:54)
[2022-05-18] MEDS: FLUTICASONE 50MCG/SPRAY NASAL 16GM EA NOSTRIL SCH (08:54)
[2022-05-18] MEDS: INSULIN ASPART (NovoLOG) 100 UNIT/ML VIAL SQ SCH ×2 (08:55→13:36)
[2022-05-18 10:56] LABS: African American GFR (CKD) 150.7 (60.0-200.0); Anion Gap 5.5 mmol/L (10.00-18.00); BUN/Creat Ratio 34.75 Ratio (12.00-20.00); Blood Urea Nitrogen 13.9 mg/dL (9.0-27.0); Carbon Dioxide 25.5 mmol/L (20.0-27.5); Magnesium 1.6 mg/dL (1.5-2.4); Potassium 3.5 mmol/L (3.5-5.5)
[2022-05-18 12:19] LABS: Glucose,Whole Blood 113 mg/dL (70-110)
[2022-05-18 12:32] VITALS: BP 151/85; PULSE 89; TEMP 98.7
[2022-05-18 13:56] LABS: Anisocytosis Slight; Basophils % (A) 0 %; Eosinophils # (A) 0.1 k/uL (0-0.7); Eosinophils % (A) 1 %; HCT 28.8 % (39.0-53.0); Lymphocytes # (A) 0.3 k/uL (1.0-4.8); Lymphocytes % (A) 7 %; MCH 28.6 pg (25.0-35.0); MCHC 32.4 g/dL (31.0-37.0); MCV 88.3 fL (80.0-100.0); Mean Platelet Volume 8.9; Monocytes # (A) 0.1 k/uL (0-1.0); Monocytes % (A) 1 %; Neutrophils # (A) 3.9 k/uL (1.3-7.7); Neutrophils % (A) 91 %; Platelet Count 149 k/uL (150-450); Poikilocytosis Moderate; RBC 3.26 m/uL (4.30-5.90); RDW 16.1 % (11.5-15.5); WBC 4.3 k/uL (3.8-10.6)
[2022-05-18 14:04] LABS: HGB 9.3 gm/dL (13.0-17.5)
--- NOTE | 2022-05-18 17:55 | P.PN ---
Subjective Progress Note Date: 05/18/22 Principal diagnosis: NHL, SOB Pt sitting in bedside chair. He did well with treatment, notes less swelling in neck, swallowing better, tongue deviation cont to improve, he also notes that he has some tactile sensation in his face again! Denies fevers, oral irritation, dysphagia, his SOB is improved, no chest pain, abd pain, acute changes in bowel or bladder. He is tolerating modified diet and fluids. He is ambulatory. Swelling in BLE stable. Objective - Vital Signs Vital signs: Vital Signs Temp 98.7 F 05/18/22 12:31 Pulse 89 05/18/22 12:31 Resp 20 05/18/22 12:31 BP 151/85 05/18/22 12:31 Pulse Ox 99 05/18/22 12:31 FiO2 Intake & Output 05/17/22 05/18/22 05/18/22 18:59 06:59 18:59 Intake Total 310 1775 Balance 310 1775 Weight 92 kg Intake: Intake, IV Titration 1300 Amount Magnesium Sulfate-D5w Pmx 100 1 gm In Dextrose/Water 1 100ml.bag @ 100 mls/hr IVPB Q1H RAJWINDER Rx#: [id number] Sodium Chloride 0.9% 1, 1200 000 ml @ 100 mls/hr IV . Q10H RAJWINDER Rx#:[id number] Oral 475 Blood Product 310 Rc Irr As1 Unit 310 [id number] Other: Voiding Method Toilet # Voids 2 2 - Constitutional General appearance: Present: average body habitus, cooperative, no acute distress - EENT Eyes: Present: anicteric sclerae, EOMI ENT: Present: hearing grossly normal - Neck Neck: Present: normal ROM. Absent: lymphadenopathy - Respiratory Details: rhonchi in RLL, breathing even and unlabored Respiratory: right: rhonchi - Cardiovascular Rhythm: regular Heart sounds: normal: S1, S2 Abnormal Heart Sounds: Absent: systolic murmur, diastolic murmur, rub, S3 Gallop, S4 Gallop, click, other - Peripheral edema leg Peripheral Edema: bilateral: 3+, Pitting - Gastrointestinal General gastrointestinal: Present: normal bowel sounds, soft. Absent: tend erness - Integumentary Integumentary: Present: pale - Neurologic Neurologic Comment(s): mild tongue deviation to right, improving - Musculoskeletal Musculoskeletal: Present: strength equal bilaterally - Psychiatric Psychiatric: Present: A&O x's 3, appropriate affect, intact judgment & insight - Labs CBC & Chem 7: 05/18/22 06:25 05/18/22 06:25 Labs: Abnormal Lab Results - Last 24 Hours (Table) 05/17/22 05/17/22 05/17/22 Range/Units 12:30 17:25 20:41 RBC (4.30-5.90) m/uL Hgb (13.0-17.5) gm/dL Hct (39.0-53.0) % RDW (11.5-15.5) % Plt Count (150-450) k/uL Lymphocytes # (1.0-4.8) k/uL Anion Gap (10.00-18.00) mmol/L Creatinine (0.6-1.5) mg/dL BUN/Creatinine Ratio (12.00-20.00) Ratio POC Glucose (mg/dL) 206 H 208 H (70-110) mg/dL Calcium (8.7-10.3) mg/dL Crossmatch See Detail 05/18/22 05/18/22 05/18/22 Range/Units 06:25 06:25 12:17 RBC 3.26 L (4.30-5.90) m/uL Hgb 9.3 L D (13.0-17.5) gm/dL Hct 28.8 L (39.0-53.0) % RDW 16.1 H (11.5-15.5) % Plt Count 149 L (150-450) k/uL Lymphocytes # 0.3 L (1.0-4.8) k/uL Anion Gap 5.50 L (10.00-18.00) mmol/L Creatinine 0.4 L (0.6-1.5) mg/dL BUN/Creatinine Ratio 34.75 H (12.00-20.00) Ratio POC Glucose (mg/dL) 113 H (70-110) mg/dL Calcium 7.0 L (8.7-10.3) mg/dL Crossmatch Assessment and Plan (1) Spontaneous tumor lysis syndrome Status: Acute Code(s): E88.3 - TUMOR LYSIS SYNDROME SNOMED Code(s): 759310627 (2) B-cell lymphoma Status: Acute Priority: High Code(s): C85.10 - UNSPECIFIED B-CELL LYMPHOMA, UNSPECIFIED SITE SNOMED Code(s): 052185689 Plan: NHL -He has stage IV disease-LAD above and below diaphragm and extranodal sites. There are multiple metastatic foci throughout enlarged liver, scattered foci throughout musculature, neck lymph nodes, intra-abdominal sites and mediastinal lymph nodes. Seminal vesicle activity, mild left hydronephrosis with urothelial thickening. Ill defined soft tissue with increased activity seen along ureter which could represent metastatic disease. -Based on PET results, IT chemo will be scheduled prior to cycle 2 -FISH resulted, BCL6 negative, pending MYC. -Pending final mutational studies/final path to further identify Lymphoma type. Dr. Sarah Nava discussed with Dr. Kiran. DA R-EPOCH recommended. 1st cycle complete. Pt tolerated well and reports improvement in symptoms. -Hemoglobin 9.3 today. Hemoglobin yesterday 6.4, 1 unit PRBC given. Please only transfuse for hemoglobin less than 7 or if symptomatic, irradiated blood products -F/u in discharge Spontaneous TLS -1st cycle chemo completed -Rasburicase given -Allopurinol dose increased, given daily -Phos and uric acid have normalized. Cont on allopurinol. Pitting edema -2 doses of IV lasix for BLE swelling. Daily weight. May have to give additional doses outpt to get fluid off Increase CBG -2/2 steroid use. -IM mgmt -Pt is going to need meds to manage blood glucose while on treatment. F/U with PCP *Pt is ok for discharge from Hem/Onc standpoint once cleared by IM other Specialities
--- NOTE | 2022-05-18 19:10 | P.DS ---
Providers Date of admission: 05/10/22 16:06 Expected date of discharge: 05/18/22 Attending physician: Mary Spann DO Consults: 05/10/22 16:06 Consult Physician Urgent Consulting Provider: Moses Nava Consult Reason/Comments: b-cell lymphoma Do you want consulting provider notified?: Yes 05/10/22 17:30 Consult Physician Urgent Consulting Provider: Ron Girard Consult Reason/Comments: left hydroureter, hydronephrosis, b-cell lumphoma with mets Do you want consulting provider notified?: Yes 05/12/22 09:37 Consult to Palliative Care Routine Consulting Provider: Mulu Velazquez Consult Reason/Comments: Palliative care options Do you want consulting provider notified?: Yes Primary care physician: [facility] Course: 41-year-old male with history of recently diagnosed 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 In the ED, patient's BP was at 91/56, which improved with fluids. WBC count was normal, hemoglobin at 11.4, platelets of 556. BMP showed sodium of 134, potassium 5.2, bicarb 11, elevated anion gap, lactic acid at 11.3, AST ALT and ALP elevated. EKG showed sinus tachycardia. Chest x-ray showed no acute process. CT abdomen and pelvis showed numerous masses throughout the liver, left-sided hydronephrosis and hydroureter and perinephric edema and periureteral edema worse than previous exam, indicating obstruction of the left upper collecting system, developing ascites new compared to previous exam, diverticulosis. CTA did not show any acute PE, suspicious adenopathy in the anterior mediastinum. Patient started on IV fluids. Lactic acid improved. Urology consulted, decision to defer stent placement at this time unless he develops acute kidney injury from obstruction or worsening hydro- nephrosis. His electrolytes were replaced and he was transfused 1 unit of PRBC. He was continued on Allopurinol for tumor lysis syndrome. Electrolyte and LFTs improved. Patient was seen and examined. No acute events overnight. Patient reports no complaints today. He is looking forward to going home. Pertinent studies include KUB, CT AP, chest CTA. Gen: awake, alert HEENT: normocephalic, atraumatic, good hearing acuity, moist mucous membranes Resp: good air exchange, breathing comfortably with no accessory muscle use, clear to auscultation bilaterally CVS: good distal perfusion x 4, regular rate and rhythm, no murmurs GI: soft, NTTP, ND, normal bowel sounds : no SPT, no CVAT, guzman catheter not present MSK: bilateral pitting edema, no clubbing Neuro: non-focal, moving all extremities Psych: cooperative, euthymic mood Discharge Diagnosis: Acute on chronic Abdominal pain Lactic acidosis High anion gap metabolic acidosis Severe dehydration Sinus tachycardia Mild hyperkalemia Insomnia Hyperglycemia Tumor lysis syndrome Hyperkalemia Obstruction of left upper collecting system Hydronephrosis on the left Left hydroureter High-grade B-cell lymphoma with metastatic disease Transaminitis Hepatomegaly Normocytic anemia Thrombocytosis History of hypertension This complex discharge took 35 minutes to complete. Patient Condition at Discharge: Stable Plan - Discharge Summary Discharge Rx Participant: No New Discharge Prescriptions: New allopurinoL [Zyloprim] 300 mg PO DAILY #30 tab Continue hydroCHLOROthiazide [Hydrodiuril] 25 mg PO DAILY Cholecalciferol [Vitamin D3 (125 Mcg = 5000 Iu)] 125 mcg PO DAILY Cbd/Thc Gummies 1 tab PO HS PRN PRN Reason: Pain Acetaminophen Tab [Tylenol] 1,000 - 1,500 mg PO Q6H PRN PRN Reason: Pain Fluticasone Nasal [place] [Flonase Nasal [place]] 1 spr EA NOSTRIL DAILY Folic Acid 1 mg PO DAILY Changed lisinopriL 40 mg PO [facility] #0 Discontinued allopurinoL [Zyloprim] 100 mg PO DAILY Discharge Medication List hydroCHLOROthiazide [Hydrodiuril] 25 mg PO DAILY 02/06/18 [History] Cbd/Thc Gummies 1 tab PO HS PRN 04/22/22 [History] Cholecalciferol [Vitamin D3 (125 Mcg = 5000 Iu)] 125 mcg PO DAILY 04/22/22 [History] Fluticasone Nasal [place] [Flonase Nasal [place]] 1 spr EA NOSTRIL DAILY 05/01/22 [History] Acetaminophen Tab [Tylenol] 1,000 - 1,500 mg PO Q6H PRN 05/10/22 [History] Folic Acid 1 mg PO DAILY 05/10/22 [History] allopurinoL [Zyloprim] 300 mg PO DAILY #30 tab 05/18/22 [Rx] lisinopriL 40 mg PO AC-BRKFST #0 05/18/22 [Rx] Follow up Appointment(s)/Referral(s): Alec Nava MD [STAFF PHYSICIAN] - 05/21/22 2:30 pm Tom Sandy DO [Primary Care Provider] - 1-2 days (The office was not available to make an appointment please call and make a follow up appointment.) Patient Instructions/Handouts: Allopurinol (By mouth), Non-Hodgkin Lymphoma (DC), Low-Sodium Diet (DC) Activity/Diet/Wound Care/Special Instructions: Diet: Low salt FU PCP within 1-2 days of DC. FU Oncology with the appointment given to you. Discharge Disposition: HOME SELF-CARE
== END 2022-05-18 15:39 | disposition home or self-care (01) | DRG 840 ==
LOC: EC 12:43 → 5NMEDONC 16:06
PROVIDERS: ADMIT Internal Medicine; ATTEND Internal Medicine
PROC: 02HV33Z Insertion of Infusion Device into Superior Vena Cava, Percutaneous Approach (ICD-10-PCS; principal; 2022-05-11 09:30)
PROC: 3E03305 Introduction of Other Antineoplastic into Peripheral Vein, Percutaneous Approach (ICD-10-PCS; 2022-05-12)
PROC: 30233N1 Transfusion of Nonautologous Red Blood Cells into Peripheral Vein, Percutaneous Approach (ICD-10-PCS; 2022-05-17)
DX: C85.11 Unspecified B-cell lymphoma, lymph nodes of head, face, and neck (principal); E88.3 Tumor lysis syndrome; C78.7 Secondary malignant neoplasm of liver and intrahepatic bile duct; E87.20 Acidosis, unspecified; R18.8 Other ascites; N13.1 Hydronephrosis with ureteral stricture, not elsewhere classified; T38.0X5A Adverse effect of glucocorticoids and synthetic analogues, initial encounter; R73.9 Hyperglycemia, unspecified; R13.10 Dysphagia, unspecified; K57.90 Diverticulosis of intestine, part unspecified, without perforation or abscess without bleeding; K14.8 Other diseases of tongue; I10 Essential (primary) hypertension; E78.5 Hyperlipidemia, unspecified; M10.9 Gout, unspecified; G89.29 Other chronic pain; G47.00 Insomnia, unspecified; E86.0 Dehydration; R00.0 Tachycardia, unspecified; E87.5 Hyperkalemia; Z51.5 Encounter for palliative care; Z68.33 Body mass index [BMI] 33.0-33.9, adult; R74.01 Elevation of levels of liver transaminase levels; M06.9 Rheumatoid arthritis, unspecified; D63.0 Anemia in neoplastic disease; D75.838 Other thrombocytosis; R16.0 Hepatomegaly, not elsewhere classified; F41.9 Anxiety disorder, unspecified; K21.9 Gastro-esophageal reflux disease without esophagitis; M19.90 Unspecified osteoarthritis, unspecified site; K44.9 Diaphragmatic hernia without obstruction or gangrene; Z28.310 Unvaccinated for COVID-19; Z79.899 Other long term (current) drug therapy; Z88.2 Allergy status to sulfonamides; Z88.5 Allergy status to narcotic agent
CPT/HCPCS: 36415; 36573; 71046; 71275; 74018; 74177; 80048; 80053; 80076; 83605; 83735; 83880; 84100; 84484; 84550; 85025; 85610; 85730; 86850; 86900; 86901; 86920; 93005; 96361; 96374; 99291

== ENCOUNTER 2022-07-07 07:48 | Day surgery (SDC) | payer MEDICARE, OTHER ==
[2022-07-07] MEDS ORDERED: METHOTREXATE SODIUM (PF) 25 MG/ML 2 ML VIAL INTRATHECA NR (08:00)
[2022-07-07] MEDS ORDERED: diazePAM 5 MG TAB PO PRN (08:18)
[2022-07-07 08:25] VITALS: TEMP 98.1
--- NOTE | 2022-07-07 09:48 | P.PCN ---
Date of Procedure: 07/07/22 Preoperative Diagnosis: B cell lymphoma Postoperative Diagnosis: B-cell lymphoma Procedure(s) Performed: LP with Intrathecal MTX administration Estimated Blood Loss (ml): 0 IV fluids (ml): 0 Urine output (ml): 0 Pathology: other (sent for cytology and flow cytometry) Condition: stable Disposition: same day (per Radiologists recommendations) Indications for Procedure: aggressive B-cell lymphoma, large neck mass at diagnosis, prophylactic treatment Description of Procedure: IR performed LP with fluoroscopy, 3.5cc blood tinged CSF was removed. 12mg sterile, preservative free MTX diluted with sterile NS to 5mg/ml total volume 2.4cc, was instilled slowly over 2.5min, catheter was flushed with 1.2cc sterile NS in latex free syringe. Pt tolerated well.
[2022-07-07 09:57] VITALS: RESP 16
--- NOTE | 2022-07-07 11:07 | FL ---
EXAMINATION TYPE: FL guided lumbar puncture LP DATE OF EXAM: 07/07/2022 COMPARISON: Fluoroscopic guided lumbar puncture 06/01/2022, CT abdomen pelvis 06/15/2022 HISTORY: Intrathecal chemotherapy TECHNIQUE: Fluoroscopy. FINDINGS: Informed consent was obtained and all the patient's questions were answered. The standard s terile technique was utilized as well as appropriate local anesthesia 1% lidocaine. A 20-gauge spinal needle was introduced into the thecal sac and 3.5 cc of cerebrospinal fluid was obtained. The patien t's provider injected chemotherapy via the intrathecal access site. Fluoroscopy time was 12 seconds. IMPRESSION: As Above.
[2022-07-07 13:57] VITALS: BP 121/72; PULSE 90
== END 2022-07-07 13:25 | disposition home or self-care (01) ==
LOC: RADPROMAIN 07:48
PROVIDERS: ATTEND Internal Medicine
DX: C85.19 Unspecified B-cell lymphoma, extranodal and solid organ sites (principal)
CPT/HCPCS: 88108; 88184; 88185; 62328; J9260

== ENCOUNTER 2022-07-09 08:50 | Inpatient (IN) | payer MEDICARE, OTHER ==
[2022-07-09] MEDS ORDERED: ONDANSETRON 4 MG/2 ML VIAL IVP PRN (09:00)
[2022-07-09] MEDS: SODIUM CHLORIDE 0.9% 1,000 ML IV SCH ×2 (11:27→20:01)
[2022-07-09] MEDS: predniSONE 10 MG TAB PO SCH ×2 (11:27→20:00)
[2022-07-09] MEDS: predniSONE 50 MG TAB PO SCH ×2 (11:27→20:00)
[2022-07-09] MEDS: ONDANSETRON 16 MG in SODIUM CHLORIDE 0.9% 50 ML IVPB SCH (12:06)
[2022-07-09] MEDS: FAMOTIDINE 20 MG/2 ML VIAL IV SCH (12:06)
[2022-07-09] MEDS: VINCRISTINE SULFATE IV SCH (12:45)
[2022-07-09] MEDS: DOXORUBICIN HCL IV SCH (12:45)
[2022-07-09] MEDS: [UNRECOGNIZED DRUG - OTHER] IV SCH (12:45)
[2022-07-09] MEDS: ETOPOSIDE IV SCH (12:45)
[2022-07-09] MEDS ORDERED: ACETAMINOPHEN TAB 500 MG TAB PO PRN (13:06)
[2022-07-09] MEDS ORDERED: LOPERAMIDE 2 MG CAP PO PRN (13:06)
[2022-07-09] MEDS ORDERED: SENNOSIDES-DOCUSATE SODIUM 1 EACH TAB PO PRN (13:06)
[2022-07-09] MEDS ORDERED: lisinopriL 20 MG TAB PO PRN (13:08)
[2022-07-09] MEDS ORDERED: polyethylene glycoL 3350 17 GM POWD.PACK PO PRN (13:11)
--- NOTE | 2022-07-09 15:11 | P.CONS ---
History of Present Illness - Reason for Consult Consult date: 07/09/22 - History of Present Illness Patient is a 61-year-old male with history of recently diagnosed B-cell lymphoma, hypertension, GERD, dyslipidemia presenting for chemotherapy. [facility] has been consulted for medical management. He currently denies any chest pain, shortness of breath, abdominal pain, nausea, vomiting, diarrhea, constipation, or urinary complaints. His vital signs have been within normal limits. No laboratory data available. Pertinent positives and negatives as discussed in HPI, a complete review of systems was performed and all other systems are negative. Patient seen and examined at bedside. Vital signs reviewed General: nontoxic, no distress, appears at stated age Derm: warm, dry Head: atraumatic, normocephalic, symmetric Eyes: EOMI, no lid lag, anicteric sclera, pupils equal round reactive to light ENT: Nose and ears atraumatic Neck: No thyromegaly, supple Mouth: no lip lesion, mucus membranes moist Cardiovascular: S1S2 reg, no murmur, no edema Lungs: clear to auscultation bilateral, no rhonchi, no rales, no wheeze, no accessory muscle use Abdominal: soft, nontender to palpation, no guarding, no appreciable organomegaly Ext: no gross muscle atrophy, muscle strength muscle strength 5 out of 5 in all 4 extremities, no contractures Neuro: CN II-XII grossly intact Psych: Alert, oriented, appropriate affect Assessment/Plan: Active: B-cell lymphoma on active chemotherapy Hypertension -Patient receiving chemotherapy -Oncology managing chemotherapy regimen -Continue lisinopril 40 mg twice a day as needed -CBC and CMP pending Thank you for allowing us to participate in the care of this pleasant patient. Do not hesitate to contact us with questions. Someone can be reached from the [facility] hospitalist group all hours of the day at [phone] or via [employer]. Past Medical History Past Medical History: Cancer, GERD/Reflux, Hyperlipidemia, Hypertension, Osteoarthritis (OA) Additional Past Medical History / Comment(s): hiatal hernia, gout, non hogkins b cell lymphoma , rectal abscess with drainage History of Any Multi-Drug Resistant Organisms: None Reported Past Surgical History: Orthopedic Surgery, Tonsillectomy Additional Past Surgical History / Comment(s): claude shoulder rotator cuff repair, cyst removal rt wrist, oral surgery , surgery for pyloric stenosis as infant Past Anesthesia/Blood Transfusion Reactions: No Reported Reaction Past Psychological History: No Psychological Hx Reported Smoking Status: Never smoker Past Alcohol Use History: Occasional Additional Past Alcohol Use History / Comment(s): Quit drinking in 2021 Past Drug Use History: None Reported Additional Drug Use History / Comment(s): CBD oil for pain-- chewed tobacco many years ago - Past Family History Mother Family Medical History: No Reported History Father Family Medical History: Unable to Obtain Medications and Allergies Home Medications Medication Instructions Recorded Confirmed Type Cholecalciferol [Vitamin D3 (125 125 mcg PO DAILY 04/22/22 07/09/22 History Mcg = 5000 Iu)] Fluticasone Nasal [place] [Flonase 1 spr EA NOSTRIL DAILY 05/01/22 07/09/22 History Nasal [place]] Folic Acid 1 mg PO DAILY 05/10/22 07/09/22 History Docusate [Colace] 100 mg PO DAILY PRN 06/01/22 07/09/22 History allopurinoL 100 mg PO DAILY 07/03/22 07/09/22 History lisinopriL 40 mg PO BID PRN 07/07/22 07/09/22 History Allergies Allergy/AdvReac Type Severity Reaction Status Date / Time tramadol Allergy Rash/Hives Verified 07/09/22 11:08 & hallucinations sulfamethoxazole AdvReac Nausea Verified 07/09/22 11:08 [From Bactrim] trimethoprim [From Bactrim] AdvReac Nausea Verified 07/09/22 11:08 Physical Exam Vitals: Vital Signs Temp Pulse Resp BP Pulse Ox 07/09/22 13:59 98.0 F 85 16 118/75 97 07/09/22 09:16 97.9 F 80 16 150/92 98 Intake and Output 07/09/22 07/09/22 07/09/22 06:59 14:59 22:59 Intake Total 540 Balance 540 Intake: Oral 540 Other: Weight 74 kg
[2022-07-09 16:02] LABS: Anisocytosis Moderate; Basophils % (A) 0 %; Eosinophils % (A) 1 %; HCT 31.5 % (39.0-53.0); HGB 10.5 gm/dL (13.0-17.5); Lymphocytes # (A) 0.5 k/uL (1.0-4.8); Lymphocytes % (A) 8 %; MCH 30.9 pg (25.0-35.0); MCHC 33.2 g/dL (31.0-37.0); Macrocytosis Slight; Monocytes # (A) 0.7 k/uL (0-1.0); Monocytes % (A) 10 %; Neutrophils # (A) 5.5 k/uL (1.3-7.7); Neutrophils % (A) 80 %; Platelet Count 223 k/uL (150-450); Poikilocytosis Slight; RBC 3.38 m/uL (4.30-5.90); RDW 20.2 % (11.5-15.5); WBC 6.9 k/uL (3.8-10.6)
[2022-07-09 16:06] LABS: ALT 24 U/L (4-49); AST 18 U/L (17-59); African American GFR (CKD) >90 (>60 ml/min/1.73 sqM); Albumin/Globulin Ratio 1.7; Alkaline Phosphatase 80 U/L (38-126); Anion Gap 9 mmol/L; Blood Urea Nitrogen 21 mg/dL (9-20); Calcium 9.4 mg/dL (8.4-10.2); Carbon Dioxide 22 mmol/L (22-30); Chloride 109 mmol/L (98-107); Globulin 2.3 g/dL; Glucose 98 mg/dL (74-99); Non-African American GFR(CKD) >90 (>60 ml/min/1.73 sqM); Potassium 3.5 mmol/L (3.5-5.1); Sodium 140 mmol/L (137-145); Total Bilirubin 0.8 mg/dL (0.2-1.3); Total Protein 6.3 g/dL (6.3-8.2); Uric Acid 5.6 mg/dL (3.5-8.5)
--- NOTE | 2022-07-09 17:36 | P.HPIM ---
History of Present Illness H&P Date: 07/09/22 Chief Complaint: Inpatient chemo Patient is a 61-year-old man with PHM Of hypertension, hyperlipidemia, gout and rheumatoid arthritis. He had been started on methotrexate in March/2022, had 3 doses. He presented to the ER with complaints of chest pain, persistent and progressive, associated symptoms of diaphoresis and shortness of breath, reported constitutional symptoms of night sweats, 10 pound unintentional weight loss, decreased appetite. CT AP showed hepatomegaly, 1.2 cm liver lesion, CT of the chest did not show any mediastinal adenopathy or parenchymal lesions. CT of the neck showed bilateral parotid masses. Core biopsy left neck mass 04/27/22, positive for high grade B cell NHL. Our office contacted the patient 05/01/22 to discuss the biopsy results and to set up further testing, patient was back in the ER around 05/03 with difficulty swallowing and speaking. Neurology saw patient, right cranial nerve XII palsy. MRI, laryngoscopy did show some pro minence in soft tissue in the right tonsillar fossa, right base of the tongue area. MRI of the brain did not show any parenchymal lesions or meningeal enhancement. Patient improved and was discharged, he had his staging PET scan, but unfortunately he was admitted again because of shortness of breath 05/11. Due to patient's persistent and progressive symptoms it was decided to begin treatment inpatient. Patient had an echo showing normal LV EF, he had a PICC line placed. Labs showed spontaneous tumor lysis, he was given a dose of Elitek and started on allopurinol. He started dose adjusted R-EPOCH 05/12. He did very well post treatment, his previous symptoms have resolved all except for a small amount of numbness on the lower part of his jaw. He received his first dose of prophylactic intrathecal chemotherapy 06/01/22, and has received 2 doses thus far. Plan for a total of 4 treatments. He is currently admitted for his third cycle of DA R-EPOCH. Pt reports feeling very well. Reports increase in appetite and states "I am eating everything." He denies fevers, chills, shortness of breath, chest pain, cough, nausea, vomiting, abdominal pain, acute changes in bowel or bladder habits. Review of Systems 10 point ROS is negative except as stated in HPI Past Medical History Past Medical History: Cancer, GERD/Reflux, Hyperlipidemia, Hypertension, Osteoarthritis (OA) Additional Past Medical History / Comment(s): hiatal hernia, gout, non hogkins b cell lymphoma , rectal abscess with drainage History of Any Multi-Drug Resistant Organisms: None Reported Past Surgical History: Orthopedic Surgery, Tonsillectomy Additional Past Surgical History / Comment(s): claude shoulder rotator cuff repair, cyst removal rt wrist, oral surgery , surgery for pyloric stenosis as Past Anesthesia/Blood Transfusion Reactions: No Reported Reaction Past Psychological History: No Psychological Hx Reported Smoking Status: Never smoker Past Alcohol Use History: Occasional Additional Past Alcohol Use History / Comment(s): Quit drinking in 2021 Past Drug Use History: None Reported Additional Drug Use History / Comment(s): CBD oil for pain-- chewed tobacco many years ago - Past Family History Mother Family Medical History: No Reported History Father Family Medical History: Unable to Obtain Medications and Allergies Home Medications Medication Instructions Recorded Confirmed Type Cholecalciferol [Vitamin D3 (125 125 mcg PO DAILY 04/22/22 07/09/22 History Mcg = 5000 Iu)] Fluticasone Nasal [place] [Flonase 1 spr EA NOSTRIL DAILY 05/01/22 07/09/22 History Nasal [place]] Folic Acid 1 mg PO DAILY 05/10/22 07/09/22 History Docusate [Colace] 100 mg PO DAILY PRN 06/01/22 07/09/22 History allopurinoL 100 mg PO DAILY 07/03/22 07/09/22 History lisinopriL 40 mg PO BID PRN 07/07/22 07/09/22 History Allergies Allergy/AdvReac Type Severity Reaction Status Date / Time tramadol Allergy Rash/Hives Verified 07/09/22 11:08 & hallucinations sulfamethoxazole AdvReac Nausea Verified 07/09/22 11:08 [From Bactrim] trimethoprim [From Bactrim] AdvReac Nausea Verified 07/09/22 11:08 Physical Exam Vitals: Vital Signs Temp Pulse Resp BP Pulse Ox 07/09/22 13:59 98.0 F 85 16 118/75 97 07/09/22 09:16 97.9 F 80 16 150/92 98 Intake and Output 07/09/22 07/09/22 07/09/22 06:59 14:59 22:59 Intake Total 540 Balance 540 Intake: Oral 540 Other: Weight 74 kg - Constitutional General appearance: average body habitus, no acute distress - EENT Eyes: anicteric sclerae, EOMI ENT: hearing grossly normal - Neck Neck: no lymphadenopathy - Respiratory Respiratory: bilateral: CTA - Cardiovascular Rhythm: regular Heart sounds: normal: S1, S2 Abnormal Heart Sounds: no systolic murmur, no diastolic murmur, no rub, no S3 Gallop, no S4 Gallop, no click, no other - Gastrointestinal General gastrointestinal: soft, no tenderness - Integumentary Integumentary: normal - Neurologic tongue deviation to right, improved but persisting - Musculoskeletal Musculoskeletal: strength equal bilaterally - Psychiatric Psychiatric: A&O x's 3, appropriate affect, intact judgment & insight Results CBC & Chem 7: 07/09/22 10:13 07/09/22 10:13 Labs: Abnormal Lab Results - Last 24 Hours (Table) 07/09/22 07/09/22 Range/Units 10:13 10:13 RBC 3.38 L (4.30-5.90) m/uL Hgb 10.5 L (13.0-17.5) gm/dL Hct 31.5 L (39.0-53.0) % RDW 20.2 H (11.5-15.5) % Lymphocytes # 0.5 L (1.0-4.8) k/uL Chloride 109 H (98-107) mmol/L BUN 21 H (9-20) mg/dL Creatinine 0.53 L (0.66-1.25) mg/dL Thrombosis Risk Factor Assmnt - DVT/VTE Prophylaxis DVT/VTE Prophylaxis: Pharmacologic Prophylaxis ordered Assessment and Plan (1) B-cell lymphoma Current Visit: Yes Status: Acute Priority: High Code(s): C85.10 - UNSPECIFIED B-CELL LYMPHOMA, UNSPECIFIED SITE SNOMED Code(s): 813396405 Plan: B-Cell Lymphoma: Admit for cycle 3 dose adjusted R-EPOCH -Internal medicine consulted for medical management -Orders reviewed -Home medications reconciled -Activity, ambulate 4 times a day with shoes on -Diet, as tolerated -Supportive medications ordered, Scheduled and when necessary -Cools solution for oral irritation -GI and DVT prophylaxis -[place] fluid intake -Hemoglobin 10.5, platelets 223,000, uric acid 5.6. Will continue to monitor attests: I seen and examined patient, performed H&P, developed impression and plan of care. Discussed with dictator. Agree with documentation, dictated as a scribe.
[2022-07-09] MEDS: SALT AND SODA MOUTHWASH 1,000 ML PO SCH ×3 (18:17→23:28)
[2022-07-10] MEDS: SODIUM CHLORIDE 0.9% 1,000 ML IV SCH ×2 (03:32→20:37)
[2022-07-10] MEDS: SALT AND SODA MOUTHWASH 1,000 ML PO SCH ×5 (05:44→23:00)
[2022-07-10] MEDS ORDERED: DOCUSATE 100 MG CAP PO SCH (09:00)
[2022-07-10] MEDS: allopurinoL 100 MG TAB PO SCH (09:05)
[2022-07-10] MEDS: predniSONE 50 MG TAB PO SCH ×2 (09:05→20:37)
[2022-07-10] MEDS: FOLIC ACID 1 MG TAB PO SCH (09:05)
[2022-07-10] MEDS: CHOLECALCIFEROL 125 MCG (5000 IU) TABLET PO SCH (09:05)
[2022-07-10] MEDS: predniSONE 10 MG TAB PO SCH ×2 (09:05→20:37)
[2022-07-10] MEDS: FLUTICASONE 50MCG/SPRAY NASAL 16GM EA NOSTRIL SCH (10:04)
[2022-07-10 10:41] LABS: Basophils # (A) 0 X 10*3/uL (0.00-0.10); Basophils % (A) 0 %; Eosinophils # (A) 0 X 10*3/uL (0.04-0.35); Eosinophils % (A) 0 %; HGB 10.2 g/dL (13.0-17.0); Immature Grans, Automated 0.5 %; Lymphocytes # (A) 0.33 X 10*3/uL (0.90-5.00); Lymphocytes % (A) 4.1 %; MCH 29.1 pg (27.0-32.0); MCHC 30.9 g/dL (32.0-37.0); MCV 94.3 fL (80.0-97.0); Mean Platelet Volume 10.8 fL (9.5-12.2); Monocytes # (A) 0.22 X 10*3/uL (0.20-1.00); Monocytes % (A) 2.7 %; NRBC Per 100 WBC 0 /100 WBCS (0.0-0.0); Neutrophils # (A) 7.43 X 10*3/uL (1.80-7.70); Neutrophils % (A) 92.7 %; Platelet Count 203 X 10*3/uL (140-440); RDW 20.7 % (11.5-14.5); WBC 8.02 X 10*3/uL (4.50-10.00)
[2022-07-10 10:57] LABS: African American GFR (CKD) 133.1 (60.0-200.0); Albumin 4.3 g/dL (3.8-4.9); Albumin/Globulin Ratio 2.34 (1.60-3.17); Anion Gap 11.6 mmol/L (10.00-18.00); BUN/Creat Ratio 41.04 Ratio (12.00-20.00); Blood Urea Nitrogen 22.2 mg/dL (9.0-27.0); Calcium 9.6 mg/dL (8.7-10.3); Carbon Dioxide 21.6 mmol/L (20.0-27.5); Globulin 1.8 g/dL (1.6-3.3); Non-African American GFR(CKD) 114.8 (60.0-200.0); Potassium 4.2 mmol/L (3.5-5.5); Total Bilirubin 0.5 mg/dL (0.30-1.20); Total Protein 6.2 g/dL (6.2-8.2); Uric Acid 5.3 mg/dL (3.7-8.7)
[2022-07-10] MEDS ORDERED: DOCUSATE 100 MG CAP PO PRN (10:59)
--- NOTE | 2022-07-10 12:48 | P.PN ---
Subjective Progress Note Date: 07/10/22 Subjective: Patient seen and examined at bedside. No acute events overnight. He denies any chest pain, shortness of breath, abdominal pain, nausea, vomiting, diarrhea, constipation, or urinary complaints. Pertinent positives and negatives as discussed above, a complete review of syst ems was performed and all other systems are negative. Vitals Signs Reviewed. General: nontoxic, no distress, appears at stated age Derm: warm, dry Head: atraumatic, normocephalic, symmetric Eyes: EOMI, no lid lag, anicteric sclera Mouth: no lip lesion, mucus membranes moist Cardiovascular: S1S2 reg, no murmur Lungs: CTA bilateral, no rhonchi, no rales , no accessory muscle use Abdominal: soft, nontender to palpation, no guarding, no appreciable organomegaly Ext: no gross muscle atrophy, no edema, no contractures Neuro: CN II-XI grossly intact, no focal neuro deficits Psych: Alert, oriented, appropriate affect Data Reviewed Today: Pertinent Labs: WBC 8.02, hemoglobin 10.2, platelet 203, sodium 144, potassium 4.2, creatinine 0.5, uric acid 5.3 Assessment and Plan: B-cell lymphoma on active chemotherapy Hypertension -Patient receiving chemotherapy, day 2 of 5 -Oncology managing chemotherapy regimen -Continue lisinopril 40 mg twice a day as needed -Labs are stable Thank you for allowing us to participate in the care of this pleasant patient. Do not hesitate to contact us with questions. Someone can be reached from the [facility] hospitalist group all hours of the day at [phone] or via perfect serve. Objective - Vital Signs Vital signs: Vital Signs Temp 97.5 F L 07/10/22 11:14 Pulse 68 07/10/22 11:14 Resp 18 07/10/22 11:14 BP 122/73 07/10/22 11:14 Pulse Ox 100 07/10/22 11:14 FiO2 Intake & Output 07/09/22 07/10/22 07/10/22 18:59 06:59 18:59 Intake Total 1200 2060 Balance 1200 2060 Weight 74 kg Intake: Intake, IV Titration 1460 Amount Etoposide 90 mg 260 vinCRIStine SULFATE 0.75 mg DOXOrubicin HCL 19 mg In Sodium Chloride 0.9% 500 ml 500 ml @ 21.448 mls/hr IV Q24H [facility] Rx#: [id number] Sodium Chloride 0.9% 1, 1200 000 ml @ 100 mls/hr IV . Q10H [facility] Rx#:[id number] Oral 1200 600 Other: Voiding Method Toilet # Voids 2 3 - Labs CBC & Chem 7: 07/10/22 06:53 07/10/22 06:53 Labs: Abnormal Lab Results - Last 24 Hours (Table) 07/09/22 07/09/22 07/10/22 Range/Units 10:13 10:13 06:53 RBC 3.38 L 3.50 L (4.30-5.90) m/uL Hgb 10.5 L 10.2 L (13.0-17.5) gm/dL Hct 31.5 L 33.0 L (39.0-53.0) % MCHC 30.9 L (32.0-37.0) g/dL RDW 20.2 H 20.7 H (11.5-15.5) % Lymphocytes # 0.5 L 0.33 L (1.0-4.8) k/uL Eosinophils # 0 L (0.04-0.35) X 10*3/uL Chloride 109 H (98-107) mmol/L BUN 21 H (9-20) mg/dL Creatinine 0.53 L (0.66-1.25) mg/dL BUN/Creatinine Ratio (12.00-20.00) Ratio Glucose (70-110) mg/dL AST (14-35) U/L 07/10/22 Range/Units 06:53 RBC (4.30-5.90) m/uL Hgb (13.0-17.5) gm/dL Hct (39.0-53.0) % MCHC (32.0-37.0) g/dL RDW (11.5-15.5) % Lymphocytes # (1.0-4.8) k/uL Eosinophils # (0.04-0.35) X 10*3/uL Chloride 111 H (98-107) mmol/L BUN (9-20) mg/dL Creatinine 0.5 L (0.66-1.25) mg/dL BUN/Creatinine Ratio 41.04 H (12.00-20.00) Ratio Glucose 138 H (70-110) mg/dL AST 12 L (14-35) U/L
--- NOTE | 2022-07-10 14:27 | P.PN ---
Subjective Progress Note Date: 07/10/22 Principal diagnosis: inpatient chemo At today's visit patient sitting at bedside chair, is at bedside. Pt reports feeling very well. He denies any symptoms or adverse rxn to chemo. Objective - Vital Signs Vital signs: Vital Signs Temp 97.5 F L 07/10/22 11:14 Pulse 68 07/10/22 11:14 Resp 18 07/10/22 11:14 BP 122/73 07/10/22 11:14 Pulse Ox 100 07/10/22 11:14 FiO2 Intake & Output 07/09/22 07/10/22 07/10/22 18:59 06:59 18:59 Intake Total 1200 2060 Balance 1200 2060 Weight 74 kg Intake: Intake, IV Titration 1460 Amount Etoposide 90 mg 260 vinCRIStine SULFATE 0.75 mg DOXOrubicin HCL 19 mg In Sodium Chloride 0.9% 500 ml 500 ml @ 21.448 mls/hr IV Q24H [facility] Rx#: [id number] Sodium Chloride 0.9% 1, 1200 000 ml @ 100 mls/hr IV . Q10H [facility] Rx#:[id number] Oral 1200 600 Other: Voiding Method Toilet # Voids 2 3 - Constitutional General appearance: Present: average body habitus, no acute distress - EENT Eyes: Present: anicteric sclerae, EOMI ENT: Present: hearing grossly normal - Respiratory Details: breathing is even and unlabored - Cardiovascular Details: skin warm and dry - Integumentary Integumentary: Present: normal - Musculoskeletal Musculoskeletal: Present: strength equal bilaterally - Psychiatric Psychiatric: Present: A&O x's 3, appropriate affect, intact judgment & insight - Labs CBC & Chem 7: 07/10/22 06:53 07/10/22 06:53 Labs: Abnormal Lab Results - Last 24 Hours (Table) 07/09/22 07/09/22 07/10/22 Range/Units 10:13 10:13 06:53 RBC 3.38 L 3.50 L (4.30-5.90) m/uL Hgb 10.5 L 10.2 L (13.0-17.5) gm/dL Hct 31.5 L 33.0 L (39.0-53.0) % MCHC 30.9 L (32.0-37.0) g/dL RDW 20.2 H 20.7 H (11.5-15.5) % Lymphocytes # 0.5 L 0.33 L (1.0-4.8) k/uL Eosinophils # 0 L (0.04-0.35) X 10*3/uL Chloride 109 H (98-107) mmol/L BUN 21 H (9-20) mg/dL Creatinine 0.53 L (0.66-1.25) mg/dL BUN/Creatinine Ratio (12.00-20.00) Ratio Glucose (70-110) mg/dL AST (14-35) U/L 07/10/22 Range/Units 06:53 RBC (4.30-5.90) m/uL Hgb (13.0-17.5) gm/dL Hct (39.0-53.0) % MCHC (32.0-37.0) g/dL RDW (11.5-15.5) % Lymphocytes # (1.0-4.8) k/uL Eosinophils # (0.04-0.35) X 10*3/uL Chloride 111 H (98-107) mmol/L BUN (9-20) mg/dL Creatinine 0.5 L (0.66-1.25) mg/dL BUN/Creatinine Ratio 41.04 H (12.00-20.00) Ratio Glucose 138 H (70-110) mg/dL AST 12 L (14-35) U/L Assessment and Plan (1) B-cell lymphoma Current Visit: Yes Status: Acute Priority: High Code(s): C85.10 - UNSPECIF IED B-CELL LYMPHOMA, UNSPECIFIED SITE SNOMED Code(s): 959430605 Plan: B-Cell Lymphoma: Admit for cycle 3 dose adjusted R-EPOCH -Internal medicine consulted for medical management -Orders reviewed -Home medications reconciled -Activity, ambulate 4 times a day with shoes on -Diet, as tolerated -Supportive medications ordered, Scheduled and when necessary -Cools solution for oral irritation -GI and DVT prophylaxis -[place] fluid intake -Hemoglobin 10.2, platelets 203,000, uric acid 5.3, Will continue to monitor -Day 2 of cycle 3. Pt reports feeling well with no reported symptoms. Will continue with chemo as planned -Prophylactic antibiotic and antiviral ordered
[2022-07-10] MEDS: ONDANSETRON 16 MG in SODIUM CHLORIDE 0.9% 50 ML IVPB SCH (14:52)
[2022-07-10] MEDS: FAMOTIDINE 20 MG/2 ML VIAL IV SCH (14:52)
[2022-07-10] MEDS: DOXORUBICIN HCL IV SCH (15:06)
[2022-07-10] MEDS: ETOPOSIDE IV SCH (15:06)
[2022-07-10] MEDS: [UNRECOGNIZED DRUG - OTHER] IV SCH (15:06)
[2022-07-10] MEDS: VINCRISTINE SULFATE IV SCH (15:06)
[2022-07-10] MEDS: ACYCLOVIR 200 MG CAP PO SCH (20:37)
[2022-07-11] MEDS: SODIUM CHLORIDE 0.9% 1,000 ML IV SCH ×3 (00:05→23:54)
[2022-07-11] MEDS: SALT AND SODA MOUTHWASH 1,000 ML PO SCH ×5 (05:33→23:56)
[2022-07-11] MEDS: predniSONE 10 MG TAB PO SCH ×2 (09:26→20:22)
[2022-07-11] MEDS: allopurinoL 100 MG TAB PO SCH (09:26)
[2022-07-11] MEDS: CHOLECALCIFEROL 125 MCG (5000 IU) TABLET PO SCH (09:26)
[2022-07-11] MEDS: ACYCLOVIR 200 MG CAP PO SCH ×2 (09:26→20:22)
[2022-07-11] MEDS: predniSONE 50 MG TAB PO SCH ×2 (09:26→20:21)
[2022-07-11] MEDS: FOLIC ACID 1 MG TAB PO SCH (09:26)
[2022-07-11] MEDS: FLUTICASONE 50MCG/SPRAY NASAL 16GM EA NOSTRIL SCH (09:27)
[2022-07-11 11:10] LABS: Basophils # (A) 0 X 10*3/uL (0.00-0.10); Basophils % (A) 0 %; Eosinophils # (A) 0 X 10*3/uL (0.04-0.35); Eosinophils % (A) 0 %; HCT 32.1 % (39.6-50.0); Immature Grans, Automated 0.4 %; Lymphocytes # (A) 0.19 X 10*3/uL (0.90-5.00); Lymphocytes % (A) 2.3 %; MCH 29.6 pg (27.0-32.0); MCHC 31.2 g/dL (32.0-37.0); Mean Platelet Volume 10.9 fL (9.5-12.2); Monocytes # (A) 0.22 X 10*3/uL (0.20-1.00); Monocytes % (A) 2.7 %; NRBC Per 100 WBC 0 /100 WBCS (0.0-0.0); Neutrophils % (A) 94.6 %; Platelet Count 195 X 10*3/uL (140-440); RBC 3.38 X 10*6/uL (4.40-5.60); RDW 20.3 % (11.5-14.5); WBC 8.24 X 10*3/uL (4.50-10.00)
--- NOTE | 2022-07-11 11:26 | P.PN ---
Subjective Progress Note Date: 07/11/22 Subjective: Patient seen and examined at bedside. No acute events overnight. He denies any chest pain, shortness of breath, abdominal pain, nausea, vomiting, diarrhea, constipation, or urinary complaints. Pertinent positives and negatives as discussed above, a complete review of syst ems was performed and all other systems are negative. Vitals Signs Reviewed. General: nontoxic, no distress, appears at stated age Derm: warm, dry Head: atraumatic, normocephalic, symmetric Eyes: EOMI, no lid lag, anicteric sclera Mouth: no lip lesion, mucus membranes moist Cardiovascular: S1S2 reg, no murmur Lungs: CTA bilateral, no rhonchi, no rales , no accessory muscle use Abdominal: soft, nontender to palpation, no guarding, no appreciable organomegaly Ext: no gross muscle atrophy, no edema, no contractures Neuro: CN II-XI grossly intact, no focal neuro deficits Psych: Alert, oriented, appropriate affect Data Reviewed Today: Pertinent Labs: WBC 8.24, hemoglobin 10, platelet 195 Blood pressure highest 136/71 Assessment and Plan: B-cell lymphoma on active chemotherapy Hypertension -Patient receiving chemotherapy, day 3 of 5 -Oncology managing chemotherapy regimen -Continue lisinopril 40 mg twice a day as needed -Labs are stable Thank you for allowing us to participate in the care of this pleasant patient. Do not hesitate to contact us with questions. Someone can be reached from the [facility] hospitalist group all hours of the day at [phone] or via perfect serve. Objective - Vital Signs Vital signs: Vital Signs Temp 97.7 F 07/11/22 07:25 Pulse 59 L 07/11/22 07:25 Resp 16 07/11/22 07:25 BP 136/71 07/11/22 07:25 Pulse Ox 100 07/11/22 07:25 FiO2 Intake & Output 07/10/22 07/11/22 07/11/22 18:59 06:59 18:59 Intake Total 1460 Balance 1460 Intake: Intake, IV Titration 1460 Amount Etoposide 90 mg 260 vinCRIStine SULFATE 0.75 mg DOXOrubicin HCL 19 mg In Sodium Chloride 0.9% 500 ml 500 ml @ 21.448 mls/hr IV Q24H [facility] Rx#: [id number] Sodium Chloride 0.9% 1, 1200 000 ml @ 100 mls/hr IV . Q10H [facility] Rx#:[id number] Other: Voiding Method Toilet # Voids 3 3 # Bowel Movements 1 - Labs CBC & Chem 7: 07/11/22 07:42 07/10/22 06:53 Labs: Abnormal Lab Results - Last 24 Hours (Table) 07/11/22 Range/Units 07:42 RBC 3.38 L (4.40-5.60) X 10*6/uL Hgb 10.0 L (13.0-17.0) g/dL Hct 32.1 L (39.6-50.0) % MCHC 31.2 L (32.0-37.0) g/dL RDW 20.3 H (11.5-14.5) % Neutrophils # 7.80 H (1.80-7.70) X 10*3/uL Lymphocytes # 0.19 L (0.90-5.00) X 10*3/uL Eosinophils # 0 L (0.04-0.35) X 10*3/uL
[2022-07-11 11:28] LABS: African American GFR (CKD) 137.5 (60.0-200.0); Anion Gap 10.2 mmol/L (10.00-18.00); Blood Urea Nitrogen 22.5 mg/dL (9.0-27.0); Calcium 9.3 mg/dL (8.7-10.3); Carbon Dioxide 21.8 mmol/L (20.0-27.5); Non-African American GFR(CKD) 118.6 (60.0-200.0); Potassium 4.1 mmol/L (3.5-5.5)
--- NOTE | 2022-07-11 14:51 | P.PN ---
Subjective Progress Note Date: 07/11/22 Principal diagnosis: Burkitt's lymphoma -No acute events overnight, afebrile -Mr. Rodriguez reports feeling well without nausea, vomiting, diarrhea, fevers, or chills -He is tolerating oral diet without complications and is ambulating in the halls without assistance -He is currently cycle 3, day 3 of dose adjusted R-EPOCH Objective - Vital Signs Vital signs: Vital Signs Temp 98 F 07/11/22 11:50 Pulse 62 07/11/22 11:50 Resp 18 07/11/22 11:50 BP 126/75 07/11/22 11:50 Pulse Ox 100 07/11/22 11:50 FiO2 Intake & Output 07/10/22 07/11/22 07/11/22 18:59 06:59 18:59 Intake Total 1460 Balance 1460 Intake: Intake, IV Titration 1460 Amount Etoposide 90 mg 260 vinCRIStine SULFATE 0.75 mg DOXOrubicin HCL 19 mg In Sodium Chloride 0.9% 500 ml 500 ml @ 21.448 mls/hr IV Q24H [facility] Rx#: [id number] Sodium Chloride 0.9% 1, 1200 000 ml @ 100 mls/hr IV . Q10H [facility] Rx#:[id number] Other: Voiding Method Toilet Toilet # Voids 3 3 # Bowel Movements 1 - Constitutional General appearance: Present: average body habitus, no acute distress - EENT EENT Comment(s): Decreased deviation of the tongue to the right Eyes: Present: EOMI - Respiratory Respiratory: bilateral: CTA - Cardiovascular Rhythm: regular - Gastrointestinal Gastrointestinal Comment(s): Hepatomegaly and abdominal wall nodules previously palpated on prior exams are no longer palpable General gastrointestinal: Present: normal bowel sounds, soft. Absent: distended, tenderness - Integumentary Integumentary: Absent: rash - Neurologic Neurologic: Present: CNII-XII intact. Absent: focal deficits - Labs CBC & Chem 7: 07/11/22 07:42 07/11/22 07:42 Labs: Abnormal Lab Results - Last 24 Hours (Table) 07/11/22 07/11/22 Range/Units 07:42 07:42 RBC 3.38 L (4.40-5.60) X 10*6/uL Hgb 10.0 L (13.0-17.0) g/dL Hct 32.1 L (39.6-50.0) % MCHC 31.2 L (32.0-37.0) g/dL RDW 20.3 H (11.5-14.5) % Neutrophils # 7.80 H (1.80-7.70) X 10*3/uL Lymphocytes # 0.19 L (0.90-5.00) X 10*3/uL Eosinophils # 0 L (0.04-0.35) X 10*3/uL Chloride 110 H (96-109) mmol/L Creatinine 0.5 L (0.6-1.5) mg/dL BUN/Creatinine Ratio 45.00 H (12.00-20.00) Ratio Glucose 129 H (70-110) mg/dL Assessment and Plan (1) Burkitt lymphoma of extranodal or solid organ site Current Visit: Yes Status: Acute Code(s): C83.79 - BURKITT LYMPHOMA, EXTRANODAL AND SOLID ORGAN SITES SNOMED Code(s): 40301790 Plan: Stage IV Burkitt's lymphoma -Currently on day 3, cycle 3 of of dose adjusted R-EPOCH 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 -He did have a 2-week delay in cycle 3 due to rectal abscess following cycle 2 -He is tolerating treatment well today without complications -Continue with liposomal doxorubicin, cytarabine, and vincristine through day 4 along with prednisone through day 5 -Cyclophosphamide due on day 5 -CBC today notes hemoglobin of 10 with no neutropenia or thrombocytopenia -Continue acyclovir for viral prophylaxis -He will need fungal prophylaxis with fluconazole along with bacterial prophylaxis with ciprofloxacin once ANC is less than 1000 -Transfuse for hemoglobin less than 7 -Transfuse for platelets less than 10,000 and/or bleeding
[2022-07-11] MEDS: ONDANSETRON 16 MG in SODIUM CHLORIDE 0.9% 50 ML IVPB SCH (16:25)
[2022-07-11] MEDS: FAMOTIDINE 20 MG/2 ML VIAL IV SCH (16:26)
[2022-07-11] MEDS: DOXORUBICIN HCL IV SCH (16:35)
[2022-07-11] MEDS: [UNRECOGNIZED DRUG - OTHER] IV SCH (16:35)
[2022-07-11] MEDS: ETOPOSIDE IV SCH (16:35)
[2022-07-11] MEDS: VINCRISTINE SULFATE IV SCH (16:35)
[2022-07-12] MEDS: FLUTICASONE 50MCG/SPRAY NASAL 16GM EA NOSTRIL SCH (05:38)
[2022-07-12] MEDS: SALT AND SODA MOUTHWASH 1,000 ML PO SCH ×4 (05:38→19:06)
[2022-07-12] MEDS: CHOLECALCIFEROL 125 MCG (5000 IU) TABLET PO SCH (08:06)
[2022-07-12] MEDS: FOLIC ACID 1 MG TAB PO SCH (08:06)
[2022-07-12] MEDS: allopurinoL 100 MG TAB PO SCH (08:06)
[2022-07-12] MEDS: ACYCLOVIR 200 MG CAP PO SCH ×2 (08:06→20:12)
[2022-07-12] MEDS: predniSONE 50 MG TAB PO SCH ×2 (08:09→20:12)
[2022-07-12] MEDS: predniSONE 10 MG TAB PO SCH ×2 (08:09→20:12)
[2022-07-12] MEDS: SODIUM CHLORIDE 0.9% 1,000 ML IV SCH ×2 (09:45→19:06)
--- NOTE | 2022-07-12 11:33 | P.PN ---
Subjective Progress Note Date: 07/12/22 Subjective: Patient seen and examined at bedside. No acute events overnight. He denies any chest pain, shortness of breath, abdominal pain, nausea, vomiting, diarrhea, constipation, or urinary complaints. Pertinent positives and negatives as discussed above, a complete review of syst ems was performed and all other systems are negative. Vitals Signs Reviewed. General: nontoxic, no distress, appears at stated age Derm: warm, dry Head: atraumatic, normocephalic, symmetric Eyes: EOMI, no lid lag, anicteric sclera Mouth: no lip lesion, mucus membranes moist Cardiovascular: S1S2 reg, no murmur Lungs: CTA bilateral, no rhonchi, no rales , no accessory muscle use Abdominal: soft, nontender to palpation, no guarding, no appreciable organomegaly Ext: no gross muscle atrophy, no edema, no contractures Neuro: CN II-XI grossly intact, no focal neuro deficits Psych: Alert, oriented, appropriate affect Data Reviewed Today: No labs to review from today Blood pressure highest 138/70 Assessment and Plan: B-cell lymphoma on active chemotherapy Hypertension -Patient receiving chemotherapy, day 4 of 5 -Oncology managing chemotherapy regimen -Continue lisinopril 40 mg twice a day as needed -Labs are stable Thank you for allowing us to participate in the care of this pleasant patient. Do not hesitate to contact us with questions. Someone can be reached from the [facility] hospitalist group all hours of the day at [phone] or via perfect serve. Objective - Vital Signs Vital signs: Vital Signs Temp 97.9 F 07/12/22 08:05 Pulse 58 L 07/12/22 08:05 Resp 18 07/12/22 08:05 BP 136/81 07/12/22 08:05 Pulse Ox 99 07/12/22 08:05 FiO2 Intake & Output 07/11/22 07/12/22 07/12/22 18:59 06:59 18:59 Intake Total 1440 250 Balance 1440 250 Intake: Intake, IV Titration 1200 Amount Sodium Chloride 0.9% 1, 1200 000 ml @ 100 mls/hr IV . Q10H [facility] Rx#:[id number] Oral 240 250 Other: Voiding Method Toilet # Voids 8 1 # Bowel Movements 1 - Labs CBC & Chem 7: 07/11/22 07:42 07/11/22 07:42
[2022-07-12 15:26] LABS: Anisocytosis Slight; Basophils % (A) 0 %; Eosinophils % (A) 1 %; HCT 30.5 % (39.0-53.0); HGB 10.6 gm/dL (13.0-17.5); Lymphocytes # (A) 0.2 k/uL (1.0-4.8); Lymphocytes % (A) 4 %; MCH 31.7 pg (25.0-35.0); MCHC 34.8 g/dL (31.0-37.0); MCV 91.1 fL (80.0-100.0); Mean Platelet Volume 7.8; Monocytes # (A) 0.2 k/uL (0-1.0); Monocytes % (A) 5 %; Neutrophils % (A) 91 %; Platelet Count 199 k/uL (150-450); Poikilocytosis Slight; RBC 3.35 m/uL (4.30-5.90); RDW 19.1 % (11.5-15.5); WBC 4.4 k/uL (3.8-10.6)
[2022-07-12] MEDS: ONDANSETRON 16 MG in SODIUM CHLORIDE 0.9% 50 ML IVPB SCH (15:55)
[2022-07-12] MEDS: FAMOTIDINE 20 MG/2 ML VIAL IV SCH (15:55)
[2022-07-12 16:01] LABS: ALT 26 U/L (4-49); AST 17 U/L (17-59); African American GFR (CKD) >90 (>60 ml/min/1.73 sqM); Albumin 3.4 g/dL (3.5-5.0); Albumin/Globulin Ratio 1.7; Alkaline Phosphatase 67 U/L (38-126); Anion Gap 7 mmol/L; Blood Urea Nitrogen 23 mg/dL (9-20); Calcium 8.6 mg/dL (8.4-10.2); Carbon Dioxide 22 mmol/L (22-30); Chloride 107 mmol/L (98-107); Glucose 244 mg/dL (74-99); Non-African American GFR(CKD) >90 (>60 ml/min/1.73 sqM); Potassium 3.8 mmol/L (3.5-5.1); Sodium 136 mmol/L (137-145); Total Bilirubin 0.8 mg/dL (0.2-1.3); Total Protein 5.4 g/dL (6.3-8.2)
[2022-07-12] MEDS: DOXORUBICIN HCL IV SCH (16:13)
[2022-07-12] MEDS: VINCRISTINE SULFATE IV SCH (16:13)
[2022-07-12] MEDS: ETOPOSIDE IV SCH (16:13)
[2022-07-12] MEDS: [UNRECOGNIZED DRUG - OTHER] IV SCH (16:13)
--- NOTE | 2022-07-12 17:24 | P.PN ---
Subjective Progress Note Date: 07/12/22 Principal diagnosis: Burkitt's lymphoma -No acute events overnight, afebrile -Mr. Rodriguez reports feeling well without nausea, vomiting, diarrhea, fevers, or chills -He is tolerating oral diet without complications and is ambulating in the halls without assistance -He is currently cycle 3, day 4 of dose adjusted R-EPOCH Objective - Vital Signs Vital signs: Vital Signs Temp 97.9 F 07/12/22 16:00 Pulse 64 07/12/22 16:00 Resp 16 07/12/22 16:00 BP 145/79 07/12/22 16:00 Pulse Ox 97 07/12/22 16:00 FiO2 Intake & Output 07/11/22 07/12/22 07/12/22 18:59 06:59 18:59 Intake Total 1440 250 Balance 1440 250 Intake: Intake, IV Titration 1200 Amount Sodium Chloride 0.9% 1, 1200 000 ml @ 100 mls/hr IV . Q10H [facility] Rx#:[id number] Oral 240 250 Other: Voiding Method Toilet # Voids 8 1 5 # Bowel Movements 1 1 - Constitutional General appearance: Present: average body habitus, no acute distress - EENT Eyes: Present: EOMI - Respiratory Respiratory: bilateral: CTA - Cardiovascular Rhythm: regular - Gastrointestinal General gastrointestinal: Present: normal bowel sounds, soft. Absent: distended, tenderness - Integumentary Integumentary: Present: pale. Absent: rash - Neurologic Neurologic: Present: CNII-XII intact. Absent: focal deficits - Labs CBC & Chem 7: 07/12/22 14:38 07/12/22 14:38 Labs: Abnormal Lab Results - Last 24 Hours (Table) 07/12/22 07/12/22 Range/Units 14:38 14:38 RBC 3.35 L (4.30-5.90) m/uL Hgb 10.6 L (13.0-17.5) gm/dL Hct 30.5 L (39.0-53.0) % RDW 19.1 H (11.5-15.5) % Lymphocytes # 0.2 L (1.0-4.8) k/uL Sodium 136 L (137-145) mmol/L BUN 23 H (9-20) mg/dL Creatinine 0.44 L (0.66-1.25) mg/dL Glucose 244 H (74-99) mg/dL Total Protein 5.4 L (6.3-8.2) g/dL Albumin 3.4 L (3.5-5.0) g/dL Assessment and Plan (1) Burkitt lymphoma of extranodal or solid organ site Current Visit: Yes Status: Acute Code(s): C83.79 - BURKITT LYMPHOMA, EXTRANODAL AND SOLID ORGAN SITES SNOMED Code(s): 35593601 Plan: Stage IV Burkitt's lymphoma -Currently on day 3, cycle 4 of of dose 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 -He did have a 2-week delay in cycle 3 due to rectal abscess following cycle 2 -He is tolerating treatment well today without complications -Continue with liposomal doxorubicin, cytarabine, and vincristine through day 4 along with prednisone through day 5 -Cyclophosphamide due on day 5 -CBC today notes hemoglobin of 10.6 with no neutropenia or thrombocytopenia -Continue acyclovir for viral prophylaxis -He will need fungal prophylaxis with fluconazole along with bacterial prophylaxis with ciprofloxacin once ANC is less than 1000 -Transfuse for hemoglobin less than 7 -Transfuse for platelets less than 10,000 and/or bleeding
[2022-07-13] MEDS: SALT AND SODA MOUTHWASH 1,000 ML PO SCH ×5 (00:04→19:29)
[2022-07-13] MEDS: SODIUM CHLORIDE 0.9% 1,000 ML IV SCH ×2 (04:08→17:30)
[2022-07-13] MEDS: FOLIC ACID 1 MG TAB PO SCH (08:49)
[2022-07-13] MEDS: CHOLECALCIFEROL 125 MCG (5000 IU) TABLET PO SCH (08:49)
[2022-07-13] MEDS: predniSONE 10 MG TAB PO SCH ×2 (08:49→20:10)
[2022-07-13] MEDS: ACYCLOVIR 200 MG CAP PO SCH ×2 (08:49→20:10)
[2022-07-13] MEDS: predniSONE 50 MG TAB PO SCH ×2 (08:49→20:10)
[2022-07-13] MEDS: allopurinoL 100 MG TAB PO SCH (08:49)
[2022-07-13] MEDS: FLUTICASONE 50MCG/SPRAY NASAL 16GM EA NOSTRIL SCH (08:50)
[2022-07-13 09:28] LABS: Basophils # (A) 0.01 X 10*3/uL (0.00-0.10); Basophils % (A) 0.1 %; Eosinophils # (A) 0 X 10*3/uL (0.04-0.35); Eosinophils % (A) 0 %; HCT 33.5 % (39.6-50.0); HGB 10.8 g/dL (13.0-17.0); Immature Grans, Automated 0.3 %; Lymphocytes # (A) 0.13 X 10*3/uL (0.90-5.00); Lymphocytes % (A) 1.4 %; MCH 29.8 pg (27.0-32.0); MCHC 32.2 g/dL (32.0-37.0); MCV 92.3 fL (80.0-97.0); Monocytes # (A) 0.16 X 10*3/uL (0.20-1.00); Monocytes % (A) 1.8 %; NRBC Per 100 WBC 0 /100 WBCS (0.0-0.0); Neutrophils # (A) 8.75 X 10*3/uL (1.80-7.70); Neutrophils % (A) 96.4 %; Platelet Count 200 X 10*3/uL (140-440); RBC 3.63 X 10*6/uL (4.40-5.60); RDW 19.4 % (11.5-14.5); WBC 9.08 X 10*3/uL (4.50-10.00)
[2022-07-13 09:36] LABS: African American GFR (CKD) 137.5 (60.0-200.0); Albumin 3.7 g/dL (3.8-4.9); Albumin/Globulin Ratio 2.47 (1.60-3.17); Anion Gap 9.7 mmol/L (10.00-18.00); BUN/Creat Ratio 44.2 Ratio (12.00-20.00); Blood Urea Nitrogen 22.1 mg/dL (9.0-27.0); Carbon Dioxide 24.3 mmol/L (20.0-27.5); Globulin 1.5 g/dL (1.6-3.3); Non-African American GFR(CKD) 118.6 (60.0-200.0); Potassium 3.7 mmol/L (3.5-5.5); Total Bilirubin 0.7 mg/dL (0.30-1.20); Total Protein 5.2 g/dL (6.2-8.2)
--- NOTE | 2022-07-13 12:30 | P.PN ---
Subjective Progress Note Date: 07/13/22 Principal diagnosis: inpatient chemo At today's visit patient sitting at bedside chair. Pt reports feeling very well. He denies any symptoms or adverse rxn to chemo. Tolerating oral intake Objective - Vital Signs Vital signs: Vital Signs Temp 97.6 F 07/13/22 12:00 Pulse 65 07/13/22 12:00 Resp 16 07/13/22 12:00 BP 147/86 07/13/22 12:00 Pulse Ox 99 07/13/22 12:00 FiO2 Intake & Output 07/12/22 07/13/22 07/13/22 18:59 06:59 18:59 Intake Total 250 1460 Balance 250 1460 Intake: Intake, IV Titration 1460 Amount Etoposide 90 mg 260 vinCRIStine SULFATE 0.75 mg DOXOrubicin HCL 19 mg In Sodium Chloride 0.9% 500 ml 500 ml @ 21.448 mls/hr IV Q24H [facility] Rx#: [id number] Sodium Chloride 0.9% 1, 1200 000 ml @ 100 mls/hr IV . Q10H [facility] Rx#:[id number] Oral 250 Other: Voiding Method Toilet Toilet # Voids 5 3 # Bowel Movements 1 - Constitutional General appearance: Present: average body habitus, no acute distress - EENT Eyes: Present: anicteric sclerae, EOMI ENT: Present: hearing grossly normal - Respiratory Details: breathing is even and unlabored - Cardiovascular Details: skin warm and dry - Peripheral edema leg Peripheral Edema: bilateral: 1+ - Integumentary Integumentary: Present: pale - Musculoskeletal Musculoskeletal: Present: strength equal bilaterally - Psychiatric Psychiatric: Present: A&O x's 3, appropriate affect, intact judgment & insight - Labs CBC & Chem 7: 07/13/22 06:02 07/13/22 06:02 Labs: Abnormal Lab Results - Last 24 Hours (Table) 07/12/22 07/12/22 07/13/22 Range/Units 14:38 14:38 06:02 RBC 3.35 L 3.63 L (4.30-5.90) m/uL Hgb 10.6 L 10.8 L (13.0-17.5) gm/dL Hct 30.5 L 33.5 L (39.0-53.0) % RDW 19.1 H 19.4 H (11.5-15.5) % Neutrophils # 8.75 H (1.80-7.70) X 10*3/uL Lymphocytes # 0.2 L 0.13 L (1.0-4.8) k/uL Monocytes # 0.16 L (0.20-1.00) X 10*3/uL Eosinophils # 0 L (0.04-0.35) X 10*3/uL Sodium 136 L (137-145) mmol/L Anion Gap (10.00-18.00) mmol/L BUN 23 H (9-20) mg/dL Creatinine 0.44 L (0.66-1.25) mg/dL BUN/Creatinine Ratio (12.00-20.00) Ratio Glucose 244 H (74-99) mg/dL AST (14-35) U/L Total Protein 5.4 L (6.3-8.2) g/dL Albumin 3.4 L (3.5-5.0) g/dL Globulin (1.6-3.3) g/dL 07/13/22 Range/Units 06:02 RBC (4.30-5.90) m/uL Hgb (13.0-17.5) gm/dL Hct (39.0-53.0) % RDW (11.5-15.5) % Neutrophils # (1.80-7.70) X 10*3/uL Lymphocytes # (1.0-4.8) k/uL Monocytes # (0.20-1.00) X 10*3/uL Eosinophils # (0.04-0.35) X 10*3/uL Sodium (137-145) mmol/L Anion Gap 9.70 L (10.00-18.00) mmol/L BUN (9-20) mg/dL Creatinine 0.5 L (0.66-1.25) mg/dL BUN/Creatinine Ratio 44.20 H (12.00-20.00) Ratio Glucose 129 H (74-99) mg/dL AST 11 L (14-35) U/L Total Protein 5.2 L (6.3-8.2) g/dL Albumin 3.7 L (3.5-5.0) g/dL Globulin 1.5 L (1.6-3.3) g/dL Assessment and Plan (1) B-cell lymphoma Current Visit: Yes Status: Acute Priority: High Code(s): C85.10 - UNSPECIFIED B-CELL LYMPHOMA, UNSPECIFIED SITE SNOMED Code(s): 540738822 Plan: B-Cell Lymphoma: Admit for cycle 3 dose adjusted R-EPOCH -Internal medicine consulted for medical management -Activity, ambulate 4 times a day with shoes on -Diet, as tolerated -Supportive medications ordered, Scheduled and when necessary -Cools solution for oral irritation -GI and DVT prophylaxis -[place] fluid intake -Hemoglobin 10.6, platelets 199,000. Will continue to monitor -Day 5 of cycle 3. Pt reports feeling well with no reported symptoms. Will continue with chemo as planned -Prophylactic antiviral ordered. Will start pt on prophylactic cipro and diflucan prior to discharge, or sooner if ANC drops below 1000. ANC 4,000
[2022-07-13] MEDS ORDERED: CYCLOPHOSPHAMIDE IV ONE (14:00)
[2022-07-13] MEDS ORDERED: SODIUM CHLORIDE 0.9% IV ONE (14:00)
--- NOTE | 2022-07-13 17:17 | P.PN ---
Subjective Progress Note Date: 07/13/22 Patient seen and examined at bedside. No acute events overnight. He denies any complaints. His is at bedside. General: nontoxic, no distress, appears at stated age Derm: warm, dry Head: atraumatic, normocephalic, symmetric Eyes: EOMI, no lid lag, anicteric sclera Mouth: no lip lesion, mucus membranes moist Cardiovascular: Good distal perfusion in all 4 extremities. Lungs: no accessory muscle use Ext: no gross muscle atrophy, no edema, no contractures Neuro: no focal neuro deficits Psych: Alert, oriented, appropriate affect Data Reviewed Today: CBC shows hemoglobin of 10.8. CMP shows creatinine of 0.5, glucose 129, albumin of 3.7. BP 157/92. B-cell lymphoma on active chemotherapy Hypertension -Patient receiving chemotherapy, day 5 of 5 -Oncology managing chemotherapy regimen -Continue lisinopril 40 mg twice a day as needed -Labs are stable Thank you for allowing us to participate in the care of this pleasant patient. Do not hesitate to contact us with questions. Someone can be reached from the [facility] hospitalist group all hours of the day at [phone] or via [employer]. Objective - Vital Signs Vital signs: Vital Signs Temp 97.8 F 07/13/22 16:00 Pulse 70 07/13/22 16:00 Resp 16 07/13/22 16:00 BP 157/92 07/13/22 16:00 Pulse Ox 99 07/13/22 16:00 FiO2 Intake & Output 07/12/22 07/13/22 07/13/22 18:59 06:59 18:59 Intake Total 250 1460 Balance 250 1460 Intake: Intake, IV Titration 1460 Amount Etoposide 90 mg 260 vinCRIStine SULFATE 0.75 mg DOXOrubicin HCL 19 mg In Sodium Chloride 0.9% 500 ml 500 ml @ 21.448 mls/hr IV Q24H [facility] Rx#: [id number] Sodium Chloride 0.9% 1, 1200 000 ml @ 100 mls/hr IV . Q10H [facility] Rx#:[id number] Oral 250 Other: Voiding Method Toilet Toilet # Voids 5 3 # Bowel Movements 1 - Labs CBC & Chem 7: 07/13/22 06:02 07/13/22 06:02 Labs: Abnormal Lab Results - Last 24 Hours (Table) 07/13/22 07/13/22 Range/Units 06:02 06:02 RBC 3.63 L (4.40-5.60) X 10*6/uL Hgb 10.8 L (13.0-17.0) g/dL Hct 33.5 L (39.6-50.0) % RDW 19.4 H (11.5-14.5) % Neutrophils # 8.75 H (1.80-7.70) X 10*3/uL Lymphocytes # 0.13 L (0.90-5.00) X 10*3/uL Monocytes # 0.16 L (0.20-1.00) X 10*3/uL Eosinophils # 0 L (0.04-0.35) X 10*3/uL Anion Gap 9.70 L (10.00-18.00) mmol/L Creatinine 0.5 L (0.6-1.5) mg/dL BUN/Creatinine Ratio 44.20 H (12.00-20.00) Ratio Glucose 129 H (70-110) mg/dL AST 11 L (14-35) U/L Total Protein 5.2 L (6.2-8.2) g/dL Albumin 3.7 L (3.8-4.9) g/dL Globulin 1.5 L (1.6-3.3) g/dL
[2022-07-13] MEDS: ONDANSETRON 16 MG in SODIUM CHLORIDE 0.9% 50 ML IVPB SCH (17:28)
[2022-07-13] MEDS: FAMOTIDINE 20 MG/2 ML VIAL IV SCH (17:28)
[2022-07-14] MEDS: SALT AND SODA MOUTHWASH 1,000 ML PO SCH ×3 (00:20→12:29)
[2022-07-14] MEDS: SODIUM CHLORIDE 0.9% 1,000 ML IV SCH ×2 (00:20→11:35)
[2022-07-14 08:04] VITALS: BP 143/83; PULSE 65; RESP 17; TEMP 98.3
[2022-07-14 09:41] LABS: Basophils # (A) 0 X 10*3/uL (0.00-0.10); Basophils % (A) 0 %; Eosinophils # (A) 0 X 10*3/uL (0.04-0.35); Eosinophils % (A) 0 %; HCT 28.6 % (39.6-50.0); HGB 9.6 g/dL (13.0-17.0); Immature Grans, Automated 0.6 %; Lymphocytes # (A) 0.18 X 10*3/uL (0.90-5.00); Lymphocytes % (A) 5.5 %; MCH 30.3 pg (27.0-32.0); MCHC 33.6 g/dL (32.0-37.0); MCV 90.2 fL (80.0-97.0); Mean Platelet Volume 10.1 fL (9.5-12.2); Monocytes # (A) 0.03 X 10*3/uL (0.20-1.00); Monocytes % (A) 0.9 %; NRBC Per 100 WBC 0 /100 WBCS (0.0-0.0); Neutrophils # (A) 3.06 X 10*3/uL (1.80-7.70); Platelet Count 171 X 10*3/uL (140-440); RBC 3.17 X 10*6/uL (4.40-5.60); RDW 18.7 % (11.5-14.5); WBC 3.29 X 10*3/uL (4.50-10.00)
[2022-07-14 09:44] LABS: African American GFR (CKD) 137.5 (60.0-200.0); Albumin 3.7 g/dL (3.8-4.9); Albumin/Globulin Ratio 2.64 (1.60-3.17); Anion Gap 13.2 mmol/L (10.00-18.00); BUN/Creat Ratio 34.8 Ratio (12.00-20.00); Blood Urea Nitrogen 17.4 mg/dL (9.0-27.0); Calcium 9.1 mg/dL (8.7-10.3); Carbon Dioxide 22.8 mmol/L (20.0-27.5); Globulin 1.4 g/dL (1.6-3.3); Non-African American GFR(CKD) 118.6 (60.0-200.0); Total Protein 5.1 g/dL (6.2-8.2)
[2022-07-14] MEDS: FOLIC ACID 1 MG TAB PO SCH (10:44)
[2022-07-14] MEDS: allopurinoL 100 MG TAB PO SCH (10:44)
[2022-07-14] MEDS: ACYCLOVIR 200 MG CAP PO SCH (10:44)
[2022-07-14] MEDS: CHOLECALCIFEROL 125 MCG (5000 IU) TABLET PO SCH (10:44)
[2022-07-14] MEDS: FLUTICASONE 50MCG/SPRAY NASAL 16GM EA NOSTRIL SCH (10:47)
--- NOTE | 2022-07-14 11:49 | P.PN ---
Subjective Progress Note Date: 07/14/22 Patient seen and examined at bedside. No acute events overnight. He denies any complaints. General: nontoxic, no distress, appears at stated age Derm: warm, dry Head: atraumatic, normocephalic, symmetric Eyes: EOMI, no lid lag, anicteric sclera Mouth: no lip lesion, mucus membranes moist Cardiovascular: Normal S1-S2. No murmurs rubs or gallops. Lungs: no accessory muscle use. Clear to auscultation bilaterally Ext: no gross muscle atrophy, no edema, no contractures Neuro: no focal neuro deficits Psych: Alert, oriented, appropriate affect Data Reviewed Today: CBC shows hemoglobin of WBC count of 3.29, hemoglobin 9.6. CMP shows creatinine of 0.5, glucose 126, albumin of 3.7. BP 157/92. B-cell lymphoma on active chemotherapy Hypertension -Oncology managing chemotherapy regimen -Continue lisinopril 40 mg twice a day as needed -Labs are stable Anticipated discharge home today. Thank you for allowing us to participate in the care of this pleasant patient. Do not hesitate to contact us with questions. Someone can be reached from the [facility] hospitalist group all hours of the day at [phone] or via [employer]iti. Objective - Vital Signs Vital signs: Vital Signs Temp 98.3 F 07/14/22 07:47 Pulse 65 07/14/22 07:47 Resp 17 07/14/22 07:47 BP 143/83 07/14/22 07:47 Pulse Ox 100 07/14/22 07:47 FiO2 Intake & Output 07/13/22 07/14/22 07/14/22 18:59 06:59 18:59 Intake Total 2059 Balance 2059 Intake: Intake, IV Titration 1460 Amount Etoposide 90 mg 260 vinCRIStine SULFATE 0.75 mg DOXOrubicin HCL 19 mg In Sodium Chloride 0.9% 500 ml 500 ml @ 21.448 mls/hr IV Q24H [facility] Rx#: [id number] Sodium Chloride 0.9% 1, 1200 000 ml @ 100 mls/hr IV . Q10H [facility] Rx#:[id number] Oral 600 Other: Voiding Method Toilet Toilet Toilet # Voids 4 - Labs CBC & Chem 7: 07/14/22 06:17 07/14/22 06:17 Labs: Abnormal Lab Results - Last 24 Hours (Table) 07/14/22 07/14/22 Range/Units 06:17 06:17 WBC 3.29 L (4.50-10.00) X 10*3/uL RBC 3.17 L (4.40-5.60) X 10*6/uL Hgb 9.6 L (13.0-17.0) g/dL Hct 28.6 L (39.6-50.0) % RDW 18.7 H (11.5-14.5) % Lymphocytes # 0.18 L (0.90-5.00) X 10*3/uL Monocytes # 0.03 L (0.20-1.00) X 10*3/uL Eosinophils # 0 L (0.04-0.35) X 10*3/uL Creatinine 0.5 L (0.6-1.5) mg/dL BUN/Creatinine Ratio 34.80 H (12.00-20.00) Ratio Glucose 126 H (70-110) mg/dL AST 9 L (14-35) U/L Total Protein 5.1 L (6.2-8.2) g/dL Albumin 3.7 L (3.8-4.9) g/dL Globulin 1.4 L (1.6-3.3) g/dL
--- NOTE | 2022-07-14 13:32 | P.DS ---
Providers Date of admission: 07/09/22 08:50 Expected date of discharge: 07/14/22 Attending physician: Syd Miller Consults: 07/09/22 10:23 Consult Physician Routine Consulting Provider: Drake Elizabeth Consult Reason/Comments: inpatient medical management, inpatient chemo Do you want consulting provider notified?: Yes Placement Type Exists?: Yes Primary care physician: Tom Sandy - Discharge Diagnosis(es) (1) B-cell lymphoma Admitted for cycle 3 R-EPOCH. No adverse events noted, no hematological toxicities. Mild BLE swelling. Denies SOB, CP, dizziness, n/v/d. He is tolerating oral intake well. Patient is looking forward to d/c. 10 point ROS is negative except as stated in HPI Current Visit: Yes Status: Acute Priority: High Patient Condition at Discharge: Good Plan - Discharge Summary Discharge Rx Participant: Yes New Discharge Prescriptions: No Action Cholecalciferol [Vitamin D3 (125 Mcg = 5000 Iu)] 125 mcg PO DAILY lisinopriL 40 mg PO BID PRN PRN Reason: Blood Pressure - High Fluticasone Nasal [place] [Flonase Nasal [place]] 1 spr EA NOSTRIL DAILY Folic Acid 1 mg PO DAILY Docusate [Colace] 100 mg PO DAILY PRN PRN Reason: Constipation allopurinoL 100 mg PO DAILY Discharge Medication List Cholecalciferol [Vitamin D3 (125 Mcg = 5000 Iu)] 125 mcg PO DAILY 04/22/22 [History] Fluticasone Nasal [place] [Flonase Nasal [place]] 1 spr EA NOSTRIL DAILY 05/01/22 [History] Folic Acid 1 mg PO DAILY 05/10/22 [History] Docusate [Colace] 100 mg PO DAILY PRN 06/01/22 [History] allopurinoL 100 mg PO DAILY 07/03/22 [History] lisinopriL 40 mg PO BID PRN 07/07/22 [History] Follow up Appointment(s)/Referral(s): Syd Miller MD [STAFF PHYSICIAN] - 1 Week (please call for appointment, office closed.) Tom Sandy DO [Primary Care Provider] - 1 Week (please call for appointment. office is closed at time of discharge.) Patient Instructions/Handouts: Non-Hodgkin Lymphoma (DC) Plan of Treatment: [place] fluids Diet and activity as tolerated monitor for fever, and call office for fever of 100.5 or higher Begin prophylactic medications. Medications already sent to patients pharmacy Avoid sick contacts, practice good hand hygiene and were mask around others
== END 2022-07-14 13:56 | disposition home or self-care (01) | DRG 847 ==
LOC: 5NMEDONC 08:50
PROVIDERS: ADMIT Internal Medicine Hematology & Oncology; ATTEND Internal Medicine Hematology & Oncology
DX: Z51.11 Encounter for antineoplastic chemotherapy (principal); C83.79 Burkitt lymphoma, extranodal and solid organ sites; I10 Essential (primary) hypertension; K21.9 Gastro-esophageal reflux disease without esophagitis; E78.5 Hyperlipidemia, unspecified; M19.90 Unspecified osteoarthritis, unspecified site; K44.9 Diaphragmatic hernia without obstruction or gangrene; M10.9 Gout, unspecified; M06.9 Rheumatoid arthritis, unspecified; R16.0 Hepatomegaly, not elsewhere classified; K76.9 Liver disease, unspecified; Z79.899 Other long term (current) drug therapy; Z87.891 Personal history of nicotine dependence; Z88.5 Allergy status to narcotic agent; Z88.2 Allergy status to sulfonamides; Z28.310 Unvaccinated for COVID-19
CPT/HCPCS: 80048; 80053; 84550; 85025

== ENCOUNTER 2022-08-07 08:51 | Inpatient (IN) | payer MEDICARE, OTHER ==
[2022-08-07] MEDS ORDERED: ONDANSETRON 4 MG/2 ML VIAL IVP PRN (09:00)
[2022-08-07] MEDS ORDERED: DOCUSATE 100 MG CAP PO PRN (10:22)
[2022-08-07] MEDS ORDERED: MAGNESIUM HYDROXIDE 2,400 MG/10 ML CUP PO PRN (10:22)
[2022-08-07] MEDS ORDERED: LOPERAMIDE 2 MG CAP PO PRN (10:39)
[2022-08-07 10:52] LABS: Anisocytosis Slight; Basophils % (A) 0 %; Eosinophils % (A) 0 %; HCT 35.3 % (39.0-53.0); HGB 12.1 gm/dL (13.0-17.5); Lymphocytes # (A) 0.7 k/uL (1.0-4.8); Lymphocytes % (A) 7 %; MCH 31.3 pg (25.0-35.0); MCHC 34.3 g/dL (31.0-37.0); MCV 91.4 fL (80.0-100.0); Mean Platelet Volume 8.6; Monocytes # (A) 0.8 k/uL (0-1.0); Monocytes % (A) 8 %; Neutrophils % (A) 83 %; Platelet Count 172 k/uL (150-450); Poikilocytosis Slight; RBC 3.86 m/uL (4.30-5.90); RDW 18.1 % (11.5-15.5); WBC 9.7 k/uL (3.8-10.6)
[2022-08-07 11:06] LABS: ALT 21 U/L (4-49); AST 19 U/L (17-59); Albumin 4.6 g/dL (3.5-5.0); Alkaline Phosphatase 88 U/L (38-126); Blood Urea Nitrogen 27 mg/dL (9-20); Calcium 9.8 mg/dL (8.4-10.2); Carbon Dioxide 19 mmol/L (22-30); Glucose 99 mg/dL (74-99); Potassium 4.4 mmol/L (3.5-5.1); Sodium 139 mmol/L (137-145); Total Bilirubin 0.8 mg/dL (0.2-1.3); Uric Acid 6.6 mg/dL (3.5-8.5)
[2022-08-07 11:07] LABS: African American GFR (CKD) >90 (>60 ml/min/1.73 sqM); Albumin/Globulin Ratio 1.9; Anion Gap 12 mmol/L; Chloride 108 mmol/L (98-107); Globulin 2.4 g/dL; Non-African American GFR(CKD) >90 (>60 ml/min/1.73 sqM)
[2022-08-07] MEDS: SODIUM CHLORIDE 0.9% 1,000 ML IV SCH ×2 (12:23→19:55)
[2022-08-07] MEDS: predniSONE 50 MG TAB PO SCH ×2 (12:23→20:27)
[2022-08-07] MEDS: predniSONE 10 MG TAB PO SCH ×2 (12:23→20:26)
[2022-08-07] MEDS: ONDANSETRON 16 MG in SODIUM CHLORIDE 0.9% 50 ML IVPB SCH (12:24)
[2022-08-07] MEDS: SALT AND SODA MOUTHWASH 1,000 ML PO SCH ×4 (12:24→23:51)
[2022-08-07] MEDS: FAMOTIDINE 20 MG/2 ML VIAL IV SCH (12:25)
[2022-08-07] MEDS: [UNRECOGNIZED DRUG - OTHER] IV SCH (13:50)
[2022-08-07] MEDS: VINCRISTINE SULFATE IV SCH (13:50)
[2022-08-07] MEDS: ETOPOSIDE IV SCH (13:50)
[2022-08-07] MEDS: DOXORUBICIN HCL IV SCH (13:50)
[2022-08-07] MEDS ORDERED: FLUTICASONE 50MCG/SPRAY NASAL 16GM EA NOSTRIL PRN (14:22)
[2022-08-07] MEDS ORDERED: lisinopriL 20 MG TAB PO PRN (14:22)
--- NOTE | 2022-08-07 15:10 | P.HPIM ---
History of Present Illness H&P Date: 08/07/22 Chief Complaint: inpatient chemotherapy Patient is a 61-year-old man with PHM Of hypertension, hyperlipidemia, gout and rheumatoid arthritis. He had been started on methotrexate in March/2022, last IT tx 08/05/22. Initially he presented to the ER with complaints of chest pain, persistent and progressive, associated symptoms of diaphoresis and shortness of breath, reported constitutional symptoms of night sweats, 10 pound unintentional weight loss, decreased appetite. CT AP showed hepatomegaly, 1.2 cm liver lesion, CT of the chest did not show any mediastinal adenopathy or parenchymal lesions. CT of the neck showed bilateral parotid masses. Core biopsy left neck mass 04/27/22, positive for high grade B cell NHL. Our office contacted the patient 05/01/22 to discuss the biopsy results and to set up further testing, patient was back in the ER around 05/03 with difficulty swallowing and speaking. Neurology saw patient, right cranial nerve XII palsy. MRI, laryngoscopy did show some prominence in soft tissue in the right tonsillar fossa, right base of the tongue area. MRI of the brain did not show any parenchymal lesions or meningeal enhancement. Patient improved and was discharged, he had his staging PET scan, but unfortunately he was admitted again because of shortness of breath 05/11. Due to patient's persistent and progressive symptoms it was decided to begin treatment inpatient. Patient had an echo showing normal LV EF, he had a PICC line placed. Labs showed spontaneous tumor lysis, he was given a dose of Elitek and started on allopurinol. He started dose adjusted R-EPOCH 05/12. He did very well post treatment, his previous symptoms have resolved all except for a small amount of numbness on the lower part of his jaw. He received his first dose of prophylactic intrathecal chemotherapy 06/01/22, and has received last treatment on 222 doses thus far. Plan for a total of 6 treatments. He is currently admitted for his fourth cycle of DA R-EPOCH. Pt reports feeling very well. He denies fevers, chills, shortness of breath, chest pain, cough, nausea, vomiting, abdominal pain, acute changes in bowel or bladder habits. Review of Systems 10 point ROS is negative except as stated in HPI Past Medical History Past Medical History: Cancer, GERD/Reflux, Hyperlipidemia, Hypertension, Osteoarthritis (OA) Additional Past Medical History / Comment(s): hiatal hernia, gout, non hogkins b cell lymphoma , rectal abscess with drainage History of Any Multi-Drug Resistant Organisms: None Reported Past Surgical History: Orthopedic Surgery, Tonsillectomy Additional Past Surgical History / Comment(s): claude shoulder rotator cuff repair, cyst removal rt wrist, oral surgery , surgery for pyloric stenosis as infant Past Anesthesia/Blood Transfusion Reactions: No Reported Reaction Past Psychological History: No Psychological Hx Reported Smoking Status: Never smoker Past Alcohol Use History: Occasional Additional Past Alcohol Use History / Comment(s): Quit drinking in 2021 Past Drug Use History: None Reported Additional Drug Use History / Comment(s): CBD oil for pain-- chewed tobacco many years ago - Past Family History Mother Family Medical History: No Reported History Father Family Medical History: Unable to Obtain Occupational Seizure History - Commerical Driving History Currently uses [employer] for employment (including self-employed).: No Medications and Allergies Home Medications Medication Instructions Recorded Confirmed Type Cholecalciferol [Vitamin D3 (125 125 mcg PO DAILY 04/22/22 08/07/22 History Mcg = 5000 Iu)] Fluticasone Nasal [place] [Flonase 1 spray EA NOSTRIL DAILY 05/01/22 08/07/22 History Nasal [place]] allopurinoL 100 mg PO DAILY 07/03/22 08/07/22 History lisinopriL 40 mg PO BID PRN 07/07/22 08/07/22 History Acyclovir [Zovirax] 400 mg PO BID 08/07/22 08/07/22 History Fluconazole [Diflucan] 100 mg PO DAILY 08/07/22 08/07/22 History Fluticasone Nasal [place] [Flonase 1 spray EA NOSTRIL HS PRN 08/07/22 08/07/22 History Nasal [place]] Ondansetron Odt [Zofran Odt] 8 mg PO Q8HR PRN 08/07/22 08/07/22 History Allergies Allergy/AdvReac Type Severity Reaction Status Date / Time tramadol Allergy Rash/Hives Verified 08/07/22 11:15 & hallucinations sulfamethoxazole AdvReac Nausea Verified 08/07/22 11:15 [From Bactrim] trimethoprim [From Bactrim] AdvReac Nausea Verified 08/07/22 11:15 Physical Exam Vitals: Vital Signs Temp Pulse Resp BP Pulse Ox 08/07/22 14:01 97.6 F 82 14 133/84 98 08/07/22 12:08 97.9 F 70 16 149/79 99 08/07/22 09:10 97.7 F 94 17 134/84 100 Intake and Output 08/06/22 08/07/22 08/07/22 22:59 06:59 14:59 Other: Voiding Method Toilet Weight 76.657 kg - Constitutional General appearance: average body habitus, no acute distress - EENT Eyes: anicteric sclerae, EOMI ENT: hearing grossly normal - Neck Neck: no lymphadenopathy - Respiratory Respiratory: bilateral: CTA - Cardiovascular Rhythm: regular Heart sounds: normal: S1, S2 Abnormal Heart Sounds: no systolic murmur, no diastolic murmur, no rub, no S3 Gallop, no S4 Gallop, no click, no other leg Peripheral Edema: bilateral: None - Gastrointestinal General gastrointestinal: soft, no tenderness - Integumentary Integumentary: normal - Neurologic right tongue deviation persisting - Musculoskeletal Musculoskeletal: strength equal bilaterally - Psychiatric Psychiatric: A&O x's 3, appropriate affect, intact judgment & insight Results CBC & Chem 7: 08/07/22 10:40 08/07/22 10:40 Labs: Abnormal Lab Results - Last 24 Hours (Table) 08/07/22 08/07/22 Range/Units 10:40 10:40 RBC 3.86 L (4.30-5.90) m/uL Hgb 12.1 L (13.0-17.5) gm/dL Hct 35.3 L (39.0-53.0) % RDW 18.1 H (11.5-15.5) % Neutrophils # 8.0 H (1.3-7.7) k/uL Lymphocytes # 0.7 L (1.0-4.8) k/uL Chloride 108 H (98-107) mmol/L Carbon Dioxide 19 L (22-30) mmol/L BUN 27 H (9-20) mg/dL Creatinine 0.58 L (0.66-1.25) mg/dL Thrombosis Risk Factor Assmnt - DVT/VTE Prophylaxis DVT/VTE Prophylaxis: Pharmacologic Prophylaxis ordered - Choose All That Apply Each Factor Represents 1 point: Age 41-60 years Each Risk Factor Represents 2 Points: Malignancy Other congenital or acquired thrombophilia - If yes, enter type in comment: No Thrombosis Risk Factor Assessment Total Risk Factor Score: 3 Thrombosis Risk Factor Assessment Level: Moderate Risk Assessment and Plan (1) B-cell lymphoma Current Visit: Yes Status: Acute Priority: High Code(s): C85.10 - UNSPECIFIED B-CELL LYMPHOMA, UNSPECIFIED SITE SNOMED Code(s): 180036706 Plan: B-Cell Lymphoma: Admit for cycle 4 dose adjusted R-EPOCH -Internal medicine consulted for medical management -Orders reviewed -Home medications reconciled -Activity, ambulate 4 times a day with shoes on -Diet, as tolerated -Supportive medications ordered, Scheduled and when necessary -Cools solution for oral irritation -GI and DVT prophylaxis -Art fluid intake -Hemoglobin 12.1, platelets 172,000, uric acid 6.6. Will continue to monitor daily Dr. raphaelests: I seen and examined patient, performed H&P, developed impression and plan of care. Discussed with dictator. Agree with documentation, dictated as a scribe.
[2022-08-07] MEDS ORDERED: MAG HYDROX/AL HYDROX/SIMETH 30 ML, diphenhydrAMINE ELIXIR 75 MG, LIDOCAINE VISCOUS 2% 3... PO PRN ×3 (16:00)
--- NOTE | 2022-08-07 18:01 | P.CONS ---
History of Present Illness - Reason for Consult Consult date: 08/07/22 - Chief Complaint medical management - History of Present Illness 62-year-old man with medical history of diffuse large B-cell lymphoma, hypertension, hyperlipidemia, gout, rheumatoid arthritis presented for chemotherapy as an oncology admission. Oncology team consulted medicine for medical management. Patient has been doing well and has no complaints. He recently received intrathecal chemotherapy on 08/05/22, and is now presenting for systemic chemotherapy with DA R-EPOCH cycle 4 of 6. Patient denies fevers, chills, nausea, vomiting, chest pain, palpitations, syncope, presyncope, cough, dyspnea, abdominal pain, constipation, diarrhea, dysuria, dyschezia, numbness/weakness of extremities. Upon my evaluation, patient is afebrile, 133/84, heart rate 82, 98% on room air. CBC demonstrates anemia down to 12.1, otherwise unremarkable. Basic metabolic panel shows chloride of 108, bicarbonate 19, BUN 27, creatinine of 0.58. Her function tests are unremarkable. No imaging to review. All Systems reviewed and pertinent positives and negatives noted in HPI, all other symptoms are negative Gen: in no apparent distress, resting comfortably in bed Eyes: PERRL, no scleral injection or icterus HENT: normocephalic, atraumatic, good hearing acuity, moist mucous membranes Neck: no tracheal deviation, full range of motion Resp: good air exchange, breathing comfortably with no accessory muscle use, no tactile fremitus CVS: good distal perfusion x 4, no pitting edema GI: soft, NTTP, ND, no hepatosplenomegaly : no suprapubic tenderness, no CVAT, guzman catheter not present MSK: no clubbing, no cyanosis, no noted contractures of extremities Skin: no noted rashes, petechiae; temperature of skin is appropriate Neuro: moving all extremities without signs of weakness, CN II-XII intact Psych: cooperative, euthymic mood, insight and judgment intact Assessment: Diffuse large B-cell lymphoma Hypertension Hyperlipidemia Gout GERD Rheumatoid arthritis Plan: Vital signs reviewed and noted in the HPI above Lab work reviewed and noted in HPI above Agree with CBC, CMP, uric acid tomorrow Medication reconciliation reviewed, agree with resuming lisinopril 40 mg twice a day Agree with resuming acyclovir 40 mg by mouth twice a day Agree with resuming fluticasone nasal spray Patient is currently on prednisone 100 mg by mouth twice a day, status post #1 of 4 bags of etoposide 90 mg/vincristine 0.75 mg/doxorubicin 19 mg scheduled daily Patient is full code DVT prophylaxis with Lovenox Past Medical History Past Medical History: Cancer, GERD/Reflux, Hyperlipidemia, Hypertension, Osteoarthritis (OA) Additional Past Medical History / Comment(s): hiatal hernia, gout, non hogkins b cell lymphoma , rectal abscess with drainage History of Any Multi-Drug Resistant Organisms: None Reported Past Surgical History: Orthopedic Surgery, Tonsillectomy Additional Past Surgical History / Comment(s): claude shoulder rotator cuff repair, cyst removal rt wrist, oral surgery , surgery for pyloric stenosis as Past Anesthesia/Blood Transfusion Reactions: No Reported Reaction Past Psychological History: No Psychological Hx Reported Smoking Status: Never smoker Past Alcohol Use History: Occasional Additional Past Alcohol Use History / Comment(s): Quit drinking in 2021 Past Drug Use History: None Reported Additional Drug Use History / Comment(s): CBD oil for pain-- chewed tobacco many years ago - Past Family History Mother Family Medical History: No Reported History Father Family Medical History: Unable to Obtain Medications and Allergies Home Medications Medication Instructions Recorded Confirmed Type Cholecalciferol [Vitamin D3 (125 125 mcg PO DAILY 04/22/22 08/07/22 History Mcg = 5000 Iu)] Fluticasone Nasal [place] [Flonase 1 spray EA NOSTRIL DAILY 05/01/22 08/07/22 History Nasal [place]] allopurinoL 100 mg PO DAILY 07/03/22 08/07/22 History lisinopriL 40 mg PO BID PRN 07/07/22 08/07/22 History Acyclovir [Zovirax] 400 mg PO BID 08/07/22 08/07/22 History Fluconazole [Diflucan] 100 mg PO DAILY 08/07/22 08/07/22 History Fluticasone Nasal [place] [Flonase 1 spray EA NOSTRIL HS PRN 08/07/22 08/07/22 History Nasal [place]] Ondansetron Odt [Zofran Odt] 8 mg PO Q8HR PRN 08/07/22 08/07/22 History Allergies Allergy/AdvReac Type Severity Reaction Status Date / Time tramadol Allergy Rash/Hives Verified 04/21/23 11:15 & hallucinations sulfamethoxazole AdvReac Nausea Verified 08/07/22 11:15 [From Bactrim] trimethoprim [From Bactrim] AdvReac Nausea Verified 08/07/22 11:15 Physical Exam Osteopathic Statement: *. No significant issues noted on an osteopathic structural exam other than those noted in the History and Physical/Consult. Vitals: Vital Signs Temp Pulse Resp BP Pulse Ox 08/07/22 14:01 97.6 F 82 14 133/84 98 08/07/22 14:00 97.8 F 76 16 125/77 98 08/07/22 12:08 97.9 F 70 16 149/79 99 08/07/22 09:10 97.7 F 94 17 134/84 100 Intake and Output 08/07/22 08/07/22 08/07/22 06:59 14:59 22:59 Other: Voiding Method Toilet # Voids 2 Weight 76.657 kg Results CBC & Chem 7: 08/07/22 10:40 08/07/22 10:40 Labs: Abnormal Lab Results - Last 24 Hours (Table) 08/07/22 08/07/22 Range/Units 10:40 10:40 RBC 3.86 L (4.30-5.90) m/uL Hgb 12.1 L (13.0-17.5) gm/dL Hct 35.3 L (39.0-53.0) % RDW 18.1 H (11.5-15.5) % Neutrophils # 8.0 H (1.3-7.7) k/uL Lymphocytes # 0.7 L (1.0-4.8) k/uL Chloride 108 H (98-107) mmol/L Carbon Dioxide 19 L (22-30) mmol/L BUN 27 H (9-20) mg/dL Creatinine 0.58 L (0.66-1.25) mg/dL
[2022-08-07] MEDS: ACYCLOVIR 200 MG CAP PO SCH (20:27)
[2022-08-08] MEDS: SALT AND SODA MOUTHWASH 1,000 ML PO SCH ×5 (05:41→23:26)
[2022-08-08] MEDS: SODIUM CHLORIDE 0.9% 1,000 ML IV SCH ×3 (05:41→23:26)
[2022-08-08 07:26] LABS: Anisocytosis Slight; Basophils % (A) 0 %; Eosinophils % (A) 0 %; HCT 32.8 % (39.0-53.0); HGB 10.8 gm/dL (13.0-17.5); Lymphocytes # (A) 0.3 k/uL (1.0-4.8); Lymphocytes % (A) 4 %; MCH 30.6 pg (25.0-35.0); MCHC 32.9 g/dL (31.0-37.0); MCV 92.9 fL (80.0-100.0); Mean Platelet Volume 8.5; Monocytes # (A) 0.2 k/uL (0-1.0); Monocytes % (A) 4 %; Neutrophils # (A) 5.5 k/uL (1.3-7.7); Neutrophils % (A) 91 %; Platelet Count 168 k/uL (150-450); Poikilocytosis Slight; RBC 3.53 m/uL (4.30-5.90); RDW 17.8 % (11.5-15.5)
[2022-08-08 07:36] LABS: ALT 20 U/L (4-49); African American GFR (CKD) >90 (>60 ml/min/1.73 sqM); Albumin 4.1 g/dL (3.5-5.0); Alkaline Phosphatase 74 U/L (38-126); Anion Gap 10 mmol/L; Calcium 9.1 mg/dL (8.4-10.2); Carbon Dioxide 18 mmol/L (22-30); Chloride 111 mmol/L (98-107); Globulin 2.1 g/dL; Non-African American GFR(CKD) >90 (>60 ml/min/1.73 sqM); Potassium 4.6 mmol/L (3.5-5.1); Sodium 139 mmol/L (137-145); Total Protein 6.2 g/dL (6.3-8.2); Uric Acid 6.9 mg/dL (3.5-8.5)
[2022-08-08 07:37] LABS: AST 16 U/L (17-59); Blood Urea Nitrogen 20 mg/dL (9-20); Glucose 171 mg/dL (74-99); Total Bilirubin 0.4 mg/dL (0.2-1.3)
[2022-08-08] MEDS: ENOXAPARIN 40 MG/0.4 ML SYRINGE SQ SCH (08:03)
[2022-08-08] MEDS: predniSONE 10 MG TAB PO SCH ×2 (08:53→20:31)
[2022-08-08] MEDS: predniSONE 50 MG TAB PO SCH ×2 (08:53→20:31)
[2022-08-08] MEDS: ACYCLOVIR 200 MG CAP PO SCH ×2 (08:54→20:31)
[2022-08-08] MEDS: CHOLECALCIFEROL 125 MCG (5000 IU) TABLET PO SCH (08:54)
[2022-08-08] MEDS ORDERED: FLUCONAZOLE 100 MG TAB PO SCH (09:00)
[2022-08-08] MEDS ORDERED: allopurinoL 100 MG TAB PO SCH (09:00)
--- NOTE | 2022-08-08 10:24 | P.PN ---
Subjective Progress Note Date: 08/08/22 Patient is doing well today, tolerating chemotherapy without any side effects at this time. Had a good night sleep. Has no complaints. Gen: awake, alert HEENT: normocephalic, atraumatic, good hearing acuity, moist mucous membranes Resp: good air exchange, breathing comfortably with no accessory muscle use CVS: good distal perfusion x 4, GI: soft, NTTP, ND : no SPT, no CVAT, guzman catheter not present MSK: no pitting edema, no clubbing Neuro: non-focal, moving all extremities Psych: cooperative, euthymic mood Hospital course: 62-year-old man with medical history of diffuse large B-cell lymphoma, hypertension, hyperlipidemia, gout, rheumatoid arthritis presented for chemotherapy as an oncology admission. Oncology team consulted medicine for medical management. Upon initial evaluation, patient was afebrile, 133/84, heart rate 82, 98% on room air. CBC demonstrates anemia down to 12.1, otherwise unremarkable. Basic metabolic panel shows chloride of 108, bicarbonate 19, BUN 27, creatinine of 0.58. Her function tests are unremarkable. No imaging to review. Assessment: Diffuse large B-cell lymphoma Hypertension Hyperlipidemia Gout GERD Rheumatoid arthritis Plan: Today, patient is afebrile, 133/79, heart rate 73, 99% on room air. CBC today shows anemia down to 10.8 from 12.1. CMP shows chloride of 111, bicarb of 18, AST of 16, total protein 6.2. Uric acid is 6.2. Agree with CBC, CMP, uric acid tomorrow Continue lisinopril 40 mg twice daily Continue acyclovir 40 mg by mouth twice a day Continue fluticasone nasal spray Patient is currently on prednisone 10 mg by mouth twice a day, today is #2 of 4 bags of etoposide 90 mg/vincristine 0.75 mg/doxorubicin 19 mg scheduled daily Patient is full code DVT prophylaxis with Lovenox Objective - Vital Signs Vital signs: Vital Signs Temp 98.8 F 08/08/22 07:39 Pulse 73 08/08/22 07:39 Resp 20 08/08/22 07:39 BP 133/79 08/08/22 07:39 Pulse Ox 99 08/08/22 07:39 FiO2 Intake & Output 08/07/22 08/08/22 08/08/22 18:59 06:59 18:59 Intake Total 2300 Balance 2300 Weight 76.657 kg Intake: Intake, IV Titration 1200 Amount Sodium Chloride 0.9% 1, 1200 000 ml @ 100 mls/hr IV . Q10H [facility] Rx#:[id number] Oral 1100 Other: Voiding Method Toilet Toilet Toilet # Voids 2 3 - Labs CBC & Chem 7: 08/08/22 07:11 08/08/22 07:11 Labs: Abnormal Lab Results - Last 24 Hours (Table) 08/07/22 08/07/22 08/08/22 Range/Units 10:40 10:40 07:11 RBC 3.86 L 3.53 L (4.30-5.90) m/uL Hgb 12.1 L 10.8 L (13.0-17.5) gm/dL Hct 35.3 L 32.8 L (39.0-53.0) % RDW 18.1 H 17.8 H (11.5-15.5) % Neutrophils # 8.0 H (1.3-7.7) k/uL Lymphocytes # 0.7 L 0.3 L (1.0-4.8) k/uL Chloride 108 H (98-107) mmol/L Carbon Dioxide 19 L (22-30) mmol/L BUN 27 H (9-20) mg/dL Creatinine 0.58 L (0.66-1.25) mg/dL Glucose (74-99) mg/dL AST (17-59) U/L Total Protein (6.3-8.2) g/dL 08/08/22 Range/Units 07:11 RBC (4.30-5.90) m/uL Hgb (13.0-17.5) gm/dL Hct (39.0-53.0) % RDW (11.5-15.5) % Neutrophils # (1.3-7.7) k/uL Lymphocytes # (1.0-4.8) k/uL Chloride 111 H (98-107) mmol/L Carbon Dioxide 18 L (22-30) mmol/L BUN (9-20) mg/dL Creatinine 0.60 L (0.66-1.25) mg/dL Glucose 171 H (74-99) mg/dL AST 16 L (17-59) U/L Total Protein 6.2 L (6.3-8.2) g/dL
--- NOTE | 2022-08-08 11:37 | P.PN ---
Subjective Progress Note Date: 08/08/22 Principal diagnosis: inpatient chemotherapy At today's visit patient is resting comfortably in bedside chair. Denies any untoward effects. Reports feeling well. He is tolerating oral intake. Hemoglobin 10.8, WBC 6.0, platelet 160,000. Uric acid 6.9. CBC daily Objective - Vital Signs Vital signs: Vital Signs Temp 98.8 F 08/08/22 07:39 Pulse 73 08/08/22 07:39 Resp 20 08/08/22 07:39 BP 133/79 08/08/22 07:39 Pulse Ox 99 08/08/22 07:39 FiO2 Intake & Output 08/07/22 08/08/22 08/08/22 18:59 06:59 18:59 Intake Total 2300 Balance 2300 Weight 76.657 kg Intake: Intake, IV Titration 1200 Amount Sodium Chloride 0.9% 1, 1200 000 ml @ 100 mls/hr IV . Q10H [facility] Rx#:[id number] Oral 1100 Other: Voiding Method Toilet Toilet Toilet # Voids 2 3 - Constitutional General appearance: Present: average body habitus, no acute distress - EENT Eyes: Present: anicteric sclerae, EOMI ENT: Present: hearing grossly normal - Respiratory Details: breathing is even and unlabored - Cardiovascular Details: skin is warm and dry - Integumentary Integumentary: Present: normal - Neurologic Neurologic Comment(s): tongue deviation to the right, at baseline - Musculoskeletal Musculoskeletal: Present: strength equal bilaterally - Psychiatric Psychiatric: Present: A&O x's 3, appropriate affect, intact judgment & insight - Labs CBC & Chem 7: 08/08/22 07:11 08/08/22 07:11 Labs: Abnormal Lab Results - Last 24 Hours (Table) 08/08/22 08/08/22 Range/Units 07:11 07:11 RBC 3.53 L (4.30-5.90) m/uL Hgb 10.8 L (13.0-17.5) gm/dL Hct 32.8 L (39.0-53.0) % RDW 17.8 H (11.5-15.5) % Lymphocytes # 0.3 L (1.0-4.8) k/uL Chloride 111 H (98-107) mmol/L Carbon Dioxide 18 L (22-30) mmol/L Creatinine 0.60 L (0.66-1.25) mg/dL Glucose 171 H (74-99) mg/dL AST 16 L (17-59) U/L Total Protein 6.2 L (6.3-8.2) g/dL Assessment and Plan (1) B-cell lymphoma Current Visit: Yes Status: Acute Priority: High Code(s): C85.10 - UNSPECIFIED B-CELL LYMPHOMA, UNSPECIFIED SITE SNOMED Code(s): 417062501 Plan: B-Cell Lymphoma: Admit for cycle 4 dose adjusted R-EPOCH -Internal medicine consulted for medical management -Orders reviewed -Home medications reconciled -Activity, ambulate 4 times a day with shoes on -Diet, as tolerated -Supportive medications ordered, Scheduled and when necessary -Cools solution for oral irritation -GI and DVT prophylaxis -[place] fluid intake -Day 2 of inpatient chemotherapy. Patient is tolerating treatment well. No untoward effects. Tolerating oral intake. -Daily CBC, CMP, uric acid. Labs stable
[2022-08-08] MEDS: ONDANSETRON 16 MG in SODIUM CHLORIDE 0.9% 50 ML IVPB SCH (15:26)
[2022-08-08] MEDS: FAMOTIDINE 20 MG/2 ML VIAL IV SCH (15:26)
[2022-08-08] MEDS: ETOPOSIDE IV SCH (16:05)
[2022-08-08] MEDS: DOXORUBICIN HCL IV SCH (16:05)
[2022-08-08] MEDS: [UNRECOGNIZED DRUG - OTHER] IV SCH (16:05)
[2022-08-08] MEDS: VINCRISTINE SULFATE IV SCH (16:05)
[2022-08-09 04:22] LABS: Anisocytosis Slight; Basophils % (A) 0 %; Eosinophils % (A) 0 %; HGB 10.6 gm/dL (13.0-17.5); Lymphocytes # (A) 0.2 k/uL (1.0-4.8); Lymphocytes % (A) 5 %; MCH 30.5 pg (25.0-35.0); MCV 92.4 fL (80.0-100.0); Mean Platelet Volume 8.2; Monocytes # (A) 0.1 k/uL (0-1.0); Monocytes % (A) 3 %; Neutrophils # (A) 4.6 k/uL (1.3-7.7); Neutrophils % (A) 92 %; Platelet Count 141 k/uL (150-450); Poikilocytosis Slight; RBC 3.46 m/uL (4.30-5.90); RDW 17.7 % (11.5-15.5)
[2022-08-09 04:31] LABS: ALT 18 U/L (4-49); AST 17 U/L (17-59); African American GFR (CKD) >90 (>60 ml/min/1.73 sqM); Albumin 3.6 g/dL (3.5-5.0); Albumin/Globulin Ratio 1.8; Alkaline Phosphatase 65 U/L (38-126); Anion Gap 8 mmol/L; Blood Urea Nitrogen 17 mg/dL (9-20); Calcium 8.8 mg/dL (8.4-10.2); Carbon Dioxide 20 mmol/L (22-30); Chloride 114 mmol/L (98-107); Glucose 161 mg/dL (74-99); Non-African American GFR(CKD) >90 (>60 ml/min/1.73 sqM); Sodium 142 mmol/L (137-145); Total Bilirubin 0.4 mg/dL (0.2-1.3); Total Protein 5.6 g/dL (6.3-8.2); Uric Acid 6.4 mg/dL (3.5-8.5)
[2022-08-09] MEDS: SALT AND SODA MOUTHWASH 1,000 ML PO SCH ×5 (05:34→23:21)
[2022-08-09] MEDS: ENOXAPARIN 40 MG/0.4 ML SYRINGE SQ SCH (07:57)
[2022-08-09] MEDS: SODIUM CHLORIDE 0.9% 1,000 ML IV SCH ×2 (08:09→20:02)
[2022-08-09] MEDS: predniSONE 50 MG TAB PO SCH ×2 (08:11→19:59)
[2022-08-09] MEDS: CHOLECALCIFEROL 125 MCG (5000 IU) TABLET PO SCH (08:11)
[2022-08-09] MEDS: predniSONE 10 MG TAB PO SCH ×2 (08:11→20:00)
[2022-08-09] MEDS: ACYCLOVIR 200 MG CAP PO SCH ×2 (08:11→20:00)
--- NOTE | 2022-08-09 10:19 | P.PN ---
Subjective Progress Note Date: 08/09/22 Patient is doing well again today. Tolerating chemotherapy without any side effects at this time. Gen: awake, alert HEENT: normocephalic, atraumatic, good hearing acuity, moist mucous membranes Resp: good air exchange, breathing comfortably with no accessory muscle use CVS: good distal perfusion x 4, GI: soft, NTTP, ND : no SPT, no CVAT, guzman catheter not present MSK: no pitting edema, no clubbing Neuro: non-focal, moving all extremities Psych: cooperative, euthymic mood Hospital course: 62-year-old man with medical history of diffuse large B-cell lymphoma, hypertension, hyperlipidemia, gout, rheumatoid arthritis presented for chemotherapy as an oncology admission. Oncology team consulted medicine for medical management. Upon initial evaluation, patient was afebrile, 133/84, heart rate 82, 98% on room air. CBC demonstrates anemia down to 12.1, otherwise unremarkable. Basic metabolic panel shows chloride of 108, bicarbonate 19, BUN 27, creatinine of 0.58. Her function tests are unremarkable. No imaging to review. Assessment: Diffuse large B-cell lymphoma Hypertension Hyperlipidemia Gout GERD Rheumatoid arthritis Plan: Today, patient is afebrile, 147/84, heart rate 65, 98% on room air CBC today shows anemia down to 10.6, stable from 10.8, platelets are 141 CMP shows chloride of 114, bicarb of 20 Uric acid is 6.4. Agree with CBC, CMP, uric acid tomorrow Continue lisinopril 40 mg twice daily Continue acyclovir 40 mg by mouth twice a day Continue fluticasone nasal spray Patient is currently on prednisone 10 mg by mouth twice a day, today is #3 of 4 bags of etoposide 90 mg/vincristine 0.75 mg/doxorubicin 19 mg scheduled daily Patient is full code DVT prophylaxis with Lovenox Objective - Vital Signs Vital signs: Vital Signs Temp 97.4 F L 08/09/22 07:53 Pulse 65 08/09/22 07:53 Resp 16 08/09/22 07:53 BP 147/84 08/09/22 07:53 Pulse Ox 98 08/09/22 07:53 FiO2 Intake & Output 08/08/22 08/09/22 08/09/22 18:59 06:59 18:59 Intake Total 2049 Balance 2049 Intake: Intake, IV Titration 1450 Amount Etoposide 90 mg 250 vinCRIStine SULFATE 0.75 mg DOXOrubicin HCL 19 mg In Sodium Chloride 0.9% 500 ml 500 ml @ 21.448 mls/hr IV Q24H [facility] Rx#: [id number] Sodium Chloride 0.9% 1, 1200 000 ml @ 100 mls/hr IV . Q10H [facility] Rx#:[id number] Oral 600 Other: Voiding Method Toilet Toilet Toilet # Voids 2 4 - Labs CBC & Chem 7: 08/09/22 03:59 08/09/22 03:59 Labs: Abnormal Lab Results - Last 24 Hours (Table) 08/09/22 08/09/22 Range/Units 03:59 03:59 RBC 3.46 L (4.30-5.90) m/uL Hgb 10.6 L (13.0-17.5) gm/dL Hct 32.0 L (39.0-53.0) % RDW 17.7 H (11.5-15.5) % Plt Count 141 L (150-450) k/uL Lymphocytes # 0.2 L (1.0-4.8) k/uL Chloride 114 H (98-107) mmol/L Carbon Dioxide 20 L (22-30) mmol/L Creatinine 0.53 L (0.66-1.25) mg/dL Glucose 161 H (74-99) mg/dL Total Protein 5.6 L (6.3-8.2) g/dL
--- NOTE | 2022-08-09 15:27 | P.PN ---
Subjective Progress Note Date: 08/09/22 Principal diagnosis: inpatient chemotherapy At today's visit patient is resting comfortably in bedside chair. at bedside. Denies any untoward effects. Continues feeling well. He is tolerating oral intake. Hemoglobin 10., WBC 5.0, ANC 4.6, platelet 141,000. Uric acid 6.4. CBC daily Objective - Vital Signs Vital signs: Vital Signs Temp 98.9 F 08/09/22 12:10 Pulse 60 08/09/22 12:10 Resp 16 08/09/22 12:10 BP 150/83 08/09/22 12:10 Pulse Ox 99 08/09/22 12:10 FiO2 Intake & Output 08/08/22 08/09/22 08/09/22 18:59 06:59 18:59 Intake Total 2049 Balance 2049 Intake: Intake, IV Titration 1450 Amount Etoposide 90 mg 250 vinCRIStine SULFATE 0.75 mg DOXOrubicin HCL 19 mg In Sodium Chloride 0.9% 500 ml 500 ml @ 21.448 mls/hr IV Q24H [facility] Rx#: [id number] Sodium Chloride 0.9% 1, 1200 000 ml @ 100 mls/hr IV . Q10H [facility] Rx#:[id number] Oral 600 Other: Voiding Method Toilet Toilet Toilet # Voids 2 4 - Constitutional General appearance: Present: average body habitus, no acute distress - EENT Eyes: Present: anicteric sclerae, EOMI ENT: Present: hearing grossly normal - Respiratory Details: breathing is even and unlabored - Cardiovascular Details: skin warm and dry - Integumentary Integumentary: Present: normal - Musculoskeletal Musculoskeletal: Present: strength equal bilaterally - Psychiatric Psychiatric: Present: A&O x's 3, appropriate affect, intact judgment & insight - Labs CBC & Chem 7: 08/09/22 03:59 08/09/22 03:59 Labs: Abnormal Lab Results - Last 24 Hours (Table) 08/09/22 08/09/22 Range/Units 03:59 03:59 RBC 3.46 L (4.30-5.90) m/uL Hgb 10.6 L (13.0-17.5) gm/dL Hct 32.0 L (39.0-53.0) % RDW 17.7 H (11.5-15.5) % Plt Count 141 L (150-450) k/uL Lymphocytes # 0.2 L (1.0-4.8) k/uL Chloride 114 H (98-107) mmol/L Carbon Dioxide 20 L (22-30) mmol/L Creatinine 0.53 L (0.66-1.25) mg/dL Glucose 161 H (74-99) mg/dL Total Protein 5.6 L (6.3-8.2) g/dL Assessment and Plan (1) B-cell lymphoma Current Visit: Yes Status: Acute Priority: High Code(s): C85.10 - UNSPECIFIED B-CELL LYMPHOMA, UNSPECIFIED SITE SNOMED Code(s): 865331150 Plan: B-Cell Lymphoma: Admit for cycle 4 dose adjusted R-EPOCH -Internal medicine consulted for medical management -Orders reviewed -Home medications reconciled -Activity, ambulate 4 times a day with shoes on -Diet, as tolerated -Supportive medications ordered, Scheduled and when necessary -Cools solution for oral irritation -GI and DVT prophylaxis -[place] fluid intake -Day 3 of inpatient chemotherapy. Patient is tolerating treatment well. No untoward effects. Tolerating oral intake. -Daily CBC, CMP, uric acid. Labs stable.
[2022-08-09] MEDS: FAMOTIDINE 20 MG/2 ML VIAL IV SCH (17:07)
[2022-08-09] MEDS: ONDANSETRON 16 MG in SODIUM CHLORIDE 0.9% 50 ML IVPB SCH (17:08)
[2022-08-09] MEDS: ETOPOSIDE IV SCH (17:41)
[2022-08-09] MEDS: DOXORUBICIN HCL IV SCH (17:41)
[2022-08-09] MEDS: [UNRECOGNIZED DRUG - OTHER] IV SCH (17:41)
[2022-08-09] MEDS: VINCRISTINE SULFATE IV SCH (17:41)
[2022-08-10] MEDS: SALT AND SODA MOUTHWASH 1,000 ML PO SCH ×5 (05:27→23:27)
[2022-08-10 07:00] LABS: Anisocytosis Slight; Basophils % (A) 0 %; Eosinophils % (A) 0 %; HCT 31.8 % (39.0-53.0); HGB 10.7 gm/dL (13.0-17.5); Lymphocytes # (A) 0.2 k/uL (1.0-4.8); Lymphocytes % (A) 5 %; MCH 31.1 pg (25.0-35.0); MCHC 33.7 g/dL (31.0-37.0); MCV 92.2 fL (80.0-100.0); Monocytes # (A) 0.2 k/uL (0-1.0); Monocytes % (A) 4 %; Neutrophils # (A) 3.3 k/uL (1.3-7.7); Neutrophils % (A) 90 %; Platelet Count 175 k/uL (150-450); Poikilocytosis Slight; RBC 3.45 m/uL (4.30-5.90); RDW 17.6 % (11.5-15.5); WBC 3.7 k/uL (3.8-10.6)
[2022-08-10 07:17] LABS: ALT 17 U/L (4-49); AST 15 U/L (17-59); African American GFR (CKD) >90 (>60 ml/min/1.73 sqM); Albumin 3.5 g/dL (3.5-5.0); Albumin/Globulin Ratio 1.8; Alkaline Phosphatase 59 U/L (38-126); Anion Gap 8 mmol/L; Blood Urea Nitrogen 18 mg/dL (9-20); Carbon Dioxide 24 mmol/L (22-30); Chloride 109 mmol/L (98-107); Glucose 128 mg/dL (74-99); Non-African American GFR(CKD) >90 (>60 ml/min/1.73 sqM); Sodium 141 mmol/L (137-145); Total Bilirubin 0.5 mg/dL (0.2-1.3); Total Protein 5.5 g/dL (6.3-8.2); Uric Acid 6.5 mg/dL (3.5-8.5)
[2022-08-10] MEDS: ACYCLOVIR 200 MG CAP PO SCH ×2 (08:37→19:54)
[2022-08-10] MEDS: CHOLECALCIFEROL 125 MCG (5000 IU) TABLET PO SCH (08:37)
[2022-08-10] MEDS: predniSONE 10 MG TAB PO SCH ×2 (08:37→19:54)
[2022-08-10] MEDS: predniSONE 50 MG TAB PO SCH ×2 (08:37→19:55)
[2022-08-10] MEDS: SODIUM CHLORIDE 0.9% 1,000 ML IV SCH ×2 (08:38→17:24)
[2022-08-10] MEDS: ENOXAPARIN 40 MG/0.4 ML SYRINGE SQ SCH (08:39)
--- NOTE | 2022-08-10 09:06 | P.PN ---
Subjective Progress Note Date: 08/10/22 Patient is doing well again today. Tolerating chemotherapy without any side effects at this time. Gen: awake, alert HEENT: normocephalic, atraumatic, good hearing acuity, moist mucous membranes Resp: good air exchange, breathing comfortably with no accessory muscle use CVS: good distal perfusion x 4, GI: soft, NTTP, ND : no SPT, no CVAT, guzman catheter not present MSK: no pitting edema, no clubbing Neuro: non-focal, moving all extremities Psych: cooperative, euthymic mood Hospital course: 62-year-old man with medical history of diffuse large B-cell lymphoma, hypertension, hyperlipidemia, gout, rheumatoid arthritis presented for chemotherapy as an oncology admission. Oncology team consulted medicine for medical management. Upon initial evaluation, patient was afebrile, 133/84, heart rate 82, 98% on room air. CBC demonstrates anemia down to 12.1, otherwise unremarkable. Basic metabolic panel shows chloride of 108, bicarbonate 19, BUN 27, creatinine of 0.58. Her function tests are unremarkable. No imaging to review. Assessment: Diffuse large B-cell lymphoma Hypertension Hyperlipidemia Gout GERD Rheumatoid arthritis Plan: Today, patient is afebrile, 148/82, heart rate 62, 98% on room air CBC today shows anemia down to 10.7, white blood cell count is 3.7 CMP shows chloride of 109 Uric acid is 6.5. Agree with CBC, CMP, uric acid tomorrow Continue lisinopril 40 mg twice daily Continue acyclovir 40 mg by mouth twice a day Continue fluticasone nasal spray Patient is currently on prednisone 10 mg by mouth twice a day, today is #4 of 4 bags of etoposide 90 mg/vincristine 0.75 mg/doxorubicin 19 mg scheduled daily Patient is full code DVT prophylaxis with Lovenox Objective - Vital Signs Vital signs: Vital Signs Temp 97.9 F 08/10/22 07:27 Pulse 62 08/10/22 07:27 Resp 18 08/10/22 07:27 BP 148/82 08/10/22 07:27 Pulse Ox 98 08/10/22 07:27 FiO2 Intake & Output 08/09/22 08/10/22 08/10/22 18:59 06:59 18:59 Intake Total 1507.88 2060 Balance 1507.88 2060 Intake: Intake, IV Titration 1507.88 1460 Amount Etoposide 90 mg 257.88 260 vinCRIStine SULFATE 0.75 mg DOXOrubicin HCL 19 mg In Sodium Chloride 0.9% 500 ml 500 ml @ 21.448 mls/hr IV Q24H [facility] Rx#: [id number] Ondansetron 16 mg In 50 Sodium Chloride 0.9% 50 ml @ 232 mls/hr IVPB DAILY@1300 [facility] Rx#: [id number] Sodium Chloride 0.9% 1, 1200 1200 000 ml @ 100 mls/hr IV . Q10H [facility] Rx#:[id number] Oral 600 Other: Voiding Method Toilet Toilet # Voids 4 - Labs CBC & Chem 7: 08/10/22 06:20 08/10/22 06:20 Labs: Abnormal Lab Results - Last 24 Hours (Table) 08/10/22 08/10/22 Range/Units 06:20 06:20 WBC 3.7 L (3.8-10.6) k/uL RBC 3.45 L (4.30-5.90) m/uL Hgb 10.7 L (13.0-17.5) gm/dL Hct 31.8 L (39.0-53.0) % RDW 17.6 H (11.5-15.5) % Lymphocytes # 0.2 L (1.0-4.8) k/uL Chloride 109 H (98-107) mmol/L Creatinine 0.56 L (0.66-1.25) mg/dL Glucose 128 H (74-99) mg/dL AST 15 L (17-59) U/L Total Protein 5.5 L (6.3-8.2) g/dL
--- NOTE | 2022-08-10 16:02 | P.PN ---
Subjective Progress Note Date: 08/10/22 Principal diagnosis: Admit for cycle for continuous IV infusion chemotherapy for diffuse large B-cell lymphoma In follow-up today patient denies oral irritation, sore throat, fever, chills, cough, shortness of breath, nausea, vomiting, acute changes in bowel or bladder habits. He has some mild bilateral lower extremity swelling from fluids, he is ambulating multiple times a day. No other complaints. Objective - Vital Signs Vital signs: Vital Signs Temp 97.9 F 08/10/22 07:27 Pulse 62 08/10/22 07:27 Resp 18 08/10/22 07:27 BP 148/82 08/10/22 07:27 Pulse Ox 98 08/10/22 07:27 FiO2 Intake & Output 08/09/22 08/10/22 08/10/22 18:59 06:59 18:59 Intake Total 1507.88 2060 Balance 1507.88 2060 Intake: Intake, IV Titration 1507.88 1460 Amount Etoposide 90 mg 257.88 260 vinCRIStine SULFATE 0.75 mg DOXOrubicin HCL 19 mg In Sodium Chloride 0.9% 500 ml 500 ml @ 21.448 mls/hr IV Q24H [facility] Rx#: [id number] Ondansetron 16 mg In 50 Sodium Chloride 0.9% 50 ml @ 232 mls/hr IVPB DAILY@1300 [facility] Rx#: [id number] Sodium Chloride 0.9% 1, 1200 1200 000 ml @ 100 mls/hr IV . Q10H [facility] Rx#:[id number] Oral 600 Other: Voiding Method Toilet Toilet # Voids 4 - Constitutional General appearance: Present: average body habitus, cooperative, no acute distress - EENT Eyes: Present: anicteric sclerae, EOMI ENT: Present: hearing grossly normal, normal oropharynx - Respiratory Respiratory: bilateral: CTA - Cardiovascular Rhythm: regular Heart sounds: normal: S1, S2 Abnormal Heart Sounds: Absent: systolic murmur, diastolic murmur, rub, S3 Gallop, S4 Gallop, click, other - Peripheral edema leg Peripheral Edema: bilateral: Trace - Gastrointestinal General gastrointestinal: Present: normal bowel sounds, soft - Integumentary Integumentary: Present: normal - Neurologic Neurologic: Present: CNII-XII intact - Musculoskeletal Musculoskeletal: Present: strength equal bilaterally - Psychiatric Psychiatric: Present: A&O x's 3, appropriate affect, intact judgment & insight - Labs CBC & Chem 7: 08/10/22 06:20 08/10/22 06:20 Labs: Abnormal Lab Results - Last 24 Hours (Table) 08/10/22 08/10/22 Range/Units 06:20 06:20 WBC 3.7 L (3.8-10.6) k/uL RBC 3.45 L (4.30-5.90) m/uL Hgb 10.7 L (13.0-17.5) gm/dL Hct 31.8 L (39.0-53.0) % RDW 17.6 H (11.5-15.5) % Lymphocytes # 0.2 L (1.0-4.8) k/uL Chloride 109 H (98-107) mmol/L Creatinine 0.56 L (0.66-1.25) mg/dL Glucose 128 H (74-99) mg/dL AST 15 L (17-59) U/L Total Protein 5.5 L (6.3-8.2) g/dL Assessment and Plan (1) B-cell lymphoma Current Visit: Yes Status: Acute Priority: High Code(s): C85.10 - UNSPECIFIED B-CELL LYMPHOMA, UNSPECIFIED SITE SNOMED Code(s): 513125880 Plan: High grade Bcell lymphoma -Admit for cycle 4 DA R-EPOCH. Had prophylactic IT chemo last Wed. 6 cycles of each planned -Cont chemo without adjustment -Cont supportive meds -Ambulate QID -[place] fluids -Diet as tolerated -Labs daily -GCSF after DC Doctor attests: I performed a history and physical examination of this patient, developed impression and plan of care. Discussed with dictator. I agree with dictators note, documented as a scribe.
[2022-08-10] MEDS: ONDANSETRON 16 MG in SODIUM CHLORIDE 0.9% 50 ML IVPB SCH (20:34)
[2022-08-10] MEDS: FAMOTIDINE 20 MG/2 ML VIAL IV SCH (20:34)
[2022-08-10] MEDS: ETOPOSIDE IV SCH (21:04)
[2022-08-10] MEDS: [UNRECOGNIZED DRUG - OTHER] IV SCH (21:04)
[2022-08-10] MEDS: VINCRISTINE SULFATE IV SCH (21:04)
[2022-08-10] MEDS: DOXORUBICIN HCL IV SCH (21:04)
[2022-08-11] MEDS: SODIUM CHLORIDE 0.9% 1,000 ML IV SCH ×3 (02:05→18:18)
[2022-08-11] MEDS: SALT AND SODA MOUTHWASH 1,000 ML PO SCH ×4 (05:41→20:31)
[2022-08-11] MEDS: predniSONE 50 MG TAB PO SCH ×2 (08:19→20:28)
[2022-08-11] MEDS: CHOLECALCIFEROL 125 MCG (5000 IU) TABLET PO SCH (08:20)
[2022-08-11] MEDS: ACYCLOVIR 200 MG CAP PO SCH ×2 (08:20→20:27)
[2022-08-11] MEDS: ENOXAPARIN 40 MG/0.4 ML SYRINGE SQ SCH (08:20)
[2022-08-11] MEDS: predniSONE 10 MG TAB PO SCH ×2 (08:20→20:28)
[2022-08-11 09:18] LABS: Anisocytosis Slight; Basophils % (A) 0 %; Eosinophils % (A) 0 %; HCT 29.7 % (39.0-53.0); HGB 10.3 gm/dL (13.0-17.5); Lymphocytes # (A) 0.3 k/uL (1.0-4.8); Lymphocytes % (A) 9 %; MCH 30.7 pg (25.0-35.0); MCHC 34.7 g/dL (31.0-37.0); MCV 88.4 fL (80.0-100.0); Mean Platelet Volume 7.9; Monocytes # (A) 0.1 k/uL (0-1.0); Monocytes % (A) 2 %; Neutrophils # (A) 2.6 k/uL (1.3-7.7); Neutrophils % (A) 88 %; Platelet Count 158 k/uL (150-450); Poikilocytosis Slight; RBC 3.35 m/uL (4.30-5.90); RDW 17.8 % (11.5-15.5)
[2022-08-11 09:21] LABS: ALT 20 U/L (4-49); AST 18 U/L (17-59); African American GFR (CKD) >90 (>60 ml/min/1.73 sqM); Albumin 3.5 g/dL (3.5-5.0); Albumin/Globulin Ratio 1.8; Alkaline Phosphatase 60 U/L (38-126); Anion Gap 8 mmol/L; Blood Urea Nitrogen 15 mg/dL (9-20); Calcium 8.7 mg/dL (8.4-10.2); Carbon Dioxide 26 mmol/L (22-30); Chloride 105 mmol/L (98-107); Glucose 118 mg/dL (74-99); Non-African American GFR(CKD) >90 (>60 ml/min/1.73 sqM); Potassium 3.7 mmol/L (3.5-5.1); Sodium 139 mmol/L (137-145); Total Bilirubin 0.8 mg/dL (0.2-1.3); Total Protein 5.5 g/dL (6.3-8.2)
[2022-08-11] MEDS ORDERED: CYCLOPHOSPHAMIDE IV ONE (14:00)
[2022-08-11] MEDS ORDERED: SODIUM CHLORIDE 0.9% IV ONE (14:00)
--- NOTE | 2022-08-11 14:49 | P.PN ---
Subjective Progress Note Date: 08/11/22 Principal diagnosis: inpatient chemotherapy At today's visit patient is resting comfortably in bedside chair. Denies any untoward effects. Continues feeling well. He is tolerating oral intake. Labs stable. CBC, CMP daily Objective - Vital Signs Vital signs: Vital Signs Temp 99.2 F 08/11/22 11:54 Pulse 83 08/11/22 11:54 Resp 20 08/11/22 11:54 BP 160/87 08/11/22 11:54 Pulse Ox 100 08/11/22 11:54 FiO2 Intake & Output 08/10/22 08/11/22 08/11/22 18:59 06:59 18:59 Intake Total 1457.88 2110 Balance 1457.88 2110 Intake: Intake, IV Titration 1457.88 1510 Amount Etoposide 90 mg 257.88 260 vinCRIStine SULFATE 0.75 mg DOXOrubicin HCL 19 mg In Sodium Chloride 0.9% 500 ml 500 ml @ 21.448 mls/hr IV Q24H [facility] Rx#: [id number] Ondansetron 16 mg In 50 Sodium Chloride 0.9% 50 ml @ 232 mls/hr IVPB DAILY@1300 [facility] Rx#: [id number] Sodium Chloride 0.9% 1, 1200 1200 000 ml @ 100 mls/hr IV . Q10H [facility] Rx#:[id number] Oral 600 Other: Voiding Method Toilet # Voids 5 - Constitutional General appearance: Present: average body habitus, no acute distress - EENT EENT Comment(s): No oral lesions or ulcerations noted Eyes: Present: anicteric sclerae, EOMI ENT: Present: hearing grossly normal - Respiratory Respiratory: bilateral: CTA - Cardiovascular Rhythm: regular Heart sounds: normal: S1, S2 Abnormal Heart Sounds: Absent: systolic murmur, diastolic murmur, rub, S3 Gallop, S4 Gallop, click, other - Gastrointestinal General gastrointestinal: Present: soft. Absent: tenderness - Integumentary Integumentary: Present: normal - Musculoskeletal Musculoskeletal: Present: strength equal bilaterally - Psychiatric Psychiatric: Present: A&O x's 3, appropriate affect, intact judgment & insight - Labs CBC & Chem 7: 08/11/22 08:40 08/11/22 08:40 Labs: Abnormal Lab Results - Last 24 Hours (Table) 08/11/22 08/11/22 Range/Units 08:40 08:40 WBC 3.0 L (3.8-10.6) k/uL RBC 3.35 L (4.30-5.90) m/uL Hgb 10.3 L (13.0-17.5) gm/dL Hct 29.7 L (39.0-53.0) % RDW 17.8 H (11.5-15.5) % Lymphocytes # 0.3 L (1.0-4.8) k/uL Creatinine 0.55 L (0.66-1.25) mg/dL Glucose 118 H (74-99) mg/dL Total Protein 5.5 L (6.3-8.2) g/dL Assessment and Plan (1) B-cell lymphoma Current Visit: Yes Status: Acute Priority: High Code(s): C85.10 - UNSPECIFIED B-CELL LYMPHOMA, UNSPECIFIED SITE SNOMED Code(s): 935020694 Plan: B-Cell Lymphoma: -Admit for cycle 4 dose adjusted R-EPOCH. Had prophylactic IT chemo last Wed. 6 cycles of each planned -Cont chemo without adjustment -Cont supportive meds -Ambulate QID -[place] fluids -Diet as tolerated -Labs daily -GCSF after DC, with lab encounters M/W/F x 2 weeks attests: I performed a history and physical examination of this patient, developed impression and plan of care. Discussed with dictator. I agree with dictators note, documented as a scribe.
--- NOTE | 2022-08-11 16:31 | P.PN ---
Subjective Progress Note Date: 08/11/22 Hospital course: Patient is a very pleasant 62-year-old male with a past medical history of diffuse large B-cell lymphoma, hypertension, hyperlipidemia, gout, and rheumatoid arthritis. Patient is currently admitted under oncology team undergoing inpatient chemotherapy treatments. We are following throughout hospitalization for medical management. Physical exam: Patient seen and fully evaluated at bedside this morning. He currently denies having any complaints states that he is tolerating chemotherapy without any reported side effects. Patient denies having any dizziness, lightheadedness, headache, chest pain, palpitations, shortness of breath, cough or congestion, nausea, vomiting, abdominal pain, or having any GI complaints. Vital signs reviewed and stable. General: Nontoxic, no distress and appears stated age. Derm: Skin warm and dry, normal coloration for ethnicity. Head: Atraumatic, normocephalic and symmetric. Eyes: EOMs intact, no lid lag, and anicteric sclera Mouth: no lip lesions, mucus membranes moist Cardiovascular: regular rate and rhythm with normal S1S2, no murmur, positive posterior tibial pulses bilaterally, and cap refill < 2 seconds. Lungs: Respirations even, regular, and unlabored on room air. Lungs CTA bilaterally, no rhonchi, no rales, no wheezing, and no accessory muscle usage. Abdominal: soft, nontender to palpation, no guarding, no appreciable organomegaly Ext: ROM intact. No gross muscle atrophy, no edema, no contractures Neuro: Speech clear, face symmetrical and CN II-XII grossly intact with no noted focal neuro deficits Psych: Alert and oriented to person, place, time, and situation. Appropriate and pleasant affect. Assessment and Plan of Care: Diffuse large B-cell lymphoma Hypertension Hyperlipidemia Gout Rheumatoid arthritis -Patient with mild hypertension and morning blood pressure 157/92. Lisinopril 40 mg twice daily discontinued and patient started on amlodipine 10 mg daily at this time for management of hypertension. -Patient to continue with Diflucan, acyclovir, allopurinol, and prednisone. -Patient currently completing dose #4/4 of chemotherapy. -Morning labs reviewed and stable. CBC showing mild leukopenia with WBC count of 3.0 and stable normocytic anemia with hemoglobin of 10.3. CMP was unremarkable. Thank you for allowing us to participate in the care of this pleasant patient. Do not hesitate to contact us with questions. Someone can be reached from the [facility] hospitalist group all hours of the day at [phone] or via perfect serve. Patient was seen independently by Nurse Pracitioner. This document was prepared using [employer] dictation software. Please allow for errors in research assoc, while rare they do occur. Objective - Vital Signs Vital signs: Vital Signs Temp 97.5 F L 08/11/22 03:10 Pulse 64 08/11/22 03:10 Resp 18 08/11/22 03:10 BP 139/79 08/11/22 03:10 Pulse Ox 98 08/11/22 03:10 FiO2 Intake & Output 08/10/22 08/11/22 08/11/22 18:59 06:59 18:59 Intake Total 1457.88 2110 Balance 1457.88 2110 Intake: Intake, IV Titration 1457.88 1510 Amount Etoposide 90 mg 257.88 260 vinCRIStine SULFATE 0.75 mg DOXOrubicin HCL 19 mg In Sodium Chloride 0.9% 500 ml 500 ml @ 21.448 mls/hr IV Q24H [facility] Rx#: [id number] Ondansetron 16 mg In 50 Sodium Chloride 0.9% 50 ml @ 232 mls/hr IVPB DAILY@1300 [facility] Rx#: [id number] Sodium Chloride 0.9% 1, 1200 1200 000 ml @ 100 mls/hr IV . Q10H [facility] Rx#:[id number] Oral 600 Other: Voiding Method Toilet # Voids 5 - Labs CBC & Chem 7: 08/11/22 08:40 08/11/22 08:40
[2022-08-11] MEDS: amLODIPine 10 MG TAB PO SCH (18:15)
[2022-08-11] MEDS ORDERED: FAMOTIDINE 20 MG/2 ML VIAL IV ONE (22:40)
[2022-08-11] MEDS: ONDANSETRON 16 MG in SODIUM CHLORIDE 0.9% 50 ML IVPB SCH (23:25)
[2022-08-11] MEDS: FAMOTIDINE 20 MG/2 ML VIAL IV SCH (23:54)
[2022-08-12] MEDS: SALT AND SODA MOUTHWASH 1,000 ML PO SCH ×2 (00:23→05:02)
[2022-08-12] MEDS: SODIUM CHLORIDE 0.9% 1,000 ML IV SCH (05:01)
[2022-08-12 07:44] VITALS: BP 146/80; PULSE 71; RESP 18; TEMP 97.3
[2022-08-12 07:44] LABS: Anisocytosis Slight; Basophils % (A) 0 %; Eosinophils % (A) 0 %; HCT 28.8 % (39.0-53.0); HGB 9.9 gm/dL (13.0-17.5); Lymphocytes # (A) 0.1 k/uL (1.0-4.8); Lymphocytes % (A) 5 %; MCH 30.1 pg (25.0-35.0); MCHC 34.3 g/dL (31.0-37.0); MCV 87.6 fL (80.0-100.0); Mean Platelet Volume 8.2; Monocytes % (A) 1 %; Neutrophils # (A) 2.3 k/uL (1.3-7.7); Neutrophils % (A) 93 %; Platelet Count 169 k/uL (150-450); Poikilocytosis Slight; RBC 3.29 m/uL (4.30-5.90); RDW 17.3 % (11.5-15.5); WBC 2.5 k/uL (3.8-10.6)
[2022-08-12 07:52] LABS: ALT 25 U/L (4-49); AST 20 U/L (17-59); African American GFR (CKD) >90 (>60 ml/min/1.73 sqM); Albumin 3.4 g/dL (3.5-5.0); Albumin/Globulin Ratio 1.8; Alkaline Phosphatase 50 U/L (38-126); Anion Gap 8 mmol/L; Blood Urea Nitrogen 15 mg/dL (9-20); Calcium 8.7 mg/dL (8.4-10.2); Carbon Dioxide 26 mmol/L (22-30); Chloride 102 mmol/L (98-107); Globulin 1.9 g/dL; Glucose 131 mg/dL (74-99); Non-African American GFR(CKD) >90 (>60 ml/min/1.73 sqM); Potassium 3.8 mmol/L (3.5-5.1); Sodium 136 mmol/L (137-145); Total Bilirubin 0.9 mg/dL (0.2-1.3); Total Protein 5.3 g/dL (6.3-8.2); Uric Acid 5.4 mg/dL (3.5-8.5)
[2022-08-12] MEDS: CHOLECALCIFEROL 125 MCG (5000 IU) TABLET PO SCH (09:02)
[2022-08-12] MEDS: amLODIPine 10 MG TAB PO SCH (09:02)
[2022-08-12] MEDS: ACYCLOVIR 200 MG CAP PO SCH (09:03)
[2022-08-12] MEDS: ENOXAPARIN 40 MG/0.4 ML SYRINGE SQ SCH (09:04)
--- NOTE | 2022-08-12 10:20 | P.PN ---
Subjective Progress Note Date: 08/12/22 Hospital course: Patient is a very pleasant 62-year-old male with a past medical history of diffuse large B-cell lymphoma, hypertension, hyperlipidemia, gout, and rheumatoid arthritis. Patient is currently admitted under oncology team undergoing inpatient chemotherapy treatments. We are following throughout hospitalization for medical management. Physical exam: Patient seen and fully evaluated at bedside this morning. He was ambulating halls and appeared to be doing well. Patient continues to deny having any complaints and appeared to have tolerated chemotherapy without any reported side effects. Patient continues to deny having any dizziness, lightheadedness, headache, chest pain, palpitations, shortness of breath, cough or congestion, nausea, vomiting, abdominal pain, or having any GI complaints. Morning labs reviewed and remained stable. Hemoglobin stable at 9.9 and WBC count 2.5. Uric acid 5.4. Vital signs reviewed and stable. General: Nontoxic, no distress and appears stated age. Derm: Skin warm and dry, normal coloration for ethnicity. Head: Atraumatic, normocephalic and symmetric. Eyes: EOMs intact, no lid lag, and anicteric sclera Mouth: no lip lesions, mucus membranes moist Cardiovascular: regular rate and rhythm with normal S1S2, no murmur, positive posterior tibial pulses bilaterally, and cap refill < 2 seconds. Lungs: Respirations even, regular, and unlabored on room air. Lungs CTA bilaterally, no rhonchi, no rales, no wheezing, and no accessory muscle usage. Abdominal: soft, nontender to palpation, no guarding, no appreciable organomegaly Ext: ROM intact. No gross muscle atrophy, no edema, no contractures Neuro: Speech clear, face symmetrical and CN II-XII grossly intact with no noted focal neuro deficits Psych: Alert and oriented to person, place, time, and situation. Appropriate and pleasant affect. Assessment and Plan of Care: Diffuse large B-cell lymphoma Hypertension Hyperlipidemia Gout Rheumatoid arthritis -Patient with improvement in blood pressure, morning blood pressure 146/80. Recommend continuation of amlodipine 10 mg daily at this time for management of hypertension. -Patient to continue with Diflucan, acyclovir, allopurinol, and prednisone. -Pt completed course of chemotherapy. -Morning labs reviewed and stable. Hemoglobin stable at 9.9 and WBC count 2.5. Uric acid 5.4. Medically, patient stable for discharge at this time. Recommend discontinuation of lisinipril 40 mg BID as this is over the recommended maximum dose and will send prescription for amlodopine 10 mg daily for blood pressure management. Thank you for allowing us to participate in the care of this pleasant patient. Do not hesitate to contact us with questions. Someone can be reached from the [facility] hospitalist group all hours of the day at [phone] or via perfect serve. Patient was seen independently by Nurse Pracitioner. This document was prepared using [employer] dictation software. Please allow for errors in hair rooting machine operator, while rare they do occur. Objective - Vital Signs Vital signs: Vital Signs Temp 97.3 F L 08/12/22 07:27 Pulse 71 08/12/22 07:27 Resp 18 08/12/22 07:27 BP 146/80 08/12/22 07:27 Pulse Ox 100 08/12/22 07:27 FiO2 Intake & Output 08/11/22 08/12/22 08/12/22 18:59 06:59 18:59 Other: Voiding Method Toilet Toilet # Voids 2 - Labs CBC & Chem 7: 08/12/22 07:13 08/12/22 07:13 Labs: Abnormal Lab Results - Last 24 Hours (Table) 08/12/22 08/12/22 Range/Units 07:13 07:13 WBC 2.5 L (3.8-10.6) k/uL RBC 3.29 L (4.30-5.90) m/uL Hgb 9.9 L (13.0-17.5) gm/dL Hct 28.8 L (39.0-53.0) % RDW 17.3 H (11.5-15.5) % Lymphocytes # 0.1 L (1.0-4.8) k/uL Sodium 136 L (137-145) mmol/L Creatinine 0.47 L (0.66-1.25) mg/dL Glucose 131 H (74-99) mg/dL Total Protein 5.3 L (6.3-8.2) g/dL Albumin 3.4 L (3.5-5.0) g/dL
== END 2022-08-12 11:54 | disposition home or self-care (01) | DRG 847 ==
LOC: 5NMEDONC 08:51
PROVIDERS: ADMIT Internal Medicine; ATTEND Internal Medicine
PROC: 3E0W305 Introduction of Other Antineoplastic into Lymphatics, Percutaneous Approach (ICD-10-PCS; principal; 2022-08-08)
DX: Z51.11 Encounter for antineoplastic chemotherapy (principal); C83.31 Diffuse large B-cell lymphoma, lymph nodes of head, face, and neck; R16.0 Hepatomegaly, not elsewhere classified; M06.9 Rheumatoid arthritis, unspecified; K76.9 Liver disease, unspecified; D63.0 Anemia in neoplastic disease; I10 Essential (primary) hypertension; M10.9 Gout, unspecified; E78.5 Hyperlipidemia, unspecified; K21.9 Gastro-esophageal reflux disease without esophagitis; F10.91 Alcohol use, unspecified, in remission; M79.89 Other specified soft tissue disorders; G52.3 Disorders of hypoglossal nerve; D72.819 Decreased white blood cell count, unspecified; R13.10 Dysphagia, unspecified; Z87.891 Personal history of nicotine dependence; Z79.899 Other long term (current) drug therapy; Z88.5 Allergy status to narcotic agent; Z88.1 Allergy status to other antibiotic agents
CPT/HCPCS: 80053; 84550; 85025

== ENCOUNTER 2022-08-26 07:54 | Day surgery (SDC) | payer MEDICARE, OTHER ==
[2022-08-26] MEDS ORDERED: METHOTREXATE SODIUM (PF) 25 MG/ML 2 ML VIAL INTRATHECA NR (08:00)
[2022-08-26] MEDS ORDERED: diazePAM 5 MG TAB PO STA (08:44)
[2022-08-26 08:47] VITALS: TEMP 97.8
--- NOTE | 2022-08-26 10:10 | FL ---
Lumbar puncture INDICATION: Chemotherapy access FINDINGS: Fluoroscopy time: seconds. Images obtained: 0. The procedure was explained to the patient. Risks complications and benefits were discussed. Alternat odilon were discussed. All questions were answered. Informed consent was obtained. A timeout was performed. The L3-L4 level was chosen for access. Maximum barrier sterile technique was utilized. The skin was c leansed with Betadine and the patient sterilely prepped and draped in the usual manner. The skin and deeper tissue was anesthetized with 1% Lidocaine. Utilizing an 18-gauge spinal needle the spinal marsha l was accessed. Good CSF return was evident. 4 mL clear CSF was obtained. Procedure was turned over t o oncology for chemotherapy administration. Upon completion, The stylette was replaced and the needle withdrawn. The patient tolerated the procedure well. Discharge instructions were discussed with the patient. Th e patient was transferred to the floor. IMPRESSIONS: 1. Successful Lumbar Puncture.
--- NOTE | 2022-08-26 12:12 | P.PCN ---
Date of Procedure: 08/26/22 Preoperative Diagnosis: Burkitt's lymphoma Postoperative Diagnosis: Burkitt's lymphoma Procedure(s) Performed: Lumbar puncture with prophylactic intrathecal chemotherapy administration Estimated Blood Loss (ml): 0 IV fluids (ml): 0 Urine output (ml): 0 Pathology: other (CSF sent for cytology and flow cytometry) Condition: stable Disposition: same day Indications for Procedure: Burkitt's lymphoma Description of Procedure: LP was performed by interventional radiologist. 4 cc of clear cerebrospinal fluid was removed. 12 mg of sterile, preservative-free methotrexate diluted to a volume of 2.4 cc with sterile normal saline was instilled over 2-1/2 minutes, Catheter was flushed with 1.6 cc of sterile normal saline and a latex free syringe. Patient tolerated procedure well.
[2022-08-26 16:50] VITALS: RESP 16
[2022-08-26 16:58] VITALS: BP 118/68; PULSE 88
== END 2022-08-26 13:30 | disposition home or self-care (01) ==
LOC: RADPROMAIN 07:54
PROVIDERS: ATTEND Internal Medicine
DX: C85.19 Unspecified B-cell lymphoma, extranodal and solid organ sites (principal)
CPT/HCPCS: 88108; 88184; 88185; 62328; J9260

== ENCOUNTER 2022-08-28 07:20 | Inpatient (IN) | payer MEDICARE, OTHER ==
[2022-08-28] MEDS ORDERED: ONDANSETRON 4 MG/2 ML VIAL IVP PRN (09:00)
[2022-08-28] MEDS: SODIUM CHLORIDE 0.9% 1,000 ML IV SCH ×2 (09:26→20:45)
[2022-08-28] MEDS: predniSONE 10 MG TAB PO SCH ×2 (09:29→20:44)
[2022-08-28] MEDS: predniSONE 50 MG TAB PO SCH ×2 (09:29→20:44)
[2022-08-28] MEDS ORDERED: ONDANSETRON 16 MG in SODIUM CHLORIDE 0.9% 50 ML IVPB SCH (09:30)
[2022-08-28] MEDS: FAMOTIDINE 20 MG/2 ML VIAL IV SCH (09:30)
[2022-08-28] MEDS: ONDANSETRON 16 MG in SODIUM CHLORIDE 0.9% 50 ML IVPB SCH (09:30)
[2022-08-28 10:12] LABS: Anisocytosis Slight; Basophils % (A) 0 %; Eosinophils % (A) 0 %; HCT 34.9 % (39.0-53.0); HGB 11.5 gm/dL (13.0-17.5); Lymphocytes # (A) 0.5 k/uL (1.0-4.8); Lymphocytes % (A) 4 %; MCH 30.2 pg (25.0-35.0); MCHC 33.1 g/dL (31.0-37.0); MCV 91.4 fL (80.0-100.0); Monocytes # (A) 0.8 k/uL (0-1.0); Monocytes % (A) 6 %; Neutrophils # (A) 11.7 k/uL (1.3-7.7); Neutrophils % (A) 88 %; Platelet Count 329 k/uL (150-450); Poikilocytosis Slight; RBC 3.81 m/uL (4.30-5.90); WBC 13.3 k/uL (3.8-10.6)
[2022-08-28 10:28] LABS: ALT 21 U/L (4-49); AST 18 U/L (17-59); African American GFR (CKD) >90 (>60 ml/min/1.73 sqM); Albumin 4.5 g/dL (3.5-5.0); Alkaline Phosphatase 80 U/L (38-126); Anion Gap 13 mmol/L; Blood Urea Nitrogen 28 mg/dL (9-20); Calcium 9.8 mg/dL (8.4-10.2); Carbon Dioxide 17 mmol/L (22-30); Chloride 108 mmol/L (98-107); Globulin 2.2 g/dL; Glucose 122 mg/dL (74-99); Non-African American GFR(CKD) >90 (>60 ml/min/1.73 sqM); Sodium 138 mmol/L (137-145); Total Bilirubin 0.6 mg/dL (0.2-1.3); Total Protein 6.7 g/dL (6.3-8.2); Uric Acid 6.6 mg/dL (3.5-8.5)
[2022-08-28] MEDS ORDERED: LOPERAMIDE 2 MG CAP PO PRN (10:38)
[2022-08-28] MEDS ORDERED: DOCUSATE 100 MG CAP PO PRN (10:38)
[2022-08-28] MEDS ORDERED: MAGNESIUM HYDROXIDE 2,400 MG/10 ML CUP PO PRN (10:38)
[2022-08-28] MEDS: VINCRISTINE SULFATE IV SCH (10:47)
[2022-08-28] MEDS: DOXORUBICIN HCL IV SCH (10:47)
[2022-08-28] MEDS: ETOPOSIDE IV SCH (10:47)
[2022-08-28] MEDS: [UNRECOGNIZED DRUG - OTHER] IV SCH (10:47)
[2022-08-28] MEDS ORDERED: MAG HYDROX/AL HYDROX/SIMETH 30 ML, diphenhydrAMINE ELIXIR 75 MG, LIDOCAINE VISCOUS 30 ML PO PRN ×3 (12:35)
[2022-08-28] MEDS: SALT AND SODA MOUTHWASH 1,000 ML PO SCH ×3 (14:38→20:44)
[2022-08-28] MEDS ORDERED: lisinopriL 20 MG TAB PO PRN (14:56)
--- NOTE | 2022-08-28 14:56 | P.HPIM ---
History of Present Illness H&P Date: 08/28/22 Chief Complaint: inpatient chemo Patient is a 61-year-old man with PHM Of hypertension, hyperlipidemia, gout and rheumatoid arthritis. He had been started on methotrexate in March/2022, last IT tx 08/05/22. Initially he presented to the ER with complaints of chest pain, persistent and progressive, associated symptoms of diaphoresis and shortness of breath, reported constitutional symptoms of night sweats, 10 pound unintentional weight loss, decreased appetite. CT AP showed hepatomegaly, 1.2 cm liver lesion, CT of the chest did not show any mediastinal adenopathy or parenchymal lesions. CT of the neck showed bilateral parotid masses. Core biopsy left neck mass 04/27/22, positive for high grade B cell NHL. Our office contacted the patient 05/01/22 to discuss the biopsy results and to set up further testing, patient was back in the ER around 05/03 with difficulty swallowing and speaking. Neurology saw patient, right cranial nerve XII palsy. MRI, laryngoscopy did show some prominence in soft tissue in the right tonsillar fossa, right base of the tongue area. MRI of the brain did not show any parenchymal lesions or meningeal enhancement. Patient improved and was discharged, he had his staging PET scan, but unfortunately he was admitted again because of shortness of breath 05/11. Due to patient's persistent and progressive symptoms it was decided to begin treatment inpatient. Patient had an echo showing normal LV EF, he had a PICC line placed. Labs showed spontaneous tumor lysis, he was given a dose of Elitek and started on allopurinol. He started dose adjusted R-EPOCH 05/12. He did very well post treatment, his previous symptoms have resolved all except for a small amount of numbness on the lower part of his jaw. He received his first dose of prophylactic intrathecal chemotherapy 06/01/22, and has received last 4 of 6 planed treatments. He is currently admitted for his 5th cycle of DA R-EPOCH. Pt reports feeling very well. He denies fevers, chills, shortness of breath, chest pain, cough, nausea, vomiting, abdominal pain, acute changes in bowel or bladder habits. Review of Systems 10 point ROS is negative except as stated in HPI Past Medical History Past Medical History: Cancer, GERD/Reflux, Hyperlipidemia, Hypertension, Osteoarthritis (OA) Additional Past Medical History / Comment(s): hiatal hernia, gout, non hogkins b cell lymphoma, rectal abscess with drainage History of Any Multi-Drug Resistant Organisms: None Reported Past Surgical History: Orthopedic Surgery, Tonsillectomy Additional Past Surgical History / Comment(s): claude shoulder rotator cuff repair, cyst removal rt wrist, oral surgery , surgery for pyloric stenosis as infant, lumbar pucture with ITC Past Anesthesia/Blood Transfusion Reactions: No Reported Reaction Past Psychological History: No Psychological Hx Reported Smoking Status: Never smoker Past Alcohol Use History: Occasional Additional Past Alcohol Use History / Comment(s): Quit drinking in 2021 Past Drug Use History: None Reported Additional Drug Use History / Comment(s): CBD oil for pain-- chewed tobacco many years ago - Past Family History Mother Family Medical History: No Reported History Father Family Medical History: Unable to Obtain Occupational Seizure History - Commerical Driving History Currently uses [employer] for employment (including self-employed).: No Medications and Allergies Home Medications Medication Instructions Recorded Confirmed Type Cholecalciferol [Vitamin D3 (125 125 mcg PO DAILY 04/22/22 08/28/22 History Mcg = 5000 Iu)] allopurinoL 100 mg PO DAILY 07/03/22 08/28/22 History Acyclovir [Zovirax] 400 mg PO BID 08/07/22 08/28/22 History Fluconazole [Diflucan] 100 mg PO DAILY 08/07/22 08/28/22 History Fluticasone Nasal [place] [Flonase 1 spray EA NOSTRIL HS PRN 08/07/22 08/28/22 History Nasal [place]] Ondansetron Odt [Zofran ODT] 8 mg PO Q8HR PRN 08/07/22 08/28/22 History lisinopriL 40 mg PO BID PRN 08/26/22 08/28/22 History Ciprofloxacin HCl [Cipro] 500 mg PO BID 08/28/22 08/28/22 History Allergies Allergy/AdvReac Type Severity Reaction Status Date / Time tramadol Allergy Rash/Hives Verified 08/28/22 11:07 & hallucinations sulfamethoxazole AdvReac Nausea Verified 08/28/22 11:07 [From Bactrim] trimethoprim [From Bactrim] AdvReac Nausea Verified 08/28/22 11:07 Physical Exam Vitals: Vital Signs Temp Pulse Resp BP Pulse Ox 08/28/22 11:02 98.0 F 78 18 119/70 97 08/28/22 09:03 98.0 F 84 18 124/77 96 Intake and Output 08/27/22 08/28/22 08/28/22 22:59 06:59 14:59 Other: Voiding Method Toilet Weight 79.379 kg - Constitutional General appearance: average body habitus, no acute distress - EENT Eyes: anicteric sclerae, EOMI ENT: hearing grossly normal - Respiratory Respiratory: bilateral: CTA - Cardiovascular Rhythm: regular Heart sounds: normal: S1, S2 Abnormal Heart Sounds: no systolic murmur, no diastolic murmur, no rub, no S3 Gallop, no S4 Gallop, no click, no other - Gastrointestinal General gastrointestinal: soft, no tenderness - Integumentary Integumentary: normal - Neurologic tongue deviation, ongoing, no new neuro deficits noted - Musculoskeletal Musculoskeletal: strength equal bilaterally - Psychiatric Psychiatric: A&O x's 3, appropriate affect, intact judgment & insight Results CBC & Chem 7: 08/28/22 09:59 08/28/22 09:59 Labs: Abnormal Lab Results - Last 24 Hours (Table) 08/28/22 08/28/22 Range/Units 09:59 09:59 WBC 13.3 H (3.8-10.6) k/uL RBC 3.81 L (4.30-5.90) m/uL Hgb 11.5 L (13.0-17.5) gm/dL Hct 34.9 L (39.0-53.0) % RDW 18.0 H (11.5-15.5) % Neutrophils # 11.7 H (1.3-7.7) k/uL Lymphocytes # 0.5 L (1.0-4.8) k/uL Chloride 108 H (98-107) mmol/L Carbon Dioxide 17 L (22-30) mmol/L BUN 28 H (9-20) mg/dL Creatinine 0.65 L (0.66-1.25) mg/dL Glucose 122 H (74-99) mg/dL Thrombosis Risk Factor Assmnt - DVT/VTE Prophylaxis DVT/VTE Prophylaxis: Pharmacologic Prophylaxis ordered - Choose All That Apply Each Factor Represents 1 point: Age 41-60 years Each Risk Factor Represents 2 Points: Malignancy Thrombosis Risk Factor Assessment Total Risk Factor Score: 3 Thrombosis Risk Factor Assessment Level: Moderate Risk Assessment and Plan (1) B-cell lymphoma Current Visit: Yes Status: Acute Priority: High Code(s): C85.10 - UNSPECIFIED B-CELL LYMPHOMA, UNSPECIFIED SITE SNOMED Code(s): 958481275 Plan: B-Cell Lymphoma: Admit for cycle 5 dose adjusted R-EPOCH -Internal medicine consulted for medical management -Orders reviewed -Home medications reconciled -Activity, ambulate 4 times a day with shoes on -Diet, as tolerated -Supportive medications ordered, Scheduled and when necessary -Cools solution for oral irritation -GI and DVT prophylaxis -[place] fluid intake -Hemoglobin 11.5, platelets 329,000, uric acid 6.6. Will continue to monitor rowan ly
--- NOTE | 2022-08-28 17:42 | P.CONS ---
History of Present Illness - Reason for Consult Consult date: 08/28/22 - History of Present Illness Patient is a 62-year-old male with history of recently diagnosed B-cell lymphoma, hypertension, GERD, dyslipidemia presenting for chemotherapy. [facility]. Patient seen and examined at bedside. No acute events overnight. He denies any complaints. General: nontoxic, no distress, appears at stated age Derm: warm, dry Head: atraumatic, normocephalic, symmetric Eyes: EOMI, no lid lag, anicteric sclera Mouth: no lip lesion, mucus membranes moist Cardiovascular: Normal S1-S2. No murmurs rubs or gallops. Lungs: no accessory muscle use. Clear to auscultation bilaterally Ext: no gross muscle atrophy, no edema, no contractures Neuro: no focal neuro deficits Psych: Alert, oriented, appropriate affect Data Reviewed Today: CBC shows leukocytosis of 13.3 and hemoglobin of 11.5. CMP shows chloride of 108, bicarb of 17, B1 of 28, creatinine is 0.65 and glucose 122. B-cell lymphoma on active chemotherapy Hypertension -Oncology managing chemotherapy regimen -Continue lisinopril 40 mg twice a day as needed -Labs are stable Thank you for allowing us to participate in the care of this pleasant patient. Do not hesitate to contact us with questions. Someone can be reached from the [facility] hospitalist group all hours of the day at [phone] or via [employer]. Past Medical History Past Medical History: Cancer, GERD/Reflux, Hyperlipidemia, Hypertension, Osteoarthritis (OA) Additional Past Medical History / Comment(s): hiatal hernia, gout, non hogkins b cell lymphoma, rectal abscess with drainage History of Any Multi-Drug Resistant Organisms: None Reported Past Surgical History: Orthopedic Surgery, Tonsillectomy Additional Past Surgical History / Comment(s): claude shoulder rotator cuff repair, cyst removal rt wrist, oral surgery , surgery for pyloric stenosis as , carol adrian with ITC Past Anesthesia/Blood Transfusion Reactions: No Reported Reaction Past Psychological History: No Psychological Hx Reported Smoking Status: Never smoker Past Alcohol Use History: Occasional Additional Past Alcohol Use History / Comment(s): Quit drinking in 2021 Past Drug Use History: None Reported Additional Drug Use History / Comment(s): CBD oil for pain-- chewed tobacco many years ago - Past Family History Mother Family Medical History: No Reported History Father Family Medical History: Unable to Obtain Medications and Allergies Home Medications Medication Instructions Recorded Confirmed Type Cholecalciferol [Vitamin D3 (125 125 mcg PO DAILY 04/22/22 08/28/22 History Mcg = 5000 Iu)] allopurinoL 100 mg PO DAILY 07/03/22 08/28/22 History Acyclovir [Zovirax] 400 mg PO BID 08/07/22 08/28/22 History Fluconazole [Diflucan] 100 mg PO DAILY 08/07/22 08/28/22 History Fluticasone Nasal [place] [Flonase 1 spray EA NOSTRIL HS PRN 08/07/22 08/28/22 History Nasal [place]] Ondansetron Odt [Zofran ODT] 8 mg PO Q8HR PRN 08/07/22 08/28/22 History lisinopriL 40 mg PO BID PRN 08/26/22 08/28/22 History Ciprofloxacin HCl [Cipro] 500 mg PO BID 08/28/22 08/28/22 History Allergies Allergy/AdvReac Type Severity Reaction Status Date / Time tramadol Allergy Rash/Hives Verified 08/28/22 11:07 & hallucinations sulfamethoxazole AdvReac Nausea Verified 08/28/22 11:07 [From Bactrim] trimethoprim [From Bactrim] AdvReac Nausea Verified 08/28/22 11:07 Physical Exam Vitals: Vital Signs Temp Pulse Resp BP Pulse Ox 08/28/22 15:45 97.8 F 77 16 108/70 96 08/28/22 11:02 98.0 F 78 18 119/70 97 08/28/22 09:03 98.0 F 84 18 124/77 96 Intake and Output 08/28/22 08/28/22 08/28/22 06:59 14:59 22:59 Other: Voiding Method Toilet Weight 79.379 kg Results CBC & Chem 7: 08/28/22 09:59 08/28/22 09:59 Labs: Abnormal Lab Results - Last 24 Hours (Table) 08/28/22 08/28/22 Range/Units 09:59 09:59 WBC 13.3 H (3.8-10.6) k/uL RBC 3.81 L (4.30-5.90) m/uL Hgb 11.5 L (13.0-17.5) gm/dL Hct 34.9 L (39.0-53.0) % RDW 18.0 H (11.5-15.5) % Neutrophils # 11.7 H (1.3-7.7) k/uL Lymphocytes # 0.5 L (1.0-4.8) k/uL Chloride 108 H (98-107) mmol/L Carbon Dioxide 17 L (22-30) mmol/L BUN 28 H (9-20) mg/dL Creatinine 0.65 L (0.66-1.25) mg/dL Glucose 122 H (74-99) mg/dL
[2022-08-28] MEDS ORDERED: FLUTICASONE 50MCG/SPRAY NASAL 16GM EA NOSTRIL PRN (20:00)
[2022-08-28] MEDS: ACYCLOVIR 200 MG CAP PO SCH (20:44)
[2022-08-29] MEDS: SALT AND SODA MOUTHWASH 1,000 ML PO SCH ×5 (02:03→20:35)
[2022-08-29] MEDS: SODIUM CHLORIDE 0.9% 1,000 ML IV SCH ×2 (05:45→16:29)
[2022-08-29] MEDS: predniSONE 10 MG TAB PO SCH ×2 (08:56→20:35)
[2022-08-29] MEDS: ACYCLOVIR 200 MG CAP PO SCH ×2 (08:56→20:34)
[2022-08-29] MEDS: ENOXAPARIN 40 MG/0.4 ML SYRINGE SQ SCH (08:56)
[2022-08-29] MEDS: PANTOPRAZOLE 40 MG TABLET PO SCH (08:56)
[2022-08-29] MEDS: allopurinoL 100 MG TAB PO SCH (08:56)
[2022-08-29] MEDS: predniSONE 50 MG TAB PO SCH ×2 (08:56→20:34)
[2022-08-29] MEDS: CHOLECALCIFEROL 125 MCG (5000 IU) TABLET PO SCH (08:57)
[2022-08-29 09:35] LABS: Basophils # (A) 0.02 X 10*3/uL (0.00-0.10); Basophils % (A) 0.2 %; Eosinophils # (A) 0 X 10*3/uL (0.04-0.35); Eosinophils % (A) 0 %; HCT 34.8 % (39.6-50.0); HGB 11.2 g/dL (13.0-17.0); Immature Grans, Automated 0.9 %; Lymphocytes # (A) 0.29 X 10*3/uL (0.90-5.00); Lymphocytes % (A) 2.9 %; MCH 30.9 pg (27.0-32.0); MCHC 32.2 g/dL (32.0-37.0); MCV 95.9 fL (80.0-97.0); Mean Platelet Volume 10.6 fL (9.5-12.2); Monocytes # (A) 0.21 X 10*3/uL (0.20-1.00); Monocytes % (A) 2.1 %; NRBC Per 100 WBC 0 /100 WBCS (0.0-0.0); Neutrophils # (A) 9.48 X 10*3/uL (1.80-7.70); Neutrophils % (A) 93.9 %; Platelet Count 316 X 10*3/uL (140-440); RBC 3.63 X 10*6/uL (4.40-5.60); RDW 17.3 % (11.5-14.5); WBC 10.09 X 10*3/uL (4.50-10.00)
[2022-08-29 09:53] LABS: African American GFR (CKD) 126.1 (60.0-200.0); Albumin 4.6 g/dL (3.8-4.9); Albumin/Globulin Ratio 2.65 (1.60-3.17); Anion Gap 15.1 mmol/L (10.00-18.00); BUN/Creat Ratio 33.77 Ratio (12.00-20.00); Blood Urea Nitrogen 20.5 mg/dL (9.0-27.0); Calcium 9.5 mg/dL (8.7-10.3); Carbon Dioxide 17.2 mmol/L (20.0-27.5); Globulin 1.7 g/dL (1.6-3.3); Non-African American GFR(CKD) 108.8 (60.0-200.0); Potassium 4.3 mmol/L (3.5-5.5); Total Bilirubin 0.2 mg/dL (0.30-1.20); Total Protein 6.3 g/dL (6.2-8.2); Uric Acid 6.1 mg/dL (3.7-8.7)
[2022-08-29] MEDS: FAMOTIDINE 20 MG/2 ML VIAL IV SCH (12:08)
[2022-08-29] MEDS: ONDANSETRON 16 MG in SODIUM CHLORIDE 0.9% 50 ML IVPB SCH (12:08)
[2022-08-29] MEDS: DOXORUBICIN HCL IV SCH (12:41)
[2022-08-29] MEDS: ETOPOSIDE IV SCH (12:41)
[2022-08-29] MEDS: [UNRECOGNIZED DRUG - OTHER] IV SCH (12:41)
[2022-08-29] MEDS: VINCRISTINE SULFATE IV SCH (12:41)
--- NOTE | 2022-08-29 15:04 | P.PN ---
Subjective Progress Note Date: 08/29/22 Patient is a 62-year-old male with history of recently diagnosed B-cell lymphoma, hypertension, GERD, dyslipidemia presenting for chemotherapy. [facility] has been consulted for medical management. Patient seen and examined at bedside. No acute events overnight. He denies any complaints. General: nontoxic, no distress, appears at stated age Derm: warm, dry Head: atraumatic, normocephalic, symmetric Eyes: EOMI, no lid lag, anicteric sclera Mouth: no lip lesion, mucus membranes moist Cardiovascular: Normal S1-S2. No murmurs rubs or gallops. Lungs: no accessory muscle use. Clear to auscultation bilaterally Ext: no gross muscle atrophy, no edema, no contractures Neuro: no focal neuro deficits Psych: Alert, oriented, appropriate affect Data Reviewed Today: CBC shows leukocytosis of 10.09 and hemoglobin of 11.2. CMP shows bicarb of 17.2, BUN/Cr ratio of 33.77, and glucose 182. Uric acid 6.1. B-cell lymphoma on active chemotherapy Hypertension GERD -Oncology managing chemotherapy regimen -Continue lisinopril 40 mg twice a day as needed -Protonix 40 mg PO QD -Labs are stable Thank you for allowing us to participate in the care of this pleasant patient. Do not hesitate to contact us with questions. Someone can be reached from the [facility] hospitalist group all hours of the day at [phone] or via [employer]. Objective - Vital Signs Vital signs: Vital Signs Temp 98.9 F 08/29/22 12:00 Pulse 70 08/29/22 12:00 Resp 16 08/29/22 12:00 BP 142/86 08/29/22 12:00 Pulse Ox 98 08/29/22 12:00 FiO2 Intake & Output 08/28/22 08/29/22 08/29/22 18:59 06:59 18:59 Weight 79.379 kg Other: Voiding Method Toilet Toilet Toilet # Voids 2 - Labs CBC & Chem 7: 08/29/22 05:09 08/29/22 05:09 Labs: Abnormal Lab Results - Last 24 Hours (Table) 08/29/22 08/29/22 Range/Units 05:09 05:09 WBC 10.09 H (4.50-10.00) X 10*3/uL RBC 3.63 L (4.40-5.60) X 10*6/uL Hgb 11.2 L (13.0-17.0) g/dL Hct 34.8 L (39.6-50.0) % RDW 17.3 H (11.5-14.5) % Immature Gran # 0.09 H (0.00-0.04) X 10*3/uL Neutrophils # 9.48 H (1.80-7.70) X 10*3/uL Lymphocytes # 0.29 L (0.90-5.00) X 10*3/uL Eosinophils # 0 L (0.04-0.35) X 10*3/uL Carbon Dioxide 17.2 L (20.0-27.5) mmol/L BUN/Creatinine Ratio 33.77 H (12.00-20.00) Ratio Glucose 182 H (70-110) mg/dL Total Bilirubin 0.20 L (0.30-1.20) mg/dL AST 11 L (14-35) U/L
--- NOTE | 2022-08-29 22:44 | P.PN ---
Subjective Progress Note Date: 08/29/22 Pt tolerating rx well so far. No specific complaints. No f/c/n/v Objective - Vital Signs Vital signs: Vital Signs Temp 98.4 F 08/29/22 19:06 Pulse 67 08/29/22 19:06 Resp 18 08/29/22 19:06 BP 115/74 08/29/22 19:06 Pulse Ox 97 08/29/22 19:06 FiO2 Intake & Output 08/29/22 08/29/22 08/30/22 06:59 18:59 06:59 Other: Voiding Method Toilet Toilet # Voids 2 - Constitutional General appearance: Present: no acute distress - EENT Eyes: Present: EOMI ENT: Present: hearing grossly normal, normal oropharynx - Respiratory Respiratory: bilateral: CTA - Cardiovascular Rhythm: regular Heart sounds: normal: S1, S2 - Gastrointestinal General gastrointestinal: Present: normal bowel sounds, soft - Integumentary Integumentary: Present: normal - Neurologic Neurologic: Present: CNII-XII intact - Musculoskeletal Musculoskeletal: Present: strength equal bilaterally - Psychiatric Psychiatric: Present: A&O x's 3, appropriate affect - Labs CBC & Chem 7: 08/29/22 05:09 08/29/22 05:09 Labs: Abnormal Lab Results - Last 24 Hours (Table) 08/29/22 08/29/22 Range/Units 05:09 05:09 WBC 10.09 H (4.50-10.00) X 10*3/uL RBC 3.63 L (4.40-5.60) X 10*6/uL Hgb 11.2 L (13.0-17.0) g/dL Hct 34.8 L (39.6-50.0) % RDW 17.3 H (11.5-14.5) % Immature Gran # 0.09 H (0.00-0.04) X 10*3/uL Neutrophils # 9.48 H (1.80-7.70) X 10*3/uL Lymphocytes # 0.29 L (0.90-5.00) X 10*3/uL Eosinophils # 0 L (0.04-0.35) X 10*3/uL Carbon Dioxide 17.2 L (20.0-27.5) mmol/L BUN/Creatinine Ratio 33.77 H (12.00-20.00) Ratio Glucose 182 H (70-110) mg/dL Total Bilirubin 0.20 L (0.30-1.20) mg/dL AST 11 L (14-35) U/L Assessment and Plan (1) B-cell lymphoma Narrative/Plan: admitted for high dose infusional chemo, DA R-EPOCH. DAy # 2 today. He is tolerating treatment well so far. Continue rx per protocol, with ongoing monitoring with labs and clinical exams Current Visit: Yes Status: Acute Priority: High Code(s): C85.10 - UNSPECIFIED B-CELL LYMPHOMA, UNSPECIFIED SITE SNOMED Code(s): 964908815 (2) Anemia Narrative/Plan: Mild, due to prior anti neoplastic therapy. Continue to monitor, with transfusion support for Hgb < 7 Current Visit: No Status: Acute Priority: Medium Code(s): D64.9 - ANEMIA, UNSPECIFIED SNOMED Code(s): 316253138
[2022-08-30] MEDS: SALT AND SODA MOUTHWASH 1,000 ML PO SCH ×5 (00:05→20:37)
[2022-08-30] MEDS: SODIUM CHLORIDE 0.9% 1,000 ML IV SCH ×3 (00:08→20:37)
[2022-08-30] MEDS: allopurinoL 100 MG TAB PO SCH (08:48)
[2022-08-30] MEDS: ENOXAPARIN 40 MG/0.4 ML SYRINGE SQ SCH ×2 (08:48→08:50)
[2022-08-30] MEDS: ACYCLOVIR 200 MG CAP PO SCH ×2 (08:48→20:37)
[2022-08-30] MEDS: predniSONE 10 MG TAB PO SCH ×2 (08:48→20:38)
[2022-08-30] MEDS: PANTOPRAZOLE 40 MG TABLET PO SCH (08:48)
[2022-08-30] MEDS: CHOLECALCIFEROL 125 MCG (5000 IU) TABLET PO SCH (08:48)
[2022-08-30] MEDS: predniSONE 50 MG TAB PO SCH ×2 (08:48→20:38)
[2022-08-30 09:04] LABS: Anisocytosis Slight; Basophils % (A) 0 %; Eosinophils % (A) 0 %; HCT 34.9 % (39.0-53.0); HGB 11.4 gm/dL (13.0-17.5); Lymphocytes # (A) 0.2 k/uL (1.0-4.8); Lymphocytes % (A) 2 %; MCH 30.3 pg (25.0-35.0); MCHC 32.7 g/dL (31.0-37.0); MCV 92.5 fL (80.0-100.0); Monocytes # (A) 0.3 k/uL (0-1.0); Monocytes % (A) 4 %; Neutrophils # (A) 8.2 k/uL (1.3-7.7); Neutrophils % (A) 93 %; Platelet Count 244 k/uL (150-450); Poikilocytosis Slight; RBC 3.77 m/uL (4.30-5.90); RDW 17.7 % (11.5-15.5); WBC 8.8 k/uL (3.8-10.6)
[2022-08-30 09:09] LABS: ALT 17 U/L (4-49); AST 16 U/L (17-59); African American GFR (CKD) >90 (>60 ml/min/1.73 sqM); Albumin/Globulin Ratio 2.1; Alkaline Phosphatase 55 U/L (38-126); Anion Gap 9 mmol/L; Blood Urea Nitrogen 18 mg/dL (9-20); Calcium 9.3 mg/dL (8.4-10.2); Carbon Dioxide 22 mmol/L (22-30); Chloride 108 mmol/L (98-107); Globulin 1.9 g/dL; Glucose 130 mg/dL (74-99); Non-African American GFR(CKD) >90 (>60 ml/min/1.73 sqM); Potassium 4.3 mmol/L (3.5-5.1); Sodium 139 mmol/L (137-145); Total Bilirubin 0.5 mg/dL (0.2-1.3); Total Protein 5.9 g/dL (6.3-8.2)
--- NOTE | 2022-08-30 13:44 | P.PN ---
Subjective Progress Note Date: 08/30/22 Patient is a 62-year-old male with history of recently diagnosed B-cell lymphoma, hypertension, GERD, dyslipidemia presenting for chemotherapy. [facility] has been consulted for medical management. Patient seen and examined at bedside. No acute events overnight. He denies any complaints. General: nontoxic, no distress, appears at stated age Derm: warm, dry Head: atraumatic, normocephalic, symmetric Eyes: EOMI, no lid lag, anicteric sclera Cardiovascular: Good distal perfusion in all 4 extremities. Lungs: no accessory muscle use. Ext: no gross muscle atrophy, no edema, no contractures Neuro: no focal neuro deficits Psych: Alert, oriented, appropriate affect Data Reviewed Today: CBC shows hemoglobin of 11.4. CMP shows Cl 108, Cr 0.65, glucose 130, AST 16, total protein 5.9. B-cell lymphoma on active chemotherapy Hypertension GERD -Oncology managing chemotherapy regimen -Continue lisinopril 40 mg twice a day as needed -Protonix 40 mg PO QD -Labs are stable Thank you for allowing us to participate in the care of this pleasant patient. Do not hesitate to contact us with questions. Someone can be reached from the [facility] hospitalist group all hours of the day at [phone] or via [employer]. Objective - Vital Signs Vital signs: Vital Signs Temp 97.5 F L 08/30/22 12:00 Pulse 73 08/30/22 12:00 Resp 16 08/30/22 12:00 BP 144/82 08/30/22 12:00 Pulse Ox 98 08/30/22 12:00 FiO2 Intake & Output 08/29/22 08/30/22 08/30/22 18:59 06:59 18:59 Intake Total 400 Balance 400 Intake: Oral 400 Other: Voiding Method Toilet Toilet # Voids 2 - Labs CBC & Chem 7: 08/30/22 08:16 08/30/22 08:16 Labs: Abnormal Lab Results - Last 24 Hours (Table) 08/30/22 08/30/22 Range/Units 08:16 08:16 RBC 3.77 L (4.30-5.90) m/uL Hgb 11.4 L (13.0-17.5) gm/dL Hct 34.9 L (39.0-53.0) % RDW 17.7 H (11.5-15.5) % Neutrophils # 8.2 H (1.3-7.7) k/uL Lymphocytes # 0.2 L (1.0-4.8) k/uL Chloride 108 H (98-107) mmol/L Creatinine 0.65 L (0.66-1.25) mg/dL Glucose 130 H (74-99) mg/dL AST 16 L (17-59) U/L Total Protein 5.9 L (6.3-8.2) g/dL
[2022-08-30] MEDS: FAMOTIDINE 20 MG/2 ML VIAL IV SCH (15:34)
[2022-08-30] MEDS: ONDANSETRON 16 MG in SODIUM CHLORIDE 0.9% 50 ML IVPB SCH (15:34)
[2022-08-30] MEDS: [UNRECOGNIZED DRUG - OTHER] IV SCH (15:53)
[2022-08-30] MEDS: ETOPOSIDE IV SCH (15:53)
[2022-08-30] MEDS: VINCRISTINE SULFATE IV SCH (15:53)
[2022-08-30] MEDS: DOXORUBICIN HCL IV SCH (15:53)
--- NOTE | 2022-08-30 18:54 | P.PN ---
Subjective Progress Note Date: 08/30/22 Pt tolerating Rx well. No f/c/n/v/mucositis. Appetite is maintained Objective - Vital Signs Vital signs: Vital Signs Temp 97.8 F 08/30/22 16:20 Pulse 64 08/30/22 16:20 Resp 16 08/30/22 16:20 BP 167/83 08/30/22 16:20 Pulse Ox 95 08/30/22 16:20 FiO2 Intake & Output 08/29/22 08/30/22 08/30/22 18:59 06:59 18:59 Intake Total 400 Balance 400 Intake: Oral 400 Other: Voiding Method Toilet Toilet # Voids 2 - Constitutional General appearance: Present: no acute distress - EENT Eyes: Present: EOMI ENT: Present: hearing grossly normal, normal oropharynx - Respiratory Respiratory: bilateral: CTA - Cardiovascular Rhythm: regular Heart sounds: normal: S1, S2 - Gastrointestinal General gastrointestinal: Present: normal bowel sounds, soft - Integumentary Integumentary: Present: normal - Neurologic Neurologic: Present: focal deficits (tongue deviation, mild, stable) - Musculoskeletal Musculoskeletal: Present: strength equal bilaterally - Psychiatric Psychiatric: Present: A&O x's 3, appropriate affect - Labs CBC & Chem 7: 08/30/22 08:16 08/30/22 08:16 Labs: Abnormal Lab Results - Last 24 Hours (Table) 08/30/22 08/30/22 Range/Units 08:16 08:16 RBC 3.77 L (4.30-5.90) m/uL Hgb 11.4 L (13.0-17.5) gm/dL Hct 34.9 L (39.0-53.0) % RDW 17.7 H (11.5-15.5) % Neutrophils # 8.2 H (1.3-7.7) k/uL Lymphocytes # 0.2 L (1.0-4.8) k/uL Chloride 108 H (98-107) mmol/L Creatinine 0.65 L (0.66-1.25) mg/dL Glucose 130 H (74-99) mg/dL AST 16 L (17-59) U/L Total Protein 5.9 L (6.3-8.2) g/dL Assessment and Plan (1) B-cell lymphoma Narrative/Plan: Day#3 of DA R-EPOCH. Tolerating well. No new complaints. Continue treatment per protocol, with ongoing monitoring. Check labs Current Visit: Yes Status: Acute Priority: High Code(s): C85.10 - UNSPECIFIED B-CELL LYMPHOMA, UNSPECIFIED SITE SNOMED Code(s): 682056491 (2) Anemia Narrative/Plan: Mild, stable at 11.5, due to chemo effect. Continue to monitor Current Visit: No Status: Acute Priority: Medium Code(s): D64.9 - ANEMIA, UNSPECIFIED SNOMED Code(s): 528065581
[2022-08-31] MEDS: SALT AND SODA MOUTHWASH 1,000 ML PO SCH ×6 (00:29→23:45)
[2022-08-31] MEDS: SODIUM CHLORIDE 0.9% 1,000 ML IV SCH ×3 (05:17→23:44)
[2022-08-31] MEDS: predniSONE 50 MG TAB PO SCH ×2 (08:09→20:10)
[2022-08-31] MEDS: CHOLECALCIFEROL 125 MCG (5000 IU) TABLET PO SCH (08:09)
[2022-08-31] MEDS: ACYCLOVIR 200 MG CAP PO SCH ×2 (08:09→20:10)
[2022-08-31] MEDS: allopurinoL 100 MG TAB PO SCH (08:09)
[2022-08-31] MEDS: predniSONE 10 MG TAB PO SCH ×2 (08:09→20:10)
[2022-08-31] MEDS: PANTOPRAZOLE 40 MG TABLET PO SCH (08:09)
[2022-08-31] MEDS: ENOXAPARIN 40 MG/0.4 ML SYRINGE SQ SCH (08:10)
[2022-08-31 09:39] LABS: Anisocytosis Slight; Basophils % (A) 0 %; Eosinophils % (A) 0 %; HCT 32.2 % (39.0-53.0); HGB 10.4 gm/dL (13.0-17.5); Lymphocytes # (A) 0.2 k/uL (1.0-4.8); Lymphocytes % (A) 3 %; MCH 29.8 pg (25.0-35.0); MCHC 32.4 g/dL (31.0-37.0); Mean Platelet Volume 7.7; Monocytes # (A) 0.2 k/uL (0-1.0); Monocytes % (A) 3 %; Neutrophils # (A) 5.4 k/uL (1.3-7.7); Neutrophils % (A) 93 %; Platelet Count 222 k/uL (150-450); Poikilocytosis Slight; RDW 17.4 % (11.5-15.5); WBC 5.8 k/uL (3.8-10.6)
[2022-08-31 09:47] LABS: ALT 20 U/L (4-49); AST 20 U/L (17-59); African American GFR (CKD) >90 (>60 ml/min/1.73 sqM); Albumin 3.7 g/dL (3.5-5.0); Albumin/Globulin Ratio 1.9; Alkaline Phosphatase 52 U/L (38-126); Anion Gap 13 mmol/L; Blood Urea Nitrogen 18 mg/dL (9-20); Calcium 8.7 mg/dL (8.4-10.2); Carbon Dioxide 19 mmol/L (22-30); Chloride 105 mmol/L (98-107); Globulin 1.9 g/dL; Glucose 175 mg/dL (74-99); Non-African American GFR(CKD) >90 (>60 ml/min/1.73 sqM); Potassium 3.9 mmol/L (3.5-5.1); Sodium 137 mmol/L (137-145); Total Bilirubin 0.7 mg/dL (0.2-1.3); Total Protein 5.6 g/dL (6.3-8.2); Uric Acid 6.1 mg/dL (3.5-8.5)
--- NOTE | 2022-08-31 12:14 | P.PN ---
Subjective Progress Note Date: 08/31/22 Patient is a 62-year-old male with history of recently diagnosed B-cell lymphoma, hypertension, GERD, dyslipidemia presenting for chemotherapy. [facility] physicians has been consulted for medical management. Patient seen and examined at bedside. No acute events overnight. He denies any complaints. General: nontoxic, no distress, appears at stated age Derm: warm, dry Head: atraumatic, normocephalic, symmetric Eyes: EOMI, no lid lag, anicteric sclera Cardiovascular: Good distal perfusion in all 4 extremities. Lungs: no accessory muscle use. Ext: no gross muscle atrophy, no edema, no contractures Neuro: no focal neuro deficits Psych: Alert, oriented, appropriate affect Data Reviewed Today: CBC shows hemoglobin of 10.4. CMP shows bicarb of 19, Cr 0.58, glucose 175, total protein 5.6. Hypertension GERD Normocytic anemia Resolved: Leukocytosis B-cell lymphoma on active chemotherapy -Oncology managing chemotherapy regimen -Continue lisinopril 40 mg twice a day as needed -Protonix 40 mg PO QD -Hg drop likely dilution, no signs of active bleeding, continue to monitor -Labs are stable Thank you for allowing us to participate in the care of this pleasant patient. Do not hesitate to contact us with questions. Someone can be reached from the [facility] hospitalist group all hours of the day at [phone] or via [employer]. Objective - Vital Signs Vital signs: Vital Signs Temp 97.9 F 08/31/22 11:46 Pulse 60 08/31/22 11:46 Resp 17 08/31/22 11:46 BP 157/79 08/31/22 11:46 Pulse Ox 97 08/31/22 11:46 FiO2 Intake & Output 08/30/22 08/31/22 08/31/22 18:59 06:59 18:59 Intake Total 1800 Balance 1800 Intake: Intake, IV Titration 1200 Amount Sodium Chloride 0.9% 1, 1200 000 ml @ 100 mls/hr IV . Q10H RAJWINDER Rx#:[id number] Oral 600 Other: Voiding Method Toilet Toilet # Voids 1 - Labs CBC & Chem 7: 08/31/22 09:12 08/31/22 09:12 Labs: Abnormal Lab Results - Last 24 Hours (Table) 08/31/22 08/31/22 Range/Units 09:12 09:12 RBC 3.50 L (4.30-5.90) m/uL Hgb 10.4 L (13.0-17.5) gm/dL Hct 32.2 L (39.0-53.0) % RDW 17.4 H (11.5-15.5) % Lymphocytes # 0.2 L (1.0-4.8) k/uL Carbon Dioxide 19 L (22-30) mmol/L Creatinine 0.58 L (0.66-1.25) mg/dL Glucose 175 H (74-99) mg/dL Total Protein 5.6 L (6.3-8.2) g/dL
--- NOTE | 2022-08-31 12:49 | P.PN ---
Subjective Progress Note Date: 08/31/22 Principal diagnosis: inpatient chemo At today's visit patient is resting comfortably in bedside chair, at bedside. Chemotherapy day 4. Patient reports feeling well. No adverse effects noted. Patient is tolerating oral intake well. Objective - Vital Signs Vital signs: Vital Signs Temp 97.9 F 08/31/22 11:46 Pulse 60 08/31/22 11:46 Resp 17 08/31/22 11:46 BP 157/79 08/31/22 11:46 Pulse Ox 97 08/31/22 11:46 FiO2 Intake & Output 08/30/22 08/31/22 08/31/22 18:59 06:59 18:59 Intake Total 1800 Balance 1800 Intake: Intake, IV Titration 1200 Amount Sodium Chloride 0.9% 1, 1200 000 ml @ 100 mls/hr IV . Q10H [facility] Rx#:[id number] Oral 600 Other: Voiding Method Toilet Toilet # Voids 1 - Constitutional General appearance: Present: average body habitus, no acute distress - EENT Eyes: Present: anicteric sclerae, EOMI ENT: Present: hearing grossly normal - Respiratory Details: breathing is even and unlabored - Cardiovascular Details: skin warm and dry - Peripheral edema leg Peripheral Edema: bilateral: None - Integumentary Integumentary: Present: normal - Musculoskeletal Musculoskeletal: Present: strength equal bilaterally - Psychiatric Psychiatric: Present: A&O x's 3, appropriate affect, intact judgment & insight - Labs CBC & Chem 7: 08/31/22 09:12 08/31/22 09:12 Labs: Abnormal Lab Results - Last 24 Hours (Table) 08/31/22 08/31/22 Range/Units 09:12 09:12 RBC 3.50 L (4.30-5.90) m/uL Hgb 10.4 L (13.0-17.5) gm/dL Hct 32.2 L (39.0-53.0) % RDW 17.4 H (11.5-15.5) % Lymphocytes # 0.2 L (1.0-4.8) k/uL Carbon Dioxide 19 L (22-30) mmol/L Creatinine 0.58 L (0.66-1.25) mg/dL Glucose 175 H (74-99) mg/dL Total Protein 5.6 L (6.3-8.2) g/dL Assessment and Plan (1) B-cell lymphoma Current Visit: Yes Status: Acute Priority: High Code(s): C85.10 - UNSPECIFIED B-CELL LYMPHOMA, UNSPECIFIED SITE SNOMED Code(s): 516211101 Plan: B-Cell Lymphoma: Day 4 of cycle 5 dose adjusted R-EPOCH -Tolerating treatment well. Will continue without adjustments -Activity, ambulate 4 times a day with shoes on -Diet, as tolerated -Supportive medications ordered, Scheduled and when necessary -Cools solution for oral irritation -GI and DVT prophylaxis -[place] fluid intake -Hemoglobin 10.4, platelets 222,000, WBC 5.8, ANC 5.4, uric acid 6.1. Will continue to monitor daily
[2022-08-31] MEDS: FAMOTIDINE 20 MG/2 ML VIAL IV SCH (17:51)
[2022-08-31] MEDS: ONDANSETRON 16 MG in SODIUM CHLORIDE 0.9% 50 ML IVPB SCH (17:51)
[2022-08-31] MEDS: VINCRISTINE SULFATE IV SCH (18:30)
[2022-08-31] MEDS: [UNRECOGNIZED DRUG - OTHER] IV SCH (18:30)
[2022-08-31] MEDS: ETOPOSIDE IV SCH (18:30)
[2022-08-31] MEDS: DOXORUBICIN HCL IV SCH (18:30)
[2022-09-01] MEDS: SALT AND SODA MOUTHWASH 1,000 ML PO SCH ×3 (05:01→15:30)
[2022-09-01 06:48] LABS: Anisocytosis Slight; Basophils % (A) 0 %; Eosinophils % (A) 0 %; HCT 31.7 % (39.0-53.0); HGB 10.6 gm/dL (13.0-17.5); Lymphocytes # (A) 0.1 k/uL (1.0-4.8); Lymphocytes % (A) 3 %; MCH 30.5 pg (25.0-35.0); MCHC 33.5 g/dL (31.0-37.0); MCV 91.1 fL (80.0-100.0); Mean Platelet Volume 7.4; Monocytes # (A) 0.1 k/uL (0-1.0); Monocytes % (A) 3 %; Neutrophils # (A) 3.6 k/uL (1.3-7.7); Neutrophils % (A) 94 %; Platelet Count 207 k/uL (150-450); RBC 3.48 m/uL (4.30-5.90); RDW 17.2 % (11.5-15.5); WBC 3.8 k/uL (3.8-10.6)
[2022-09-01 07:21] LABS: ALT 21 U/L (4-49); AST 20 U/L (17-59); African American GFR (CKD) >90 (>60 ml/min/1.73 sqM); Albumin 3.6 g/dL (3.5-5.0); Albumin/Globulin Ratio 1.9; Alkaline Phosphatase 50 U/L (38-126); Anion Gap 8 mmol/L; Blood Urea Nitrogen 17 mg/dL (9-20); Calcium 8.8 mg/dL (8.4-10.2); Carbon Dioxide 25 mmol/L (22-30); Chloride 106 mmol/L (98-107); Globulin 1.9 g/dL; Glucose 141 mg/dL (74-99); Non-African American GFR(CKD) >90 (>60 ml/min/1.73 sqM); Potassium 3.8 mmol/L (3.5-5.1); Sodium 139 mmol/L (137-145); Total Bilirubin 0.6 mg/dL (0.2-1.3); Total Protein 5.5 g/dL (6.3-8.2)
[2022-09-01] MEDS: ACYCLOVIR 200 MG CAP PO SCH (09:26)
[2022-09-01] MEDS: ENOXAPARIN 40 MG/0.4 ML SYRINGE SQ SCH (09:26)
[2022-09-01] MEDS: predniSONE 50 MG TAB PO SCH (09:26)
[2022-09-01] MEDS: CHOLECALCIFEROL 125 MCG (5000 IU) TABLET PO SCH (09:26)
[2022-09-01] MEDS: predniSONE 10 MG TAB PO SCH (09:26)
[2022-09-01] MEDS: PANTOPRAZOLE 40 MG TABLET PO SCH (09:26)
[2022-09-01] MEDS: allopurinoL 100 MG TAB PO SCH (09:26)
--- NOTE | 2022-09-01 15:01 | P.DS ---
Providers Date of admission: 08/28/22 08:23 Expected date of discharge: 09/01/22 Attending physician: Alec Nava MD Consults: 08/28/22 12:35 Consult Physician Routine Consulting Provider: Drake Elizabeth Consult Reason/Comments: medical management, inpt chemo Do you want consulting provider notified?: Yes Primary care physician: Tom Sandy - Discharge Diagnosis(es) (1) B-cell lymphoma Admitted for inpatient chemo for treatment of B-Cell Lymphoma. Today was day 5 of chemo of dose adjusted R-EPOCH. Patient is tolerating treatment well. Will continue without adjustments. No reported adverse events. Counts stable. Hemoglobin 10.6, platelets 207,000, WBC 3.8, ANC 3.6, uric acid 6.1. Will plan for discharge at completion of chemo. Pt has f/u scheduled in 2 days for neulasta and will plan to repeat CMP, CBC, and uric acid. Pt will also f/u wednesday in clinic for repeat labs, and m/w/f x 2 weeks post chemo. Pt updated and is agreeable with plan. Pt instructed to continue anti-viral, and has scripts for prophylactic anti-fungal and antibiotic and was instructed to begin meds upon discharge Current Visit: Yes Status: Acute Priority: High Hospital Course: Patient tolerated cycle 5 inpatient chemo well. No adverse events Assessment: Outpatient f/u scheduled for lab monitoring and f/u appts and neulasta injection. Will plan for cycle 6 and IT chemo in 4 weeks Patient Condition at Discharge: Good Plan - Discharge Summary Discharge Rx Participant: No New Discharge Prescriptions: No Action Cholecalciferol [Vitamin D3 (125 Mcg = 5000 Iu)] 125 mcg PO DAILY Acyclovir [Zovirax] 400 mg PO BID lisinopriL 40 mg PO BID PRN PRN Reason: Blood Pressure - High Ciprofloxacin HCl [Cipro] 500 mg PO BID allopurinoL 100 mg PO DAILY Fluconazole [Diflucan] 100 mg PO DAILY Fluticasone Nasal [place] [Flonase Nasal [place]] 1 spray EA NOSTRIL HS PRN PRN Reason: Congestion Ondansetron Odt [Zofran ODT] 8 mg PO Q8HR PRN PRN Reason: Nausea Discharge Medication List Cholecalciferol [Vitamin D3 (125 Mcg = 5000 Iu)] 125 mcg PO DAILY 04/22/22 [History] allopurinoL 100 mg PO DAILY 07/03/22 [History] Acyclovir [Zovirax] 400 mg PO BID 08/07/22 [History] Fluconazole [Diflucan] 100 mg PO DAILY 08/07/22 [History] Fluticasone Nasal [place] [Flonase Nasal [place]] 1 spray EA NOSTRIL HS PRN 08/07/22 [History] Ondansetron Odt [Zofran ODT] 8 mg PO Q8HR PRN 08/07/22 [History] lisinopriL 40 mg PO BID PRN 08/26/22 [History] Ciprofloxacin HCl [Cipro] 500 mg PO BID 08/28/22 [History] Follow up Appointment(s)/Referral(s): Alec Nava MD [STAFF PHYSICIAN] - 09/02/22 (for blood work in morning as previously arranged.) Patient Instructions/Handouts: Non-Hodgkin Lymphoma (DC), Intravenous Chemotherapy (DC) Discharge Disposition: HOME SELF-CARE Plan of Treatment: Will complete cycle 6 and 5th IT chemo in 4 weeks
[2022-09-01] MEDS: ONDANSETRON 16 MG in SODIUM CHLORIDE 0.9% 50 ML IVPB SCH (16:29)
[2022-09-01] MEDS: FAMOTIDINE 20 MG/2 ML VIAL IV SCH (16:29)
[2022-09-01] MEDS: SODIUM CHLORIDE 0.9% 1,000 ML IV SCH (16:36)
--- NOTE | 2022-09-01 16:44 | P.PN ---
Subjective Progress Note Date: 09/01/22 (delayed charting seen at 0903) Patient is a 62-year-old male with history of recently diagnosed B-cell lymphoma, hypertension, GERD, dyslipidemia presenting for chemotherapy. [facility] physicians has been consulted for medical management. Patient seen and examined at bedside. He is doing well and has no complaints today other than poor sleep. He denies any chest pain, shortness breath, mouth pain, nausea, vomiting, diarrhea, or constipation Vital signs reviewed General: nontoxic, no distress, appears at stated age Cardiovascular: S1S2 reg, no murmur, positive posterior tibial pulse bilateral, Lungs: CTA bilateral, no rhonchi, no rales , no accessory muscle use Ext: no gross muscle atrophy, no edema, no contractures Neuro: CN II-XI grossly intact, no focal neuro deficits Psych: Alert, oriented, appropriate affect Assessment: 62-year-old male here for treatment of B cell lymphoma cycle day 5 of 5 Hypertension GERD Normocytic anemia Resolved: Leukocytosis Imaging: None new for Review Data Review: Vital signs reviewed from this morning temperature 90.8, pulse 55, respirations 16, blood pressure 164/89, O2 sat 99% on room air Laboratory analysis remarkable for hemoglobin 10.6-stable from 10.4, creatinine 0.53-stable from 0.58 Plan: -Discharge will be at the discretion of oncology who is been maintaining his chemotherapy regiment. -Continue his lisinopril 40 mg twice daily as needed for elevated blood pressures -Protonix 40 mg daily -Hemoglobin and blood work is stable Thank you for allowing us to participate in the care of this pleasant patient. Do not hesitate to contact us with questions. Someone can be reached from the [facility] hospitalist group all hours of the day at [phone] or via perfect serve. This dictation was prepared using [employer] voice recognition software. Though every attempt is made to correct errors during during dictation some may still exist. Objective - Vital Signs Vital signs: Vital Signs Temp 98.6 F 09/01/22 11:57 Pulse 67 09/01/22 11:57 Resp 16 09/01/22 11:57 BP 137/78 09/01/22 11:57 Pulse Ox 98 09/01/22 11:57 FiO2 Intake & Output 08/31/22 09/01/22 09/01/22 18:59 06:59 18:59 Intake Total 1560 Balance 1560 Intake: Intake, IV Titration 1200 Amount Sodium Chloride 0.9% 1, 1200 000 ml @ 100 mls/hr IV . Q10H [facility] Rx#:[id number] Oral 360 Other: Voiding Method Toilet Toilet # Voids 5 # Bowel Movements 2 - Labs CBC & Chem 7: 09/01/22 06:02 09/01/22 06:02 Labs: Abnormal Lab Results - Last 24 Hours (Table) 09/01/22 09/01/22 Range/Units 06:02 06:02 RBC 3.48 L (4.30-5.90) m/uL Hgb 10.6 L (13.0-17.5) gm/dL Hct 31.7 L (39.0-53.0) % RDW 17.2 H (11.5-15.5) % Lymphocytes # 0.1 L (1.0-4.8) k/uL Creatinine 0.53 L (0.66-1.25) mg/dL Glucose 141 H (74-99) mg/dL Total Protein 5.5 L (6.3-8.2) g/dL
[2022-09-01 17:21] VITALS: RESP 18; TEMP 97.7
[2022-09-01 18:19] VITALS: BP 148/82; PULSE 66
== END 2022-09-01 18:40 | disposition home or self-care (01) | DRG 847 ==
LOC: 5NMEDONC 08:23
PROVIDERS: ADMIT Internal Medicine; ATTEND Internal Medicine
DX: Z51.11 Encounter for antineoplastic chemotherapy (principal); C85.11 Unspecified B-cell lymphoma, lymph nodes of head, face, and neck; K44.0 Diaphragmatic hernia with obstruction, without gangrene; M06.9 Rheumatoid arthritis, unspecified; D64.81 Anemia due to antineoplastic chemotherapy; E78.5 Hyperlipidemia, unspecified; M10.9 Gout, unspecified; K21.9 Gastro-esophageal reflux disease without esophagitis; M19.90 Unspecified osteoarthritis, unspecified site; I10 Essential (primary) hypertension; K76.9 Liver disease, unspecified; G52.3 Disorders of hypoglossal nerve; T45.1X5A Adverse effect of antineoplastic and immunosuppressive drugs, initial encounter; D72.829 Elevated white blood cell count, unspecified; Z79.899 Other long term (current) drug therapy; Z79.52 Long term (current) use of systemic steroids; Z79.2 Long term (current) use of antibiotics; Z79.630 Long term (current) use of alkylating agent; Z79.633 Long term (current) use of mitotic inhibitor; Z79.632 Long term (current) use of antitumor antibiotic; Z95.828 Presence of other vascular implants and grafts; Z87.891 Personal history of nicotine dependence; Z88.5 Allergy status to narcotic agent; Z88.2 Allergy status to sulfonamides
CPT/HCPCS: 80053; 84550; 85025

== ENCOUNTER 2022-09-23 07:52 | Day surgery (SDC) | payer MEDICARE, OTHER ==
[2022-09-23] MEDS ORDERED: METHOTREXATE SODIUM (PF) 25 MG/ML 2 ML VIAL INTRATHECA NR (08:00)
[2022-09-23 08:28] VITALS: RESP 16; TEMP 97.5
[2022-09-23] MEDS ORDERED: diazePAM 5 MG TAB PO STA (08:28)
[2022-09-23 13:43] VITALS: BP 126/62; PULSE 82
--- NOTE | 2022-09-24 10:43 | FL ---
EXAMINATION TYPE: FL guided lumbar puncture LP DATE OF EXAM: 09/23/2022 COMPARISON: NONE HISTORY: History of neoplasm. TECHNIQUE: Fluoroscopic assisted lumbar puncture. FINDINGS: Fluoroscopic guidance was provided during lumbar puncture procedure for intrathecal chemot herapy performed by myself. A total of 66 seconds of fluoroscopic time was utilized during the proce dure and 1 spot images was acquired. Total dose area product (DAP) in uGy*m?, mGy*cm? (or similar): n/a. The procedure was explained to the patient. Risks complications and benefits were discussed. Alternat odilon were discussed. All questions were answered. Informed consent was obtained by a nurse. A timeout was performed. The L4-L5 level was first chosen for access. This was unsuccessful. Subsequent attempts performed at L2 and L3 levels were successful in accessing the spinal canal. Maximum barrier sterile technique was utilized. The skin was cleansed with Betadine and the patient sterilely prepped and draped in the us ual manner. The skin and deeper tissue was anesthetized with 1% Lidocaine. Utilizing an 18-gauge spin al needle the spinal canal was accessed. There is poor CSF return and oncology nurse demands 2.5 cc o f CSF. Different manipulation techniques were performed to try to increase yield, all unsuccessful in getting great return. There is eventual change from clear to more bloody tinged CSF. Approximate 2.0 to 2.5 cc of CSF was eventually obtained. Oncology nurse then gave intrathecal chemotherapy and flus h over a extended time. The patient tolerated the procedure well. Discharge instructions were discussed with the patient. Th e patient was in the hospital for short stay after the procedure and then discharge home in stable an d satisfactory condition. IMPRESSION: As Above.
== END 2022-09-23 13:30 | disposition home or self-care (01) ==
LOC: RADPROMAIN 07:52
PROVIDERS: ATTEND Internal Medicine
DX: G95.89 Other specified diseases of spinal cord (principal)
CPT/HCPCS: 88108; 88184; 88185; 96450; J2001; J9260; 62328

== ENCOUNTER 2022-09-25 07:48 | Inpatient (IN) | payer MEDICARE, OTHER ==
[2022-09-25] MEDS ORDERED: ONDANSETRON 4 MG/2 ML VIAL IVP PRN (09:00)
[2022-09-25] MEDS ORDERED: MAGNESIUM HYDROXIDE 2,400 MG/10 ML CUP PO PRN (10:51)
[2022-09-25] MEDS ORDERED: DOCUSATE 100 MG CAP PO PRN (10:51)
[2022-09-25] MEDS ORDERED: LOPERAMIDE 2 MG CAP PO PRN (10:51)
[2022-09-25] MEDS ORDERED: MAG HYDROX/AL HYDROX/SIMETH 30 ML, diphenhydrAMINE ELIXIR 75 MG, LIDOCAINE VISCOUS 2% 3... PO PRN ×3 (10:51)
[2022-09-25 11:33] LABS: Anisocytosis Slight; Basophils % (A) 0 %; Eosinophils % (A) 0 %; HCT 35.5 % (39.0-53.0); HGB 11.7 gm/dL (13.0-17.5); Lymphocytes # (A) 0.5 k/uL (1.0-4.8); Lymphocytes % (A) 6 %; MCH 30.8 pg (25.0-35.0); MCV 93.2 fL (80.0-100.0); Mean Platelet Volume 7.9; Monocytes % (A) 12 %; Neutrophils # (A) 6.6 k/uL (1.3-7.7); Neutrophils % (A) 79 %; Platelet Count 273 k/uL (150-450); Poikilocytosis Slight; RBC 3.81 m/uL (4.30-5.90); RDW 17.4 % (11.5-15.5); WBC 8.4 k/uL (3.8-10.6)
[2022-09-25 11:36] LABS: ALT 24 U/L (4-49); AST 21 U/L (17-59); African American GFR (CKD) >90 (>60 ml/min/1.73 sqM); Albumin 4.5 g/dL (3.5-5.0); Alkaline Phosphatase 70 U/L (38-126); Anion Gap 13 mmol/L; Blood Urea Nitrogen 19 mg/dL (9-20); Calcium 9.7 mg/dL (8.4-10.2); Carbon Dioxide 20 mmol/L (22-30); Chloride 108 mmol/L (98-107); Globulin 2.2 g/dL; Glucose 104 mg/dL (74-99); Non-African American GFR(CKD) >90 (>60 ml/min/1.73 sqM); Potassium 4.1 mmol/L (3.5-5.1); Sodium 141 mmol/L (137-145); Total Bilirubin 0.7 mg/dL (0.2-1.3); Total Protein 6.7 g/dL (6.3-8.2); Uric Acid 5.7 mg/dL (3.5-8.5)
[2022-09-25] MEDS: ENOXAPARIN 40 MG/0.4 ML SYRINGE SQ SCH (12:38)
[2022-09-25] MEDS: SODIUM CHLORIDE 0.9% 1,000 ML IV SCH ×2 (12:45→20:48)
[2022-09-25] MEDS: predniSONE 50 MG TAB PO SCH ×2 (12:47→20:48)
[2022-09-25] MEDS: ONDANSETRON 16 MG in SODIUM CHLORIDE 0.9% 50 ML IVPB SCH (12:47)
[2022-09-25] MEDS: FAMOTIDINE 20 MG/2 ML VIAL IVP SCH (12:47)
[2022-09-25] MEDS: predniSONE 20 MG TAB PO SCH ×2 (12:47→20:48)
[2022-09-25] MEDS: SALT AND SODA MOUTHWASH 1,000 ML PO SCH ×4 (13:04→23:55)
[2022-09-25] MEDS: DOXORUBICIN HCL IV SCH (13:26)
[2022-09-25] MEDS: [UNRECOGNIZED DRUG - OTHER] IV SCH (13:26)
[2022-09-25] MEDS: VINCRISTINE SULFATE IV SCH (13:26)
[2022-09-25] MEDS: ETOPOSIDE IV SCH (13:26)
[2022-09-25] MEDS ORDERED: lisinopriL 20 MG TAB PO PRN (15:27)
--- NOTE | 2022-09-25 15:55 | P.CONS ---
History of Present Illness - Reason for Consult Consult date: 09/25/22 - History of Present Illness Patient is a 62-year-old male with history of B cell lymphoma, hypertension, GERD presenting for chemotherapy. [facility] physicians has been consulted for medical management. No new complaints. Currently temperature 97.9, pulse 78, respiratory rate 18, blood pressure 125/79, saturating at 100% on room air. WBC 8.4, hemoglobin 11.7, platelet 273, sodium 141, creatinine 0.54, uric acid 5.7. Pertinent positives and negatives as discussed in HPI, a complete review of systems was performed and all other systems are negative. Patient seen and examined at bedside. Vital signs reviewed General: nontoxic, no distress, appears at stated age Derm: warm, dry Head: atraumatic, normocephalic, symmetric Eyes: EOMI, no lid lag, anicteric sclera, pupils equal round reactive to light ENT: Nose and ears atraumatic Neck: No thyromegaly, supple Mouth: no lip lesion, mucus membranes moist Cardiovascular: S1S2 reg, no murmur, no edema Lungs: clear to auscultation bilateral, no rhonchi, no rales, no wheeze, no accessory muscle use Abdominal: soft, nontender to palpation, no guarding, no appreciable organomegaly Ext: no gross muscle atrophy, muscle strength muscle strength 5 out of 5 in all 4 extremities, no contractures Neuro: CN II-XII grossly intact Psych: Alert, oriented, appropriate affect Assessment/Plan: B cell lymphoma Hypertension GERD -Blood count stable -Oncology following -As needed lisinopril -blood pressure currently stable -We'll continue to follow Thank you for allowing us to participate in the care of this pleasant patient. Do not hesitate to contact us with questions. Someone can be reached from the [facility] hospitalist group all hours of the day at [phone] or via [employer]. Past Medical History Past Medical History: Cancer, GERD/Reflux, Hyperlipidemia, Hypertension, Osteoarthritis (OA) Additional Past Medical History / Comment(s): hiatal hernia, gout, non hogkins B-cell Lymphoma , rectal abscess with drainage History of Any Multi-Drug Resistant Organisms: None Reported Past Surgical History: Orthopedic Surgery, Tonsillectomy Additional Past Surgical History / Comment(s): claude shoulder rotator cuff repair, cyst removal rt wrist, oral surgery , surgery for pyloric stenosis as infant Past Anesthesia/Blood Transfusion Reactions: No Reported Reaction Past Psychological History: No Psychological Hx Reported Smoking Status: Never smoker Past Alcohol Use History: Occasional Additional Past Alcohol Use History / Comment(s): Quit drinking in 2021 Past Drug Use History: None Reported Additional Drug Use History / Comment(s): CBD oil for pain-- chewed tobacco many years ago - Past Family History Mother Family Medical History: No Reported History Father Family Medical History: Unable to Obtain Medications and Allergies Home Medications Medication Instructions Recorded Confirmed Type Cholecalciferol [Vitamin D3 (125 125 mcg PO DAILY 04/22/22 09/25/22 History Mcg = 5000 Iu)] allopurinoL 100 mg PO DAILY 07/03/22 09/25/22 History Acyclovir [Zovirax] 400 mg PO BID 08/07/22 09/25/22 History Fluconazole [Diflucan] 100 mg PO DAILY 08/07/22 09/25/22 History Fluticasone Nasal [place] [Flonase 1 spray EA NOSTRIL QAM 08/07/22 09/25/22 History Nasal [place]] Ondansetron Odt [Zofran ODT] 8 mg PO Q8HR PRN 08/07/22 09/25/22 History lisinopriL 40 mg PO BID PRN 08/26/22 09/25/22 History Ciprofloxacin HCl [Cipro] 500 mg PO BID 08/28/22 09/25/22 History Folic Acid 1 mg PO DAILY 09/25/22 09/25/22 History Allergies Allergy/AdvReac Type Severity Reaction Status Date / Time tramadol Allergy Rash/Hives Verified 09/25/22 11:25 & hallucinations sulfamethoxazole AdvReac Nausea Verified 09/25/22 11:25 [From Bactrim] trimethoprim [From Bactrim] AdvReac Nausea Verified 09/25/22 11:25 Physical Exam Vitals: Vital Signs Temp Pulse Resp BP Pulse Ox 09/25/22 12:43 97.9 F 78 18 125/79 100 09/25/22 08:53 97.8 F 101 H 18 160/84 97 Intake and Output 09/25/22 09/25/22 09/25/22 06:59 14:59 22:59 Other: Voiding Method Toilet Weight 80.853 kg Results CBC & Chem 7: 09/25/22 10:45 09/25/22 10:45 Labs: Abnormal Lab Results - Last 24 Hours (Table) 09/25/22 09/25/22 Range/Units 10:45 10:45 RBC 3.81 L (4.30-5.90) m/uL Hgb 11.7 L (13.0-17.5) gm/dL Hct 35.5 L (39.0-53.0) % RDW 17.4 H (11.5-15.5) % Lymphocytes # 0.5 L (1.0-4.8) k/uL Chloride 108 H (98-107) mmol/L Carbon Dioxide 20 L (22-30) mmol/L Creatinine 0.54 L (0.66-1.25) mg/dL Glucose 104 H (74-99) mg/dL
--- NOTE | 2022-09-25 17:36 | P.HPIM ---
History of Present Illness H&P Date: 09/25/22 Chief Complaint: inpatient chemo Patient is a 62-year-old man with PHM Of hypertension, hyperlipidemia, gout and rheumatoid arthritis. He had been started on methotrexate in March/2022, last IT tx 08/05/22. Initially he presented to the ER with complaints of chest pain, persistent and progressive, associated symptoms of diaphoresis and shortness of breath, reported constitutional symptoms of night sweats, 10 pound unintentional weight loss, decreased appetite. CT AP showed hepatomegaly, 1.2 cm liver lesion, CT of the chest did not show any mediastinal adenopathy or parenchymal lesions. CT of the neck showed bilateral parotid masses. Core biopsy left neck mass 04/27/22, positive for high grade B cell NHL. Our office contacted the patient 05/01/22 to discuss the biopsy results and to set up further testing, patient was back in the ER around 05/03 with difficulty swallowing and speaking. Neurology saw patient, right cranial nerve XII palsy. MRI, laryngoscopy did show some prominence in soft tissue in the right tonsillar fossa, right base of the tongue area. MRI of the brain did not show any parenchymal lesions or meningeal enhancement. Patient improved and was discharged, he had his staging PET scan, but unfortunately he was admitted again because of shortness of breath 05/11. Due to patient's persistent and progressive symptoms it was decided to begin treatment inpatient. Patient had an echo showing normal LV EF, he had a PICC line placed. Labs showed spontaneous tumor lysis, he was given a dose of Elitek and started on allopurinol. He started dose adjusted R-EPOCH 05/12. He did very well post treatment, his previous symptoms have resolved all except for a small amount of numbness on the lower part of his jaw. He received his first dose of prophylactic intrathecal chemotherapy 06/01/22, and has received 5 of 6 planned treatments. He is currently admitted for his 6th cycle of DA R-EPOCH. Pt reports feeling very well. He denies fevers, chills, shortness of breath, chest pain, cough, nausea, vomiting, abdominal pain, acute changes in bowel or bladder habits. Review of Systems 10 point ROS is negative except as stated in the HPI Past Medical History Past Medical History: Cancer, GERD/Reflux, Hyperlipidemia, Hypertension, Osteoarthritis (OA) Additional Past Medical History / Comment(s): hiatal hernia, gout, non hogkins B-cell Lymphoma , rectal abscess with drainage History of Any Multi-Drug Resistant Organisms: None Reported Past Surgical History: Orthopedic Surgery, Tonsillectomy Additional Past Surgical History / Comment(s): claude shoulder rotator cuff repair, cyst removal rt wrist, oral surgery , surgery for pyloric stenosis as infant Past Anesthesia/Blood Transfusion Reactions: No Reported Reaction Past Psychological History: No Psychological Hx Reported Smoking Status: Never smoker Past Alcohol Use History: Occasional Additional Past Alcohol Use History / Comment(s): Quit drinking in 2021 Past Drug Use History: None Reported Additional Drug Use History / Comment(s): CBD oil for pain-- chewed tobacco many years ago - Past Family History Mother Family Medical History: No Reported History Father Family Medical History: Unable to Obtain Occupational Seizure History - Commerical Driving History Currently uses [employer] for employment (including self-employed).: No Medications and Allergies Home Medications Medication Instructions Recorded Confirmed Type Cholecalciferol [Vitamin D3 (125 125 mcg PO DAILY 04/22/22 09/25/22 History Mcg = 5000 Iu)] allopurinoL 100 mg PO DAILY 07/03/22 09/25/22 History Acyclovir [Zovirax] 400 mg PO BID 08/07/22 09/25/22 History Fluconazole [Diflucan] 100 mg PO DAILY 08/07/22 09/25/22 History Fluticasone Nasal [place] [Flonase 1 spray EA NOSTRIL QAM 08/07/22 09/25/22 History Nasal [place]] Ondansetron Odt [Zofran ODT] 8 mg PO Q8HR PRN 08/07/22 09/25/22 History lisinopriL 40 mg PO BID PRN 08/26/22 09/25/22 History Ciprofloxacin HCl [Cipro] 500 mg PO BID 08/28/22 09/25/22 History Folic Acid 1 mg PO DAILY 09/25/22 09/25/22 History Allergies Allergy/AdvReac Type Severity Reaction Status Date / Time tramadol Allergy Rash/Hives Verified 09/25/22 11:25 & hallucinations sulfamethoxazole AdvReac Nausea Verified 09/25/22 11:25 [From Bactrim] trimethoprim [From Bactrim] AdvReac Nausea Verified 09/25/22 11:25 Physical Exam Vitals: Vital Signs Temp Pulse Resp BP Pulse Ox 09/25/22 08:53 97.8 F 101 H 18 160/84 97 Intake and Output 09/24/22 09/25/22 09/25/22 22:59 06:59 14:59 Other: Weight 80.853 kg - Constitutional General appearance: average body habitus, no acute distress - EENT Eyes: anicteric sclerae, EOMI ENT: hearing grossly normal - Respiratory breathing is even and unlabored - Cardiovascular skin warm and dry - Gastrointestinal General gastrointestinal: soft, no tenderness - Integumentary Integumentary: no cyanotic, normal, no rash - Musculoskeletal Musculoskeletal: strength equal bilaterally - Psychiatric Psychiatric: A&O x's 3, appropriate affect, intact judgment & insight Results CBC & Chem 7: 09/25/22 10:45 09/25/22 10:45 Thrombosis Risk Factor Assmnt - DVT/VTE Prophylaxis DVT/VTE Prophylaxis: Pharmacologic Prophylaxis ordered Assessment and Plan (1) B-cell lymphoma Current Visit: Yes Status: Acute Priority: High Code(s): C85.10 - UNSPECIFIED B-CELL LYMPHOMA, UNSPECIFIED SITE SNOMED Code(s): 182625952 Plan: B-Cell Lymphoma: Admit for cycle 6 dose adjusted R-EPOCH -Internal medicine consulted for medical management -Orders reviewed -Home medications reconciled -Activity, ambulate 4 times a day with shoes on -Diet, as tolerated -Supportive medications ordered, Scheduled and when necessary -Cools solution for oral irritation -GI and DVT prophylaxis -[place] fluid intake -Hemoglobin 11.7, platelets 273,000, uric acid 5.7. Will continue to monitor daily attests: I have performed H&P and developed impression and plan of care for patient, discussed with dictator. I agree with dictated note, documented as a scribe
[2022-09-25] MEDS: ACYCLOVIR 200 MG CAP PO SCH (20:47)
[2022-09-25] MEDS ORDERED: CIPROFLOXACIN HCL 500 MG TAB PO SCH (21:00)
[2022-09-26] MEDS: SODIUM CHLORIDE 0.9% 1,000 ML IV SCH ×3 (05:58→21:25)
[2022-09-26] MEDS: SALT AND SODA MOUTHWASH 1,000 ML PO SCH ×4 (05:59→21:26)
[2022-09-26 08:08] LABS: Anisocytosis Slight; Basophils % (A) 0 %; Eosinophils % (A) 0 %; HCT 33.9 % (39.0-53.0); HGB 11.2 gm/dL (13.0-17.5); Hypochromasia Slight; Lymphocytes # (A) 0.2 k/uL (1.0-4.8); Lymphocytes % (A) 3 %; MCH 31.1 pg (25.0-35.0); MCV 94.1 fL (80.0-100.0); Mean Platelet Volume 8.7; Monocytes # (A) 0.3 k/uL (0-1.0); Monocytes % (A) 5 %; Neutrophils # (A) 6.6 k/uL (1.3-7.7); Neutrophils % (A) 91 %; Platelet Count 195 k/uL (150-450); Poikilocytosis Slight; RBC 3.61 m/uL (4.30-5.90); RDW 17.1 % (11.5-15.5); WBC 7.2 k/uL (3.8-10.6)
[2022-09-26 08:28] LABS: ALT 22 U/L (4-49); AST 18 U/L (17-59); African American GFR (CKD) >90 (>60 ml/min/1.73 sqM); Albumin 4.1 g/dL (3.5-5.0); Albumin/Globulin Ratio 2.1; Alkaline Phosphatase 56 U/L (38-126); Anion Gap 10 mmol/L; Blood Urea Nitrogen 20 mg/dL (9-20); Calcium 8.9 mg/dL (8.4-10.2); Carbon Dioxide 23 mmol/L (22-30); Chloride 108 mmol/L (98-107); Glucose 162 mg/dL (74-99); Non-African American GFR(CKD) >90 (>60 ml/min/1.73 sqM); Potassium 4.5 mmol/L (3.5-5.1); Sodium 141 mmol/L (137-145); Total Bilirubin 0.5 mg/dL (0.2-1.3); Total Protein 6.1 g/dL (6.3-8.2); Uric Acid 5.8 mg/dL (3.5-8.5)
[2022-09-26] MEDS: FLUCONAZOLE 100 MG TAB PO SCH (08:58)
[2022-09-26] MEDS: CHOLECALCIFEROL 125 MCG (5000 IU) TABLET PO SCH (08:58)
[2022-09-26] MEDS: predniSONE 50 MG TAB PO SCH ×2 (08:58→21:25)
[2022-09-26] MEDS: predniSONE 20 MG TAB PO SCH ×2 (08:59→21:25)
[2022-09-26] MEDS: FOLIC ACID 1 MG TAB PO SCH (08:59)
[2022-09-26] MEDS: ENOXAPARIN 40 MG/0.4 ML SYRINGE SQ SCH (08:59)
[2022-09-26] MEDS: ACYCLOVIR 200 MG CAP PO SCH ×2 (08:59→21:25)
[2022-09-26] MEDS: allopurinoL 100 MG TAB PO SCH (08:59)
[2022-09-26] MEDS: FLUTICASONE 50MCG/SPRAY NASAL 16GM EA NOSTRIL SCH (08:59)
[2022-09-26] MEDS: FAMOTIDINE 20 MG/2 ML VIAL IVP SCH (11:32)
[2022-09-26] MEDS: ONDANSETRON 16 MG in SODIUM CHLORIDE 0.9% 50 ML IVPB SCH (11:32)
[2022-09-26] MEDS: VINCRISTINE SULFATE IV SCH (12:43)
[2022-09-26] MEDS: ETOPOSIDE IV SCH (12:43)
[2022-09-26] MEDS: [UNRECOGNIZED DRUG - OTHER] IV SCH (12:43)
[2022-09-26] MEDS: DOXORUBICIN HCL IV SCH (12:43)
--- NOTE | 2022-09-26 13:16 | P.PN ---
Subjective Progress Note Date: 09/26/22 Subjective: No acute events overnight. He denies any new complaints Pertinent positives and negatives as discussed above, a complete review of systems was performed and all other systems are negative. Vitals Signs Reviewed. General: nontoxic, no distress, appears at stated age Derm: warm, dry Head: atraumatic, normocephalic, symmetric Eyes: EOMI, no lid lag, anicteric sclera Mouth: no lip lesion, mucus membranes moist Cardiovascular: S1S2 reg, no murmur Lungs: CTA bilateral, no rhonchi, no rales , no accessory muscle use Abdominal: soft, nontender to palpation, no guarding, no appreciable organomegaly Ext: no gross muscle atrophy, no edema, no contractures Neuro: CN II-XI grossly intact, no focal neuro deficits Psych: Alert, oriented, appropriate affect Data Reviewed Today: Pertinent Labs: WBC 7.2, hemoglobin 11.2, potassium 4.5, creatinine 0.65, uric acid 5.8 Assessment and Plan: B cell lymphoma Hypertension GERD -Blood count stable -Oncology following -As needed lisinopril -blood pressure currently stable -We'll continue to follow Thank you for allowing us to participate in the care of this pleasant patient. Do not hesitate to contact us with questions. Someone can be reached from the [facility] hospitalist group all hours of the day at [phone] or via [employer] serve. Objective - Vital Signs Vital signs: Vital Signs Temp 98.4 F 09/26/22 11:47 Pulse 75 09/26/22 11:47 Resp 17 09/26/22 11:47 BP 149/84 09/26/22 11:47 Pulse Ox 98 09/26/22 11:47 FiO2 Intake & Output 09/25/22 09/26/22 09/26/22 18:59 06:59 18:59 Intake Total 565 590 Balance 565 590 Weight 80.853 kg Intake: Intake, IV Titration 565 Amount Ondansetron 16 mg In 50 Sodium Chloride 0.9% 50 ml @ 232 mls/hr IVPB DAILY [facility] Rx#:[id number] Sodium Chloride 0.9% 1, 515 000 ml @ 100 mls/hr IV . Q10H [facility] Rx#:[id number] Oral 590 Other: Voiding Method Toilet Toilet Toilet # Voids 3 - Labs CBC & Chem 7: 09/26/22 07:51 09/26/22 07:51 Labs: Abnormal Lab Results - Last 24 Hours (Table) 09/26/22 09/26/22 Range/Units 07:51 07:51 RBC 3.61 L (4.30-5.90) m/uL Hgb 11.2 L (13.0-17.5) gm/dL Hct 33.9 L (39.0-53.0) % RDW 17.1 H (11.5-15.5) % Lymphocytes # 0.2 L (1.0-4.8) k/uL Chloride 108 H (98-107) mmol/L Creatinine 0.65 L (0.66-1.25) mg/dL Glucose 162 H (74-99) mg/dL Total Protein 6.1 L (6.3-8.2) g/dL
[2022-09-27] MEDS: SALT AND SODA MOUTHWASH 1,000 ML PO SCH ×5 (00:45→21:16)
[2022-09-27] MEDS: ACYCLOVIR 200 MG CAP PO SCH ×2 (08:55→21:16)
[2022-09-27] MEDS: FLUCONAZOLE 100 MG TAB PO SCH (08:56)
[2022-09-27] MEDS: allopurinoL 100 MG TAB PO SCH (08:56)
[2022-09-27] MEDS: ENOXAPARIN 40 MG/0.4 ML SYRINGE SQ SCH (08:56)
[2022-09-27] MEDS: CHOLECALCIFEROL 125 MCG (5000 IU) TABLET PO SCH (08:56)
[2022-09-27] MEDS: predniSONE 20 MG TAB PO SCH ×2 (08:57→21:15)
[2022-09-27] MEDS: predniSONE 50 MG TAB PO SCH ×2 (08:57→21:15)
[2022-09-27] MEDS: FLUTICASONE 50MCG/SPRAY NASAL 16GM EA NOSTRIL SCH (08:57)
[2022-09-27] MEDS: FOLIC ACID 1 MG TAB PO SCH (08:57)
--- NOTE | 2022-09-27 10:07 | P.PN ---
Subjective Progress Note Date: 09/26/22 Principal diagnosis: inpatient chemo At today's visit patient is resting comfortably in bedside chair, at bedside. Patient reports feeling well. No reported adverse events. Vitals stable. Objective - Vital Signs Vital signs: Vital Signs Temp 98.4 F 09/26/22 11:47 Pulse 75 09/26/22 11:47 Resp 17 09/26/22 11:47 BP 149/84 09/26/22 11:47 Pulse Ox 98 09/26/22 11:47 FiO2 Intake & Output 09/25/22 09/26/22 09/26/22 18:59 06:59 18:59 Intake Total 565 590 Balance 565 590 Weight 80.853 kg Intake: Intake, IV Titration 565 Amount Ondansetron 16 mg In 50 Sodium Chloride 0.9% 50 ml @ 232 mls/hr IVPB DAILY [facility] Rx#:[id number] Sodium Chloride 0.9% 1, 515 000 ml @ 100 mls/hr IV . Q10H [facility] Rx#:[id number] Oral 590 Other: Voiding Method Toilet Toilet Toilet # Voids 3 - Constitutional General appearance: Present: average body habitus, no acute distress - EENT Eyes: Present: anicteric sclerae, EOMI ENT: Present: hearing grossly normal - Respiratory Details: breathing even and unlabored - Cardiovascular Details: skin warm and dry - Integumentary Integumentary: Present: normal - Musculoskeletal Musculoskeletal: Present: strength equal bilaterally - Psychiatric Psychiatric: Present: A&O x's 3, appropriate affect, intact judgment & insight - Labs CBC & Chem 7: 09/26/22 07:51 09/26/22 07:51 Labs: Abnormal Lab Results - Last 24 Hours (Table) 09/26/22 09/26/22 Range/Units 07:51 07:51 RBC 3.61 L (4.30-5.90) m/uL Hgb 11.2 L (13.0-17.5) gm/dL Hct 33.9 L (39.0-53.0) % RDW 17.1 H (11.5-15.5) % Lymphocytes # 0.2 L (1.0-4.8) k/uL Chloride 108 H (98-107) mmol/L Creatinine 0.65 L (0.66-1.25) mg/dL Glucose 162 H (74-99) mg/dL Total Protein 6.1 L (6.3-8.2) g/dL Assessment and Plan (1) B-cell lymphoma Current Visit: Yes Status: Acute Priority: High Code(s): C85.10 - UNSPECIFIED B-CELL LYMPHOMA, UNSPECIFIED SITE SNOMED Code(s): 606619667 Plan: B-Cell Lymphoma: Day 2 of cycle 6 dose adjusted R-EPOCH -Tolerating treatment well. No adverse events. Will continue without adjustments -Activity, ambulate 4 times a day with shoes on -Diet, as tolerated -Supportive medications ordered, Scheduled and when necessary -Cools solution for oral irritation -GI and DVT prophylaxis -[place] fluid intake -Hemoglobin 11.2, platelets 195,000, WBC 7.2, ANC 6.6, uric acid 5.8. Will continue to monitor daily
--- NOTE | 2022-09-27 11:15 | P.PN ---
Subjective Progress Note Date: 09/27/22 Subjective: No acute events overnight. He denies any new complaints Pertinent positives and negatives as discussed above, a complete review of systems was performed and all other systems are negative. Vitals Signs Reviewed. General: nontoxic, no distress, appears at stated age Derm: warm, dry Head: atraumatic, normocephalic, symmetric Eyes: EOMI, no lid lag, anicteric sclera Mouth: no lip lesion, mucus membranes moist Cardiovascular: S1S2 reg, no murmur Lungs: CTA bilateral, no rhonchi, no rales , no accessory muscle use Abdominal: soft, nontender to palpation, no guarding, no appreciable organomegaly Ext: no gross muscle atrophy, no edema, no contractures Neuro: CN II-XI grossly intact, no focal neuro deficits Psych: Alert, oriented, appropriate affect Data Reviewed Today: Pertinent Labs: Labs pending, will be reviewed when available Assessment and Plan: B cell lymphoma Hypertension GERD -Blood count has been stable -Oncology following -As needed lisinopril -blood pressure currently stable -We'll continue to follow Thank you for allowing us to participate in the care of this pleasant patient. Do not hesitate to contact us with questions. Someone can be reached from the [facility] hospitalist group all hours of the day at [phone] or via [employer]. Objective - Vital Signs Vital signs: Vital Signs Temp 98.4 F 09/27/22 07:02 Pulse 70 09/27/22 07:02 Resp 17 09/27/22 07:02 BP 146/86 09/27/22 07:02 Pulse Ox 97 09/27/22 07:02 FiO2 Intake & Output 09/26/22 09/27/22 09/27/22 18:59 06:59 18:59 Intake Total 1200 Balance 1200 Intake: Intake, IV Titration 1200 Amount Sodium Chloride 0.9% 1, 1200 000 ml @ 100 mls/hr IV . Q10H [facility] Rx#:[id number] Other: Voiding Method Toilet Toilet Toilet # Voids 5 1 # Bowel Movements 1 1 - Labs CBC & Chem 7: 09/26/22 07:51 09/26/22 07:51
[2022-09-27] MEDS: FAMOTIDINE 20 MG/2 ML VIAL IVP SCH (11:52)
[2022-09-27] MEDS: ONDANSETRON 16 MG in SODIUM CHLORIDE 0.9% 50 ML IVPB SCH (11:52)
[2022-09-27] MEDS: SODIUM CHLORIDE 0.9% 1,000 ML IV SCH ×2 (11:53→22:19)
[2022-09-27] MEDS: DOXORUBICIN HCL IV SCH (12:17)
[2022-09-27] MEDS: ETOPOSIDE IV SCH (12:17)
[2022-09-27] MEDS: VINCRISTINE SULFATE IV SCH (12:17)
[2022-09-27] MEDS: [UNRECOGNIZED DRUG - OTHER] IV SCH (12:17)
[2022-09-27 15:03] LABS: ALT 22 U/L (4-49); AST 18 U/L (17-59); African American GFR (CKD) >90 (>60 ml/min/1.73 sqM); Albumin 4.1 g/dL (3.5-5.0); Albumin/Globulin Ratio 2.1; Alkaline Phosphatase 56 U/L (38-126); Anion Gap 9 mmol/L; Blood Urea Nitrogen 16 mg/dL (9-20); Calcium 8.8 mg/dL (8.4-10.2); Carbon Dioxide 22 mmol/L (22-30); Chloride 108 mmol/L (98-107); Glucose 194 mg/dL (74-99); Non-African American GFR(CKD) >90 (>60 ml/min/1.73 sqM); Potassium 3.9 mmol/L (3.5-5.1); Sodium 139 mmol/L (137-145); Total Bilirubin 0.8 mg/dL (0.2-1.3); Total Protein 6.1 g/dL (6.3-8.2)
[2022-09-27 16:29] LABS: Anisocytosis Slight; Basophils % (A) 0 %; Eosinophils # (A) 0.1 k/uL (0-0.7); Eosinophils % (A) 1 %; HCT 35.2 % (39.0-53.0); HGB 11.6 gm/dL (13.0-17.5); Lymphocytes # (A) 0.1 k/uL (1.0-4.8); Lymphocytes % (A) 2 %; MCH 31.1 pg (25.0-35.0); MCHC 33.1 g/dL (31.0-37.0); MCV 94.1 fL (80.0-100.0); Mean Platelet Volume 8.3; Monocytes # (A) 0.3 k/uL (0-1.0); Monocytes % (A) 5 %; Neutrophils # (A) 5.8 k/uL (1.3-7.7); Neutrophils % (A) 92 %; Platelet Count 189 k/uL (150-450); Poikilocytosis Slight; RBC 3.74 m/uL (4.30-5.90); WBC 6.3 k/uL (3.8-10.6)
[2022-09-28] MEDS: SALT AND SODA MOUTHWASH 1,000 ML PO SCH ×5 (00:14→20:33)
[2022-09-28 05:53] LABS: Anisocytosis Slight; Basophils % (A) 0 %; Eosinophils % (A) 1 %; HCT 32.1 % (39.0-53.0); HGB 10.9 gm/dL (13.0-17.5); Lymphocytes # (A) 0.1 k/uL (1.0-4.8); Lymphocytes % (A) 3 %; MCH 30.8 pg (25.0-35.0); MCHC 33.9 g/dL (31.0-37.0); MCV 91.1 fL (80.0-100.0); Mean Platelet Volume 7.9; Monocytes # (A) 0.2 k/uL (0-1.0); Monocytes % (A) 5 %; Neutrophils # (A) 3.9 k/uL (1.3-7.7); Neutrophils % (A) 92 %; Platelet Count 167 k/uL (150-450); Poikilocytosis Slight; RBC 3.52 m/uL (4.30-5.90); RDW 16.7 % (11.5-15.5); WBC 4.3 k/uL (3.8-10.6)
[2022-09-28 06:14] LABS: ALT 21 U/L (4-49); AST 18 U/L (17-59); African American GFR (CKD) >90 (>60 ml/min/1.73 sqM); Albumin 3.5 g/dL (3.5-5.0); Albumin/Globulin Ratio 1.8; Alkaline Phosphatase 48 U/L (38-126); Anion Gap 9 mmol/L; Blood Urea Nitrogen 17 mg/dL (9-20); Calcium 8.7 mg/dL (8.4-10.2); Carbon Dioxide 21 mmol/L (22-30); Chloride 108 mmol/L (98-107); Glucose 148 mg/dL (74-99); Non-African American GFR(CKD) >90 (>60 ml/min/1.73 sqM); Potassium 4.1 mmol/L (3.5-5.1); Sodium 138 mmol/L (137-145); Total Bilirubin 0.6 mg/dL (0.2-1.3); Total Protein 5.5 g/dL (6.3-8.2); Uric Acid 6.5 mg/dL (3.5-8.5)
[2022-09-28] MEDS: SODIUM CHLORIDE 0.9% 1,000 ML IV SCH ×3 (06:31→20:33)
--- NOTE | 2022-09-28 08:15 | P.PN ---
Subjective Progress Note Date: 09/27/22 Principal diagnosis: inpatient chemo At today's visit patient is resting comfortably in bedside chair. Patient reports feeling well. No reported adverse events. Vitals stable. Objective - Vital Signs Vital signs: Vital Signs Temp 98.6 F 09/27/22 12:05 Pulse 57 L 09/27/22 12:05 Resp 17 09/27/22 12:05 BP 167/90 09/27/22 12:05 Pulse Ox 98 09/27/22 12:05 FiO2 Intake & Output 09/26/22 09/27/22 09/27/22 18:59 06:59 18:59 Intake Total 1200 Balance 1200 Intake: Intake, IV Titration 1200 Amount Sodium Chloride 0.9% 1, 1200 000 ml @ 100 mls/hr IV . Q10H [facility] Rx#:[id number] Other: Voiding Method Toilet Toilet Toilet # Voids 5 1 # Bowel Movements 1 1 - Constitutional General appearance: Present: average body habitus, no acute distress - EENT Eyes: Present: anicteric sclerae, EOMI ENT: Present: hearing grossly normal - Respiratory Details: breathing is even and unlabored - Cardiovascular Details: skin warm and dry - Peripheral edema leg Peripheral Edema: bilateral: Trace - Integumentary Integumentary: Present: normal - Musculoskeletal Musculoskeletal: Present: strength equal bilaterally - Psychiatric Psychiatric: Present: A&O x's 3, appropriate affect, intact judgment & insight - Labs CBC & Chem 7: 09/28/22 05:16 09/28/22 05:16 Assessment and Plan (1) B-cell lymphoma Current Visit: Yes Status: Acute Priority: High Code(s): C85.10 - UNSPECIFIED B-CELL LYMPHOMA, UNSPECIFIED SITE SNOMED Code(s): 861425583 Plan: B-Cell Lymphoma: Day 3 of cycle 6 dose adjusted R-EPOCH -Tolerating treatment well. No adverse events. Will continue without adjustments -Activity, ambulate 4 times a day with shoes on -Diet, as tolerated -Supportive medications ordered, Scheduled and when necessary -Cools solution for oral irritation -GI and DVT prophylaxis -[place] fluid intake -Hemoglobin 11.6, platelets 189,000, WBC 6.3, ANC 5.8, uric acid 6.0. Will continue to monitor daily
[2022-09-28] MEDS: ENOXAPARIN 40 MG/0.4 ML SYRINGE SQ SCH (08:21)
[2022-09-28] MEDS: predniSONE 50 MG TAB PO SCH ×2 (09:09→20:33)
[2022-09-28] MEDS: CHOLECALCIFEROL 125 MCG (5000 IU) TABLET PO SCH (09:10)
[2022-09-28] MEDS: allopurinoL 100 MG TAB PO SCH (09:10)
[2022-09-28] MEDS: predniSONE 20 MG TAB PO SCH ×2 (09:10→20:33)
[2022-09-28] MEDS: ACYCLOVIR 200 MG CAP PO SCH ×2 (09:10→20:33)
[2022-09-28] MEDS: FLUCONAZOLE 100 MG TAB PO SCH (09:10)
[2022-09-28] MEDS: FOLIC ACID 1 MG TAB PO SCH (09:10)
[2022-09-28] MEDS: FLUTICASONE 50MCG/SPRAY NASAL 16GM EA NOSTRIL SCH (09:13)
[2022-09-28] MEDS: ONDANSETRON 16 MG in SODIUM CHLORIDE 0.9% 50 ML IVPB SCH (11:41)
[2022-09-28] MEDS: FAMOTIDINE 20 MG/2 ML VIAL IVP SCH (11:41)
[2022-09-28] MEDS: VINCRISTINE SULFATE IV SCH (12:31)
[2022-09-28] MEDS: DOXORUBICIN HCL IV SCH (12:31)
[2022-09-28] MEDS: ETOPOSIDE IV SCH (12:31)
[2022-09-28] MEDS: [UNRECOGNIZED DRUG - OTHER] IV SCH (12:31)
--- NOTE | 2022-09-28 13:15 | P.PN ---
Subjective Progress Note Date: 09/28/22 Subjective: No acute events overnight. He denies any new complaints Pertinent positives and negatives as discussed above, a complete review of systems was performed and all other systems are negative. Vitals Signs Reviewed. Gen: awake, alert HEENT: normocephalic, atraumatic, good hearing acuity, moist mucous membranes Resp: good air exchange, breathing comfortably with no accessory muscle use CVS: good distal perfusion x 4, GI: soft, NTTP, ND : no SPT, no CVAT, guzman catheter not present MSK: no pitting edema, no clubbing Neuro: non-focal, moving all extremities Psych: cooperative, euthymic mood Data Reviewed Today: Hgb 10.9 BUN 17, Cr 0.54 Total protein 5.5 Assessment and Plan: B cell lymphoma Hypertension GERD -Blood count has been stable -Oncology following -As needed lisinopril -blood pressure currently stable -We'll continue to follow Thank you for allowing us to participate in the care of this pleasant patient. Do not hesitate to contact us with questions. Someone can be reached from the [facility] hospitalist group all hours of the day at [phone] or via [employer]. Objective - Vital Signs Vital signs: Vital Signs Temp 98.1 F 09/28/22 11:45 Pulse 58 L 09/28/22 11:45 Resp 17 09/28/22 11:45 BP 161/79 09/28/22 11:45 Pulse Ox 98 09/28/22 11:45 FiO2 Intake & Output 09/27/22 09/28/22 09/28/22 18:59 06:59 18:59 Intake Total 1697.652 Balance 1697.652 Intake: Intake, IV Titration 1457.652 Amount Etoposide 100 mg 257.652 vinCRIStine SULFATE 0.8 mg DOXOrubicin HCL 19 mg In Sodium Chloride 0.9% 500 ml 500 ml @ 21.471 mls/hr IV Q24H [facility] Rx#: [id number] Sodium Chloride 0.9% 1, 1200 000 ml @ 100 mls/hr IV . Q10H [facility] Rx#:[id number] Oral 240 Other: Voiding Method Toilet Toilet Toilet # Voids 1 # Bowel Movements 1 - Labs CBC & Chem 7: 09/28/22 05:16 09/28/22 05:16 Labs: Abnormal Lab Results - Last 24 Hours (Table) 09/27/22 09/27/22 09/28/22 Range/Units 14:25 14:25 05:16 RBC 3.74 L 3.52 L (4.30-5.90) m/uL Hgb 11.6 L 10.9 L (13.0-17.5) gm/dL Hct 35.2 L 32.1 L (39.0-53.0) % RDW 17.0 H 16.7 H (11.5-15.5) % Lymphocytes # 0.1 L 0.1 L (1.0-4.8) k/uL Chloride 108 H (98-107) mmol/L Carbon Dioxide (22-30) mmol/L Creatinine 0.60 L (0.66-1.25) mg/dL Glucose 194 H (74-99) mg/dL Total Protein 6.1 L (6.3-8.2) g/dL 09/28/22 Range/Units 05:16 RBC (4.30-5.90) m/uL Hgb (13.0-17.5) gm/dL Hct (39.0-53.0) % RDW (11.5-15.5) % Lymphocytes # (1.0-4.8) k/uL Chloride 108 H (98-107) mmol/L Carbon Dioxide 21 L (22-30) mmol/L Creatinine 0.54 L (0.66-1.25) mg/dL Glucose 148 H (74-99) mg/dL Total Protein 5.5 L (6.3-8.2) g/dL
--- NOTE | 2022-09-28 14:10 | P.PN ---
Subjective Progress Note Date: 09/28/22 Principal diagnosis: Diffuse large B-cell lymphoma, admitted for CIVI treatment In follow-up today patient denies any fevers, oral irritation, sore throat, cough, shortness of breath, chest pain or palpitations, nausea, vomiting, abdominal pain or cramping, acute changes in bowel or Bladder habits. Only trace edema in the legs. Patient is ambulatory independently multiple times a day. He is tolerating his diet well. Objective - Vital Signs Vital signs: Vital Signs Temp 98.1 F 09/28/22 11:45 Pulse 58 L 09/28/22 11:45 Resp 17 09/28/22 11:45 BP 161/79 09/28/22 11:45 Pulse Ox 98 09/28/22 11:45 FiO2 Intake & Output 09/27/22 09/28/22 09/28/22 18:59 06:59 18:59 Intake Total 1697.652 Balance 1697.652 Intake: Intake, IV Titration 1457.652 Amount Etoposide 100 mg 257.652 vinCRIStine SULFATE 0.8 mg DOXOrubicin HCL 19 mg In Sodium Chloride 0.9% 500 ml 500 ml @ 21.471 mls/hr IV Q24H [facility] Rx#: [id number] Sodium Chloride 0.9% 1, 1200 000 ml @ 100 mls/hr IV . Q10H [facility] Rx#:[id number] Oral 240 Other: Voiding Method Toilet Toilet Toilet # Voids 1 # Bowel Movements 1 - Constitutional General appearance: Present: average body habitus, cooperative, no acute distress - EENT Eyes: Present: anicteric sclerae, EOMI ENT: Present: hearing grossly normal, normal oropharynx - Neck Neck: Present: normal ROM. Absent: lymphadenopathy - Respiratory Respiratory: bilateral: CTA - Cardiovascular Rhythm: regular Heart sounds: normal: S1, S2 Abnormal Heart Sounds: Absent: systolic murmur, diastolic murmur, rub, S3 Gallop, S4 Gallop, click, other - Peripheral edema leg Peripheral Edema: bilateral: None - Gastrointestinal General gastrointestinal: Present: normal bowel sounds, soft. Absent: absent bowel sounds, decreased bowel sounds, distended, hepatomegaly, hyperactive bowel sounds, organomegaly, rigid, scaphoid, splenomegaly, tenderness, umbilical hernia, ventral hernia - Integumentary Integumentary: Present: normal - Neurologic Neurologic: Present: CNII-XII intact - Musculoskeletal Musculoskeletal: Present: strength equal bilaterally - Psychiatric Psychiatric: Present: A&O x's 3, appropriate affect, intact judgment & insight - Labs CBC & Chem 7: 09/28/22 05:16 09/28/22 05:16 Labs: Abnormal Lab Results - Last 24 Hours (Table) 09/27/22 09/27/22 09/28/22 Range/Units 14:25 14:25 05:16 RBC 3.74 L 3.52 L (4.30-5.90) m/uL Hgb 11.6 L 10.9 L (13.0-17.5) gm/dL Hct 35.2 L 32.1 L (39.0-53.0) % RDW 17.0 H 16.7 H (11.5-15.5) % Lymphocytes # 0.1 L 0.1 L (1.0-4.8) k/uL Chloride 108 H (98-107) mmol/L Carbon Dioxide (22-30) mmol/L Creatinine 0.60 L (0.66-1.25) mg/dL Glucose 194 H (74-99) mg/dL Total Protein 6.1 L (6.3-8.2) g/dL 09/28/22 Range/Units 05:16 RBC (4.30-5.90) m/uL Hgb (13.0-17.5) gm/dL Hct (39.0-53.0) % RDW (11.5-15.5) % Lymphocytes # (1.0-4.8) k/uL Chloride 108 H (98-107) mmol/L Carbon Dioxide 21 L (22-30) mmol/L Creatinine 0.54 L (0.66-1.25) mg/dL Glucose 148 H (74-99) mg/dL Total Protein 5.5 L (6.3-8.2) g/dL Assessment and Plan (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 after review of vital signs and labs. -Patient reports he has all of his prescriptions -Continue Supportive medications -Ambulate ad lucila, encouraged -Labs daily -Discharged tomorrow a.m. attests: I have seen and examined patient, performed H&P, developed impression and plan of care. Discussed with dictator. Agree with documentation, dictated as a scribe
[2022-09-28 19:55] VITALS: RESP 16
[2022-09-29] MEDS: SALT AND SODA MOUTHWASH 1,000 ML PO SCH ×3 (00:03→12:03)
[2022-09-29] MEDS: SODIUM CHLORIDE 0.9% 1,000 ML IV SCH (05:25)
[2022-09-29 08:15] LABS: Anisocytosis Slight; Basophils % (A) 0 %; Eosinophils % (A) 1 %; HCT 34.8 % (39.0-53.0); HGB 11.7 gm/dL (13.0-17.5); Lymphocytes # (A) 0.1 k/uL (1.0-4.8); Lymphocytes % (A) 4 %; MCH 30.5 pg (25.0-35.0); MCHC 33.5 g/dL (31.0-37.0); MCV 90.9 fL (80.0-100.0); Monocytes # (A) 0.1 k/uL (0-1.0); Monocytes % (A) 4 %; Neutrophils # (A) 3.3 k/uL (1.3-7.7); Neutrophils % (A) 91 %; Platelet Count 179 k/uL (150-450); Poikilocytosis Slight; RBC 3.83 m/uL (4.30-5.90); RDW 16.3 % (11.5-15.5); WBC 3.6 k/uL (3.8-10.6)
[2022-09-29 08:30] LABS: ALT 19 U/L (4-49); AST 17 U/L (17-59); African American GFR (CKD) >90 (>60 ml/min/1.73 sqM); Albumin 3.8 g/dL (3.5-5.0); Alkaline Phosphatase 48 U/L (38-126); Anion Gap 6 mmol/L; Blood Urea Nitrogen 17 mg/dL (9-20); Calcium 8.6 mg/dL (8.4-10.2); Carbon Dioxide 27 mmol/L (22-30); Chloride 106 mmol/L (98-107); Globulin 1.9 g/dL; Glucose 117 mg/dL (74-99); Non-African American GFR(CKD) >90 (>60 ml/min/1.73 sqM); Potassium 3.7 mmol/L (3.5-5.1); Sodium 139 mmol/L (137-145); Total Protein 5.7 g/dL (6.3-8.2); Uric Acid 6.5 mg/dL (3.5-8.5)
[2022-09-29] MEDS: ACYCLOVIR 200 MG CAP PO SCH (09:11)
[2022-09-29] MEDS: predniSONE 50 MG TAB PO SCH (09:11)
[2022-09-29] MEDS: FLUCONAZOLE 100 MG TAB PO SCH (09:12)
[2022-09-29] MEDS: CHOLECALCIFEROL 125 MCG (5000 IU) TABLET PO SCH (09:12)
[2022-09-29] MEDS: FOLIC ACID 1 MG TAB PO SCH (09:12)
[2022-09-29] MEDS: allopurinoL 100 MG TAB PO SCH (09:12)
[2022-09-29] MEDS: predniSONE 20 MG TAB PO SCH (09:12)
[2022-09-29] MEDS: ENOXAPARIN 40 MG/0.4 ML SYRINGE SQ SCH (09:12)
[2022-09-29] MEDS: FLUTICASONE 50MCG/SPRAY NASAL 16GM EA NOSTRIL SCH (09:12)
--- NOTE | 2022-09-29 10:09 | P.PN ---
Subjective Progress Note Date: 09/29/22 Subjective: No acute events overnight. He denies any new complaints Pertinent positives and negatives as discussed above, a complete review of systems was performed and all other systems are negative. Vitals Signs Reviewed. Gen: awake, alert HEENT: normocephalic, atraumatic, good hearing acuity, moist mucous membranes Resp: good air exchange, breathing comfortably with no accessory muscle use CVS: good distal perfusion x 4, GI: soft, NTTP, ND : no SPT, no CVAT, guzman catheter not present MSK: no pitting edema, no clubbing Neuro: non-focal, moving all extremities Psych: cooperative, euthymic mood Data Reviewed Today: Hgb 11.7 BUN 17, Cr 0.51 Total protein 5.5 Assessment and Plan: B cell lymphoma Hypertension GERD -Blood count has been stable -Oncology following -As needed lisinopril -blood pressure currently stable -We'll continue to follow Thank you for allowing us to participate in the care of this pleasant patient. Do not hesitate to contact us with questions. Someone can be reached from the [facility] hospitalist group all hours of the day at [phone] or via [employer]. Objective - Vital Signs Vital signs: Vital Signs Temp 97.7 F 09/29/22 08:14 Pulse 65 09/29/22 08:14 Resp 16 09/29/22 09:31 BP 155/85 09/29/22 08:14 Pulse Ox 95 09/29/22 08:14 FiO2 Intake & Output 09/28/22 09/29/22 09/29/22 18:59 06:59 18:59 Intake Total 1200 Balance 1200 Intake: Oral 1200 Other: Voiding Method Toilet Toilet # Voids 2 2 - Labs CBC & Chem 7: 09/29/22 07:57 09/29/22 07:57 Labs: Abnormal Lab Results - Last 24 Hours (Table) 09/29/22 09/29/22 Range/Units 07:57 07:57 WBC 3.6 L (3.8-10.6) k/uL RBC 3.83 L (4.30-5.90) m/uL Hgb 11.7 L (13.0-17.5) gm/dL Hct 34.8 L (39.0-53.0) % RDW 16.3 H (11.5-15.5) % Lymphocytes # 0.1 L (1.0-4.8) k/uL Creatinine 0.51 L (0.66-1.25) mg/dL Glucose 117 H (74-99) mg/dL Total Protein 5.7 L (6.3-8.2) g/dL
[2022-09-29] MEDS: ONDANSETRON 16 MG in SODIUM CHLORIDE 0.9% 50 ML IVPB SCH (12:02)
[2022-09-29] MEDS: FAMOTIDINE 20 MG/2 ML VIAL IVP SCH (12:02)
--- NOTE | 2022-09-29 12:07 | P.DS ---
Providers Date of admission: 09/25/22 08:44 Expected date of discharge: 09/29/22 Attending physician: Alec Nava MD Consults: 09/25/22 11:00 Consult Physician Routine Consulting Provider: Drake Elizabeth Consult Reason/Comments: inpatient medical management Do you want consulting provider notified?: Yes Placement Type Exists?: Yes Primary care physician: Stated None - Discharge Diagnosis(es) (1) B-cell lymphoma Current Visit: Yes Status: Acute Priority: High Hospital Course: Patient admitted for cycle 6 of dose adjusted R-EPOCH. Tolerated treatment well. No adverse events. Labs and vitals stable. Assessment: Patient has follow-up tomorrow at [facility] for Neulasta injection and lab encounter for CBC, CMP and uric acid. Will schedule clinic follow-up every other day for lab recheck. Patient has follow-up with Dr. Alec Nava on 10/14 to discuss upcoming PET results Patient Condition at Discharge: Good Plan - Discharge Summary Discharge Rx Participant: Yes New Discharge Prescriptions: No Action Cholecalciferol [Vitamin D3 (125 Mcg = 5000 Iu)] 125 mcg PO DAILY Acyclovir [Zovirax] 400 mg PO BID lisinopriL 40 mg PO BID PRN PRN Reason: Blood Pressure - High Ciprofloxacin HCl [Cipro] 500 mg PO BID Folic Acid 1 mg PO DAILY allopurinoL 100 mg PO DAILY Fluconazole [Diflucan] 100 mg PO DAILY Fluticasone Nasal [place] [Flonase Nasal Dorrance] 1 spray EA NOSTRIL QAM Ondansetron Odt [Zofran ODT] 8 mg PO Q8HR PRN PRN Reason: Nausea Discharge Medication List Cholecalciferol [Vitamin D3 (125 Mcg = 5000 Iu)] 125 mcg PO DAILY 04/22/22 [History] allopurinoL 100 mg PO DAILY 07/03/22 [History] Acyclovir [Zovirax] 400 mg PO BID 08/07/22 [History] Fluconazole [Diflucan] 100 mg PO DAILY 08/07/22 [History] Fluticasone Nasal [place] [Flonase Nasal [place]] 1 spray EA NOSTRIL QAM 08/07/22 [History] Ondansetron Odt [Zofran ODT] 8 mg PO Q8HR PRN 08/07/22 [History] lisinopriL 40 mg PO BID PRN 08/26/22 [History] Ciprofloxacin HCl [Cipro] 500 mg PO BID 08/28/22 [History] Folic Acid 1 mg PO DAILY 09/25/22 [History] Follow up Appointment(s)/Referral(s): Alec Nava MD [STAFF PHYSICIAN] - 10/14/22 3:15 pm & Infusion,[facility] Procedures [REFERRING] - 09/30/22 2:30 pm ([facility] for Neulasta/labs) Activity/Diet/Wound Care/Special Instructions: Activity as tolerated Diet as tolerated [place] fluid intake Temperature monitoring. Call Oncologist with temperature 100.5 Fahrenheit or higher G-CSF (udenyca/white blood cell booster shot) to be administered at [facility], second floor, 09/30/20 at 2:30pm Discharge Disposition: HOME SELF-CARE Plan of Treatment: Patient has follow-up tomorrow at [facility] for Neulasta injection and lab encounter for CBC, CMP and uric acid. Will schedule clinic follow-up every other day for lab recheck. Patient has follow-up with Dr. Alec Nava on 10/14 to discuss upcoming PET results
[2022-09-29 12:45] VITALS: BP 152/87; PULSE 67; TEMP 98.1
== END 2022-09-29 14:27 | disposition home or self-care (01) | DRG 847 ==
LOC: 5NMEDONC 08:44
PROVIDERS: ADMIT Internal Medicine; ATTEND Internal Medicine
DX: Z51.11 Encounter for antineoplastic chemotherapy (principal); C83.30 Diffuse large B-cell lymphoma, unspecified site; I10 Essential (primary) hypertension; K21.9 Gastro-esophageal reflux disease without esophagitis; E78.5 Hyperlipidemia, unspecified; M19.90 Unspecified osteoarthritis, unspecified site; M10.9 Gout, unspecified; G52.3 Disorders of hypoglossal nerve; K76.9 Liver disease, unspecified; M06.9 Rheumatoid arthritis, unspecified; Z87.19 Personal history of other diseases of the digestive system; Z79.899 Other long term (current) drug therapy; Z88.5 Allergy status to narcotic agent; Z88.2 Allergy status to sulfonamides; Z88.1 Allergy status to other antibiotic agents; Z87.891 Personal history of nicotine dependence
CPT/HCPCS: 80053; 84550; 85025

== ENCOUNTER → 2022-10-09 | Outpatient (CLI) | payer MEDICARE, OTHER ==
--- NOTE | 2022-10-11 10:32 | PE ---
EXAMINATION TYPE: PET CT fusion skull to thigh DATE OF EXAM: 10/09/2022 CLINICAL INDICATION:Male, 62 years old with history of C85.98 lymphoma; TECHNIQUE: Following the intravenous administration of 10.67 mCi of F-18 FDG, whole body images are performed from the skull base to the midthigh. Images are reviewed on the computer in the coronal, axial, and sagittal planes. Reconstructed rotating images are created on independent workstation and reviewed on the computer. A non-contrast CT is performed in conjunction with the PET scan. Glucose level 98 mg/dL COMPARISON: CT 06/15/2022, PET/CT 05/08/2022, FINDINGS: Mediastinal SUV mean is 1.3. Hepatic parenchyma SUV mean is 1.7. SKULL BASE AND NECK: * Left neck lymph node has resolved * Right assistant produce manager space measuring 9 mm Max SUV 3.4 CHEST, MEDIASTINUM, AND HILAR REGION: * Prevascular lymph node measuring 10 mm in short axis and max SUV 4.4. ABDOMEN AND PELVIS: * Previous innumerable metastatic foci to the liver are no longer visualized. The FDG activity withi n the liver is now more homogenous. The liver size is decreased in size compared to prior likely seco ndary to decreasing since burden of malignancy. * Right psoas muscle FDG activity has resolved, previously max SUV 8.3 * Mild left hydronephrosis has resolved * FDG activity within the perirenal fascia bilaterally has resolved * Seminal vesicles has decreased in size and demonstrates resolution of prior FDG activity. * Right iliacus intramuscular uptake has resolved * Focal splenic uptake has resolved. * Prevascular space of Retzius lymph node has resolved. OSSEOUS STRUCTURES: Diffuse disease throughout the osseous structures which could represent use of CSF. OTHER CT: Streaky atelectasis within the lung bases. The heart is mildly enlarged for size. Mild dina nary artery calcifications. Mild paranasal sinus disease within the sphenoid sinuses. Trace ascites. Secretions within the prostate gland. Mild circumferential wall thickening of the urinary bladder. IMPRESSION: 1. Positive response of therapy with out evidence for abnormal FDG activity at this time. 2. Diffuse osseous uptake favored represent CSF use an less likely metastatic disease. 3. Differential wall thickening of the bladder correlate for any residual cystitis.
== END | disposition home or self-care (01) ==
LOC: RADPETMAIN 13:29
PROVIDERS: ATTEND Internal Medicine
DX: C85.98 Non-Hodgkin lymphoma, unspecified, lymph nodes of multiple sites (principal)
CPT/HCPCS: 78815; A9552

== ENCOUNTER 2022-10-14 07:53 | Day surgery (SDC) | payer MEDICARE, OTHER ==
[2022-10-14] MEDS ORDERED: METHOTREXATE SODIUM (PF) 25 MG/ML 2 ML VIAL INTRATHECA NR (08:00)
[2022-10-14 08:20] VITALS: TEMP 97.7
[2022-10-14] MEDS ORDERED: diazePAM 5 MG TAB PO STA (08:20)
[2022-10-14 10:41] VITALS: RESP 16
--- NOTE | 2022-10-14 10:58 | FL ---
EXAMINATION TYPE: FL guided lumbar puncture LP DATE OF EXAM: 10/14/2022 10:12 AM COMPARISON: 09/23/2022 CLINICAL INDICATION:Male, 62 years old with history of C85.19; neoplasm TECHNIQUE: Fluoroscopic assisted lumbar puncture. FINDINGS: Fluoroscopic guidance was provided during lumbar puncture procedure for intrathecal chemot herapy performed by myself. A total of 18 seconds of fluoroscopic time was utilized during the proce dure and 3 spot images was acquired. 1 lateral radiograph is obtained. Total dose area product (DAP) in uGy*m?, mGy*cm? (or similar): n/a. The procedure was explained to the patient. Risks complications and benefits were discussed. Alternat odilon were discussed. All questions were answered. Informed consent was obtained by a nurse. A timeout was performed. The L3-L4 level was chosen with success in accessing the spinal canal. Maximum barrier sterile techni que was utilized. The skin was cleansed with Betadine and the patient sterilely prepped and draped in the usual manner. The skin and deeper tissue was anesthetized with 1% Lidocaine. Utilizing an 18-gau ge spinal needle the spinal canal was accessed. There is mildly delayed CSF return 3.5 cc of obtained for the oncology nurse. Oncology nurse then gave intrathecal chemotherapy and flush over a extended time. The patient tolerated the procedure well. Discharge instructions were discussed with the patient. Th e patient was in the hospital for short stay after the procedure and then discharge home in stable an d satisfactory condition. IMPRESSION: As Above.
[2022-10-14 13:43] VITALS: BP 119/75; PULSE 91
--- NOTE | 2022-10-14 18:38 | P.PCN ---
Date of Procedure: 10/14/22 Preoperative Diagnosis: Burkitt's/aggressive B cell lymphoma Postoperative Diagnosis: Burkitt's/aggressive B cell lymphoma Procedure(s) Performed: LP with IT MTX administration IV fluids (ml): 0 Pathology: other (sent for flow cytometry and cytology) Condition: stable Disposition: same day Indications for Procedure: Burkitt's/aggressive B-cell lymphoma Description of Procedure: LP was performed by Interventional Radiologist. 3.5 cc of clear cerebrospinal fluid was removed. 12 mg of sterile, preservative-free methotrexate diluted to a volume of 2.4 cc with sterile normal saline was instilled over 2-1/2 minutes, Catheter was flushed with 1.1 cc of sterile normal saline in a latex free syringe. Patient tolerated procedure well.
--- NOTE | 2022-10-14 18:41 | P.PCN ---
Date of Procedure: 09/24/22 Preoperative Diagnosis: Burkitt's/aggressive B cell lymphoma Postoperative Diagnosis: Burkitt's/aggressive B cell lymphoma Procedure(s) Performed: LP with IT MTX administration Estimated Blood Loss (ml): 2 IV fluids (ml): 0 Pathology: other (flow cytometry and cytology) Condition: stable Disposition: same day Indications for Procedure: Prophylactic treatment for Burkitt's/aggressive B cell lymphoma Description of Procedure: LP was performed by Interventional Radiologist. 2.8 cc of bloody, cerebrospinal fluid was removed. 12 mg of sterile, preservative-free methotrexate diluted to a volume of 2.4 cc with sterile normal saline was instilled over 2-1/2 minutes, Catheter was flushed with 0.5 cc of sterile normal saline and a latex free syringe. Patient tolerated procedure well.
== END 2022-10-14 13:50 | disposition home or self-care (01) ==
LOC: RADPROMAIN 07:53
PROVIDERS: ATTEND Internal Medicine
DX: C85.10 Unspecified B-cell lymphoma, unspecified site (principal)
CPT/HCPCS: 88108; 88184; 88185; 96450; J9260; 62328

== ENCOUNTER 2023-06-11 10:34 | Emergency (ER) | payer MEDICARE, OTHER ==
[2023-06-11 11:01] VITALS: TEMP 98.1
[2023-06-11 11:34] VITALS: RESP 16
[2023-06-11 11:35] LABS: INR 0.9 (<1.2); Partial Thromboplastin Time 26.4 sec (22.0-30.0); Prothrombin Time 10.3 sec (10.0-12.5)
[2023-06-11 11:36] LABS: ALT 35 U/L (4-49); African American GFR (CKD) >90 (>60 ml/min/1.73 sqM); Albumin 4.3 g/dL (3.5-5.0); Anion Gap 11 mmol/L; Blood Urea Nitrogen 22 mg/dL (9-20); Calcium 8.9 mg/dL (8.4-10.2); Carbon Dioxide 18 mmol/L (22-30); Chloride 110 mmol/L (98-107); Glucose 98 mg/dL (74-99); Non-African American GFR(CKD) >90 (>60 ml/min/1.73 sqM); Sodium 139 mmol/L (137-145); Total Bilirubin 0.9 mg/dL (0.2-1.3); Total Protein 7.1 g/dL (6.3-8.2)
[2023-06-11 11:41] LABS: AST 38 U/L (17-59); Alkaline Phosphatase 54 U/L (38-126); Magnesium 1.7 mg/dL (1.6-2.3); Potassium 3.9 mmol/L (3.5-5.1)
--- NOTE | 2023-06-11 11:44 | XR ---
EXAMINATION TYPE: XR chest 2V DATE OF EXAM: 06/11/2023 COMPARISON: 06/15/2022 TECHNIQUE: PA and lateral views submitted. HISTORY: Chest pain FINDINGS: The lungs are clear and there is no pneumothorax, pleural effusion, or focal pneumonia. Heart size normal and no overt failure. Osseous structures demonstrate hypertrophic and degenerative changes of the spine. AC joint arthropathy. IMPRESSION: 1. No acute process.
[2023-06-11 11:47] LABS: Basophils # (A) 0.1 k/uL (0-0.2); Basophils % (A) 1 %; Eosinophils # (A) 0.1 k/uL (0-0.7); Eosinophils % (A) 1 %; HCT 45.3 % (39.0-53.0); HGB 15.9 gm/dL (13.0-17.5); Lymphocytes # (A) 0.6 k/uL (1.0-4.8); Lymphocytes % (A) 14 %; MCH 30.2 pg (25.0-35.0); MCHC 35.1 g/dL (31.0-37.0); Mean Platelet Volume 8.3; Monocytes # (A) 0.8 k/uL (0-1.0); Monocytes % (A) 18 %; Neutrophils # (A) 2.7 k/uL (1.3-7.7); Neutrophils % (A) 62 %; Platelet Count 118 k/uL (150-450); RBC 5.27 m/uL (4.30-5.90); RDW 13.9 % (11.5-15.5); WBC 4.4 k/uL (3.8-10.6)
[2023-06-11] MEDS: NITROGLYCERIN SL TABS 0.4 MG TAB SUBLINGUAL STA (12:01)
--- NOTE | 2023-06-11 12:10 | ED ---
Chest Pain HPI - General Chief Complaint: Chest Pain Stated Complaint: CHEST PAIN Time Seen by Provider: 06/11/23 11:04 Source: patient, RN notes reviewed Mode of arrival: ambulatory Limitations: no limitations - History of Present Illness Initial Comments: This is a 62-year-old male who presents to the emergency department for chest pain, headaches, body aches, and fatigue. Symptoms started 3 days ago. States that the last time he felt this way was when he was diagnosed with lymphoma. He has been in remission since September. He does have blood work done regularly, and most recently had blood work done in March, 2 months ago. This was normal and he has repeat blood work scheduled for next month. He was told that he may have had a minor cardiac event 20+ years ago, but has otherwise been doing fine cardiac-kendall since. Chest pain is described as a squeezing sensation. Denies any radiation of pain or shortness of breath. MD Complaint: chest pain - Related Data Home Medications Medication Instructions Recorded Confirmed Cholecalciferol [Vitamin D3 (125 125 mcg PO DAILY 04/22/22 06/11/23 Mcg = 5000 Iu)] Calcium Carbonate [Calcium] 600 mg PO DAILY 06/11/23 06/11/23 Magnesium Oxide [Magnesium] 500 mg PO DAILY 06/11/23 06/11/23 Vitamin E (Dl,Tocopheryl Acet) 400 unit PO DAILY 06/11/23 06/11/23 [Vitamin E (400 Iu = 180 mg)] Previous Rx's Medication Instructions Recorded Ketorolac [Toradol] 10 mg PO Q6HR PRN #15 tab 06/11/23 Allergies Allergy/AdvReac Type Severity Reaction Status Date / Time sulfamethoxazole Allergy Rash/Hives Verified 06/11/23 12:08 [From Bactrim] trimethoprim [From Bactrim] Allergy Rash/Hives Verified 06/11/23 12:08 tramadol AdvReac hallucinations Verified 06/11/23 12:08 & nightmares Review of Systems ROS Statement: Those systems with pertinent positive or pertinent negative responses have been documented in the HPI. ROS Other: All systems not noted in ROS Statement are negative. Past Medical History Past Medical History: Cancer, GERD/Reflux, Hyperlipidemia, Hypertension, Osteoarthritis (OA) Additional Past Medical History / Comment(s): hiatal hernia, gout, non hogkins B-cell Lymphoma , rectal abscess with drainage History of Any Multi-Drug Resistant Organisms: None Reported Past Surgical History: Orthopedic Surgery, Tonsillectomy Additional Past Surgical History / Comment(s): claude shoulder rotator cuff repair, cyst removal rt wrist, oral surgery , surgery for pyloric stenosis as Past Anesthesia/Blood Transfusion Reactions: No Reported Reaction Past Psychological History: No Psychological Hx Reported Smoking Status: Never smoker Past Alcohol Use History: Occasional Past Drug Use History: Marijuana - Past Family History Mother Family Medical History: No Reported History Father Family Medical History: Unable to Obtain General Exam Limitations: no limitations General appearance: alert, in no apparent distress Head exam: Present: atraumatic, normocephalic, normal inspection Respiratory exam: Present: normal lung sounds bilaterally. Absent: respiratory distress, wheezes, rales, rhonchi, stridor Cardiovascular Exam: Present: regular rate, normal rhythm, normal heart sounds. Absent: systolic murmur, diastolic murmur, rubs, gallop, clicks Neurological exam: Present: alert, oriented X3, CN II-XII intact Psychiatric exam: Present: normal affect, normal mood Skin exam: Present: warm, dry, intact, normal color. Absent: rash Course Vital Signs 06/11/23 06/11/23 06/11/23 10:43 11:18 14:01 Temperature 98.1 F Pulse Rate 82 75 78 Respiratory 18 16 16 Rate Blood Pressure 153/94 124/94 108/77 O2 Sat by Pulse 97 97 98 Oximetry Chest Pain MDM - MDM This is a 62-year-old male who presents to the emergency department for chest pain, headaches, and body aches. Was pt. sent in by a medical professional or institution? @ -No Did you speak to anyone other than the patient for history? @ -No Did you review nursing and triage notes? @ -Yes, and I agree, it is accurate with regards to the patient's symptoms. Were old charts reviewed? @ -No Differential Diagnosis? @ -Differential Chest Pain: Stable Angina, Unstable Angina, STEMI, NSTEMI Aortic Dissection, Pneumothorax, Musculoskeletal, Esophageal Spasm GERD, Cholecystitis, Pancreatitis, Zoster, this is not meant to be an all-inclusive list. EKG interpreted by me (3pts min.)? @ -EKG interpreted by me demonstrating the following: Sinus rhythm. Ve ntricular rate 77 bpm, ID interval 178 ms, QRS duration 97 ms, QTC 373 ms. X-rays interpreted by me (1pt min.)? @ -Chest x-ray obtained, my interpretation identifies no localized consolidations or infiltrates. CT interpreted by me (1pt min.)? @ -Not obtained U/S interpreted by me (1pt. min.)? @ -Not obtained What testing was considered but not performed? (CT, X-rays, U/S, labs)? Why? @ -None What meds were considered but not given? Why? @ -None Did you discuss the management of the patient with other professionals? @ -No Did you reconcile home meds? @ -No Was smoking cessation discussed for >3mins.? @ -No Was critical care preformed (if so, how long)? @ -No Were there social determinants of health that impacted care today? How? (Homelessness, low income, unemployed, alcoholism, drug addiction, transportation, low edu. Level, literacy, decrease access to med. care, long-term, rehab)? @ -No Was there de-escalation of care discussed even if they declined? (Discuss DNR or withdrawal of care, Hospice)? @ -No What co-morbidities impacted this encounter? (DM, HTN, Smoking, COPD, CAD, Cancer, CVA, Hep., AIDS, mental health diagnosis, sleep apnea, morbid obesity)? @ -HLD, HTN, Hx of lymphoma Was patient admitted / discharged? @ -Discharged. Lab work obtained and found to be unremarkable, including a negative troponin. Chest x-ray reveals no acute process. Urinalysis negative for signs of infection. Patient is positive for COVID-19. He was given a dose of nitroglycerin without any relief in chest pain. He was subsequently given a migraine cocktail to help with both the headache and chest pain with the Toradol. This consisted of Toradol, Decadron, Reglan, and Benadryl. He essentially had resolution of the headache and chest pain after receiving these medications. I did offer a repeat troponin, however patient declined and stated that he felt much better and wanted to go home. I did also offer antiviral treatment for Covid, however the patient also declined. Prescription for Toradol provided with dosing instructions reviewed. Undiagnosed new problem with uncertain prognosis? @ -None Drug Therapy requiring intensive monitoring for toxicity (Heparin, Nitro, Insulin, Cardizem)? @ -None Were any procedures done? @ -None Diagnosis/symptom? @ -COVID-19, chest pain, headache Acute, or Chronic, or Acute on Chronic? @ -Acute Uncomplicated (without systemic symptoms) or Complicated (systemic symptoms)? @ -Uncomplicated Side effects of treatment? @ -None Exacerbation, Progression, or Severe Exacerbation] @ -Not applicable Poses a threat to life or bodily function? @ -No Return precautions reviewed in depth, the patient is instructed to return to the emergency department with any new, worsening, or concerning symptoms. Patient verbalized understanding. This case was discussed in detail with the attending ED physician, Dr. Wheeler. Presentation, findings, and treatment plan discussed in detail as well. Disposition Clinical Impression: COVID-19, Chest pain, Headache Disposition: HOME SELF-CARE Instructions (If sedation given, give patient instructions): Chest Pain (ED), COVID-19 (Coronavirus Disease 2019) (ED), How to Recover from COVID-19 at Home (ED) Additional Instructions: Return to the emergency department with any new, worsening, or concerning symptoms. Take the Toradol with Tylenol as needed for pain relief. If you choose to take the Toradol, do not take any other anti-inflammatories such as ibuprofen, take one or the other. Follow up with your primary care provider in 1-2 days. Prescriptions: Ketorolac [Toradol] 10 mg PO Q6HR PRN #15 tab PRN Reason: Pain Is patient prescribed a controlled substance at d/c from ED?: No Referrals: Tom Sandy DO [Primary Care Provider] - 1-2 days Time of Disposition: 13:50
[2023-06-11] MEDS: KETOROLAC 15 MG/ML 1 ML VIAL IVP STA (12:44)
[2023-06-11] MEDS: DEXAMETHASONE SOD PHOSPHATE 10 MG/ML 1 ML VIAL IVP STA (12:45)
[2023-06-11] MEDS: SODIUM CHLORIDE 0.9% 1,000 ML IV STA (12:45)
[2023-06-11] MEDS: diphenhydrAMINE 50 MG/ML 1 ML VIAL IVP STA (12:45)
[2023-06-11] MEDS: METOCLOPRAMIDE 5 MG/ML 2 ML VIAL IVP STA (12:45)
[2023-06-11 12:55] LABS: Appearance,Urine Clear (Clear); Bilirubin,Urine Negative (Negative); Blood,Urine Negative (Negative); Color,Urine Colorless; Glucose,Urine (UA) Negative (Negative); Ketones,Urine Negative (Negative); Leukocyte Esterase,Urine Negative (Negative); Nitrite,Urine Negative (Negative); PH, Urine 5.5 (5.0-8.0); Protein,Urine Negative (Negative); Urobilinogen,Urine <2.0 mg/dL (<2.0)
[2023-06-11 14:11] VITALS: BP 108/77; PULSE 78
== END 2023-06-11 14:02 | disposition home or self-care (01) ==
LOC: EC 10:34
DX: U07.1 COVID-19 (principal); I10 Essential (primary) hypertension; E78.5 Hyperlipidemia, unspecified; F12.90 Cannabis use, unspecified, uncomplicated; Z88.1 Allergy status to other antibiotic agents; Z88.2 Allergy status to sulfonamides; Z88.5 Allergy status to narcotic agent; Z85.72 Personal history of non-Hodgkin lymphomas
CPT/HCPCS: 99285; 96374; 96375 ×3; 96361; 36415; 93005; 80053; 83735; 84484; 85025; 85610; 85730; 81003; 87636; 71046; J1200; J1100; J2765; J1885

== ENCOUNTER → 2023-10-25 | Outpatient (CLI) | payer MEDICARE, OTHER ==
--- NOTE | 2023-10-26 09:36 | CT ---
EXAMINATION TYPE: CT ChestAbdPelvis w con CT DLP: 883.9 mGycm, Automated exposure control for dose reduction was used. DATE OF EXAM: 10/25/2023 4:26 PM COMPARISON: PET CT 10/09/2022, CT abdomen and pelvis 06/15/2022, CTA chest 05/10/2022, CT abdomen and pe lvis 05/10/2022 CLINICAL INDICATION:Male, 63 years old with history of C83.79 LYMPHOMA; [facility], f/u lymphoma Technique: Multiple axial images of the chest, abdomen, and pelvis were obtained following the intrav enous administration of 100 mL Isovue-300. Oral contrast was administered. Two-dimensional coronal an d sagittal reconstructions were obtained. Findings: CHEST: LUNGS/ PLEURA: Minimal bibasilar dependent subsegmental atelectasis. No pleural effusion or pneumoth orax. No focal consolidation. No suspicious pulmonary nodule or mass. AIRWAY: Patent and unremarkable.. HEART: Mild prominent size. No pericardial effusion. MEDIASTINUM: No enlarged lymph nodes measuring greater than 1 cm short axis. VASCULATURE: No aortic aneurysm. MUSCULOSKELETAL: No acute osseous abnormalities. No aggressive osseous lesion. SOFT TISSUES/LYMPH NODES: Unremarkable. LOWER NECK: No significant findings. ABDOMEN: ABDOMEN LIVER: Previously seen multiple hepatic hypodense lesions throughout the liver are not well appreciat ed on today's examination and have completely/near completely resolved. GALLBLADDER AND BILE DUCTS: Unremarkable. PANCREAS: Unremarkable. SPLEEN: Previously seen splenic lesion is no longer visualized. ADRENAL GLANDS: Unremarkable. KIDNEYS AND URETERS: No evidence of hydronephrosis or renal calculus. The kidneys enhance symmetrical ly. Contrast is demonstrated within both collecting systems on the delayed phase. Bilateral subcentim eter hypodense foci which are too small to accurately characterize but likely represent cysts. PELVIS BLADDER: Unremarkable REPRODUCTIVE: Coarse calcifications of the prostate gland are identified. ABDOMEN & PELVIS STOMACH AND BOWEL: Stomach and duodenum are unremarkable. Few scattered distal colonic diverticula wi thout evidence for acute diverticulitis. No focal bowel wall thickening. The appendix is within fiona l limits. Enteric contrast reaches the distal small bowel. No evidence of bowel obstruction. Resoluti on of previous demonstrated pararectal abscess. PERITONEUM: No evidence of pneumoperitoneum or free fluid. VASCULATURE: Mild atherosclerotic calcifications are present throughout the abdominal aorta and its b ranches. MUSCULOSKELETAL: No acute osseous abnormalities. No aggressive osseous lesion. LYMPH NODES: No enlarged lymph nodes measuring greater than 1 cm short axis. SOFT TISSUE/ABDOMINAL WALL: Unremarkable IMPRESSION: 1. Positive response to therapy with no pathologically adenopathy identified throughout the chest, ab domen or pelvis. Previously seen multiple hepatic and splenic lesions are no longer identified. 2. Colonic diverticulosis without evidence for acute diverticulitis.
== END | disposition home or self-care (01) ==
LOC: RADCTMAIN 14:14
PROVIDERS: ATTEND Internal Medicine
DX: C83.79 Burkitt lymphoma, extranodal and solid organ sites (principal); K57.30 Diverticulosis of large intestine without perforation or abscess without bleeding; Z71.3 Dietary counseling and surveillance
CPT/HCPCS: 71260; 74177; Q9967

== ENCOUNTER → 2024-10-16 | Outpatient (CLI) | payer MEDICARE, OTHER ==
--- NOTE | 2024-10-16 07:40 | CT ---
EXAMINATION TYPE: CT ChestAbdPelvis w con DATE OF EXAM: 10/16/2024 7:32 AM COMPARISON: 10/25/2023.. CLINICAL INDICATION: Male, 64 years old with history of C83.79 [place] LYMPHOMA; [facility], Follow up for l ymphoma. In remission x2 years. No complaints per patient. Technique: CT ChestAbdPelvis w con; Multiple axial images were obtained. Two-dimensional coronal and sagittal reconstructions were obtained. Contrast used:100ml mL of Isovue 300 with IV Contrast, (None if empty) Oral contrast used: without Oral Contrast CT DLP: 1212.9 mGycm, Automated exposure control for dose reduction was used. Findings: CHEST: LUNGS/ PLEURA: No focal consolidation, pneumothorax or pleural effusion. AIRWAY: Patent and unremarkable. HEART: Size within normal limits. No significant coronary artery calcifications. MEDIASTINUM: No gross evidence of adenopathy. VASCULATURE: No aortic aneurysm. MUSCULOSKELETAL: Mild disc degeneration changes are present throughout the thoracolumbar spine. SOFT TISSUES/LYMPH NODES: Unremarkable. LOWER NECK: No significant findings. ABDOMEN: ABDOMEN LIVER: Diffusely hypoattenuating parenchyma. GALLBLADDER AND BILE DUCTS: Unremarkable. PANCREAS: Unremarkable. SPLEEN: Unremarkable. ADRENAL GLANDS: Unremarkable. KIDNEYS AND URETERS: No evidence of hydronephrosis or obstructing renal calculus. The ureters are unr emarkable. PELVIS BLADDER: Unremarkable REPRODUCTIVE: Unremarkable. ABDOMEN & PELVIS STOMACH AND BOWEL: No evidence of bowel obstruction. Scattered colonic diverticula. PERITONEUM/RETROPERITONEUM: No evidence of pneumoperitoneum or free fluid. VASCULATURE: Mild atherosclerotic calcifications are present throughout the abdominal aorta and its b ranches. No evidence of aortic aneurysm. MUSCULOSKELETAL: No acute osseous abnormalities. Mild disc degeneration changes are present throughou t the thoracolumbar spine. LYMPH NODES: No gross evidence for lymphadenopathy. SOFT TISSUE/ABDOMINAL WALL: Unremarkable IMPRESSION: No pathologically adenopathy identified throughout the chest, abdomen or pelvis. Colonic diverticulosis without evidence for acute diverticulitis. [facility], , 10/16/2024 7:38 AM
== END | disposition home or self-care (01) ==
LOC: RADCTMAIN 06:45
PROVIDERS: ATTEND Internal Medicine
DX: C83.79 Burkitt lymphoma, extranodal and solid organ sites (principal); K57.30 Diverticulosis of large intestine without perforation or abscess without bleeding
CPT/HCPCS: 71260; 74177; Q9967